=== PATIENT | male | born 1985 | race Caucasian/White ===

== ENCOUNTER 2022-10-17 09:55 | Outpatient (AMB) | payer OTHER, SELFPAY ==
--- NOTE | 2022-10-17 09:59 | A.OFFPC_ITS ---
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 Accompanied by: Self / Same As Patient Allergies No Known Allergies Allergy (Verified 10/17/22 10:10) Medication List - Last Reconciled 10/17/22 by MEMO Jaramillo omeprazole 20 mg PO DAILY Tobacco use date assessed: 10/17/22 Dental Screening Dental Screen Date: 10/17/22 Did you have a dental visit in the last 12 months?: Yes Did you have a dental problem in the last 6 months where you did not have access to dental care?: No Was dental information given to patient?: Patient has dentist HPI HPI Comments History of Present Illness Details 36-bee-old male new patient presents today for physical exam. Past medical history significant for GERD, anxiety,depression, esophagitis s/p esophageal dilation in November 2021. Patient reports was never able to follow up with GI as he is in the [employer] and was being re-stationed. Will sent referral to GI. Patient does report has throat pain susana and feels like it gets inflamed. Occasionally food gets stuck. Denies vomiting has occasional nausea. Patient also reporst fatigue and requesting to have his testosterone checked. Patient reported previously on sertraline for anxiety and depression but states he is feeling better since he changed up his work routine. [facility] Medical History (Updated 10/17/22 @ 10:34 by MEMO Jaramillo) Anxiety and depression Esophagitis History of esophageal dilatation Obstructive sleep apnea Surgical History (Updated 10/17/22 @ 10:12 by MEMO Jaramillo) H/O nasal septoplasty History of knee surgery History of tonsillectomy Family History (Updated 10/17/22 @ 10:13 by MEMO Jaramillo) Father Hypertension Heart attack, Onset Age: 35 Mother No problems noted. Paternal Grandfather Heart attack Social History (Updated 10/17/22 @ 10:13 by MEMO Jaramillo) Housing: House Alcohol intake: current Alcohol intake frequency: holidays/special occasions only Alcohol type: hard liquor Patient Tobacco Use Status: Never used Tobacco e-Cigarette/Vaping Use: Never Used Second Hand Smoke Exposure: No service: Yes Current occupational status: employed Current occupational exposures/hazards: No Cognitive needs: No Hearing needs: No Vision needs: Yes Questionnaire PHQ-9 Over the last 2 weeks, how often have you been bothered by any of the following problems? 1. Little interest or pleasure in doing things: not at all 2. Feeling down, depressed, or hopeless: not at all 3. Trouble falling or staying asleep, or sleeping too much: not at all 4. Feeling tired or having little energy: not at all 5. Poor appetite or overeating: not at all 6. Feeling bad about yourself - or that you are a failure or have let yourself or your family down: not at all 7. Trouble concentrating on things, such as reading the newspaper or watching television: not at all 8. Moving or speaking so slowly that other people could have noticed. Or the opposite - being so fidgety or restless that you have been moving around a lot more than usual: not at all 9. Thoughts that you would be better off or of hurting yourself in some way: not at all Total score: 0 Depression Screening Interpretation: Negative 62403 - PHQ-9 Billing: Yes Source: Developed by Drs. Tobias Rangel, Beth Dickens, Felipe Max and colleagues, with an educational yruy from [employer]. Thrive Questionnaire Date Thrive assessed: 10/17/22 I am a: Patient What is your living situation today?: I have a steady place to live Within the past 12 months, did the food you bought not last and you didn't have the money to get more?: Never true Within the past 12 months, did you worry whether your food would run out before you got money to buy more?: Never true Do you have trouble paying for medicines?: No Do you have trouble getting transportation to medical appointments?: No Do you have trouble paying your heating and electricity bill?: No Do you have trouble taking care of your child, family member or friend?: No Do you have trouble with day-to-day activities such as bathing, preparing meals, shopping, managing finances, etc.?: No Are you currently unemployed and looking for a job?: No Are you interested in more education?: No Please select the resources that you would like help with: None Currently or been in a relationship where the following occur: no concerns reported AUDIT C Alcohol Use Questionnaire (AUDIT-C) 1. How often do you have a drink containing alcohol?: Monthly or less 2. How many drinks containing alcohol do you have on a typical day when you are drinking?: 1 or 2 3. How often do you have six or more drinks on one occasion?: Never Total Score: 1 BERENICE-7 AMB Questionnaire BERENICE-7 Date BERENICE - 7 assessed: 10/17/22 Feeling nervous, anxious, or on edge: 0 = Not at all Not being able to stop or control worryin = Not at all Worrying too much about different things: 0 = Not at all Trouble relaxin = Not at all Being so restless that it is hard to sit still: 0 = Not at all Becoming easily annoyed or irritable: 0 = Not at all Feeling afraid as if something awful might happen: 0 = Not at all Total BERENICE-7 score (0-4 normal; 5-9 mild; 10-14 moderate; 15-21 severe): 0 Source: Developed by Drs. Tobias Rangel, Beth Dickens, Felipe Max and colleagues, with an educational yury from [employer]. BERENICE-7 Assessment Billing BERENICE-7 Assessment Tool: BERENICE-7 Assessment 87561 Review of Systems Const Denies chills, Denies fatigue, Denies fever(s) and Denies poor appetite Eyes Denies no additional complaints ENT Reports Normal hearing present Card Denies chest pain, Denies syncope, Denies rapid heart rate and Denies dyspnea Resp Denies cough and Denies dyspnea GI Denies change in stool character, Denies constipation, Denies diarrhea, Denies nausea and Denies vomiting Denies dysuria, Denies urinary frequency and Denies urinary urgency Neuro Reports Normal hearing present, Denies confusion and Denies syncope Psych Denies confusion Endo Denies fatigue Physical exam (Primary Care) Vital Signs: Last Vital Signs Pulse 63 10/17/22 10:00 BP 112/80 10/17/22 10:00 Pulse Ox 97 10/17/22 10:00 Oxygen Delivery Method Room Air 10/17/22 10:00 BMI result Body Mass Index 31.9 Tobacco/Smoking Status: Tobacco use Status Tobacco use date assessed 10/17/22 10/17/22 10:07 Patient Tobacco Use Status Never used Tobacco 10/17/22 10:13 e-Cigarette/Vaping Use Never Used 10/17/22 10:13 PHQ-9: PHQ-9 Score PHQ-9: Total score 0 10/17/22 10:19 Depression Screening Interpretation: Negative Thrive Assessment: Date of Thrive Assessment Date Thrive assessed 10/17/22 10/17/22 10:07 Currently or been in a relationship where the following occur: no concerns reported Const General: No confusion Orientation/consciousness: No confusion HENMT Head: Yes normocephalic and Yes atraumatic Ears: external ears normal and TM's normal bilaterally General nose exam: Normal external nose present and Normal nasal mucous membranes and turbinates present Face and sinus: Yes normal facial exam and Yes sinuses nontender Mouth: moist mucous membranes Throat: Yes tonsils normal Eyes Conjunctivae: conjunctivae normal Sclerae: sclerae normal Pupils: Equal, round and reactive pupils present and Pupils normal by confrontation EOM: EOMs intact bilaterally Direct Ophthalmoscopy: normal light reflex Neck Neck: Yes no lymphadenopathy and Yes supple Thyroid: diffusely enlarged Chest Chest palpation & inspection: normal inspection of the chest Resp Effort & Inspection: normal respiratory effort Auscultation: clear to auscultation bilaterally, no crackles, no rhonchi and no wheezes Cardio Rate: regular rate Rhythm: regular rhythm Peripheral pulses: radial pulses present and dorsalis pedis present GI Inspection: Yes normal to inspection Palpation (GI): Soft to palpation, nontender and No hepatosplenomegaly present Auscultation: normoactive bowel sounds Skin General skin exam: no rashes or lesions noted Neuro General: No confusion Cranial nerves: Yes Equal, round and reactive pupils present and Yes Normal hearing present Cognition (Neuro): normal cognition Gait exam (Neuro): Normal gait present Motor exam (neuro): 5/5 motor strength present throughout Deep tendon reflexes (DTR's): Right brachioradialis reflex intensity grade: 2+, Left brachioradialis reflex intensity grade: 2+, Right patellar reflex intensity grade: 2+ and Left patellar reflex intensity grade: 2+ Extrem General: No edema Assessment and Plan Assessment & Plan (1) Fatigue: Code(s): R53.83 - Other fatigue Plan: Will draw testosterone as requested by patient along with routine labs, vitamin D, B12,folate and B1 to assess for any deficiencies. (2) Obstructive sleep apnea: Code(s): G47.33 - Obstructive sleep apnea (adult) (pediatric) Plan: Patient uses CPAP for greater than 4 hours a night with good effect. Referral entered to pulmonology to establish care. Patient requesting new CPAP equipement. (3) Goiter: Code(s): E04.9 - Nontoxic goiter, unspecified Plan: Thyroid U/S ordered to [facility]. (4) Esophagitis: Code(s): K20.90 - Esophagitis, unspecified without bleeding Plan: Referral entered to GI to establish care. (5) GERD (gastroesophageal reflux disease): Code(s): K21.9 - Gastro-esophageal reflux disease without esophagitis Plan: Continue on omeprazole. Avoid the food that cause symptoms. keep HOB elevated, after eating do not lay down 3-4 hours (6) Physical exam, annual: Code(s): Z00.00 - Encounter for general adult medical examination without abnormal findings Plan: Follow up in 1 year, Orders: Orders Vitamin B12 and Folate Today Z13.21 - Encounter for screening for nutritional disorder Comprehensive [place]. Panel Fast Today R53.83 - Other fatigue Lipid Panel Today Z13.220 - Encounter for screening for lipoid disorders Testosterone, Free/Total Today R53.83 - Other fatigue TSH reflex Free T4 Today Z13.29 - Encounter for screening for other suspected endocrine disorder Vitamin B1 Today R53.83 - Other fatigue Vitamin D 25-OH Total Today Z13.21 - Encounter for screening for nutritional disorder Complete Blood Count Auto Diff Today Z13.0 - Encounter for screening for diseases of the blood and blood-forming organs and certain disorders involving the immune mechanism US thyroid Today E04.9 - Nontoxic goiter, unspecified Referrals Gastroenterology Referral K20.90 - Esophagitis, unspecified without bleeding, K21.9 - Gastro-esophageal reflux disease without esophagitis Pulmonology Referral G47.33 - Obstructive sleep apnea (adult) (pediatric) Coding Level of Care Code New Pt Prev Care 18-39yr([id number] Diagnoses Fatigue R53.83 Obstructive sleep apnea G47.33 Goiter E04.9 Esophagitis K20.90 GERD (gastroesophageal reflux disease) K21.9 Physical exam, annual Z00.00 Additional Codes BERENICE-7 Assessment Billing - BERENICE-7 Assessment Tool: BERENICE-7 Assessment [id number] ([id number])
[2022-10-17 10:00] VITALS: BP 112/80; PULSE 63; O2SAT 97; BMI 31.9
== END 2022-10-17 10:35 | disposition home or self-care (01) ==
PROVIDERS: PCP Nurse Practitioner Family; Visit Provider Nurse Practitioner Family
DX: Z00.00 Encounter for general adult medical examination without abnormal findings (principal); E04.9 Nontoxic goiter, unspecified; K21.9 Gastro-esophageal reflux disease without esophagitis; R53.83 Other fatigue; G47.33 Obstructive sleep apnea (adult) (pediatric); K20.90 Esophagitis, unspecified without bleeding
CPT/HCPCS: 99385

== ENCOUNTER 2022-10-21 10:03 | Outpatient (REF) | payer OTHER, SELFPAY ==
[2022-10-21 10:31] LABS: MANUAL DIFF FLAG NO
[2022-10-21 11:02] LABS: Basophils Percent Auto 0.5 % (0-2); Eosinophils Absolute Auto 0.2 X10*3/uL (0.0-0.4); Eosinophils Percent Auto 2.4 % (0-4); Hematocrit 46.2 % (42.0-52.0); Hemoglobin 15.9 g/dl (14.0-18.0); Imm Gran Abs Auto 0.02 X10*3/uL (0.00-0.03); Imm Gran Pct Auto 0.3 % (0.0-0.4); Lymphocytes Absolute Auto 2.2 X10*3/uL (1.2-4.9); Lymphocytes Percent Auto 34.7 % (20-40); Mean Corpuscular HGB Conc 34.4 g/dl (31.0-36.0); Mean Corpuscular Hemoglobin 30.6 pg (27.0-33.0); Mean Corpuscular Volume 88.8 fL (80.0-98.0); Mean Platelet Volume 11.9 fL (9.4-12.4); Monocytes Absolute Auto 0.7 X10*3/uL (0.1-1.2); Monocytes Percent Auto 11.8 % (2-11); Neutrophils Absolute Auto 3.2 x10*3/uL (2.0-8.3); Neutrophils Percent Auto 50.3 % (45-73); Platelet Count 173 X10*3/uL (160-400); Red Cell Distribution Width 11.6 % (11.0-16.0); White Blood Count 6.3 X10*3/uL (4.8-10.8)
[2022-10-21 19:58] LABS: Alanine Aminotransferase 37 U/L (0-40); Albumin Level 4.3 g/dL (3.5-5.0); Alkaline Phosphatase 100 U/L (39-117); Anion Gap 15 (12-20); Aspartate Amino Transferase 28 U/L (5-37); Bilirubin Total 0.9 mg/dL (0.0-1.0); Blood Urea Nitrogen 17 mg/dL (9-16); Calcium 9.9 mg/dL (8.4-10.2); Carbon Dioxide 25 mmol/L (22-29); Chloride 103 mmol/L (96-108); Cholesterol 225 mg/dL; Estimated Glomerular Filt Rate > 60; Glucose Fasting 85 mg/dL (60-99); HDL Cholesterol 44 mg/dL; LDL Cholesterol Calculated 157 mg/dl; Potassium 4.1 mmol/L (3.3-5.1); Sodium 139 mmol/L (135-145); Total Protein 7.9 g/dL (6.5-8.0); Triglycerides 123 mg/dL
[2022-10-21 20:15] LABS: TSH reflex Free T4 1.27 uIU/mL (0.32-4.0); Vitamin D 25-OH Total 53.3 ng/mL (>30)
[2022-10-21 20:28] LABS: Folate 10.7 ng/mL (> or = 4.0); Vitamin B12 981 pg/mL (200-900)
[2022-10-26 16:22] LABS: Vitamin B1 12 nmol/L (8-30)
[2022-10-26 21:03] LABS: Testosterone, Free 86.7 pg/mL (35.0-155.0); Testosterone, Total 466 ng/dL (250-1100)
== END 2022-10-21 10:04 | disposition home or self-care (01) ==
LOC: HO.LAB 10:03
PROVIDERS: PCP Nurse Practitioner Family; Visit Provider Nurse Practitioner Family
DX: Z13.21 Encounter for screening for nutritional disorder (principal); Z13.0 Encounter for screening for diseases of the blood and blood-forming organs and certain disorders involving the immune mechanism; Z13.220 Encounter for screening for lipoid disorders; Z13.29 Encounter for screening for other suspected endocrine disorder; R53.83 Other fatigue; E78.5 Hyperlipidemia, unspecified; E55.9 Vitamin D deficiency, unspecified
CPT/HCPCS: 36415; 80053; 80061; 82306; 82607; 82746; 84402; 84403; 84425; 84443; 85025

== ENCOUNTER 2022-10-31 15:29 | Outpatient (REF) | payer OTHER, SELFPAY ==
--- NOTE | ~2022-10-31 | US_ITS ---
EXAMINATION: US THYROID CLINICAL INFORMATION: Nontoxic goiter, unspecified. COMPARISON: None available. TECHNIQUE: Linear transducer grayscale and color Doppler examination with attention to the region of the thyroid. FINDINGS: SIZE: Measurements of the thyroid lobes and nodules are given in sagittal, anteroposterior and transverse dimensions respectively. Right Thyroid Lobe: 5.7 x 2.0 x 1.8 cm, volume 10.7 mL. Parenchyma: The gland echotexture is homogeneous. Thyroid vascularity is normal. Left Thyroid Lobe: 5.8 x 1.7 x 1.5 cm, volume 7.7 mL. Parenchyma: The gland echotexture is homogeneous. Thyroid vascularity is normal. Isthmus: 0.2 cm in maximum AP dimension. No focal thyroid nodule is seen. NODES: No lymphadenopathy is seen in the tissue surrounding the thyroid gland. US/US thyroid IMPRESSION: 1. There is a mild asymmetric goiter, left lobe greater than right. 2. Otherwise, unremarkable examination. ACR TI-RADS RECOMMENDATION REFERENCE: Ultrasound-guided fine-needle aspiration, followup ultrasound, no further follow up. * TR1 (0 point) and TR2 (2 points): No FNA or follow up. * TR3 (3 points): FNA if more than or equal to 2.5 cm in maximum dimension, followup ultrasound in 1, 3 and 5 years if 1.5 to 2.4 cm in maximum dimension. * TR4 (4-6 points): FNA if more than or equal to 1.5 cm in maximum dimension, followup ultrasound in 1, 2, 3 and 5 years if 1 to 1.4 cm in maximum dimension. * TR5 (more than or equal to 7 points): FNA if more than or equal to 1 cm in maximum dimension, followup ultrasound every year for 5 years if 0.5 to 0.9 cm in maximum dimension. * TR3, TR4 or TR5 nodules that are below the size threshold for followup receive no follow up.
== END 2022-10-31 15:30 | disposition home or self-care (01) ==
LOC: HO.HMGCX 15:29
PROVIDERS: PCP Nurse Practitioner Family; Visit Provider Nurse Practitioner Family
DX: E04.9 Nontoxic goiter, unspecified (principal)
CPT/HCPCS: 76536

== ENCOUNTER 2022-11-18 11:00 | Outpatient (AMB) | payer OTHER, SELFPAY ==
[2022-11-18 11:05] VITALS: BP 120/55; PULSE 71; BMI 32.5
--- NOTE | 2022-11-18 11:05 | A.OFFVIS_ITS ---
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 Patient was sent by his PCP. Patient reports occasional dyspepsia with dysphagia without odynophagia. Patient feels like food gets stuck talk and sometimes it hard to swallow. Patient reports that about 2 years ago when he used to live in [place] he had upper endoscopy and he was diagnosed is esophagitis and states that his esophagus was stretched then. Patient reports that he was doing well after for a while, however recently his symptoms of acid reflux and dyspepsia as well as occasional dysphagia came back. Patient reports that sometimes he will have trouble swallowing mainly solid food and feels difficulty in his her old. Patient is currently on omeprazole daily and feels like his symptoms have not improved since he started taking it. Patient denies choking episodes. Recently had neck ultrasound did show goiter. Patient reports that he is moving his bowel well. Denies any constipation or diarrhea. This nice any postprandial abdominal pain or bloating. Patient denies any nausea or vomiting. Denies any other GI concerning symptoms. [facility] Medical History Anxiety and depression Esophagitis History of esophageal dilatation Obstructive sleep apnea Surgical History H/O nasal septoplasty History of knee surgery History of tonsillectomy Family History Father Hypertension Heart attack, Onset Age: 35 Mother No problems noted. Paternal Grandfather Heart attack Social History Housing: House Alcohol intake: current Alcohol intake frequency: holidays/special occasions only Alcohol type: hard liquor Patient Tobacco Use Status: Never used Tobacco e-Cigarette/Vaping Use: Never Used Second Hand Smoke Exposure: No service: Yes Current occupational status: employed Current occupational exposures/hazards: No Cognitive needs: No Hearing needs: No Vision needs: Yes Review of Systems Const Denies weight gain and Denies weight loss ENT Reports no additional complaints, Reports dysphagia and Denies odynophagia Card Reports no additional complaints Resp Reports no additional complaints GI Denies abdominal pain, Denies belching, Denies melena, Denies bloating, Denies change in bowel habits, Reports dysphagia, Denies excessive flatus, Denies dyspepsia, Reports heartburn, Denies diarrhea, Denies loose stools, Denies nausea, Denies odynophagia and Denies vomiting Reports no additional complaints Musc Reports no additional complaints Neuro Reports no additional complaints Psych Reports no additional complaints Endo Reports no additional complaints Physical Exam Vital Signs: Last Vital Signs Pulse 71 11/18/22 11:05 BP 120/55 L 11/18/22 11:05 BMI result Body Mass Index 32.5 Const General: healthy appearing, no acute distress and well developed Nutritional Appearance: obese Orientation/consciousness: patient oriented x3 HEENT Head: Yes normal to inspection, Yes normocephalic and Yes atraumatic Face and sinus: Yes normal facial exam Mouth: Normal oral and palatal mucosa present Throat: Yes posterior oropharynx normal, Yes tonsils normal and Yes uvula midline Eyes General: appearance normal, both eyes and all related structures Neck Neck: Yes normal visual inspection, Yes full ROM and Yes trachea midline Thyroid: Thyroid normal Resp Effort & Inspection: normal respiratory effort, able to speak in complete sentences, no tracheal deviation and symmetric chest movement Auscultation: clear to auscultation bilaterally Cardio Rate: regular rate Heart sounds: S1 normal heart sound present and S2 normal heart sound present GI Inspection: Yes normal to inspection, No distended and Yes obesity Palpation (GI): Soft to palpation, not firm, nontender and No hepatosplenomegaly present Auscultation: normal bowel sounds General: Yes no CVA tenderness Back/Spine/Pelvis Back: no CVA tenderness Skin General skin exam: elasticity normal, turgor normal and dry skin Neuro General: patient oriented x3 Psych Appearance: grossly normal Mental Status: mental status grossly normal Speech and movement: Normal speech and movement present Assessment & Plan Assessment & Plan (1) GERD (gastroesophageal reflux disease): Code(s): K21.9 - Gastro-esophageal reflux disease without esophagitis Qualifiers: Esophagitis presence: esophagitis presence not specified Qualified Code(s): K21.9 - Gastro-esophageal reflux disease without esophagitis Plan: Patient reports history of esophagitis. Patient currently is taking omeprazole and still feels like his symptoms are not suppressed. Will start him on Nexium and he can take famotidine at bedtime. Patient will as are so encouraged to avoid dietary triggers and late night snacking. Staying upright for minimum 3 hours after meals discussed with patient. (2) Dysphagia: Code(s): R13.10 - Dysphagia, unspecified Qualifiers: Dysphagia type: oropharyngeal phase Qualified Code(s): R13.12 - Dysphagia, oropharyngeal phase Plan: Occasional dysphagia and dyspepsia. Patient will be sent for upper endoscopy to rule out eosinophilic esophagitis. I will see him after the procedure. Patient does have a history of sleep apnea and is using CPAP machine every night. Patient denies any respiratory or cardiac symptoms. Not on any anticoagulation medication. Patient is agreeable to this plan and verbalizes understanding of instructions. He was given the opportunity to ask questions and all questions answered. Medications: New famotidine (Pepcid) 20 mg PO BEDTIME 30 tabs 3RF K21.9 - Gastro-esophageal reflux disease without esophagitis esomeprazole magnesium (Nexium) 40 mg PO DAILY 30 caps 5RF K21.9 - Gastro- esophageal reflux disease without esophagitis Coding Level of Care Code New Pt Level 3 (12354) Diagnoses GERD (gastroesophageal reflux disease) K21.9 Esophagitis presence: esophagitis presence not specified Dysphagia R13.12 Dysphagia type: oropharyngeal phase Time Spent (min) 40 Comment 30 minutes spent with patient and additional 10 minutes spent reviewing his records
== END 2022-11-18 11:31 | disposition home or self-care (01) ==
PROVIDERS: PCP Nurse Practitioner Family; Visit Provider Nurse Practitioner Family
DX: K21.9 Gastro-esophageal reflux disease without esophagitis (principal); R13.12 Dysphagia, oropharyngeal phase
CPT/HCPCS: 99203

== ENCOUNTER → 2022-11-18 11:00 | Outpatient (BNVA) | payer OTHER, SELFPAY | PROVIDERS: PCP Nurse Practitioner Family; Visit Provider Nurse Practitioner Family | DX: K21.9 Gastro-esophageal reflux disease without esophagitis (principal); R13.12 Dysphagia, oropharyngeal phase | CPT/HCPCS: 99202 ==

== ENCOUNTER 2022-12-20 10:04 | Outpatient (AMB) | payer OTHER, SELFPAY ==
[2022-12-20 10:11] VITALS: BP 110/64; PULSE 77; O2SAT 97; BMI 33.3
--- NOTE | 2022-12-20 10:11 | MHC.OFFVIS ---
Intake Vital Signs 12/20/22 10:11 Height 5 ft 10 in Weight 232 lb BMI 33.3 BP 110/64 Blood Pressure Location Lt brachial Position Sitting Pulse 77 Pulse Source Pulse Oximeter Pulse Oximetry (%) 97 Oxygen Delivery Method Room Air Intake Visit Reasons: Obstructive sleep apnea Intake Note: pt is here as a new patient for BRIDGER, sleep study was done in [place] in 2018. needs replacement, machine saying end of life. 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 He is serving in the [employer] and based at [facility] at this time, for the past 1 year. Regionally he was based in [place]. About 5 years ago, he had a polysomnogram study in a sleep lab in [place]. The study was performed because he had history of frequent awakenings with gasping like feeling, at night, And excessive daytime sleepiness for quite a few years. He has been using CPAP machine every night. Without using the CPAP he is not able to sleep well anyway. The machine is 5 years old and some nights not functioning well. Also he is not able to get supplies. We do not have copy of his previous sleep study, he is going to try to get some information for us. [facility] Medical History (Updated 12/20/22 @ 10:46 by Ernst Hernandez MD) Somnolence, daytime Retrognathia Obesity (BMI 30.0-34.9) Anxiety and depression Obstructive sleep apnea History of esophageal dilatation Esophagitis Surgical History H/O nasal septoplasty History of tonsillectomy History of knee surgery Family History Father Hypertension Heart attack, Onset Age: 35 Mother No problems noted. Paternal Grandfather Heart attack Social History Housing: House Alcohol intake: current Alcohol intake frequency: holidays/special occasions only Alcohol type: hard liquor Patient Tobacco Use Status: Never used Tobacco e-Cigarette/Vaping Use: Never Used Second Hand Smoke Exposure: No service: Yes Current occupational status: employed Current occupational exposures/hazards: No Cognitive needs: No Hearing needs: No Vision needs: Yes Review of Systems Const All systems reviewed & are unremarkable except as noted in HPI and below Eyes Reports no additional complaints ENT Reports no additional complaints and Reports dysphagia Card Denies chest pain, Denies irregular heart rhythm, Denies leg edema and Denies dyspnea on exertion Resp Denies cough, Denies dyspnea on exertion and Denies wheezing GI Reports dysphagia and Reports heartburn (Being treated for GERD, has had esophageal dilatation.) Reports no additional complaints Musc Reports no additional complaints Skin/Breast Reports system reviewed and no additional complaints, except as documented Neuro Reports no additional complaints Psych Reports depression (Past history but not now) Endo Reports no additional complaints Keo/Lymph Reports no additional complaints Aller/Immun Reports no additional complaints and Denies wheezing Physical Exam Vital Signs: Last Vital Signs Pulse 77 12/20/22 10:11 BP 110/64 12/20/22 10:11 Pulse Ox 97 12/20/22 10:11 Oxygen Delivery Method Room Air 12/20/22 10:11 BMI result Body Mass Index 33.3 He is moderately obese, with a round face, and slight regression of the chin . Const General: healthy appearing, comfortable, no acute distress, alert and awake Orientation/consciousness: patient oriented x3 HEENT Head: Yes normal to inspection General nose exam: No nasal polyps present and No nasal discharge present Face and sinus: Yes sinuses nontender Mouth: oropharynx abnormals (Somewhat crowded, Mallampati class 3) Throat: Yes posterior oropharynx normal and Yes other (He does have mild Retro ganthia of the lower jaw ) Eyes General: appearance normal, both eyes and all related structures Neck Neck: Yes normal visual inspection, Yes no lymphadenopathy, Yes trachea midline, Yes no JVD and Yes other (Neck circumference 18 in) Thyroid: Thyroid normal Chest Chest palpation & inspection: normal inspection of the chest, normal palpation of entire chest wall and no tenderness Resp Effort & Inspection: normal respiratory effort Auscultation: clear to auscultation bilaterally, no crackles and no wheezes Cardio Palpation: normal PMI Rate: regular rate Rhythm: regular rhythm Heart sounds: no gallops and no murmurs Peripheral pulses: Peripheral pulses 2+ throughout GI Palpation (GI): Soft to palpation, nontender, No hepatosplenomegaly present and no masses Auscultation: normal bowel sounds Back/Spine/Pelvis Thoracic/Lumbar Spine: thoracic and lumbar spine normal to inspection Skin General skin exam: no rashes or lesions noted Neuro General: patient oriented x3 and no focal motor deficits Cranial nerves: Yes CN's II-XII intact bilaterally Extrem General: Yes normal to inspection, Yes no clubbing, cyanosis or edema and Yes no calf tenderness Psych Speech and movement: Normal speech and movement present Results Reviewed Results Reviewed: We are trying to get copy of his Sleep Study in 2018 Assessment & Plan Assessment & Plan (1) Obstructive sleep apnea: Comment: Known to have obstructive sleep apnea since 2018. Has been using CPAP regularly. Currently CPAP device is 5 years old and not functioning well at times. He needs to have a new CPAP device, with compliance data monitoring capability. * I think he should have a new home-based sleep study to document the diagnosis , and then request for a new device. Code(s): G47.33 - Obstructive sleep apnea (adult) (pediatric) (2) Obesity (BMI 30.0-34.9): Comment: He is moderately obese with a round face. 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 He does do regular exercise. Has not been able to lose much weight. Code(s): E66.9 - Obesity, unspecified (3) Retrognathia: Comment: Natty dental examination reveals a mild degree of Retroganthia of the lower jaw, and this the is definitely contributing to his sleep apnea. Code(s): M26.19 - Other specified anomalies of jaw-cranial base relationship (4) Somnolence, daytime: Comment: If he does not use the CPAP next day he is not able to function well due to being overly sleepy. Code(s): R40.0 - Somnolence Orders: Orders RT home sleep study Today E66.9 - Obesity, unspecified, G47.33 - Obstructive sleep apnea (adult) (pediatric), M26.19 - Other specified anomalies of jaw-cranial base relationship, R40.0 - Somnolence Coding Level of Care Code New Pt Level 3 (26822) Diagnoses Obstructive sleep apnea G47.33 Obesity (BMI 30.0-34.9) E66.9 Retrognathia M26.19 Somnolence, daytime R40.0
== END 2022-12-20 10:33 | disposition home or self-care (01) ==
PROVIDERS: PCP Nurse Practitioner Family; Referring Provider Nurse Practitioner Family; Visit Provider Internal Medicine
DX: G47.33 Obstructive sleep apnea (adult) (pediatric) (principal); E66.9 Obesity, unspecified; M26.19 Other specified anomalies of jaw-cranial base relationship; R40.0 Somnolence
CPT/HCPCS: 99203

== ENCOUNTER → 2022-12-20 10:04 | Outpatient (BNVA) | payer OTHER, SELFPAY | PROVIDERS: PCP Nurse Practitioner Family; Visit Provider Internal Medicine ==

== ENCOUNTER 2023-02-01 09:21 | Day surgery (SDC) | payer OTHER, SELFPAY ==
[2023-01-30 14:25] VITALS: BMI 32.6
--- NOTE | 2023-01-31 10:53 | HO.ANESPROP2 ---
Documented by User: Verena Mas NP 01/31/23 10:56 HPI - Anesthesia Eval Consult details Narrative: 37yo M for Upper Endoscopy with Balloon Dilitation BRIDGER / Retrognathia (lower jaw set back) [facility], [facility] Active Problems Active Problems: All Active Problems (Updated 12/20/22 @ 10:46 by Ernst Hernandez MD) Somnolence, daytime (Acute) Retrognathia (Acute) Obesity (BMI 30.0-34.9) (Acute) Goiter (Acute) Obstructive sleep apnea (Acute) Fatigue (Acute) Esophagitis (Acute) GERD (gastroesophageal reflux disease) (Acute) Past Medical History Medical History (Updated 12/20/22 @ 10:46 by Ernst Hernandez MD) Somnolence, daytime Retrognathia Obesity (BMI 30.0-34.9) Anxiety and depression Obstructive sleep apnea History of esophageal dilatation Esophagitis Family History Family History Father Hypertension Heart attack, Onset Age: 35 Mother No problems noted. Paternal Grandfather Heart attack Surgical History Surgical History H/O nasal septoplasty History of tonsillectomy History of knee surgery Social History Social History Housing: House Alcohol intake: current Alcohol intake frequency: holidays/special occasions only Alcohol type: hard liquor Patient Tobacco Use Status: Never used Tobacco e-Cigarette/Vaping Use: Never Used Second Hand Smoke Exposure: No Advance Directives: No Advance Directives Information Provided: Yes service: Yes Current occupational status: employed Current occupational exposures/hazards: No Cognitive needs: No Hearing needs: No Vision needs: Yes Meds Allergies Allergy/AdvReac Type Severity Reaction Status Date / Time No Known Allergies Allergy Verified 12/20/22 10:32 Home Medications Medication Instructions Recorded Confirmed Last Taken Type omeprazole 20 mg capsule,delayed 20 mg PO DAILY 12/20/22 01/30/23 Unknown History release famotidine 20 mg tablet 20 mg PO BEDTIME 01/30/23 01/30/23 Unknown History Exam Exam Date and Time: January 31, 2023 1053 Height,Weight and Vital Signs: Height 5 ft 10 in Weight 102.965 kg Pertinent Lab Results Pertinent Lab Results: Laboratory Tests 10/21/22 10:29 WBC 6.3 Hgb 15.9 Hct 46.2 Plt Count 173 Sodium 139 Potassium 4.1 Chloride 103 Carbon Dioxide 25 BUN 17 H Creatinine 0.92 Assessment and Plan Assessment Anesthesia Assessment: Chart Reviewed Documented by User: Harjit Santiago MD 02/01/23 11:20 [facility] Past Medical History Medical History (Updated 12/20/22 @ 10:46 by Ernst Hernandez MD) Somnolence, daytime Retrognathia Obesity (BMI 30.0-34.9) Anxiety and depression Obstructive sleep apnea History of esophageal dilatation Esophagitis Family History Family History Father Hypertension Heart attack, Onset Age: 35 Mother No problems noted. Paternal Grandfather Heart attack Family history of problems with anesthesia: No Surgical History Surgical History H/O nasal septoplasty History of tonsillectomy History of knee surgery History of Problems with Anesthesia: No Social History Social History Housing: House Alcohol intake: current Alcohol intake frequency: holidays/special occasions only Alcohol type: hard liquor Patient Tobacco Use Status: Never used Tobacco e-Cigarette/Vaping Use: Never Used Second Hand Smoke Exposure: No Advance Directives: No Advance Directives Information Provided: Yes service: Yes Current occupational status: employed Current occupational exposures/hazards: No Cognitive needs: No Hearing needs: No Vision needs: Yes Meds Allergies Allergy/AdvReac Type Severity Reaction Status Date / Time No Known Allergies Allergy Verified 12/20/22 10:32 Home Medications Medication Instructions Recorded Confirmed Last Taken Type omeprazole 20 mg capsule,delayed 20 mg PO DAILY 12/20/22 01/30/23 Unknown History release famotidine 20 mg tablet 20 mg PO BEDTIME 01/30/23 01/30/23 Unknown History Exam Airway Mallampati Class: III TM Dist: >3cm Neck ROM: Full Heart: rrr Lungs: cta Assessment and Plan Assessment Anesthesia Assessment: Anesthesia Plan Discussed Final Anesthetic Review Family History of Problems with Anesthesia: No History of Problems with Anesthesia: No NPO: Yes ASA Class: II Final Preanesthetic Review: No Changes in Pt Med Stat, Meds/Allgs Chart Reviewed, Consent Obtained/Reviewed and Anes Risks/Benef Reviewed Patient Risk: Intermediate Procedure Risk: Intermediate Anesthetic Plan Anesthetic Plan: MAC: and Agree w/ Assess. and Plan Disposition: Standard PACU
[2023-02-01 09:58] VITALS: BP 121/80; PULSE 74; RESP 20; TEMP 36.4; O2SAT 96
[2023-02-01] MEDS: Lactated Ringers 1,000 ML 100 ML IVCONT (10:06)
--- NOTE | 2023-02-01 11:18 | MHC.SHP ---
Pre-Procedural Eval Section A Date of Service: 02/01/23 Section B Chief Complaint: Gastro-esophageal reflux disease without esophagit Relevant Family History (Specify if Yes): No Relevant Social History: None Present Medications: see Short Stay Collaborative assessment Medical History: Significant History (Somnolence, daytime Retrognathia Obesity (BMI 30.0-34.9) Anxiety and depression Obstructive sleep apnea History of esophageal dilatation Esophagitis) History of Previous Operations: Relevant previous surgery/procedure and date(s) (H/O nasal septoplasty History of tonsillectomy History of knee surgery) Allergies: Allergies Allergy/AdvReac Type Severity Reaction Status Date / Time No Known Allergies Allergy Verified 12/20/22 10:32 Review of Systems Sugical H&P ROS: Negative: Constitution, Cardiovascular, Respiratory, Neurological, Psychiatric, Hem-Onc, Allergic/Immunologic, Gastrointestinal, Genitourinary, Musculoskeletal, Integumentary, Endocrine and Eyes/Ears/Nose/Throat Exam Surgical H&P Exam: Normal: HEENT, Normal: Heart, Normal: Lungs, Normal: Extremities, Normal: Abdomen, Normal: Skin and Normal: Neurological Plan Diagnosis/Plan: Unchanged I have reviewed the history and physical and performed a pertinent physical examination on my patient. No changes have occurred unless specified. Time Spent With Patient Time: Total time managing care of this patient today ____ minutes.
--- NOTE | 2023-02-01 11:20 | W.PM.OPN ---
Operative Note Operative Note Date of Service: 02/01/23 Narrative: Procedure Description: EGD Indication: [] Anesthesia: MAC FLEXIBLE TRANSORAL UPPER GASTROINTESTINAL ENDOSCOPY UPPER ENDOSCOPY Consent: Indications for the procedure and potential complications of bleeding, perforation, reaction to medications and missed diagnosis were discussed with the patient and informed consent was obtained. Instrument: Olympus GIF H 190 J mid size upper endoscope Monitoring: Vital signs and clinical assessment, continuous EKG monitoring, Pulse oximetry, Carbon Dioxide monitoring and blood pressure monitoring were done throughout the procedure. Procedure: The patient was placed in the left lateral decubitis position and pre-procedure medications were administered and a bite block was placed. The endoscope was inserted into the mouth and advanced under direct vision to the third part of duodenum. A careful inspection was made as the upper endoscope was withdrawn including a retroflexed examination of the proximal stomach; Findings and interventions are described below. Findings: Larynx: mild erythema of vocal cords Esophagus: GE junction at 40 cm, diaphragm hiatus at 42 cm, consistent with 2 cm sliding hiatal hernia, there was bogginess and erythema at the GEJ, bx taken, also from distal and proximal esophagus--balloon dilation done of UES to 20 mm and UES to 19 mm, no tears seen --one clip was applied over a biopsy site that kept bleeding Stomach: Patchy gastric erythema. Biopsies were obtained. Grade 2 flap valve on retroflexed examination of the cardia. Duodenum: Normal bulb and descending duodenum, Intervention: Biopsies as noted above, balloon dilation Impression/Findings: hiatal hernia esophagitis gastritis PLAN: await biopsies might consider increasing PPI dose or go to BID dosing -will await results
[2023-02-01 11:55] VITALS: BP 118/79; PULSE 82; RESP 15; TEMP 36.1; O2SAT 98
[2023-02-01 12:10] VITALS: BP 127/76; PULSE 70; RESP 20; TEMP 36.1; O2SAT 95
== END 2023-02-01 12:49 | disposition home or self-care (01) ==
PROVIDERS: Visit Provider Internal Medicine Gastroenterology
PROC: (CPT 43249; principal; 2023-02-01 11:00)
DX: K20.90 Esophagitis, unspecified without bleeding (principal); K29.70 Gastritis, unspecified, without bleeding; K44.9 Diaphragmatic hernia without obstruction or gangrene; K22.89 Other specified disease of esophagus; R13.10 Dysphagia, unspecified; K21.9 Gastro-esophageal reflux disease without esophagitis; E66.9 Obesity, unspecified; Z68.32 Body mass index [BMI] 32.0-32.9, adult; G47.33 Obstructive sleep apnea (adult) (pediatric); Z99.89 Dependence on other enabling machines and devices; Z79.899 Other long term (current) drug therapy
CPT/HCPCS: 43249; 43239; 88305; 88342; C1726; J2704

== ENCOUNTER → 2023-02-01 09:21 | Outpatient (BNV) | payer OTHER, SELFPAY | PROVIDERS: Visit Provider Internal Medicine Gastroenterology | DX: R13.10 Dysphagia, unspecified (principal); K29.70 Gastritis, unspecified, without bleeding; K20.90 Esophagitis, unspecified without bleeding | CPT/HCPCS: 43249 ==

== ENCOUNTER 2023-02-15 09:52 | Outpatient (AMB) | payer OTHER, SELFPAY ==
--- NOTE | 2023-02-15 10:02 | MHC.OFFVIS ---
Intake Vital Signs 02/15/23 10:04 Height 5 ft 10 in Weight 238 lb 1.588 oz BMI 34.2 BP 111/65 Blood Pressure Location Lt brachial Position Sitting Pulse 84 Intake Visit Reasons: s/p egd dil Intake Note: Rickey presents in the office as a follow up EGD w/ Dil. CC: he states that he feels the same as he did prior to the procedure. He states the issue swallowing has improved but reflux is all the same. It is easier to swallow food. Allergies No Known Allergies Allergy (Verified 02/15/23 10:04) HPI s/p egd dil HPI Details LAST VISIT GERD (gastroesophageal reflux disease) Patient reports history of esophagitis. Patient currently is taking omeprazole and still feels like his symptoms are not suppressed. Will start him on Nexium and he can take famotidine at bedtime. Patient will as are so encouraged to avoid dietary triggers and late night snacking. Staying upright for minimum 3 hours after meals discussed with patient. Dysphagia Occasional dysphagia and dyspepsia. Patient will be sent for upper endoscopy to rule out eosinophilic esophagitis. I will see him after the procedure. Patient does have a history of sleep apnea and is using CPAP machine every night. Patient denies any respiratory or cardiac symptoms. Not on any anticoagulation medication. Patient is agreeable to this plan and verbalizes understanding of instructions. He was given the opportunity to ask questions and all questions answered. Plan Medications New famotidine (Pepcid) 20 mg PO BEDTIME 30 tabs 3RF K21.9 - Gastro-esophageal reflux disease without esophagitis esomeprazole magnesium (Nexium) 40 mg PO DAILY 30 caps 5RF K21.9 - Gastro-esophageal reflux disease without esophagitis ENDOSCOPY: Findings: Larynx: mild erythema of vocal cords Esophagus: GE junction at 40 cm, diaphragm hiatus at 42 cm, consistent with 2 cm sliding hiatal hernia, there was bogginess and erythema at the GEJ, bx taken, also from distal and proximal esophagus--balloon dilation done of UES to 20 mm and UES to 19 mm, no tears seen --one clip was applied over a biopsy site that kept bleeding Stomach: Patchy gastric erythema. Biopsies were obtained. Grade 2 flap valve on retroflexed examination of the cardia. Duodenum: Normal bulb and descending duodenum, Intervention: Biopsies as noted above, balloon dilation Impression/Findings: hiatal hernia esophagitis gastritis PATHOLOGY RESULTS: Diagnosis A. Stomach, biopsies: Mild chronic inactive gastritis; no evidence of H. pylori, intestinal metaplasia or dysplasia. B. G-E junction, biopsies: Inflamed squamoglandular junctional mucosa with reactive changes, no evidence of intestinal metaplasia or dysplasia. C. Distal esophagus, biopsies: Esophageal squamous mucosa with no diagnostic abnormality; no evidence of active esophagitis, fungal organisms, dysplasia or malignancy. D. Proximal esophagus, biopsies: Esophageal squamous mucosa with no diagnostic abnormality; no evidence of active esophagitis, fungal organisms, dysplasia or malignancy TODAY'S VISIT Patient is here today for follow-up and to discuss upper endoscopy results. Patient denies any ill effects from anesthesia or procedure itself. Patient reports that he is feeling better. His swallowing has improved. As mentioned above patient had balloon dilation. He however continues to have acid reflux and dyspepsia. Patient is currently taking omeprazole every morning. Trying to avoid eating food that is spicy or fried. Occasionally eating late at night. Patient denies any nausea or vomiting. Denies any abdominal pain or discomfort. GE junction mild inflammation seen, however no active esophagitis seen in distal or proximal esophagus. [facility] Medical History Somnolence, daytime Retrognathia Obesity (BMI 30.0-34.9) Anxiety and depression Obstructive sleep apnea History of esophageal dilatation Esophagitis Surgical History History of esophagogastroduodenoscopy (EGD) H/O nasal septoplasty History of tonsillectomy History of knee surgery Family History Father Hypertension Heart attack, Onset Age: 35 Mother No problems noted. Paternal Grandfather Heart attack Social History Housing: House Alcohol intake: current Alcohol intake frequency: holidays/special occasions only Alcohol type: hard liquor Patient Tobacco Use Status: Never used Tobacco e-Cigarette/Vaping Use: Never Used Second Hand Smoke Exposure: No service: Yes Current occupational status: employed Current occupational exposures/hazards: No Cognitive needs: No Hearing needs: No Vision needs: Yes Review of Systems Const Denies weight gain and Denies weight loss ENT Reports no additional complaints, Denies dysphagia and Denies odynophagia Card Reports no additional complaints Resp Reports no additional complaints GI Denies abdominal pain, Denies belching, Denies melena, Denies bloating, Denies change in bowel habits, Denies dysphagia, Denies excessive flatus, Denies dyspepsia, Reports heartburn, Denies diarrhea, Denies loose stools, Denies nausea, Denies odynophagia and Denies vomiting Reports no additional complaints Musc Reports no additional complaints Neuro Reports no additional complaints Psych Reports no additional complaints Endo Reports no additional complaints Physical Exam Vital Signs: Last Vital Signs Pulse 84 02/15/23 10:04 BP 111/65 02/15/23 10:04 BMI result Body Mass Index 34.2 Const General: healthy appearing, no acute distress and well developed Nutritional Appearance: obese Orientation/consciousness: patient oriented x3 HEENT Head: Yes normal to inspection, Yes normocephalic and Yes atraumatic Face and sinus: Yes normal facial exam Mouth: Normal oral and palatal mucosa present Throat: Yes posterior oropharynx normal, Yes tonsils normal and Yes uvula midline Eyes General: appearance normal, both eyes and all related structures Neck Neck: Yes normal visual inspection, Yes full ROM and Yes trachea midline Thyroid: Thyroid normal Resp Effort & Inspection: normal respiratory effort, able to speak in complete sentences, no tracheal deviation and symmetric chest movement Auscultation: clear to auscultation bilaterally Cardio Rate: regular rate GI Inspection: Yes normal to inspection, No distended and Yes obesity Palpation (GI): Soft to palpation, not firm, nontender and No hepatosplenomegaly present Auscultation: normal bowel sounds General: Yes no CVA tenderness Back/Spine/Pelvis Back: no CVA tenderness Skin General skin exam: elasticity normal, turgor normal and dry skin Neuro General: patient oriented x3 Psych Appearance: grossly normal Mental Status: mental status grossly normal Assessment & Plan Assessment & Plan (1) GERD (gastroesophageal reflux disease): Code(s): K21.9 - Gastro-esophageal reflux disease without esophagitis Qualifiers: Esophagitis presence: esophagitis presence not specified Qualified Code(s): K21.9 - Gastro-esophageal reflux disease without esophagitis (2) Esophagitis: Code(s): K20.90 - Esophagitis, unspecified without bleeding (3) Dysphagia: Code(s): R13.10 - Dysphagia, unspecified Qualifiers: Dysphagia type: pharyngoesophageal phase Qualified Code(s): R13.14 - Dysphagia, pharyngoesophageal phase Plan Will change patient treatment to pantoprazole. Patient will call our office if he will continue to have symptoms. Patient was encouraged to avoiding dietary triggers especially late night snacking. Staying upright for minimum 3 hours after meals discussed with patient. Patient will be put on famotidine at bedtime. I will see him in the office in 3 months, sooner on as needed basis. Patient is agreeable to this plan and verbalizes understanding of instructions. He was given the opportunity to ask questions and all questions answered. Thank you for allowing me to participate in his care Medications: New famotidine 40 mg PO BEDTIME 30 tabs 4RF K21.9 - Gastro-esophageal reflux disease without esophagitis pantoprazole take one tablet half an hour before breakfast 40 mg PO DAILY 30 tabs 4RF K21.9 - Gastro-esophageal reflux disease without esophagitis Discontinued omeprazole Discontinued Reason: Doctor's Order 40 mg PO DAILY 90 caps 2RF Coding Level of Care Code Est Pt Level 3 (65568) Diagnoses Gastroesophageal reflux disease, unspecified whether esophagitis present K21.9 Esophagitis presence: esophagitis presence not specified Esophagitis K20.90 Pharyngoesophageal dysphagia R13.14 Dysphagia type: pharyngoesophageal phase Time Spent (min) 30 Comment 20 minutes spent with patient and additional 10 minutes spent reviewing his records
[2023-02-15 10:04] VITALS: BP 111/65; PULSE 84; BMI 34.2
== END 2023-02-15 10:38 | disposition home or self-care (01) ==
PROVIDERS: PCP Nurse Practitioner Family; Visit Provider Nurse Practitioner Family
DX: K21.9 Gastro-esophageal reflux disease without esophagitis (principal); K20.90 Esophagitis, unspecified without bleeding; R13.14 Dysphagia, pharyngoesophageal phase
CPT/HCPCS: 99213

== ENCOUNTER → 2023-02-15 09:52 | Outpatient (BNVA) | payer OTHER, SELFPAY | PROVIDERS: PCP Nurse Practitioner Family; Visit Provider Nurse Practitioner Family | DX: K21.9 Gastro-esophageal reflux disease without esophagitis (principal); K20.90 Esophagitis, unspecified without bleeding; R13.14 Dysphagia, pharyngoesophageal phase | CPT/HCPCS: 99212 ==

== ENCOUNTER 2023-05-17 10:36 | Outpatient (AMB) | payer OTHER, SELFPAY ==
--- NOTE | 2023-05-17 10:40 | A.OFFVIS_ITS ---
Intake Vital Signs 05/17/23 10:41 Height 5 ft 10 in Weight 233 lb 11.04 oz BMI 33.5 BP 115/74 Blood Pressure Location Lt brachial Position Sitting Pulse 75 Intake Visit Reasons: 3month followup Intake Note: Rickey presents in the office as a 3 month follow up. CC: He states that the medication in the am is helpful but the bedtime one he does not see a difference and he will feel bad in the am until he takes that medication. 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 Patient will call our office if he will continue to have symptoms. Patient was encouraged to avoiding dietary triggers especially late night snacking. Staying upright for minimum 3 hours after meals discussed with patient. Patient will be put on famotidine at bedtime. I will see him in the office in 3 months, sooner on as needed basis. Patient is agreeable to this plan and verbalizes understanding of instructions. He was given the opportunity to ask questions and all questions answered. ? Thank you for allowing me to participate in his care Medications New famotidine 40 mg PO BEDTIME 30 tabs 4RF K21.9 pantoprazole take one tablet half an hour before breakfast 40 mg PO DAILY 30 tabs 4RF K21.9 Discontinued omeprazole Discontinued Reason: Doctor's Order 40 mg PO DAILY 90 caps 2RF UPPER ENDOSCOPY Findings: Larynx: mild erythema of vocal cords Esophagus: GE junction at 40 cm, diaphragm hiatus at 42 cm, consistent with 2 cm sliding hiatal hernia, there was bogginess and erythema at the GEJ, bx taken, also from distal and proximal esophagus--balloon dilation done of UES to 20 mm and UES to 19 mm, no tears seen --one clip was applied over a biopsy site that kept bleeding Stomach: Patchy gastric erythema. Biopsies were obtained. Grade 2 flap valve on retroflexed examination of the cardia. Duodenum: Normal bulb and descending duodenum, Intervention: Biopsies as noted above, balloon dilation Impression/Findings: hiatal hernia esophagitis gastritis PLAN: await biopsies might consider increasing PPI dose or go to BID dosing -will await results PATHOLOGY RESULTS Diagnosis A. Stomach, biopsies: Mild chronic inactive gastritis; no evidence of H. pylori, intestinal metaplasia or dysplasia. B. G-E junction, biopsies: Inflamed squamoglandular junctional mucosa with reactive changes, no evidence of intestinal metaplasia or dysplasia. C. Distal esophagus, biopsies: Esophageal squamous mucosa with no diagnostic abnormality; no evidence of active esophagitis, fungal organisms, dysplasia or malignancy. D. Proximal esophagus, biopsies: Esophageal squamous mucosa with no diagnostic abnormality; no evidence of active esophagitis, fungal organisms, dysplasia or malignancy TODAY'S VISIT: Patient is here today for follow-up and to discuss upper endoscopy results. Patient reports that he has been feeling better, however feels like famotidine is not fully working. Still wakes up in the morning with epigastric discomfort and dyspepsia. Feels better of her he takes pantoprazole. Patient takes burnette toprazole only once a day. Recommendation was to increase PPI to twice a day. Patient is trying to avoid dietary triggers. Does not eat late at night. Trying to change his diet, eating healthier. Endoscopy results and biopsy results discussed with patient. FORMERLY [facility], [facility] Medical History Somnolence, daytime Retrognathia Obesity (BMI 30.0-34.9) Anxiety and depression Obstructive sleep apnea History of esophageal dilatation Esophagitis Surgical History History of esophagogastroduodenoscopy (EGD) H/O nasal septoplasty History of tonsillectomy History of knee surgery Family History Father Hypertension Heart attack, Onset Age: 35 Mother No problems noted. Paternal Grandfather Heart attack Social History Housing: House Alcohol intake: current Alcohol intake frequency: holidays/special occasions only Alcohol type: hard liquor Patient Tobacco Use Status: Never used Tobacco e-Cigarette/Vaping Use: Never Used Second Hand Smoke Exposure: No service: Yes Current occupational status: employed Current occupational exposures/hazards: No Cognitive needs: No Hearing needs: No Vision needs: Yes Review of Systems Const Denies weight gain and Denies weight loss ENT Reports no additional complaints, Denies dysphagia and Denies odynophagia Card Reports no additional complaints Resp Reports no additional complaints GI Denies abdominal pain, Denies belching, Denies melena, Denies bloating, Denies change in bowel habits, Denies dysphagia, Denies excessive flatus, Denies dyspepsia, Denies heartburn, Denies diarrhea, Denies loose stools, Denies nausea, Denies odynophagia and Denies vomiting Reports no additional complaints Musc Reports no additional complaints Neuro Reports no additional complaints Psych Reports no additional complaints Endo Reports no additional complaints Physical Exam Const General: healthy appearing, no acute distress and well developed Nutritional Appearance: well nourished Orientation/consciousness: patient oriented x3 Resp Effort & Inspection: normal respiratory effort, able to speak in complete sentences, no tracheal deviation and symmetric chest movement Auscultation: clear to auscultation bilaterally Cardio Rate: regular rate GI Inspection: Yes normal to inspection and No distended Palpation (GI): Soft to palpation, not firm, nontender and No hepatosplenomegaly present Auscultation: normal bowel sounds General: Yes no CVA tenderness Back/Spine/Pelvis Back: no CVA tenderness Skin General skin exam: elasticity normal, turgor normal and dry skin Neuro General: patient oriented x3 Psych Appearance: grossly normal Mental Status: mental status grossly normal Assessment & Plan Assessment & Plan (1) GERD (gastroesophageal reflux disease): Code(s): K21.9 - Gastro-esophageal reflux disease without esophagitis Qualifiers: Esophagitis presence: esophagitis presence not specified Qualified Code(s): K21.9 - Gastro-esophageal reflux disease without esophagitis (2) Esophagitis: Code(s): K20.90 - Esophagitis, unspecified without bleeding (3) Dysphagia: Code(s): R13.10 - Dysphagia, unspecified Qualifiers: Dysphagia type: pharyngoesophageal phase Qualified Code(s): R13.14 - Dysphagia, pharyngoesophageal phase Plan Patient continues to have occasional dysphagia. Wakes up with acid reflux and epigastric discomfort, better after taking pantoprazole in the morning. Will stop famotidine and start him on sucralfate. Discussed with patient avoiding dietary triggers late night snacking. Staying upright for minimum 3 hours after meals discussed with patient. Patient will return in 3 months, sooner on as needed basis. Patient is agreeable to this plan and verbalizes understanding of instructions. He was given the opportunity to ask questions and all questions answered. Thank you for allowing me to participate in his care Orders: Referrals Dermatology Referral L30.9 - Dermatitis, unspecified Medications: New sucralfate 1 g PO BEDTIME 30 tabs 4RF R19.7 - Diarrhea, unspecified Discontinued famotidine Discontinued Reason: Doctor's Order 40 mg PO BEDTIME 30 tabs 4RF K21.9 - Gastro-esophageal reflux disease without esophagitis Coding Level of Care Code Est Pt Level 3 (42116) Diagnoses Gastroesophageal reflux disease, unspecified whether esophagitis present K21.9 Esophagitis presence: esophagitis presence not specified Esophagitis K20.90 Pharyngoesophageal dysphagia R13.14 Dysphagia type: pharyngoesophageal phase Time Spent (min) 25 Comment 15 minutes spent with patient and additional 10 minutes spent reviewing his records
[2023-05-17 10:41] VITALS: BP 115/74; PULSE 75; BMI 33.5
== END 2023-05-17 11:11 | disposition home or self-care (01) ==
PROVIDERS: PCP Nurse Practitioner Family; Visit Provider Nurse Practitioner Family
DX: K21.9 Gastro-esophageal reflux disease without esophagitis (principal); K20.90 Esophagitis, unspecified without bleeding; R13.14 Dysphagia, pharyngoesophageal phase
CPT/HCPCS: 99213

== ENCOUNTER → 2023-05-17 10:36 | Outpatient (BNVA) | payer OTHER, SELFPAY | PROVIDERS: PCP Nurse Practitioner Family; Visit Provider Nurse Practitioner Family | DX: K21.9 Gastro-esophageal reflux disease without esophagitis (principal); K20.90 Esophagitis, unspecified without bleeding; R13.14 Dysphagia, pharyngoesophageal phase | CPT/HCPCS: 99212 ==

== ENCOUNTER 2023-05-31 10:30 | Outpatient (AMB) | payer OTHER, SELFPAY ==
--- NOTE | 2023-05-31 10:43 | A.OFFPC_ITS ---
Vital Signs 05/31/23 10:46 Height 5 ft 10 in Weight 235 lb 6 oz BMI 33.8 BP 124/74 Blood Pressure Location Lt brachial Position Sitting Pulse 73 Pulse Source Pulse Oximeter Pulse Oximetry (%) 94 Oxygen Delivery Method Room Air Intake Visit Reasons: [facility] 05/01 lower groin pain Intake Note: Patient is here to follow-up after a visit the emergency department at [facility] on 05/01/23. Complaint of unusual fatigue and blurry vision ongoing for 6 month. 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 Accompanied by: Self / Same As Patient Allergies No Known Allergies Allergy (Verified 05/31/23 10:46) Medication List - Last Reconciled 06/01/23 by Angelo Samuel MD pantoprazole 40 mg PO DAILY sucralfate 1 g PO BEDTIME Tobacco use date assessed: 05/31/23 Dental Screening Dental Screen Date: 05/31/23 Did you have a dental visit in the last 12 months?: Yes Did you have a dental problem in the last 6 months where you did not have access to dental care?: No Was dental information given to patient?: Patient has dentist HPI [facility] 05/01 lower groin pain HPI Details 37-year-old male presents to the office to discuss his medical conditions. I am assuming his care as his primary care provider has left the practice. Patient was in the emergency room at [facility] complaining of testicular pain. He was diagnosed with an STD and given medications. Symptoms have all resolved but was advised to come here for a follow-up. Able to function and do all activities of daily living. Patient is sexually active and has no difficulty in performance. Able to urinate with no difficulty. 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 Is complaining of blurred vision at times with discomfort on reading. No tearing in the eyes or any discharge. No unusual discomfort to bright light. [facility] Medical History Somnolence, daytime Retrognathia Obesity (BMI 30.0-34.9) Anxiety and depression Obstructive sleep apnea History of esophageal dilatation Esophagitis Surgical History History of esophagogastroduodenoscopy (EGD) H/O nasal septoplasty History of tonsillectomy History of knee surgery Family History Father Hypertension Heart attack, Onset Age: 35 Mother No problems noted. Paternal Grandfather Heart attack Social History Housing: House Alcohol intake: current Alcohol intake frequency: holidays/special occasions only Alcohol type: hard liquor Patient Tobacco Use Status: Never used Tobacco e-Cigarette/Vaping Use: Never Used Second Hand Smoke Exposure: No service: Yes Current occupational status: employed Current occupational exposures/hazards: No Cognitive needs: No Hearing needs: No Vision needs: Yes Questionnaire PHQ-9 Over the last 2 weeks, how often have you been bothered by any of the following problems? 1. Little interest or pleasure in doing things: not at all 2. Feeling down, depressed, or hopeless: not at all 3. Trouble falling or staying asleep, or sleeping too much: not at all 4. Feeling tired or having little energy: not at all 5. Poor appetite or overeating: not at all 6. Feeling bad about yourself - or that you are a failure or have let yourself or your family down: not at all 7. Trouble concentrating on things, such as reading the newspaper or watching television: not at all 8. Moving or speaking so slowly that other people could have noticed. Or the opposite - being so fidgety or restless that you have been moving around a lot more than usual: not at all 9. Thoughts that you would be better off or of hurting yourself in some way: not at all Total score: 0 Depression Screening Interpretation: Negative Depression Screening Done: Yes Source: Developed by Drs. Tobias Rangel, Beth Dickens, Felipe Max and colleagues, with an educational yury from [employer]. Thrive Questionnaire Date Thrive assessed: 10/17/22 I am a: Patient What is your living situation today?: I have a steady place to live Within the past 12 months, did the food you bought not last and you didn't have the money to get more?: Never true Within the past 12 months, did you worry whether your food would run out before you got money to buy more?: Never true Do you have trouble paying for medicines?: No Do you have trouble getting transportation to medical appointments?: No Do you have trouble paying your heating and electricity bill?: No Do you have trouble taking care of your child, family member or friend?: No Do you have trouble with day-to-day activities such as bathing, preparing meals, shopping, managing finances, etc.?: No Are you currently unemployed and looking for a job?: No Are you interested in more education?: No Currently or been in a relationship where the following occur: no concerns reported THRIVE Score: 0 AUDIT C Alcohol Use Questionnaire (AUDIT-C) 1. How often do you have a drink containing alcohol?: Monthly or less 2. How many drinks containing alcohol do you have on a typical day when you are drinking?: 1 or 2 Total Score: 1 BERENICE-7 AMB Questionnaire BERENICE-7 Date BERENICE - 7 assessed: 05/31/23 Feeling nervous, anxious, or on edge: 0 = Not at all Not being able to stop or control worryin = Not at all Worrying too much about different things: 0 = Not at all Trouble relaxin = Not at all Being so restless that it is hard to sit still: 0 = Not at all Becoming easily annoyed or irritable: 0 = Not at all Feeling afraid as if something awful might happen: 0 = Not at all Total BERENICE-7 score (0-4 normal; 5-9 mild; 10-14 moderate; 15-21 severe): 0 Source: Developed by Drs. Tobias Rangel, Beth Dickens, Felipe Max and colleagues, with an educational yury from [employer]. Physical exam (Primary Care) Vital Signs: Last Vital Signs Pulse 73 05/31/23 10:46 BP 124/74 05/31/23 10:46 Pulse Ox 94 05/31/23 10:46 Oxygen Delivery Method Room Air 05/31/23 10:46 Care Plan Goal for BP management: Blood pressure is in range. BMI result Body Mass Index 33.8 BMI Assessment/Plan discussion: High (1 lb per week weight loss suggested.) BMI High, discussed plan: lifestyle, weight reduction and dietary Tobacco/Smoking Status: Tobacco use Status Tobacco use date assessed 05/31/23 05/31/23 11:00 Patient Tobacco Use Status Never used Tobacco 05/31/23 11:00 e-Cigarette/Vaping Use Never Used 05/31/23 11:00 PHQ-9: PHQ-9 Score PHQ-9: Total score 0 05/31/23 11:00 Depression Screening Interpretation: Negative Thrive Assessment: Date of Thrive Assessment Date Thrive assessed 10/17/22 05/31/23 11:00 Currently or been in a relationship where the following occur: no concerns reported Const General: cooperative and healthy appearing Nutritional Appearance: well nourished Orientation/consciousness: patient oriented x3 Limitations: no limitations HENMT Head: Yes normal to inspection Eyes General: appearance normal, both eyes and all related structures Neck Neck: Yes normal visual inspection Chest Chest palpation & inspection: normal palpation of entire chest wall Resp Effort & Inspection: normal respiratory effort Other: Genital exam: Testicles are normal. No tenderness. Scrotum is normal. Hernial orifices are negative. Epididymis is normal without any discomfort on palpation. Neuro General: patient oriented x3 Assessment and Plan Assessment & Plan (1) Obesity (BMI 30.0-34.9): Comment: He is moderately obese with a round face. 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 He does do regular exercise. Has not been able to lose much weight. Code(s): E66.9 - Obesity, unspecified (2) Obstructive sleep apnea: Comment: Known to have obstructive sleep apnea since 2018. Has been using CPAP regularly. Code(s): G47.33 - Obstructive sleep apnea (adult) (pediatric) (3) GERD (gastroesophageal reflux disease): Code(s): K21.9 - Gastro-esophageal reflux disease without esophagitis Qualifiers: Esophagitis presence: esophagitis presence not specified Qualified Cod e(s): K21.9 - Gastro-esophageal reflux disease without esophagitis Plan: Condition is stable. (4) Epididymitis: Code(s): N45.1 - Epididymitis Plan: This medical condition has resolved. Coding Level of Care Code Est Pt Level 4 (57061) Diagnoses Obesity (BMI 30.0-34.9) E66.9 Obstructive sleep apnea G47.33 Gastroesophageal reflux disease, unspecified whether esophagitis present K21.9 Esophagitis presence: esophagitis presence not specified Epididymitis N45.1
[2023-05-31 10:46] VITALS: BP 124/74; PULSE 73; O2SAT 94; BMI 33.8
== END 2023-05-31 12:41 | disposition home or self-care (01) ==
PROVIDERS: PCP Nurse Practitioner Family; Visit Provider Internal Medicine
DX: N45.1 Epididymitis (principal); G47.33 Obstructive sleep apnea (adult) (pediatric); K21.9 Gastro-esophageal reflux disease without esophagitis
CPT/HCPCS: 99214

== ENCOUNTER 2023-08-24 14:42 | Outpatient (AMB) | payer OTHER, SELFPAY ==
--- NOTE | 2023-08-24 14:46 | A.OFFPC_ITS ---
Vital Signs 08/24/23 14:48 Height 5 ft 10 in Weight 224 lb 2 oz BMI 32.2 BP 120/60 Blood Pressure Location Lt brachial Position Sitting Pulse 85 Pulse Source Pulse Oximeter Pulse Oximetry (%) 97 Oxygen Delivery Method Room Air Intake Visit Reasons: irritation on face Intake Note: Patient is here to follow up on irritation on face after shaving. 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 He is active . Patient is requesting a waiver for shaving. He has obstructive sleep apnea, wears a CPAP at night. In the morning, after he shaves he develops a rash which causes discomfort around the mouth and cheeks. The rash persists during the day. 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 FORMERLY [facility], [facility] Medical History Somnolence, daytime Retrognathia Obesity (BMI 30.0-34.9) Anxiety and depression Obstructive sleep apnea History of esophageal dilatation Esophagitis Surgical History History of esophagogastroduodenoscopy (EGD) H/O nasal septoplasty History of tonsillectomy History of knee surgery Family History Father Hypertension Heart attack, Onset Age: 35 Mother No problems noted. Paternal Grandfather Heart attack Social History Housing: House Alcohol intake: current Alcohol intake frequency: holidays/special occasions only Alcohol type: hard liquor Patient Tobacco Use Status: Never used Tobacco e-Cigarette/Vaping Use: Never Used Second Hand Smoke Exposure: No service: Yes Current occupational status: employed Current occupational exposures/hazards: No Cognitive needs: No Hearing needs: No Vision needs: Yes Questionnaire Thrive Questionnaire Date Thrive assessed: 10/17/22 BERENICE-7 AMB Questionnaire BERENICE-7 Date BERENICE - 7 assessed: 05/31/23 Source: Developed by Drs. Tobias Rangel, Beth Dickens, Felipe Max and colleagues, with an educational yury from [employer]. Physical exam (Primary Care) Vital Signs: Last Vital Signs Pulse 85 08/24/23 14:48 BP 120/60 08/24/23 14:48 Pulse Ox 97 08/24/23 14:48 Oxygen Delivery Method Room Air 08/24/23 14:48 BMI result Body Mass Index 32.2 Tobacco/Smoking Status: Tobacco use Status Tobacco use date assessed 08/24/23 08/24/23 14:53 Patient Tobacco Use Status Never used Tobacco 08/24/23 14:53 e-Cigarette/Vaping Use Never Used 08/24/23 14:53 Thrive Assessment: Date of Thrive Assessment Date Thrive assessed 10/17/22 08/24/23 14:53 Const General: cooperative and healthy appearing Nutritional Appearance: well nourished Orientation/consciousness: patient oriented x3 Limitations: no limitations HENMT Head: Yes normal to inspection Eyes General: appearance normal, both eyes and all related structures Neck Neck: Yes normal visual inspection Chest Chest palpation & inspection: normal palpation of entire chest wall Resp Effort & Inspection: normal respiratory effort Skin Other: Face: Currently he has no rash. Neuro General: patient oriented x3 Assessment and Plan Assessment & Plan (1) Rash: Code(s): R21 - Rash and other nonspecific skin eruption Plan: A letter was dictated, as the patient requested, so that he can be seen at the local [facility]. Coding Level of Care Code Est Pt Level 3 (30274) Complex EM visit Add On G2211 Diagnoses Rash R21
[2023-08-24 14:48] VITALS: BP 120/60; PULSE 85; O2SAT 97; BMI 32.2
== END 2023-08-24 17:10 | disposition home or self-care (01) ==
PROVIDERS: PCP Internal Medicine; Visit Provider Internal Medicine
DX: R21 Rash and other nonspecific skin eruption (principal)
CPT/HCPCS: 99213; G2211

== ENCOUNTER 2023-10-19 11:41 | Outpatient (AMB) | payer OTHER, SELFPAY ==
[2023-10-19 11:46] VITALS: BP 118/68; PULSE 76; O2SAT 97; BMI 32.9
--- NOTE | 2023-10-19 11:46 | A.OFFPC_ITS ---
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 pt c/o right shoulder pain. 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 Patient is complaining of pain over the left knee. In the past he has had a prominent tibial tuberosity and has received some kind of surgery to alleviate pressure in the left knee. This was about a decade ago. He reports he is having discomfort in the knee, especially while climbing up the stairs or coming down the stairs. Sometimes has difficulty while doing his exercises. Patient is also complaining of discomfort in the right shoulder and deltoid area. Pain is worse when he does lift heavy weights as part of his exercise. He also wants to report the flushing around his cheeks. He would like a letter documenting that he does have flushing. Patient has been taking the PPI and sucralfate. He does have irregular bowel habits. [facility] Medical History (Updated 10/19/23 @ 13:48 by Angelo Samuel MD) Rosacea Somnolence, daytime Retrognathia Obesity (BMI 30.0-34.9) Anxiety and depression Obstructive sleep apnea History of esophageal dilatation Esophagitis Surgical History History of esophagogastroduodenoscopy (EGD) H/O nasal septoplasty History of tonsillectomy History of knee surgery Family History Father Hypertension Heart attack, Onset Age: 35 Mother No problems noted. Paternal Grandfather Heart attack Social History Housing: House Alcohol intake: current Alcohol intake frequency: holidays/special occasions only Alcohol type: hard liquor Patient Tobacco Use Status: Never used Tobacco e-Cigarette/Vaping Use: Never Used Second Hand Smoke Exposure: No service: Yes Current occupational status: employed Current occupational exposures/hazards: No Cognitive needs: No Hearing needs: No Vision needs: Yes Questionnaire Thrive Questionnaire Date Thrive assessed: 10/17/22 AUDIT C Alcohol Use Questionnaire (AUDIT-C) 1. How often do you have a drink containing alcohol?: Monthly or less 2. How many drinks containing alcohol do you have on a typical day when you are drinking?: 1 or 2 Total Score: 1 BERENICE-7 AMB Questionnaire BERENICE-7 Date BERENICE - 7 assessed: 05/31/23 Source: Developed by Drs. Tobias Rangel, Beth Dickens, Felipe Max and colleagues, with an educational yury from [employer]. Physical exam (Primary Care) Vital Signs: Last Vital Signs Pulse 76 10/19/23 11:46 BP 118/68 10/19/23 11:46 Pulse Ox 97 10/19/23 11:46 Oxygen Delivery Method Room Air 10/19/23 11:46 Care Plan Goal for BP management: Blood pressure is stable. BMI result Body Mass Index 32.9 Tobacco/Smoking Status: Tobacco use Status Tobacco use date assessed 08/24/23 10/19/23 11:51 Patient Tobacco Use Status Never used Tobacco 10/19/23 11:51 e-Cigarette/Vaping Use Never Used 10/19/23 11:51 Thrive Assessment: Date of Thrive Assessment Date Thrive assessed 10/17/22 10/19/23 11:51 Const General: cooperative and healthy appearing Nutritional Appearance: well nourished Orientation/consciousness: patient oriented x3 Limitations: no limitations HENMT Head: Yes normal to inspection Eyes General: appearance normal, both eyes and all related structures Neck Neck: Yes normal visual inspection Chest Chest palpation & inspection: normal palpation of entire chest wall Resp Effort & Inspection: normal respiratory effort Skin Other: Face: Cheeks: Mild erythematous area bilaterally. Neuro General: patient oriented x3 Extrem Other: Left knee: No joint line tenderness. Pain on flexion. Assessment and Plan Assessment & Plan (1) Osteoarthritis of left lower extremity: Code(s): M19.91 - Primary osteoarthritis, unspecified site Plan: At patient's request, an orthopedic referral has been made. (2) GERD (gastroesophageal reflux disease): Code(s): K21.9 - Gastro-esophageal reflux disease without esophagitis Qualifiers: Esophagitis presence: esophagitis presence not specified Qualified Code(s): K21.9 - Gastro-esophageal reflux disease without esophagitis Plan: Continue PPI. If symptoms persist or bowel habit irregularity continues, a GI consult will be obtained. (3) Rosacea: Code(s): L71.9 - Rosacea, unspecified Plan: Condition is mild. A letter stating the same has been given to him. Orders: Referrals Orthopedics Referral M19.91 - Primary osteoarthritis, unspecified site Coding Level of Care Code Est Pt Level 4 (52758) Complex EM visit Add On G2211 Diagnoses Osteoarthritis of left lower extremity M19.91 Gastroesophageal reflux disease, unspecified whether esophagitis present K21.9 Esophagitis presence: esophagitis presence not specified Rosacea L71.9
== END 2023-10-19 13:01 | disposition home or self-care (01) ==
PROVIDERS: PCP Internal Medicine; Visit Provider Internal Medicine
DX: M19.91 Primary osteoarthritis, unspecified site (principal); K21.9 Gastro-esophageal reflux disease without esophagitis; L71.9 Rosacea, unspecified
CPT/HCPCS: 99214; G2211

== ENCOUNTER 2023-11-15 08:21 | Outpatient (AMB) | payer OTHER, SELFPAY ==
[2023-11-15 08:29] VITALS: BP 120/78; PULSE 67; O2SAT 94; BMI 32.9
--- NOTE | 2023-11-15 08:29 | MHC.PC.OV ---
Vital Signs 11/15/23 08:29 11/15/23 08:29 Height 5 ft 10 in 5 ft 10 in Weight 229 lb 2 oz BMI 32.9 BP 120/78 Blood Pressure Location Lt brachial Lt brachial Position Sitting Sitting Pulse 67 Pulse Source Pulse Oximeter Pulse Oximeter Pulse Oximetry (%) 94 Oxygen Delivery Method Room Air Room Air Intake Visit Reasons: Requesting Urology Referral Urgent Care Follow up Hot Stick Man Required: No Accompanied by: Self / Same As Patient Allergies No Known Allergies Allergy (Verified 11/15/23 08:30) Tobacco use date assessed: 08/24/23 Dental Screening Dental Screen Date: 05/31/23 Did you have a dental visit in the last 12 months?: Yes Did you have a dental problem in the last 6 months where you did not have access to dental care?: No Was dental information given to patient?: Patient has dentist HPI Requesting Urology Referral Urgent Care Follow up HPI Details 38-year-old male presents to the office for a sick visit. For the past week he is complaining of pain in the right testicle. He was seen at a local urgent care facility and was diagnosed with a varicocele. He is requesting an appointment to see the urologist. Four months ago, he had similar pain and was evaluated at [facility] emergency room. An ultrasound of the scrotum was done. Results are not available. [facility] Medical History (Updated 10/19/23 @ 13:48 by Angelo Samuel MD) Rosacea Somnolence, daytime Retrognathia Obesity (BMI 30.0-34.9) Anxiety and depression Obstructive sleep apnea History of esophageal dilatation Esophagitis Surgical History History of esophagogastroduodenoscopy (EGD) H/O nasal septoplasty History of tonsillectomy History of knee surgery Family History Father Hypertension Heart attack, Onset Age: 35 Mother No problems noted. Paternal Grandfather Heart attack Social History Housing: House Alcohol intake: current Alcohol intake frequency: holidays/special occasions only Alcohol type: hard liquor Patient Tobacco Use Status: Never used Tobacco e-Cigarette/Vaping Use: Never Used Second Hand Smoke Exposure: No service: Yes Current occupational status: employed Current occupational exposures/hazards: No Cognitive needs: No Hearing needs: No Vision needs: Yes Questionnaire PHQ-9 Over the last 2 weeks, how often have you been bothered by any of the following problems? 1. Little interest or pleasure in doing things: not at all 2. Feeling down, depressed, or hopeless: not at all 3. Trouble falling or staying asleep, or sleeping too much: not at all 4. Feeling tired or having little energy: not at all 5. Poor appetite or overeating: not at all 6. Feeling bad about yourself - or that you are a failure or have let yourself or your family down: not at all 7. Trouble concentrating on things, such as reading the newspaper or watching television: not at all 8. Moving or speaking so slowly that other people could have noticed. Or the opposite - being so fidgety or restless that you have been moving around a lot more than usual: not at all 9. Thoughts that you would be better off or of hurting yourself in some way: not at all Total score: 0 Depression Screening Interpretation: Negative Depression Screening Done: Yes Source: Developed by Drs. Tobias Rangel, Beth Dickens, Felipe Max and colleagues, with an educational yury from [employer]. Thrive Questionnaire Date Thrive assessed: 11/15/23 I am a: Patient What is your living situation today?: I have a steady place to live Within the past 12 months, did the food you bought not last and you didn't have the money to get more?: Never true Within the past 12 months, did you worry whether your food would run out before you got money to buy more?: Never true Do you have trouble paying for medicines?: No Do you have trouble getting transportation to medical appointments?: No Do you have trouble paying your heating and electricity bill?: No Do you have trouble taking care of your child, family member or friend?: No Do you have trouble with day-to-day activities such as bathing, preparing meals, shopping, managing finances, etc.?: No Are you currently unemployed and looking for a job?: No Are you interested in more education?: No Please select the resources that you would like help with: None Currently or been in a relationship where the following occur: No concerns reported THRIVE Score: 0 AUDIT C Alcohol Use Questionnaire (AUDIT-C) 1. How often do you have a drink containing alcohol?: Monthly or less 2. How many drinks containing alcohol do you have on a typical day when you are drinking?: 1 or 2 Total Score: 1 BERENICE-7 AMB Questionnaire BERENICE-7 Date BERENICE - 7 assessed: 11/15/23 Feeling nervous, anxious, or on edge: 0 = Not at all Not being able to stop or control worryin = Not at all Worrying too much about different things: 0 = Not at all Trouble relaxin = Not at all Being so restless that it is hard to sit still: 0 = Not at all Becoming easily annoyed or irritable: 0 = Not at all Feeling afraid as if something awful might happen: 0 = Not at all Total BERENICE-7 score (0-4 normal; 5-9 mild; 10-14 moderate; 15-21 severe): 0 Source: Developed by Drs. Tobias Rangel, Beth Dickens, Felipe Max and colleagues, with an educational yury from [employer]. Physical exam (Primary Care) Vital Signs: Last Vital Signs Pulse 67 11/15/23 08:29 BP 120/78 11/15/23 08:29 Pulse Ox 94 11/15/23 08:29 Oxygen Delivery Method Room Air 11/15/23 08:29 BMI result Body Mass Index 32.9 Tobacco/Smoking Status: Tobacco use Status Tobacco use date assessed 08/24/23 11/15/23 08:30 Patient Tobacco Use Status Never used Tobacco 11/15/23 08:30 e-Cigarette/Vaping Use Never Used 11/15/23 08:30 PHQ-9: PHQ-9 Score PHQ-9: Total score 0 11/15/23 08:36 Depression Screening Interpretation: Negative Thrive Assessment: Date of Thrive Assessment Date Thrive assessed 11/15/23 11/15/23 08:36 Currently or been in a relationship where the following occur: No concerns reported Other: Scrotum: Right testicle: Slightly larger than the left. Hernial orifices are negative. No varicocele palpable. Assessment and Plan Assessment & Plan (1) Varicocele: Code(s): I86.1 - Scrotal varices Plan: A urology appointment will be requested for evaluation of right testicular pain. The ultrasound report from [facility] to be obtained. Coding Level of Care Code Est Pt Level 3 (90727) Complex EM visit Add On G2211 Diagnoses Varicocele I86.1
== END 2023-11-15 10:23 | disposition home or self-care (01) ==
PROVIDERS: PCP Internal Medicine; Visit Provider Internal Medicine
DX: I86.1 Scrotal varices (principal)
CPT/HCPCS: 99213; G2211

== ENCOUNTER 2023-11-21 15:19 | Outpatient (AMB) | payer OTHER, SELFPAY ==
--- NOTE | 2023-11-21 15:22 | MHC.PC.OV ---
Vital Signs 11/21/23 15:23 Height 5 ft 10 in Weight 225 lb 2 oz BMI 32.3 BP 110/70 Blood Pressure Location Lt brachial Position Sitting Pulse 70 Pulse Source Pulse Oximeter Pulse Oximetry (%) 97 Oxygen Delivery Method Room Air Intake Visit Reasons: Right arm pain Intake Note: Patient is here to follow up on Right Shoulder pain. Skill Labor Required: No Trumpet Player: Not Required per policy Accompanied by: Self / Same As Patient Allergies No Known Allergies Allergy (Verified 11/21/23 16:06) Medication List - Last Reconciled 11/21/23 by Angelo Samuel MD pantoprazole 40 mg PO DAILY sucralfate 1 g PO BEDTIME Tobacco use date assessed: 11/21/23 Dental Screening Dental Screen Date: 05/31/23 HPI Right arm pain HPI Details 38-year-old male presents to the office for a sick visit. Patient is complaining of pain in the right shoulder for the past few weeks. 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 Patient works out at the gym regularly. [facility] Medical History (Updated 10/19/23 @ 13:48 by Angelo Samuel MD) Rosacea Somnolence, daytime Retrognathia Obesity (BMI 30.0-34.9) Anxiety and depression Obstructive sleep apnea History of esophageal dilatation Esophagitis Surgical History History of esophagogastroduodenoscopy (EGD) H/O nasal septoplasty History of tonsillectomy History of knee surgery Family History Father Hypertension Heart attack, Onset Age: 35 Mother No problems noted. Paternal Grandfather Heart attack Social History Housing: House Alcohol intake: current Alcohol intake frequency: holidays/special occasions only Alcohol type: hard liquor Patient Tobacco Use Status: Never used Tobacco e-Cigarette/Vaping Use: Never Used Second Hand Smoke Exposure: No service: Yes Current occupational status: employed Current occupational exposures/hazards: No Cognitive needs: No Hearing needs: No Vision needs: Yes Questionnaire Thrive Questionnaire Date Thrive assessed: 11/15/23 BERENICE-7 AMB Questionnaire BERENICE-7 Date BERENICE - 7 assessed: 11/15/23 Source: Developed by Drs. Tobias Rangel, Beth Dickens, Felipe Max and colleagues, with an educational yury from [employer]. Physical exam (Primary Care) Vital Signs: Last Vital Signs Pulse 70 11/21/23 15:23 BP 110/70 11/21/23 15:23 Pulse Ox 97 11/21/23 15:23 Oxygen Delivery Method Room Air 11/21/23 15:23 BMI result Body Mass Index 32.3 Tobacco/Smoking Status: Tobacco use Status Tobacco use date assessed 11/21/23 11/21/23 15:26 Patient Tobacco Use Status Never used Tobacco 11/21/23 15:26 e-Cigarette/Vaping Use Never Used 11/21/23 15:26 Thrive Assessment: Date of Thrive Assessment Date Thrive assessed 11/15/23 11/21/23 15:26 Extrem Other: Right shoulder: No AC joint tenderness. Full range of flexion, extension internal and external rotation. Minimal discomfort on lifting the arm over the shoulder level. Assessment and Plan Assessment & Plan (1) Sprain of right shoulder: Code(s): S43.401A - Unspecified sprain of right shoulder joint, initial encounter Plan: Patient was advised rest and not to use the arm for 2 weeks. Note for work given. Orders: Orders PT Evaluation and Treatment Today M79.601 - Pain in right arm Coding Level of Care Code Est Pt Level 3 (97657) Diagnoses Sprain of right shoulder S43.401A
[2023-11-21 15:23] VITALS: BP 110/70; PULSE 70; O2SAT 97; BMI 32.3
== END 2023-11-21 16:36 | disposition home or self-care (01) ==
PROVIDERS: PCP Internal Medicine; Visit Provider Internal Medicine
DX: S43.401A Unspecified sprain of right shoulder joint, initial encounter (principal)
CPT/HCPCS: 99213

== ENCOUNTER 2023-11-29 14:02 | Outpatient (AMB) | payer OTHER, SELFPAY ==
--- NOTE | 2023-11-29 14:03 | A.OFFPC_ITS ---
Vital Signs 11/29/23 14:04 Height 5 ft 10 in Weight 229 lb 7 oz BMI 32.9 BP 110/70 Blood Pressure Location Lt brachial Position Sitting Pulse 99 Pulse Source Pulse Oximeter Pulse Oximetry (%) 94 Oxygen Delivery Method Room Air Intake Visit Reasons: Severe Bloating, cramping and abdominal pain Intake Note: Patient is here to follow up on severe bloating, cramping and abdominal pain. Complaint of blood in stool. Requesting for GI referral. Glove Sewer Required: No Material Scheduler: Not Required per policy Accompanied by: Self / Same As Patient Allergies No Known Allergies Allergy (Verified 11/29/23 14:04) Tobacco use date assessed: 11/29/23 Dental Screening Dental Screen Date: 05/31/23 HPI Severe Bloating, cramping and abdominal pain HPI Details 38-year-old male presents to the office for a sick visit. Patient is reporting occasional bleeding from the rectum for the past month. He did not mention these symptoms in his prior visit. Most of the bleeding is mixed with the stool or when he wipes on the toilet paper. Though suggested in the chief complaint, patient reports no symptoms of cramping bloating or abdominal pain. Symptoms of constipation present. [facility] Medical History (Updated 10/19/23 @ 13:48 by Angelo Samuel MD) Rosacea Somnolence, daytime Retrognathia Obesity (BMI 30.0-34.9) Anxiety and depression Obstructive sleep apnea History of esophageal dilatation Esophagitis Surgical History History of esophagogastroduodenoscopy (EGD) H/O nasal septoplasty History of tonsillectomy History of knee surgery Family History Father Hypertension Heart attack, Onset Age: 35 Mother No problems noted. Paternal Grandfather Heart attack Social History Housing: House Alcohol intake: current Alcohol intake frequency: holidays/special occasions only Alcohol type: hard liquor Patient Tobacco Use Status: Never used Tobacco e-Cigarette/Vaping Use: Never Used Second Hand Smoke Exposure: No service: Yes Current occupational status: employed Current occupational exposures/hazards: No Cognitive needs: No Hearing needs: No Vision needs: Yes Questionnaire Thrive Questionnaire Date Thrive assessed: 11/15/23 BERENICE-7 AMB Questionnaire BERENICE-7 Date BERENICE - 7 assessed: 11/15/23 Source: Developed by Drs. Tobias Rangel, Beth Dickens, Felipe Max and colleagues, with an educational yury from [employer]. Physical exam (Primary Care) Vital Signs: Last Vital Signs Pulse 99 11/29/23 14:04 BP 110/70 11/29/23 14:04 Pulse Ox 94 11/29/23 14:04 Oxygen Delivery Method Room Air 11/29/23 14:04 BMI result Body Mass Index 32.9 Tobacco/Smoking Status: Tobacco use Status Tobacco use date assessed 11/29/23 11/29/23 14:07 Patient Tobacco Use Status Never used Tobacco 11/29/23 14:07 e-Cigarette/Vaping Use Never Used 11/29/23 14:07 Thrive Assessment: Date of Thrive Assessment Date Thrive assessed 11/15/23 11/29/23 14:07 Const General: cooperative and healthy appearing Nutritional Appearance: well nourished Orientation/consciousness: patient oriented x3 Limitations: no limitations HENMT Head: Yes normal to inspection Eyes General: appearance normal, both eyes and all related structures Neck Neck: Yes normal visual inspection Chest Chest palpation & inspection: normal palpation of entire chest wall Resp Effort & Inspection: normal respiratory effort Neuro General: patient oriented x3 Assessment and Plan Assessment & Plan (1) Hemorrhoids: Code(s): K64.9 - Unspecified hemorrhoids Plan: Anusol suppositories provided. If symptoms do not improve to follow-up here. Medications: New hydrocortisone acetate (Anusol-HC) 25 mg ND BEDTIME 12 ea 0RF Coding Level of Care Code Est Pt Level 3 (05441) Complex EM visit Add On G2211 Diagnoses Hemorrhoids K64.9
[2023-11-29 14:04] VITALS: BP 110/70; PULSE 99; O2SAT 94; BMI 32.9
== END 2023-11-29 15:40 | disposition home or self-care (01) ==
PROVIDERS: PCP Internal Medicine; Visit Provider Internal Medicine
DX: K64.9 Unspecified hemorrhoids (principal)
CPT/HCPCS: 99213; G2211

== ENCOUNTER 2023-11-29 14:54 | Outpatient (REF) | payer OTHER, SELFPAY ==
--- NOTE | ~2023-11-29 | XR_ITS ---
EXAMINATION: XR KNEE, LEFT CLINICAL INFORMATION: Left knee pain. COMPARISON: None available. TECHNIQUE: AP standing view of the knees and lateral and sunrise view of the left knee.. FINDINGS: No fracture or joint effusion. Alignment is anatomic. Joint spaces are maintained. No abnormal soft tissue calcification. XR/XR knee LT 3V IMPRESSION: Normal left knee. Electronically signed by: Demetri White MD 12/12/2023 11:19 PM EDT
== END 2023-11-29 14:55 | disposition home or self-care (01) ==
LOC: HO.XRAY 14:54
PROVIDERS: PCP Internal Medicine; Visit Provider Physician Assistant
DX: M25.562 Pain in left knee (principal)
CPT/HCPCS: 73562

== ENCOUNTER 2023-11-30 11:51 | Outpatient (AMB) | payer OTHER, SELFPAY ==
--- NOTE | 2023-11-30 11:52 | A.OFFVIS_ITS ---
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 Patient reports he had surgery on his left knee about 8 years ago in [place], [place]. He has a bump on his left knee and says he thinks they cut the tendon, shaved the bone down, and reattached it. Over time this bump has returned on the anterior aspect of his left knee causing consistent aching pain with ambulation, kneeling and weight bearing. He expresses feeling instability when he is walking around doing yard work, etc. Intermittent tingling that radiates into the front of his lower leg. Patient reports occasional discoloration of his left knee when he over uses it. He says he notices he is unable to fully extend his pain due to it being painful. He says he does not have much feeling to the anterior aspect of the left knee after this surgery. He has concern of his ambulation, says he does not walk with a normal stride due to this knee. Tylenol and ibuprofen do not provide adequate relief. Hx of two cortisone injections in [place] roughly 5 years ago, they provided him with roughly two weeks of relief. 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 Patient states that, approximately 8 years ago, he had a procedure performed on his left knee for a enlargement of the tibial tubercle, where the patellar tendon was removed from the tibial tubercle, the bone was shaved down, and the patellar tendon was reattached to the bone. The patient reports that he feels the visible bump on his left eisenberg has grown since surgery, and is now almost as large as it was prior to surgery. The patient does report that he experiences significant discomfort in his left knee with ambulation, flexion, extension, and particularly twisting motions, but states that this pain is primarily in the joint line and in the patella and peripatellar region of the left knee. Of note, the patient also states that he does experience some locking and catching of his left knee, and going up and down stairs does increase his pain significantly. Patient denies any numbness or tingling in the left lower extremity. No other acute complaints or concerns at this time. [facility] Medical History (Updated 11/30/23 @ 12:27 by DENISE Coleman) Rosacea Somnolence, daytime Retrognathia Obesity (BMI 30.0-34.9) Anxiety and depression Obstructive sleep apnea History of esophageal dilatation Esophagitis Surgical History History of esophagogastroduodenoscopy (EGD) H/O nasal septoplasty History of tonsillectomy History of knee surgery Family History Father Hypertension Heart attack, Onset Age: 35 Mother No problems noted. 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 Current occupational exposures/hazards: No Cognitive needs: No Hearing needs: No Vision needs: Yes Review of Systems Const All systems reviewed & are unremarkable except as noted in HPI and below Physical Exam Vital Signs: BMI result Body Mass Index 30.7 Extrem Other: On inspection, there is noted to be increased prominence of the left tibial tubercle when compared to the right, as well as a well-healed surgical scar in the anterior aspect of the left knee No edema, erythema, ecchymosis noted No lacerations, abrasions, open areas No evidence of infection Tenderness to palpation over the left tibial tubercle, medial and lateral joint lines, peripatellar and suprapatellar regions of the left knee No tenderness to palpation of the posterior left knee Patient is able to extend the left knee to 0 degrees and flex to approximately 120 degrees without difficulty No ligamentous laxity noted Distal sensation intact Capillary refill brisk Positive Adry's on both the medial and lateral aspects of the left knee Positive patellar grind on the left Results Reviewed Results Reviewed: X-rays obtained in the office today and independently reviewed by me, Konstantin Astorga PA-C, demonstrate marked lateralization of the left patella. No fracture or acute bony abnormality noted.. Assessment & Plan Assessment & Plan (1) Patellofemoral arthralgia of left knee: Code(s): M25.562 - Pain in left knee Category: Medical (2) Internal derangement of left knee: Code(s): M23.92 - Unspecified internal derangement of left knee Category: Medical Plan 1. Internal derangement of left knee At this time, due to the patient's presenting symptoms and physical exam findings, I feel that there is possibly some soft tissue injury, namely a meniscal tear, in the left knee MRI order placed today for assessment of the soft tissue structures of the left knee for suspected internal derangement Patient is also sent to PT for range of motion, strengthening, stabilization of the left knee Patient is amenable to this plan 2. Lateralization of left patella with associated pain At this time, the patient was sent to physical therapy for range of motion, strengthening, stabilization of the left knee, as well as for strengthening of the quad in order to promote while positioning of the left patella Patient is advised on conservative pain management measures, namely rest, ice, elevation, and [id number] pain medication as needed for pain management Patient is amenable to this plan Patient will follow-up after MRI for results review and discussion of further treatment options if indicated, sooner with any acute concerns Orders: Orders PT Evaluation and Treatment Today DENISE Coleman M25.562 - Pain in left knee MR knee LT wo con Today DENISE Coleman M17.12 - Unilateral primary osteoarthritis, left knee, M23.92 - Unspecified internal derangement of left knee XR knee LT 3V 11/29/23 Roseanne Grubbs PA-C M25.562 - Pain in left knee Coding Level of Care Code New Pt Level 3 (98405) Diagnoses Patellofemoral arthralgia of left knee M25.562 Internal derangement of left knee M23.92
[2023-11-30 12:03] VITALS: BMI 30.7
== END 2023-11-30 12:31 | disposition home or self-care (01) ==
LOC: HO.HOS 11:51
PROVIDERS: PCP Internal Medicine; Referring Provider Internal Medicine
DX: M23.92 Unspecified internal derangement of left knee (principal)
CPT/HCPCS: 99203

== ENCOUNTER → 2023-11-30 11:51 | Outpatient (BNVA) | payer OTHER, SELFPAY | PROVIDERS: PCP Internal Medicine | DX: M23.52 Chronic instability of knee, left knee (principal); M25.562 Pain in left knee | CPT/HCPCS: 99202 ==

== ENCOUNTER 2023-12-07 13:20 | Outpatient (REF) | payer OTHER, SELFPAY ==
--- NOTE | ~2023-12-07 | XR_ITS ---
EXAMINATION: XR SHOULDER, RIGHT CLINICAL INFORMATION: M25.511 - Pain in right shoulder COMPARISON: None available. TECHNIQUE: AP external rotation, Grashey, scapular Y, and axillary views of the right shoulder. FINDINGS: The bones and soft tissues are normal. No fracture. Glenohumeral and acromioclavicular alignment is anatomic with normal joint space. No abnormal soft tissue calcifications. XR/XR shoulder RT min 2V IMPRESSION: Normal right shoulder. Electronically signed by: Demetri Guevara MD 02/17/2024 08:30 PM QUIQUE
== END 2023-12-07 13:21 | disposition home or self-care (01) ==
LOC: HO.HOSX 13:20
PROVIDERS: PCP Internal Medicine
DX: M25.511 Pain in right shoulder (principal); M75.41 Impingement syndrome of right shoulder
CPT/HCPCS: 73030; 99212

== ENCOUNTER → 2023-12-07 13:22 | Outpatient (BNV) | payer OTHER, SELFPAY | PROVIDERS: PCP Internal Medicine; Visit Provider Radiology Diagnostic Radiology | DX: M25.511 Pain in right shoulder (principal) | CPT/HCPCS: 73030 ==

== ENCOUNTER 2023-12-07 13:47 | Outpatient (AMB) | payer OTHER, SELFPAY ==
--- NOTE | 2023-12-07 13:49 | MHC.OFFVIS ---
Intake Visit Reasons: New Prob - Right Shoulder Pain Intake Note: Rickey is a 38 year old right hand dominant male who presents to the office today for complaints of right shoulder pain that started about 2 years ago with no known injury. Pt states the pain radiates down to his wrist. Pt states the pain is worse when he is lifting something or having his arm extended for longer periods of time. Pt states he does have numbness in his arm occasionally and states he wakes up at night sometimes due to the pain. Pt denies any previous surgeries or injections to his right shoulder. 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 Allergies No Known Allergies Allergy (Verified 12/07/23 13:49) HPI HPI New Prob - Right Shoulder Pain : Details: Patient is a 38 YO M who presents for R shoulder pain, ongoing for approximately 2 years. Patient reports no incident or injury that started this pain. The patient reports that he experiences this pain with lifting or arm extension for long periods. Patient reports that this pain is motsly in the superior and posterior aspects of the R shoulder. Patient reports that this pain occasionally radiates down the arm and into the elbow and wrist, with some associated tingling, but no numbness. Patient denies any numbness and tingling in the R hand. No other acute complaints or concerns at this time. [facility] Medical History (Updated 12/07/23 @ 14:05 by DENISE Coleman) Rosacea Somnolence, daytime Retrognathia Obesity (BMI 30.0-34.9) Anxiety and depression Obstructive sleep apnea History of esophageal dilatation Esophagitis Surgical History History of esophagogastroduodenoscopy (EGD) H/O nasal septoplasty History of tonsillectomy History of knee surgery Family History Father Hypertension Heart attack, Onset Age: 35 Mother No problems noted. 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 Current occupational exposures/hazards: No Cognitive needs: No Hearing needs: No Vision needs: Yes Physical Exam Extrem Other: On inspection, there is no visible deformity of the R shoulder No erythema, ecchymosis, edema noted No lacerations or abrasions No evidence of infection Patient reports very mild tenderness to palpation of the superior and posterior shoulder, as well as the greater tuberosity of the R shoulder No tenderness of the clavicle, scapula Patient is able to forward flex to 180 degrees without difficulty Patient is able to abduct to 130 degrees without difficulty Patient is able to externally rotate to 60 degrees without difficulty Negative empty can Negative belly press Negative lift off Positive Byrd Results Reviewed Results Reviewed: X-rays obtained in the office today and independently reviewed by me, Konstantin Astorga PA-C, demonstrate No fracture or acute bony abnormality Assessment & Plan Assessment & Plan (1) Impingement syndrome of right shoulder: Code(s): M75.41 - Impingement syndrome of right shoulder Category: Medical Plan 1. Impingement syndrome of R shoulder Patient is educated about this condition Patient is educated about the typical recovery course Patient is informed that PT is the mainstay of firstline treatment of impingement syndrome Patient is referred to PT at this time Patient is informed that, after 6-8 weeks of PT, if he has not experienced relief of symptoms, he should call our office to be seen again and discuss further imaging and treatment options, sooner with any acute concerns. Orders: Orders XR shoulder RT min 2V Today M25.511 - Pain in right shoulder PT Evaluation and Treatment Today M75.41 - Impingement syndrome of right shoulder Coding Level of Care Code Est Pt Level 3 (11495) Diagnoses Impingement syndrome of right shoulder M75.41
== END 2023-12-07 14:07 | disposition home or self-care (01) ==
PROVIDERS: PCP Internal Medicine; Referring Provider Internal Medicine
DX: M75.41 Impingement syndrome of right shoulder (principal)
CPT/HCPCS: 99213

== ENCOUNTER 2024-01-10 12:44 | Outpatient (AMB) | payer OTHER, SELFPAY ==
--- NOTE | 2024-01-10 13:01 | A.OFFVIS_ITS ---
Intake Visit Reasons: vericocele Intake Note: New Patient presents for initial visit for vericocele Urology Medications: none Blood Thinner: none Recyclable Materials Sorter Required: No Accompanied by: Self / Same As Patient Allergies No Known Allergies Allergy (Verified 01/10/24 13:52) Medication List - Last Reconciled 01/10/24 by EPIFANIO Wright No Known Home Meds HPI Comments Details: Rickey is a very pleasant 38-year-old male patient of Dr. Samuel. He has a past medical history of somnolence, obesity, anxiety, depression, and obstructive sleep apnea. He presents to the office today as a new patient for ongoing right-sided testicular pain he has been experiencing. In discussion with the patient today he reports having discussed with his PCP at which time urology referral was made for further assessment evaluation. He does have a prior history of vasectomy in [place] 4 years ago. In assessment of the patient today right inguinal hernia noted otherwise no pain, lumps, and or lesions noted throughout the area. He denies any bothersome urinary issues. He reports be happy with current voiding parameters. He denies urinary urgency, urinary frequency, incontinence, nocturia, hematuria, dysuria, foul smelling urine, changes to urinary stream, flank pain, fever, and or chills. In office urinalysis results reviewed with the patient today. We discussed referral to General surgery for further assessment evaluation. He otherwise offers no other issues or concerns at this time. [facility] Medical History Rosacea Somnolence, daytime Retrognathia Obesity (BMI 30.0-34.9) Anxiety and depression Obstructive sleep apnea History of esophageal dilatation Esophagitis Surgical History History of esophagogastroduodenoscopy (EGD) H/O nasal septoplasty History of tonsillectomy History of knee surgery Family History Father Hypertension Heart attack, Onset Age: 35 Mother No problems noted. 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 Current occupational exposures/hazards: No Cognitive needs: No Hearing needs: No Vision needs: Yes Review of Systems Const All systems reviewed & are unremarkable except as noted in HPI and below Physical Exam Const General: cooperative, comfortable, no acute distress, well developed, alert and awake Orientation/consciousness: patient oriented x3 HEENT Head: Yes normal to inspection, Yes normocephalic and Yes atraumatic Ears: hearing grossly normal bilaterally Eyes General: appearance normal, both eyes and all related structures Neck Neck: Yes normal visual inspection and Yes trachea midline Chest Chest palpation & inspection: normal inspection of the chest Resp Effort & Inspection: normal respiratory effort and able to speak in complete sentences Cardio Rate: regular rate GI Inspection: Yes normal to inspection General: Yes no CVA tenderness Male General Exam: Yes normal external exam Penis: normal penis Meatus: meatus normal Scrotum: scrotum normal Testes: Testes normal Back/Spine/Pelvis Back: no CVA tenderness Skin General skin exam: no rashes or lesions noted Neuro General: patient oriented x3 Extrem General: Yes normal to inspection Psych Appearance: grossly normal and well kempt Mental Status: mental status grossly normal Speech and movement: Normal speech and movement present and Clear speech present Affect: normal affect Attitude: cooperative Thought process: Normal thought process present Thought content: Normal thought content present Insight: Fair insight present (Psych) Judgement: Fair judgement present (Psych) Results AMB Urinalysis, Automated UA Leukoctes 0 Nigel/uL Last Edit by Braxton Shepard on 01/10/24 13:21 UA Nitrite Last Edit by Braxton Shepard on 01/10/24 13:21 UA Urobilinogen 0.2 mg/dL Last Edit by Braxton Shepard on 01/10/24 13:21 UA Protein 0 mg/dL Last Edit by Braxton Shepard on 01/10/24 13:21 UA pH 6.0 Last Edit by Braxton Shepard on 01/10/24 13:21 UA Blood 0 Conor/uL Last Edit by Braxton Shepard on 01/10/24 13:21 UA Specific [place] 1.015 Last Edit by Braxton Shepard on 01/10/24 13:21 UA Ketone Negative Last Edit by Braxton Shepard on 01/10/24 13:21 UA Bilirubin 0 mg/dL Last Edit by Braxton Shepard on 01/10/24 13:21 UA Glucose 0 mg/dL Last Edit by Braxton Shepard on 01/10/24 13:21 Results Reviewed Results Reviewed: Laboratory Last Values Urine pH (Auto) 6.0 01/10/24 13:19 Specific [place] (Auto) 1.015 01/10/24 13:19 Urine Protein (Auto) 0 mg/dL 01/10/24 13:19 Glucose (UA)(Auto) 0 mg/dL 01/10/24 13:19 Urine Ketones (Auto) Negative 01/10/24 13:19 Urine Blood (Auto) 0 Conor/uL 01/10/24 13:19 Urine Bilirubin (Auto) 0 mg/dL 01/10/24 13:19 Urine Urobilinogen (Auto) 0.2 mg/dL 01/10/24 13:19 Leukocyte Esterase (Auto) 0 Nigel/uL 01/10/24 13:19 Assessment & Plan Assessment & Plan (1) Inguinal hernia: Code(s): K40.90 - Unilateral inguinal hernia, without obstruction or gangrene, not specified as recurrent Category: Medical (2) Scrotal pain: Code(s): N50.82 - Scrotal pain Category: Medical Plan In office urinalysis results reviewed with the patient today; as noted above. Will refer to general surgery as discussed He denies any bothersome urinary issues or concerns. He is happy with his current voiding parameters. Follow-up p.r.n. Orders: Orders AMB Urinalysis Automated Today Z13.9 - Encounter for screening, unspecified Referrals General Surgery Referral K40.90 - Unilateral inguinal hernia, without obstruction or gangrene, not specified as recurrent Patient Instructions: The patient had an opportunity to ask questions regarding the treatment plan. All questions were answered. Physical exam, labs, and imaging were discussed and reviewed in detail. As well as risks, benefits, and discussion of treatment choices. No major barriers to understanding were identified. The patient expressed understanding and agreement with the above treatment plan. The patient was made aware they should contact our office by phone for worsening of their current condition, the appearance of new symptoms, or with any questions or concerns. Compliance is encouraged with any medications and follow up testing that is ordered. It is a privilege to be allowed the opportunity to participate in? your urological care.? Again, if you have any questions or concerns If you have any questions or concerns please do not hesitate to contact me. The office is [phone]. This note is constructed using voice recognition software. While every effort has been made to ensure accuracy news assistant errors may have been included. Yours sincerely, EPIFANIO Wright Coding Level of Care Code New Pt Level 3 (90441) Diagnoses Inguinal hernia K40.90 Scrotal pain N50.82
== END 2024-01-10 14:05 | disposition home or self-care (01) ==
PROVIDERS: PCP Internal Medicine; Visit Provider Nurse Practitioner Family
DX: K40.90 Unilateral inguinal hernia, without obstruction or gangrene, not specified as recurrent (principal); N50.82 Scrotal pain; Z13.9 Encounter for screening, unspecified
CPT/HCPCS: 99203

== ENCOUNTER → 2024-01-10 12:44 | Outpatient (BNVA) | payer OTHER, SELFPAY | PROVIDERS: PCP Internal Medicine; Visit Provider Nurse Practitioner Family | DX: K40.90 Unilateral inguinal hernia, without obstruction or gangrene, not specified as recurrent (principal); N50.82 Scrotal pain | CPT/HCPCS: 81003; 99202 ==

== ENCOUNTER 2024-01-23 13:55 | Outpatient (AMB) | payer OTHER, SELFPAY ==
--- NOTE | 2024-01-23 14:00 | MHC.OFFVIS ---
Vital Signs 01/23/24 14:04 Height 5 ft 11 in Weight 220 lb BMI 30.7 Intake Visit Reasons: Unilateral inguinal hernia Intake Note: Patient referred by Dr. Oh for Unilateral inguinal hernia. Patient c/o: right groin, reports bulge depending on daily activity. Consulting Psychologist Required: No Accompanied by: Self / Same As Patient Allergies No Known Allergies Allergy (Verified 01/23/24 14:06) HPI Comments Details: Patient presents with a least 1 year history of progressively worsening right groin pain which is exacerbated by heavy lifting, straining, coughing. He does strenuous activities at his place of employment which aggravates his symptoms. Patient has a history of constipation and this also aggravates his right groin pain and swelling. Patient otherwise tolerating a diet. He undertake regular activities. Chart was reviewed and patient evaluated [facility] Medical History Rosacea Somnolence, daytime Retrognathia Obesity (BMI 30.0-34.9) Anxiety and depression Obstructive sleep apnea History of esophageal dilatation Esophagitis Surgical History History of esophagogastroduodenoscopy (EGD) H/O nasal septoplasty History of tonsillectomy History of knee surgery Family History Father Hypertension Heart attack, Onset Age: 35 Mother No problems noted. 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 Abdomen is soft, benign. Left groin small left inguinal hernia. Genitalia within normal limits. Moderately sized right inguinal hernia. Assessment & Plan Assessment & Plan (1) Bilateral inguinal hernia (BIH): Code(s): K40.20 - Bilateral inguinal hernia, without obstruction or gangrene, not specified as recurrent Category: Surgical Plan Discussed the findings with the patient as well as therapeutic options which range from observation to repair. Would like to undergo repair of both his hernias at the same time. Risks, benefits, alternatives of bilateral open inguinal hernia repair with mesh were reviewed with the patient included but not limited to bleeding, infection, recurrence, numbness, pain, scarring the patient wished to proceed. All questions answered. Arrangements were made for this. Coding Level of Care Code New Pt Level 5 (63735) Diagnoses Bilateral inguinal hernia (BIH) K40.20
[2024-01-23 14:04] VITALS: BMI 30.7
== END 2024-01-23 14:21 | disposition home or self-care (01) ==
LOC: HO.HGS 13:55
PROVIDERS: PCP Internal Medicine; Referring Provider Nurse Practitioner Family; Visit Provider Surgery
DX: K40.20 Bilateral inguinal hernia, without obstruction or gangrene, not specified as recurrent (principal)
CPT/HCPCS: 99204

== ENCOUNTER → 2024-01-23 13:55 | Outpatient (BNVA) | payer OTHER, SELFPAY | PROVIDERS: PCP Internal Medicine; Referring Provider Nurse Practitioner Family; Visit Provider Surgery | DX: K40.20 Bilateral inguinal hernia, without obstruction or gangrene, not specified as recurrent (principal); Z91.85 Personal history of military service | CPT/HCPCS: 99202 ==

== ENCOUNTER 2024-01-24 16:40 | Outpatient (REF) | payer OTHER, SELFPAY ==
--- NOTE | ~2024-01-24 | MR_ITS ---
EXAMINATION: MR KNEE WITHOUT CONTRAST, LEFT CLINICAL INFORMATION: Primary osteoarthritis. Patient reports prior surgery. COMPARISON: X-ray of the left knee November 2023. TECHNIQUE: MRI of the knee without contrast was performed using routine sequences on a high-field scanner. FINDINGS: MENISCI: Medial Meniscus: Intact Lateral Meniscus: Intact LIGAMENTS: Cruciate: Intact Collateral: Intact EXTENSOR MECHANISM: The distal patellar tendon has a somewhat thickened appearance. Signal intensity is normal. Quadriceps normal. ARTICULAR CARTILAGE/BONE: Patellofemoral Compartment: Normal Medial Compartment: Normal Lateral Compartment: Normal JOINT FLUID AND BURSAE: Normal MR/MR knee LT wo con IMPRESSION: 1. No evidence of internal derangement. 2. Slightly thickened appearance of the distal patella tendon of uncertain clinical significance. Question normal variation versus old partial tear or prior surgery. Electronically signed by: Drew Lynch MD 02/11/2024 07:49 AM QUIQUE
== END 2024-01-24 16:41 | disposition home or self-care (01) ==
LOC: HO.MRI 16:40
PROVIDERS: PCP Internal Medicine
DX: M17.12 Unilateral primary osteoarthritis, left knee (principal)
CPT/HCPCS: 73721

== ENCOUNTER 2024-03-01 13:04 | Outpatient (AMB) | payer OTHER, SELFPAY ==
--- NOTE | 2024-03-01 13:05 | MHC.OFFVIS ---
Vital Signs 03/01/24 13:07 Height 5 ft 11 in Weight 220 lb BMI 30.7 Intake Visit Reasons: Tel- LT knee MRI review Intake Note: Rickey is a 38 year old male who resents today via phone for a telehealth visit for a review of his left knee MRI. Left Knee MRI done on 01/24/24. Allergies No Known Allergies Allergy (Verified 03/01/24 13:07) HPI HPI Tel- LT knee MRI review: Details: Patient is a 38-year-old male who presents over the phone for left knee MRI review. Patient states that his symptoms have remained largely similar from previous evaluation, but he has been unable to go to physical therapy, as he works nights and has to watch his children during the day before his gets home. Patient inquires if at some point he can make an appointment to discuss potential knee injections. No other acute complaints or concerns at this time. [facility] Medical History Rosacea Somnolence, daytime Retrognathia Obesity (BMI 30.0-34.9) Anxiety and depression Obstructive sleep apnea History of esophageal dilatation Esophagitis Surgical History History of esophagogastroduodenoscopy (EGD) H/O nasal septoplasty History of tonsillectomy History of knee surgery Family History Father Hypertension Heart attack, Onset Age: 35 Mother No problems noted. 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 Left knee pain with patellar lateralization Patient is educated about this condition Patient is educated about the treatment options available At this time, patient is educated that my recommendation is physical therapy for range of motion,, strengthening, stabilization of the left knee, as well as for increased quad strength to improve the lateralization of his left patella However, the patient states that he is still unable to accommodate this into his schedule Patient was advised that can look up exercises for these things as well, but he can always call for referral to physical therapy if he is able to accommodate it. Patient can also call for repeat evaluation and discussion of other treatment options in the office if he would like Patient was amenable to this plan Patient will follow-up as needed with any acute concerns Coding Level of Care Code Tele Est Pt Level 3 (17974) Diagnoses Patellofemoral arthralgia of left knee M25.562 Left knee pain M25.562
[2024-03-01 13:07] VITALS: BMI 30.7
--- OUTSIDE RECORDS SUMMARY | 2024-03-01 13:08 | XMS_ITS | Continuity of Care Document ---
Author Name [facility] Organization [facility] Care Team Providers Care Business Support Associate Name Role Phone [facility] Unavailable Unavailable Problems Combined list of problems from 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 It does not include entries that were removed or entered in error. 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 04/18/19 16 Condition DoD Encounter for other administrative examinations Active 03/18/18 99 Condition DoD Cervicalgia Active 03/18/18 99 Condition DoD Body mass index (BMI) 31.0-31.9, adult Active 03/18/18 99 Condition DoD Allergic rhinitis, unspecified Active 03/18/18 99 Condition DoD Pain in left knee Active 03/18/18 99 Condition DoD Body mass index (BMI) 30.0-30.9, adult Active 03/18/18 99 Condition DoD Myopia, bilateral Active Condition [facility] Regular astigmatism, bilateral Active Condition Amb[facility] Left knee pain Active Condition [facility] Encounter for examination of eyes and vision without abnormal findings Active Condition [facility] Other specified disorders of thyroid Active Condition DoD Obstructive sleep apnea (adult) (pediatric) Active Condition DoD deviated nasal septum Active Condition DoD heartburn with regurgitation Inactive Condition DoD cough Inactive Condition DoD joint pain in the left knee Active Condition DoD chest pain Inactive Condition DoD refractive error - myopia Active Condition DoD astigmatism regular Active Condition Do D Guidance: Concerns About Sleeping Inactive Condition 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 DoD breathing-related sleep disorders Inactive Condition DoD difficulty seeing at night Inactive Condition DoD Nasal Discharge Epistaxis Inactive Condition DoD Guidance: Concerns About Unsafe Sexual Practices Inactive Condition DoD chlamydial disease Inactive Condition Do D pediculosis pubis Inactive Condition DoD visit for: services physical Inactive Condition DoD Other Physical Therapy Inactive Condition DoD Barrett Schlatter disease Active Condition DoD visit for: occupational health / fitness exam Inactive Condition DoD X-Ray Inactive Condition DoD joint pain, localized in the knee Inactive Condition DoD eustachian tube dysfunction Inactive Condition DoD pharyngitis Inactive Condition DoD upper respiratory infection Inactive Condition DoD Laboratory Studies Inactive Condition Do D gonococcal infections acute gonorrhea Inactive Condition DoD Patient Education - HIV Inactive Condition DoD sexually active high-risk Inactive Condition DoD gastroenteritis Inactive Condition DoD acne Inactive Condition DoD acute bronchitis Inactive Condition DoD visit for: administrative purpose Inactive Condition DoD assessment of patient condition work status Inactive Condition DoD Administrative Evaluation Services Inactive Condition DoD epistaxis Inactive Condition DoD sprain ribs Inactive Condition DoD Patient Education - Medication Inactive Condition DoD allergic rhinitis Inactive Condition DoD Family history of ischemic heart disease Inactive Condition Will check lipids CRP, homocystien e, folate B12 DoD routine examination Inactive Condition Patient will follow up for an EKG and review of his lab if normal no further action DoD new patient ophthalmological exam Inactive Condition DoD Medications Combined list of outpatient medications from 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Medications provided include 1) outpatient medications from the last 15 months, and 2) patient-reported medications. Medication Details Route Status Patient Instructions Prescription Expires Prescription Number Last Dispense Date Ordering Provider Order Date Order Qty Source azithromyci n 250 mg oral tablet 0 total refill(s ) Discont inued 07/12/2022 No Facilit y Access C-PAP # 1 EA, 0 total refill(s ), Acute Not Applic able Ordered 1.0 0310C-A F-C-66t h [facility] DOXYCYCLINE HYCLATE (doxycyclin e hyclate), 100 MG, TABLET, ORAL, GRU[employer] PHARMA [employer], 50 ea. BOTTLE Cancele d [id number] : 2023 0 Pharmac y Data Transac tion Service Facilit y DOXYCYCLINE HYCLATE (doxycyclin e hyclate), 100 MG, TABLET, ORAL, [employer], 50 ea. BOTTLE Active [id number] 4 2023 19 Pharmac y Data Transac tion Service Facilit y ESOMEPRAZOL E MAGNESIUM (esomeprazo le magnesium), 40 MG, CAPSULE ABELARDO ESTES, [facility], 90 ea. BOTTLE Active [id number] 4 2023 30 Pharmac y Data Transac tion Service Facilit y ESOMEPRAZOL E MAGNESIUM (esomeprazo le magnesium), 40 MG, CAPSULE DR ORAL, '[facility], 90 ea. BOTTLE Active [id number] 2023 30 Pharmac y Data Transac tion Service Facilit y FAMOTIDINE (famotidine ), 20 MG, TABLET, ORAL, [facility], 100 ea. BOTTLE Cancele d [id number] : 2023 0 Pharmac y Data Transac tion Service Facilit y FAMOTIDINE (famotidine ), 40 MG, TABLET, ORAL, [facility], 100 ea. BOTTLE Cancele d [id number] : 2023 0 Pharmac y Data Transac tion Service Facilit y FAMOTIDINE (famotidine ), 40 MG, TABLET, ORAL, [facility], 100 ea. BOTTLE Cancele d [id number] : 2023 0 Pharmac y Data Transac tion Service Facilit y FAMOTIDINE (famotidine ), 40 MG, TABLET, ORAL, [facility], 100 ea. BOTTLE Cancele d [id number] : 2023 0 Pharmac y Data Transac tion Service Facilit y FAMOTIDINE (famotidine ), 40 MG, TABLET, ORAL, [facility], 100 ea. BOTTLE Active [id number] 3 2022 30 Pharmac y Data Transac tion Service Facilit y FAMOTIDINE (famotidine ), 40 MG, TABLET, ORAL, [facility], 100 ea. BOTTLE Active [id number] 2023 90 Pharmac y Data Transac tion Service Facilit y FAMOTIDINE (famotidine ), 40 MG, TABLET, ORAL, [facility], 100 ea. BOTTLE Active [id number] 4 2023 90 Pharmac y Data Transac tion Service Facilit y fexofenadin e 180 mg oral tablet fexofena dine 180 mg oral tablet Start Date: 07/01/20 Stop Date: 07/12/22 Status: Disconti nued Discont inued 07/12/2022 No Facilit y Access fluticasone 50 mcg/inh nasal spray fluticas one 50 mcg/inh nasal spray Start Date: 07/01/20 Stop Date: 07/12/22 Status: Disconti nued Discont inued 07/12/2022 No Facilit y Access HYDROcodone -acetaminop hen 7.5 mg-325 mg/15 mL oral solution HYDROcod one-acet aminophe n 7.5 mg-325 mg/15 mL oral solution Start Date: 10/17/19 Stop Date: 07/12/22 Status: Disconti nued Discont inued 07/12/2022 No Facilit y Access ibuprofen 0 total refill(s ), Maintena nce Ordered 309C-A -C-t h [facility] IBUPROFEN (ibuprofen) , 800 MG, TABLET, ORAL, [facility], 500 ea. BOTTLE Active [id number] 4 2023 20 Pharmac y Data Transac tion Service Facilit y IBUPROFEN (ibuprofen) , 800 MG, TABLET, ORAL, [employer] PHARMA, 500 ea. BOTTLE Active [id number] 4 2023 20 Pharmac y Data Transac tion Service Facilit y methylPREDN ISolone 4 mg oral tablet methylPR EDNISolo ne 4 mg oral tablet Start Date: 11/23/20 Stop Date: 07/12/22 Status: Disconti nued Discont inued 07/12/2022 No Facilit y Access omeprazole 20 mg oral delayed release capsule 1 cap(s), Oral, Daily, 30 to 60 minutes before a meal, # 90 cap(s), 3 total refill(s ), Maintena nce, 1 cap(s) Oral Daily,In str:30 to 60 minutes before a meal, Pharmacy : [id number] Oral (given by mouth) Ordered 90.0 309C-A -C-66t h [facility] ondansetron 8 mg oral tablet, disintegrat ing ondanset linda 8 mg oral tablet, disinteg rating Start Date: 11/23/20 Stop Date: 07/12/22 Status: Disconti nued Discont inued 07/12/2022 No Facilit y Access PANTOPRAZOL E SODIUM (PANTOPRAZO LE SODIUM), 40 MG, TABLET DR, ORAL, [employer] [facility], 90 ea. BOTTLE Cancele d [id number] : 2023 0 Pharmac y Data Transac tion Service Facilit y PANTOPRAZOL E SODIUM (PANTOPRAZO LE SODIUM), 40 MG, TABLET DR, ORAL, [employer] [facility], 90 ea. BOTTLE Cancele d [id number] : 2023 0 Pharmac y Data Transac tion Service Facilit y PANTOPRAZOL E SODIUM (PANTOPRAZO LE SODIUM), 40 MG, TABLET DR, ORAL, [employer] [facility], 90 ea. BOTTLE Active [id number] 3 2022 30 Pharmac y Data Transac tion Service Facilit y PANTOPRAZOL E SODIUM (PANTOPRAZO LE SODIUM), 40 MG, TABLET DR, ORAL, [employer] [facility], 90 ea. BOTTLE Cancele d [id number] : 2023 0 Pharmac y Data Transac tion Service Facilit y PANTOPRAZOL E SODIUM (PANTOPRAZO LE SODIUM), 40 MG, TABLET DR, ORAL, [employer] [facility], 90 ea. BOTTLE Active [id number] 4 2023 30 Pharmac y Data Transac tion Service Facilit y SUCRALFATE (SUCRALFATE ), 1G, TABLET, ORAL, [facility], 500 ea. BOTTLE Active [id number] 4 2023 90 Pharmac y Data Transac tion Service Facilit y Allergies, Adverse Reactions, Alerts Combined list of allergies from 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 It does not include entries that were removed or entered in error. Substance Category Reaction Severity Reaction type Status Date Reported Comments Source No Known Allergies Drug allergy (disorder) active 07/13/2021 [facility] Immunizations Combined list of available immunizations from the 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 Immunization Series Date Given Administered By Site Reaction Lot Number CVX Code Drug Pit Hoist Operator Status Comments Source tetanus, diphtheria, acellular pertu is 2021 [facility] [id number] comple t ed Result Comment: Route: Unknown Manufactu rer: OT ([facility]) 0310C-A F-C-66t h [facility] [employer] influenza, injectable, quadrivalent- pf 2021 GABRIELLA [id number] comple t ed Result Comment: Route: Unknown Manufactu rer: OT (SK[facility]) 0310C-A F-C-66t h [facility] [employer] COVID Vaccine Moderna 2020 TRANSCR IBED 207 complet ed COVID Vaccine Moderna 01/06/21 Given Ambulat ory Pharmac y COVID-19, mRNA, LNP-S, PF, 100 mcg or 50 mcg dose 2020 SMITH, Moderna US, Inc. (MOD) Not Given COVID-19, mRNA, LNP-S, PF, 100 mcg or 50 mcg dose DoD SARS-COV-2 (COVID-19) vaccine, mRNA, spike protein, LNP, preservative free, 100 mcg or 50 mcg dose 1 2020 207 Moderna US, Inc. (MOD) complet ed SARS-COV- 2 (COVID-19 ) vaccine, mRNA, spike protein, LNP, preservat angel free, 100 mcg or 50 mcg dose DoD influenza, injectable, quadrivalent- pf 2020 [id number] 150 GlaxoSmithKli ne complet ed influenza , injectabl e, quadrival ent-pf 12/10/20 Given Ambulat ory Pharmac y Influenza, injectable, quadrivalent, preservative free 1 2020 [id number] 150 [facility] (B) complet ed Influenza , injectabl e, quadrival ent, preservat angel free DoD COVID Vaccine Moderna 2020 TRANSCR IBED 207 complet ed COVID Vaccine Moderna 12/09/20 Given Ambulat ory Pharmac y COVID-19, mRNA, LNP-S, PF, 100 mcg or 50 mcg dose 2020 SALINI, Moderna US, Inc. (MOD) Not Given COVID-19, mRNA, LNP-S, PF, 100 mcg or 50 mcg dose DoD SARS-COV-2 (COVID-19) vaccine, mRNA, spike protein, LNP, preservative free, 100 mcg or 50 mcg dose 1 2020 207 Moderna US, Inc. (MOD) complet ed SARS-COV- 2 (COVID-19 ) vaccine, mRNA, spike protein, LNP, preservat angel free, 100 mcg or 50 mcg dose DoD influenza, injectable, quadrivalent- pf 2019 [id number] 150 Seqirus complet ed influenza , injectabl e, quadrival ent-pf 02/28/20 Given Ambulat ory Pharmac y Influenza, injectable, quadrivalent, preservative free 1 2019 [id number] 150 Seqirus (SEQ) complet ed Influenza , injectabl e, quadrival ent, preservat angel free DoD influenza, injectable, quadrivalent- pf 2018 [id number] 150 Se[employer]irus complet ed influenza , injectabl e, quadrival ent-pf 02/27/19 Given Ambulat ory Pharmac y Influenza, injectable, quadrivalent, preservative free 13 2018 [id number] 150 Seqirus (SEQ) complet ed Influenza , injectabl e, quadrival ent, preservat angel free DoD influenza, injectable, quadrivalent- pf 2017 [id number] 150 Se[employer]irus complet ed influenza , injectabl e, quadrival ent-pf 02/05/18 Given Ambulat ory Pharmac y Influenza, injectable, quadrivalent, preservative free 12 2017 [id number] 150 Seqirus (SEQ) comple t ed Influenza , injectabl e, quadrival ent, preservat angel free DoD influenza, injectable, quadrivalent- pf 2016 [id number] 150 [employer] comple t ed influenza , injectabl e, quadrival ent-pf 01/30/17 Given Ambulat ory Pharmac y Influenza, injectable, quadrivalent, preservative free 2016 [id number] 150 (IDB) complet ed Influenza , injectabl e, quadrival ent, preservat angel free DoD influenza, seasonal, injectable-pf 2015 [id number] 1A 140 Seqirus complet ed influenza , seasonal, injectabl e-pf 12/23/15 Given Ambulat ory Pharmac y Influenza, seasonal, injectable, preservative free 10 2015 [id number] [id number] 140 Seqirus (SEQ) complet ed Influenza , seasonal, injectabl e, preservat angel free DoD influenza, live, intranasal,qu adrivalent 2014 [id number] 149 Medimmune Inc comple t ed influenza , live, intranasa l,quadriv alent 01/05/15 Given Ambulat ory Pharmac y typhoid Vi capsular polysaccharid e vac 2014 [id number] 101 sanofi pasteur complet ed typhoid Vi capsular polysacch aride vac 01/05/15 Given Ambulat ory Pharmac y typhoid Vi capsular polysaccharid e vaccine 1 2014 [id number] 101 Sanofi Pasteur ([facility]) complet ed typhoid Vi capsular polysacch aride vaccine DoD influenza, live, intranasal, quadrivalent 9 2014 [id number] 149 MedICity Voiceune, Inc. (MED) complet ed influenza , live, intranasa l, quadrival ent DoD Human Papillomaviru s,quadrivalen t(HPV4) 2014 [id number] 62 [employer] complet ed Human Papilloma virus,holden drivalent (HPV4) 05/16/14 Given Ambulat ory Pharmac y human papilloma virus vaccine, quadrivalent 0 2014 [id number] 62 Merck (MSD) complet ed human papilloma virus vaccine, quadrival ent DoD influenza, live, intranasal,qu adrivalent 2013 [id number] 149 Medimmune Inc comple t ed influenza , live, intranasa l,quadriv alent 01/20/14 Given Ambulat ory Pharmac y influenza, live, intranasal, quadrivalent 8 2013 [id number] 149 MedImmune, Inc. (MED) complet ed influenza , live, intranasa l, quadrival ent DoD influenza, live, intranasal,qu adrivalent 2012 [id number] 149 Medimmune Inc comple t ed influenza , live, intranasa l,quadriv alent 12/24/12 Given Ambulat ory Pharmac y influenza, live, intranasal, quadrivalent 7 2012 [id number] 149 MedImmune, Inc. (MED) complet ed influenza , live, intranasa l, quadrival ent DoD influenza, seasonal, injectable-pf 2011 [id number] 140 sanofi pasteur complet ed influenza , seasonal, injectabl e-pf 03/08/12 Given Ambulat ory Pharmac y Influenza, seasonal, injectable, preservative free 6 2011 [id number] 140 Sanofi Pasteur ([facility]) complet ed Influenza , seasonal, injectabl e, preservat angel free DoD tetanus, diphtheria, acellular pertu is 2011 [id number] 115 [facility] ed tetanus, diphtheri a, acellular pertussis 10/26/11 Given Ambulat ory Pharmac y tetanus toxoid, reduced diphtheria toxoid, and acellular pertu is vaccine, adsorbed 0 2011 [id number] 115 [facility] ([facility]) complet ed tetanus toxoid, reduced diphtheri a toxoid, and acellular pertussis vaccine, adsorbed DoD influenza virus vaccine, live 2010 [id number] 111 Xillient Communications Inc comple t ed influenza virus vaccine, live 11/23/10 Given Ambulat ory Pharmac y influenza virus vaccine, live, attenuated, for intranasal use 5 2010 [id number] 111 InvenSense, Inc. (MED) complet ed influenza virus vaccine, live, attenuate d, for intranasa l use DoD influenza virus vaccine,split 2009 [id number] 15 CSL Behring complet ed influenza virus vaccine,s plit 01/05/10 Given Ambulat ory Pharmac y influenza virus vaccine, split virus (incl. purified surface antigen)-reti red CODE 1 2009 [id number] 15 CS[employer]Smartapwritewith, Inc. (CSL) complet ed influenza virus vaccine, split virus (incl. purified surface antigen)- retired CODE DoD Novel influenza-H1N 1-09, injectable 2009 [id number] 127 sanofi pasteur complet ed Novel influenza -F5M9-03, injectabl e 10/05/09 Given Ambulat ory Pharmac y Novel influenza-H1N 1-09, injectable 1 2009 [id number] 127 Sanofi Pasteur ([facility]) complet ed Novel influenza -L7E1-36, injectabl e DoD influenza virus vaccine, live 2008 [id number] 111 [employer] Inc complet ed influenza virus vaccine, live 01/19/09 Given Ambulat ory Pharmac y influenza virus vaccine, live, attenuated, for intranasal use 1 2008 [id number] 111 In[employer]Sense, Inc. (MED) complet ed influenza virus vaccine, live, attenuate d, for intranasa l use DoD influenza virus vaccine, live 2007 [id number] 111 [employer] Inc comple t ed influenza virus vaccine, live 01/11/08 Given Ambulat ory Pharmac y influenza virus vaccine, live, attenuated, for intranasal use 1 2007 [id number] 111 InvenSense, Inc. (MED) complet ed influenza virus vaccine, live, attenuate d, for intranasa l use DoD hepatitis A adult vaccine 2007 [id number] 52 Merck & Company Inc complet ed hepatitis A adult vaccine 09/20/07 Given Ambulat ory Pharmac y hepatitis A vaccine, adult dosage 2 2007 [id number] 52 Merck (MSD) complet ed hepatitis A vaccine, adult dosage DoD tuberculin purified protein derivative 2006 [id number] 96 sanofi pasteur complet ed tuberculi n purified protein derivativ e 02/27/07 Given Ambulat ory Pharmac y measles virus vaccine 1 2006 05 () Not Given measles virus vaccine DoD rubella virus vaccine 1 2006 06 () Not Given rubella virus vaccine DoD varicella virus vaccine 1 2006 21 () Not Given varicella virus vaccine DoD hepatitis A adult vaccine 2006 [id number] 52 GlaxoSmithKli ne complet ed hepatitis A adult vaccine 01/17/07 Given Ambulat ory Pharmac y measles/mumps /rubella virus vaccine 2006 [id number] 03 Merck & Company Inc complet ed measles/m umps/rube lla virus vaccine 01/17/07 Given Ambulat ory Pharmac y measles, mumps and rubella virus vaccine 1 2006 [id number] 03 Merck (MSD) complet ed measles, mumps and rubella virus vaccine DoD hepatitis B vaccine, adult dosage 1 2006 43 () Not Given hepatitis B vaccine, adult dosage DoD hepatitis A vaccine, adult dosage 1 2006 [id number] 52 SmithDydraine (SKB) complet ed hepatitis A vaccine, adult dosage DoD influenza virus vaccine,split 2006 [id number] 15 GlaxoSmithKli ne complet ed influenza virus vaccine,s plit 01/11/07 Given Ambulat ory Pharmac y meningococcal A,C,Y,W-135 (MCV4P) 2006 [id number] 114 sanofi pasteur complet ed meningoco ccal A,C,Y,W-1 35 (MCV4P) 01/11/07 Given Ambulat ory Pharmac y poliovirus vaccine, inactivated 2006 [id number] 10 sanofi pasteur complet ed polioviru s vaccine, inactivat ed 01/11/07 Given Ambulat ory Pharmac y tetanus-dipht h toxoids (Td) adult/adol 2006 [id number] 09 sanofi pasteur complet ed tetanus-d iphth toxoids (Td) adult/ado l 01/11/07 Given Ambulat ory Pharmac y tetanus and diphtheria toxoids, adsorbed, preservative free, for adult use (2 Lf of tetanus toxoid and 2 Lf of diphtheria toxoid) 1 2006 [id number] 09 Sanofi Pasteur (PMC) complet ed tetanus and diphtheri a toxoids, adsorbed, preservat angel free, for adult use (2 Lf of tetanus toxoid and 2 Lf of diphtheri a toxoid) DoD poliovirus vaccine, inactivated 1 2006 [id number] 10 Sanofi Pasteur (PMC) complet ed polioviru s vaccine, inactivat ed DoD influenza virus vaccine, split virus (incl. purified surface antigen)-reti red CODE 1 2006 [id number] 15 SmithKline (SKB) complet ed influenza virus vaccine, split virus (incl. purified surface antigen)- retired CODE DoD meningococcal polysaccharid e (groups A, C, Y and W-135) diphtheria toxoid conjugate vaccine (MCV4P) 1 2006 [id number] 114 Sanofi Pasteur (PMC) complet ed meningoco ccal polysacch aride (groups A, C, Y and W-135) diphtheri a toxoid conjugate vaccine (MCV4P) DoD Results Combined list of recent chemistry, hematology and other laboratory results from Department of Defense and Veterans Affairs, ranging from 15 months to all on record, depending upon the facility. Order Name Results Value Reference Range Date Interpretation Specimen Comments Source Infectio us Disease HIV-1/O/2 Non-Reac tive 1 (07/14/23 1:29 PM) 07/13 N Interpretiv e Data: INTERPRETAT ION: This method is a screening procedure for the detection of HIV p24 Antigen and Antibodies to HIV-1, including Group O, and/or HIV-2. NON-REACTIV E: HIV-1 antigen and HIV-1 / HIV-2 antibodies were not detected. No laboratory evidence of HIV infection. A negative test result does not exclude the possibility of exposure to or infection with HIV. HIV antibodies and/or p24 antigen may be undetectabl e in some stages of the infection and in some clinical conditions. If acute HIV infection is suspected, consider submitting another specimen to a reference laboratory for HIV-1 RNA. SCREEN REACTIVE - CONFIRMATIO N TO FOLLOW: Possible presence of HIV-1antibo dies, HIV-2 antibodies and/or HIV-1 p24 antigen. Specimen will reflex to the confirmatio n testing that fulfills the Center for Disease Control and Prevention' s HIV diagnostic algorithm. Refer to [facility] Lab Guide for additional information : [email or web address]. [employer]/ kj/kx5/EPIL ab/Pages/la [email or web address] x Testing performed by Blayne higgins. [facility] Chris nickerson Sendouts Repository Sample Received (07/14/23 1:29 PM) 07/13 N [facility] Vital Signs Combined list of inpatient and outpatient Vital Signs from Department of Defense and Veterans Affairs, ranging from 12 months to all on record, depending upon the facility. Vital Sign Value Date Comments Source Systolic Blood Pressure 124mm[Hg] 08/31/2022 13:55:00 Ambulatory Pharmacy Diastolic Blood Pressure 79mm[Hg] 08/31/2022 13:55:00 Ambulatory Pharmacy Mean Arterial Pressure, Calc 94mm[Hg] 08/31/2022 13:55:00 Ambulatory P [facility]acy Peripheral Pulse Rate 69bpm 08/31/2022 13:55:00 Ambulatory Pharmacy Respiratory Rate 16br/min 08/31/2022 13:55:00 Ambulatory Pharmacy Temperature Oral 36.7Cel 08/31/2022 13:55:00 Ambulatory Pharmacy BP Site 08/31/2022 13:55:00 Amb[facility] Pharmacy Blood Pressure Manual 08/31/2022 13:55:00 Ambulatory Pharmacy Encounters Combined list of: 1) Encounters from Department of Veterans Affairs facilities going back up to thelast 18 months. 2) Encounters from the Department of Defense facilities going back up to 280 months. Location Location Details Encounter Type Encounter Number Reason For Visit Attending Provider ADM Date DC Date Status Disposition Source [facility](Opt ometry) OUTPATIENT [id number] rout visit CHASE BARON 10/11 Released w/o Limitations [facility](O ptometr y) [facility](Fam Med Pod 2) OUTPATIENT [id number] health concern s w/ cardiac history NASSASTACIE, LORRIE Y 10/14 Released w/o Limitations [facility](F am Med Pod 2) [facility](Fam Med Pod 2) OUTPATIENT [id number] ekg NASRAQUEL CALHOUNRIC Y 10/22 Released w/o Limitations [facility](F am Med Pod 2) [facility](Fam Med Pod 2) TELE CONSULT [id number] ON/OFF COUGH WITH MUCUS X 1 YR. APPT REQUEST ED. FELTON MARTIN 09/24 Referred for Appointment [facility](F am Med Pod 2) [facility](Fam Med Pod 2) TELE CONSULT [id number] Nose bleeds during exercis e. FELTON MARTIN 11/03 Referred for Appointment [facility](F am Med Pod 2) [facility](Fam Med Pod 1) OUTPATIENT [id number] lt rib pain makes it difficu lt to breath and sleep on that side PILY FLORES 11/04 Released w/o Limitations [facility](F am Med Pod 1) [facility](Fam Med Pod 2) OUTPATIENT [id number] Nose bleeds KAROLINA PLEITEZ 11/10 Released w/o Limitations [facility](F am Med Pod 2) [facility] [facility](Fam Med Pod 2) TELE CONSULT [id number] PHA RESPONS E NASSASTACIE, LORRIE Y 12/05 [facility](F am Med Pod 2) [facility](Fam Med Pod 2) TELE CONSULT [id number] sore throat, runny nose FRANCO MURPHY 01/01 Referred for Appointment [facility](F am Med Pod 2) [facility](Fam Med Pod 2) OUTPATIENT [id number] ear pain, throat, running nose WILLAM RODRIGUEZ 01/02 Sick at Home/Quarter s [facility](F am Med Pod 2) [facility](Fam Med Pod 2) OUTPATIENT [id number] skin issues NASSAUX, LORRIE Y 06/22 Released w/o Limitations [facility](F am Med Pod 2) [facility](Fam Med Pod 1) TELE CONSULT [id number] abdomin al pain, n/v, diarrhe a ILCUS, MASHA S 07/15 [facility](F am Med Pod 1) [facility](Fam Med Pod 2) TELE CONSULT [id number] Pt still not feeling well. Currenl ty on quarter s. FRANCO MURPHY A 07/15 [facility](F am Med Pod 2) [facility](Fam Med Pod 2) OUTPATIENT [id number] f/u possibl e food poisoni ng RAQUEL PATELRIC Y 07/16 Released with Work/Duty Limitations [facility](F am Med Pod 2) [facility](Fam Med Pod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 augment ee helmet/ flag added STEFANI LOCKETT 02/28 Referred for Appointment [employer](C ase Managem ent) [employer]([facility]) OUTPATIENT [id number] difficu y TRISTAN Toribio 04/06 Released w/o Limitations [employer]([facility]) [employer]([facility]) TELE CONSULT [id number] Notes Entered by: ROSI CAUSEY 24 Apr 2018 1302 ------- ------- ------- ------- -- Network Results - SLEEP 04/19/19 19 TRISTAN RIOS 04/24 [employer]([facility]) [employer]([facility]) TELE CONSULT [id number] Notes Entered by: ROSI CAUSEY 01 May 2018 1452 ------- ------- ------- ------- -- Network Results -SLEEP 9 DANNY YEH 05/01 Referred for Appointment [employer] [employer]([facility]) TELE CONSULT [id number] Notes Entered by: WHITNEY EUCEDA 08 May 2018 1533 ------- ------- ------- ------- -- Misc. Call: Request informa tion about C-PAP Machine ARCADIO WOLFE 05/08 Other Not Elsewhere Classified [employer] [employer]([facility]) TELE CONSULT [id number] Notes Entered by: TRISTAN RIOS 12 May 2018 1253 ------- ------- ------- ------- -- Boyd e visit JULIETA DUARTE 05/12 Other Not Elsewhere Classified [employer]([facility]) [employer]([facility]) TELE CONSULT [id number] Notes Entered by: CRISTHIAN LOZA 30 May 2018 1406 ------- ------- ------- ------- -- Network results - ENT 9 TRISTAN RIOS 05/30 [employer]([facility]) [employer]([facility]) OUTPATIENT [id number] Right wrist pain, bone looking differe nt in two places TRISTAN RIOS Alcides 05/30 Released w/o Limitations [employer]([facility]) [employer]([facility]) OUTPATIENT [id number] wakes up in morning with bloated stomach ,uses cpap ALEGRIA [facility] 06/06 Released w/o Limitations [employer]([facility]) [employer]([facility]) OUTPATIENT [id number] sinus infecti on [facility] 07/03 Released w/o Limitations [employer]([facility]) [employer]([facility]) TELE CONSULT [id number] Notes Entered by: ALEGRIAAlcides Shah T 04 Jul 2018 1218 ------- ------- ------- ------- -- X-ray result CAMILO JANG 07/04 Released to [facility] [employer]([facility]) [employer]([facility] OUTPATIENT [id number] Routine . ROSI EDDY 07/19 Released w/o Limitations [employer](O ptometr y Clinic) [employer]([facility]) OUTPATIENT [id number] update profile for left knee - PT test this month ALEGRIABEREKET 09/06 Released w/o Limitations [employer](Z [facility]) [employer]([facility]) TELE CONSULT [id number] Notes Entered by: HAYDEE PATEL 11 Sep 2018 1119 ------- ------- ------- ------- -- Active Duty Triage NATHALY HOLLOWAY 09/11 Other Not Elsewhere Classified [employer]([facility]) [employer]([facility]) TELE CONSULT [id number] Notes Entered by: EVANS WALTON 02 Nov 2018 1202 ------- ------- ------- ------- -- Renewal VIVIAN Tate 11/02 Other Not Elsewhere Classified [employer](Z amily Practic e) [employer]([facility]) OUTPATIENT [id number] Notes Entered by: Santo GARCIA 10 Dec 2018 1345 ------- ------- ------- ------- -- Walk in CAMILO Chávez 12/10 Released w/o Limitations [employer]([facility]) [employer]([facility]) TELE CONSULT [id number] Notes Entered by: TRISTAN RIOS 12 Dec 2018 0627 ------- ------- ------- ------- -- Strep VIVIAN Gardner 12/12 Other Not Elsewhere Classified [employer]([facility]) [employer]([facility]) TELE CONSULT [id number] Notes Entered by: MADISON CHEN 01 Jan 2019 1400 ------- ------- ------- ------- -- DANNY Hess 01/01 Referred for Appointment [employer]([facility]) [employer]([facility] TELE CONSULT [id number] Notes Entered by: HUGO COLLIER 01 Feb 2019 1127 ------- ------- ------- ------- -- AD Triage - upper respira tory infecti STEFANI Payton 02/01 Released to [facility] [employer](O peratio nal Primary Care) [employer]([facility]) OUTPATIENT [id number] GABINO Hussein 02/12 Released w/o Limitations [employer]([facility]) [employer]([facility]) OUTPATIENT [id number] [facility] KEN BRUCEN 02/18 Released w/o Limitations [employer]([facility]) [employer]([facility]) TELE CONSULT [id number] Notes Entered by: GABINO GABRIEL 05 Mar 2019 0818 ------- ------- ------- ------- -- Lab results GABINO BLACK 03/05 [employer]([facility]) [employer]([facility]) TELE CONSULT [id number] Notes Entered by: LINDSAY YU 26 Mar 2019 1530 ------- ------- ------- ------- -- Network Results - Urgent Care - 019 TRISTAN RIOS 03/26 [employer](O peratio nal Primary Care) [employer]([facility]) TELE CONSULT [id number] Notes Entered by: HAYDEE PATEL 29 Mar 2019 1432 ------- ------- ------- ------- -- Referra l request : STEFANI PERES 03/29 Released to Self [facility] [employer](O peratio nal Primary Care) [employer](Minor eficiary Primary Care) TELE CONSULT [id number] Notes Entered by: HAYDEE PATEL 29 Mar 2019 1438 ------- ------- ------- ------- -- AD Triage: DANNY Cullen 03/29 Referred for Appointment [employer](B enefici demian Primary Care) [employer]([facility]) TELE CONSULT [id number] Notes Entered by: YUKO GREGORIO 10 May 2019 1651 ------- ------- ------- ------- -- Network Results -Orthop edic- 9 TRISTAN RIOS 05/10 [employer](O peratio nal Primary Care) [employer]([facility]) OUTPATIENT [id number] CARLTON Goddard 05/13 Released w/o Limitations [employer]([facility]) [employer]([facility]) TELE CONSULT [id number] Notes Entered by: Phil LOCKETT 14 May 2019 1143 ------- ------- ------- ------- -- PRAP- pt seen at [facility] 05/13/19 - f/u call made STEFANI LOCKETT 05/14 Released to [facility] [employer](O peratio nal Primary Care) [employer]([facility]) TELE CONSULT [id number] Notes Entered by: MAYKEL MITCHELL PH 19 May 2019 1733 ------- ------- ------- ------- -- Needs follow- up with PCM STEFANI LOCKETT 05/18 Referred for Appointment [employer]([facility] Primary Care) [employer]([facility] OUTPATIENT [id number] jorden Stokes l request ,ph # TRISTAN RIOS 05/29 Released w/o Limitations [employer](O peratio nal Primary Care) [employer]([facility]) TELE CONSULT [id number] Notes Entered by: TRISTAN RIOS 11 Jun 2019 1348 ------- ------- ------- ------- -- Special ist follow up TRISTAN RIOS 06/10 [employer](O [facility]atio nal Primary Care) [employer]([facility]) TELE CONSULT [id number] Notes Entered by: YUKO GREGORIO 13 Jun 2019 1609 ------- ------- ------- ------- -- Network Results -Urolog y-06/12 TRISTAN RIOS 06/12 [employer]([facility] Primary [facility]) [employer]([facility]) OUTPATIENT [id number] f/u after seeing TRISTAN Cardenas 06/17 Released w/o Limitations [employer](O peratio nal Primary Care) [employer]([facility] OUTPATIENT [id number] Notes Entered by: Madeline MILLER 20 Jun 2019 0644 ------- ------- ------- ------- -- LINH Gibson 06/19 Released w/o Limitations [employer]([facility]) [employer]([facility]) TELE CONSULT [id number] Notes Entered by: TRISTAN RIOS 23 Jun 2019 1219 ------- ------- ------- ------- -- TRISTAN Mckinnon 06/22 [employer](O per[facility] nal Primary Care) [employer]([facility]) TELE CONSULT [id number] Notes Entered by: Madeline MILLER 24 Jun 2019 0634 ------- ------- ------- ------- -- strep result LINH MILLER 06/23 [employer](P ediatri c Clinic) [employer]([facility]) TELE CONSULT [id number] Notes Entered by: MAYKEL MITCHELL PH 26 Jun 2019 1637 ------- ------- ------- ------- -- Patient Call CARLTON VILLATORO 06/25 [employer]([facility]atio [facility]al Primary Care) [employer]([facility]) TELE CONSULT [id number] Notes Entered by: LINDSAY YU 04 Jul 2019 1323 ------- ------- ------- ------- -- Network Results - Urgent Care - 020 TRISTAN RIOS 07/03 [employer]([facility] Primary [facility]) [employer]([facility]) TELE CONSULT [id number] Notes Entered by: TRISTAN RIOS 09 Jul 2019 0824 ------- ------- ------- ------- -- AMRO/DA DANNY Chi 07/08 Released to Self [facility] [employer](O per[facility] nal Primary Care) [employer](Renae demic Virus) OUTPATIENT [id number] Notes Entered by: Madeline MILLER 09 Jul 2019 1322 ------- ------- ------- ------- -- COVID-1 9 Screeni ng: runny nose, muscle aches, sore throat, headach e MIGUELINA MORALES V 07/08 Sick at Home/Quarter s [employer](P andemic Virus) [employer](Renae demic Virus) TELE CONSULT [id number] Notes Entered by: CANTRELL V 12 Jul 2019 1212 ------- ------- ------- ------- -- negativ e throat culture results (t-con) MIGUELINA MORALES V 07/11 [employer](P andemic Virus) [employer]([facility]) TELE CONSULT [id number] Notes Entered by: MADISON CHEN NMI 15 Aug 2019 0929 ------- ------- ------- ------- -- ReferDANNY Li 08/14 Referred for Appointment [employer](O [facility] nal Primary Care) [employer]([facility]) OUTPATIENT [id number] tonsil stones DOUG PRUITT 08/25 Released w/o Limitations [employer] [employer]([facility]) TELE CONSULT [id number] Notes Entered by: MADISON CHEN 14 Oct 2019 1010 ------- ------- ------- ------- -- SHREYA Wayne 10/13 Other Not Elsewhere Classified [employer]([facility]) [employer]([facility]) TELE CONSULT [id number] Notes Entered by: CECILY SAMUELS 15 Oct 2019 1109 ------- ------- ------- ------- -- Obtain Procedu re note for tonsill ectomy 020 JC ESTRELLA 10/14 [employer]([facility]) [employer]([facility]) OUTPATIENT [id number] discuss low T LIDIA WRAY 10/29 Released w/o Limitations [employer]([facility]) [employer]([facility]) TELE CONSULT [id number] Notes Entered by: ANA SANDERS 13 Nov 2019 0805 ------- ------- ------- ------- -- TED Hampton 11/12 Referred for Appointment [employer] [employer]([facility]) OUTPATIENT [id number] SPEC CALL [phone] LIDIA WRAY 11/13 Released w/o Limitations [employer]([facility]) [employer]([facility]) TELE CONSULT [id number] Notes Entered by: HAYDEE PATEL 18 Nov 2019 1234 ------- ------- ------- ------- -- Virtual Appoint ment: discuss lab results STEFANI LOCKETT 11/17 Referred for Appointment [employer](O peratio nal Primary Care) [employer]([facility]) OUTPATIENT [id number] to discuss [phone] LIDIA WRAY 11/17 Released w/o Limitations [employer]([facility]) [employer]([facility]) TELE CONSULT [id number] Notes Entered by: JOSHUA TAYLOR 27 Nov 2019 1250 ------- ------- ------- ------- -- COVID-1 9 Quarant ine 14-day Follow up RYAN MILLER 11/26 Other Not Elsewhere Classified [employer]([facility]al Primary Care) [employer]([facility]) OUTPATIENT [id number] REE ROSI EDDY 01/06 Released w/o Limitations [employer](O ptometr y Clinic) [employer]([facility]) OUTPATIENT [id number] discuss anxiety PAPITO ROB 01/06 Released w/o Limitations [employer](O peratio nal Primary Care) [employer]([facility]) OUTPATIENT [id number] follow up - anxiety PAPITO ROB 01/15 Released with Work/Duty Limitations [employer](O peratio nal Primary Care) [employer]([facility] OUTPATIENT [id number] 2wk f/u PAPITO ROB 01/28 Released with Work/Duty Limitations [employer](O peratio nal Primary Care) [employer]([facility] OUTPATIENT [id number] Discuss medicat ions/ r/s from [id number] PAPITO ROB 03/02 Released with Work/Duty Limitations [employer](O peratio nal Primary Care) [employer]([facility]) TELE CONSULT [id number] Notes Entered by: HAYDEE PATEL 30 Apr 2020 1127 ------- ------- ------- ------- -- COVID 19 Lupillo e : STEFANI LOCKETT 04/30 Advice Assessment [employer](O per[facility]al Primary Care) [employer](Renae demic Virus) OUTPATIENT [id number] Notes Entered by: MADISON CHENI 30 Apr 2020 1419 ------- ------- ------- ------- -- COVID Screeni ng: Symptom atic ROSI CUMMINGS Johnnie 04/30 Released with Work/Duty Limitations [employer](P andemic Virus) [employer]([facility]) TELE CONSULT [id number] Notes Entered by: DOMENIC SANDOVAL 01 May 2020 1401 ------- ------- ------- ------- -- dalton simmons results PAPITO ROB 05/01 [employer](O per[facility] nal Primary Care) [employer]([facility]) TELE CONSULT [id number] Notes Entered by: EVANS WALTON 04 Jun 2020 1133 ------- ------- ------- ------- -- Med Refill/ 3 days left - STEFANI Bradley 06/04 Referred for Appointment [employer]([facility]al Primary Care) [employer]([facility]) OUTPATIENT [id number] need Zoloft refill - [phone] PAPITO ROB 06/05 Released w/o Limitations [employer](O peratio nal Primary Care) [employer]([facility]) OUTPATIENT [id number] 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 BAILEY [phone] (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 appt) FELIZ TILLMAN 06/08 Released w/o Limitations [employer]([facility]) [employer]([facility]) OUTPATIENT [id number] Profile extensi on for Left knee JC ESTRELLA N 06/30 Released with Work/Duty Limitations [employer](O peratio nal Primary Care) [employer]([facility]) TELE CONSULT [id number] Notes Entered by: HAYDEE PATEL 06 Aug 2020 1352 ------- ------- ------- ------- -- Triage: painful lump on throat under STEFANI Ace 08/06 Other Not Elsewhere Classified [employer](O per[facility] nal Primary Care) [employer]([facility]) OUTPATIENT [id number] sick call- swellin g throat [phone] JC ESTRELLA N 08/07 Released w/o Limitations [employer](O peratio nal Primary Care) [employer]([facility]) OUTPATIENT [id number] Notes Entered by: MADISON CHEN NMI 18 Aug 2020 1408 ------- ------- ------- ------- -- Sick call : severe cough ESEQUIEL MIRANDA 08/18 Sick at Home/Quarter s [employer](O peratio nal Primary Care) [employer]([facility]) TELE CONSULT [id number] Notes Entered by: WALTER RING 25 Sep 2020 0811 ------- ------- ------- ------- -- Network Results - ENT - 021 TORSTEN CAPONE 09/25 [employer](O peratio [facility]al Primary Care) [employer]([facility]) TELE CONSULT [id number] Notes Entered by: HAYDEE PATEL 01 Dec 2020 1345 ------- ------- ------- ------- -- Concern about Covid vaccine and family heart issues STEFANI LOCKETT 12/01 Referred for Appointment [employer](O peratio nal Primary Care) [employer]([facility]) OUTPATIENT [id number] IGNACIA UNDERWOOD 06/18 Released w/o Limitations [employer](O ptometr y Clinic) [employer]([facility]) OUTPATIENT [id number] vMHA/ [phone] FELIZ TILLMAN 07/12 Released w/o Limitations [employer]([facility]) [employer]([facility]) OUTPATIENT [id number] follow up - PHAQ SHON CAPONEROEL HENRIQUEZ 08/05 Released with Work/Duty Limitations [employer](O peratio nal Primary Care) [employer]([facility]) TELE CONSULT [id number] Notes Entered by: ANANTH MEJIA 06 Aug 2021 1613 ------- ------- ------- ------- -- BRIDGER STEFANI LOCKETT 08/06 Other Not Elsewhere Classified [employer](O peratio nal Primary Care) [employer]([facility]) OUTPATIENT [id number] per pcm needs Spec- [phone] CAPONE TORSTENROEL HENRIQUEZ 08/10 Released w/o Limitations [employer](O peratio nal Primary Care) [employer]([facility]) TELE CONSULT [id number] Notes Entered by: JENELLE RIOS 20 Aug 2021 1419 ------- ------- ------- ------- -- Profile STEFANI LOCKETT 08/20 Other Not Elsewhere Classified [employer](O peratio nal Primary Care) [employer]([facility]) TELE CONSULT [id number] Notes Entered by: Phil LOCKETT 26 Aug 2021 1506 ------- ------- ------- ------- -- klever humphreys sent to GI special ist- care coordin kenneth STEFANI LOCKETT 08/26 Other Not Elsewhere Classified [employer](O peratio nal Primary Care) [employer]([facility]) TELE CONSULT [id number] Notes Entered by: HAYDEE PATEL 21 Oct 2021 1410 ------- ------- ------- ------- -- Referra l Renewal : urgent- DME CPAP and mask STEFANI LOCKETT 10/21 Other Not Elsewhere Classified [employer](O peratio nal Primary Care) [employer]([facility]) TELE CONSULT [id number] Notes Entered by: KASIA RIVERS 08 Nov 2021 0749 ------- ------- ------- ------- -- COVID 19 Guidanc e : Positiv e COVID test with symptom s STEFANI LOCKETT 11/08 Sick at Home/Quarter s [employer](O peratio nal Primary Care) [employer]([facility]) TELE CONSULT [id number] Notes Entered by: MARIKA MAYNARD 12 Nov 2021 1444 ------- ------- ------- ------- -- Remove AUoF MP [employer] t Red Flag Icons MARIKA MAYNARD 11/12 Referred- Emergency Department [employer](O peratio nal Primary Care) [id number]-AF- C-66th [facility] [id number] ALIYA LIGHT 10/30 Discharge Disposition: Home or Self Care 0310C-A F-C-66t h [facility] 0310C-AF- C-66th [facility] Between Visit [id number] 11/09 Discharge Disposition: Home or Self Care 0310C-A F-C-66t h [facility] 0310C-AF- C-66th [facility] Between Visit [id number] 12/19 Discharge Disposition: Home or Self Care 309C-A -C h [facility] [place] [facility] [place] [facility] Between Visit [id number] 12/25 Discharge Disposition: Home or Self Care 309C-A -C h [facility] [place] [facility] Between Visit [id number] 02/11 Discharge Disposition: Home or Self Care 309C-A -C h [facility] [place] [facility] Procedures Combined list of: 1) Procedures from [facility] Affairs facilities going back up to thelast 18 months, not all [place] non-surgical procedures are included; 2) All procedures from the Department of Defense facilities. Procedure Procedure Type Code Date Perfomer Comments Sourc e Strapping; knee Strapping; knee [address] [place] [address] [place] [address] [place] [facility] Brief emotional/behavioral a e ment (eg, depre ion inventory, attention-deficit/hyp eractivity disorder [ADHD] scale), with scoring and documentation, per standardized instrument Brief emotional/behavioral assessment (eg, depression inventory, attention-deficit/hy peractivity disorder [ADHD] scale), with scoring and documentation, per standardized instrument [address] [place] [address] [place] [facility] Fitting of spectacles, except for aphakia; monofocal Fitting of spectacles, except for aphakia; monofocal [address] [place] [address] [place] [facility] BODY MASS INDEX (BMI) DOCUMENTED BODY MASS INDEX (BMI) DOCUMENTED [id number] [address] [place] [address] [place] [facility] Application of a modality to one or more areas; iontophoresis, each 15 minutes Application of a modality to one or more areas; iontophoresis, each 15 minutes [address] [place] [address] [place] [facility] Therapeutic procedure, one or more areas, each 15 minutes; neuromuscular reeducation of movement, balance, coordination, kinesthetic sense, posture, and/or proprioception for sitting and/or standing activities Therapeutic procedure, one or more areas, each 15 minutes; neuromuscular reeducation of movement, balance, coordination, kinesthetic sense, posture, and/or proprioception for sitting and/or standing activities [address] [place] [address] [facility] Health behavior intervention, individual, [id number]; initial 30 minutes Health behavior intervention, individual, [id number]; initial 30 minutes [id number] [facility] Therapeutic procedure, one or more areas, each 15 minutes; therapeutic exercises to develop strength and endurance, range of motion and flexibility Therapeutic procedure, one or more areas, each 15 minutes; therapeutic exercises to develop strength and endurance, range of motion and flexibility [address] [place] [address] [facility] Psychiatric evaluation of hospital records, other psychiatric reports, psychometric and/or projective tests, and other accumulated data for medical diagnostic purposes Psychiatric evaluation of hospital records, other psychiatric reports, psychometric and/or projective tests, and other accumulated data for medical diagnostic purposes [address] [place] [address] [facility] Health behavior a e ment, or re-a e ment (ie, health-focused clinical interview, behavioral observations, clinical decision making) Health behavior assessment, or re-assessment (ie, health-focused clinical interview, behavioral observations, clinical decision making) [address] [place] [address] [facility] Application of a modality to one or more areas; hot or cold packs Application of a modality to one or more areas; hot or cold packs 30098 [facility] PURE TONE AUDIOMTRY THRESHOLD COMPUTER DEV AIR PURE TONE AUDIOMTRY THRESHOLD COMPUTER DEV AIR 0208T [facility] Determination of refractive state Determination of refractive state [id number] [facility] L knee surgery 2012 [facility] Endoscopy [facility] [id number] [facility] Septoplasty 2018 [facility] Tonsillectomy 2018 [facility] BRIEF EMOTIONAL/BEHAVIORAL ASSESSMENT (EG, DEPRESSION INVENTORY, ATTENTION-DEFICIT/HYP ERACTIVITY DISORDER [ADHD] SCALE), WITH SCORING AND DOCUMENTATION, PER STANDARDIZED INSTRUMENT [facility] FITTING OF SPECTACLES, EXCEPT FOR APHAKIA; MONOFOCAL [facility] PURE TONE AUDIOMETRY (THRESHOLD), AUTOMATED; AIR ONLY [facility] PSYCHIATRIC EVALUATION OF HOSPITAL RECORDS, OTHER PSYCHIATRIC REPORTS, PSYCHOMETRIC AND/OR PROJECTIVE TESTS, AND OTHER ACCUMULATED DATA FOR MEDICALDIAGNOSTIC PURPOSES [facility] FITTING OF SPECTACLES, EXCEPT FOR APHAKIA; MONOFOCAL DoD THERAPEUTIC PROCEDURE, 1 OR MORE AREAS, EACH 15 MINUTES; THERAPEUTIC EXERCISES TO DEVELOP STRENGTH AND ENDURANCE, RANGE OF MOTION AND FLEXIBILITY DoD THERAPEUTIC PROCEDURE,1 OR MORE AREAS,EACH 15 MINUTES;NEUROMUSCULAR REEDUCATION OF MOVEMENT,BALANCE,COOR DINATION,KINESTHETIC SENSE,POSTURE,AND/OR PROPRIOCEPTION FOR SITTING AND/OR STANDING ACTIVITIES DoD THERAPEUTIC PROCEDURE, 1 OR MORE AREAS, EACH 15 MINUTES; THERAPEUTIC EXERCISES TO DEVELOP STRENGTH AND ENDURANCE, RANGE OF MOTION AND FLEXIBILITY DoD THERAPEUTIC PROCEDURE,1 OR MORE AREAS,EACH 15 MINUTES;NEUROMUSCULAR REEDUCATION OF MOVEMENT,BALANCE,COOR DINATION,KINESTHETIC SENSE,POSTURE,AND/OR PROPRIOCEPTION FOR SITTING AND/OR STANDING ACTIVITIES DoD THERAPEUTIC PROCEDURE,1 OR MORE AREAS,EACH 15 MINUTES;NEUROMUSCULAR REEDUCATION OF MOVEMENT,BALANCE,COOR DINATION,KINESTHETIC SENSE,POSTURE,AND/OR PROPRIOCEPTION FOR SITTING AND/OR STANDING ACTIVITIES DoD THERAPEUTIC PROCEDURE,1 OR MORE AREAS,EACH 15 MINUTES;NEUROMUSCULAR REEDUCATION OF MOVEMENT,BALANCE,COOR DINATION,KINESTHETIC SENSE,POSTURE,AND/OR PROPRIOCEPTION FOR SITTING AND/OR STANDING ACTIVITIES DoD THERAPEUTIC PROCEDURE, 1 OR MORE AREAS, EACH 15 MINUTES; THERAPEUTIC EXERCISES TO DEVELOP STRENGTH AND ENDURANCE, RANGE OF MOTION AND FLEXIBILITY DoD THERAPEUTIC PROCEDURE, 1 OR MORE AREAS, EACH 15 MINUTES; THERAPEUTIC EXERCISES TO DEVELOP STRENGTH AND ENDURANCE, RANGE OF MOTION AND FLEXIBILITY DoD THERAPEUTIC PROCEDURE, 1 OR MORE AREAS, EACH 15 MINUTES; THERAPEUTIC EXERCISES TO DEVELOP STRENGTH AND ENDURANCE, RANGE OF MOTION AND FLEXIBILITY DoD APPLICATION OF A MODALITY TO 1 OR MORE AREAS; HOT OR COLD PACKS DoD APPLICATION OF A MODALITY TO 1 OR MORE AREAS; HOT OR COLD PACKS DoD APPLICATION OF A MODALITY TO 1 OR MORE AREAS; HOT OR COLD PACKS DoD THERAPEUTIC PROCEDURE,1 OR MORE AREAS,EACH 15 MINUTES;NEUROMUSCULAR REEDUCATION OF MOVEMENT,BALANCE,COOR DINATION,KINESTHETIC SENSE,POSTURE,AND/OR PROPRIOCEPTION FOR SITTING AND/OR STANDING ACTIVITIES [facility] THERAPEUTIC PROCEDURE, 1 OR MORE AREAS, EACH 15 MINUTES; THERAPEUTIC EXERCISES TO DEVELOP STRENGTH AND ENDURANCE, RANGE OF MOTION AND FLEXIBILITY DoD FITTING OF SPECTACLES, EXCEPT FOR APHAKIA; MONOFOCAL DoD WAIVER SERVICES; NOT OTHERWISE SPECIFIED (NOS) DoD BODY MASS INDEX (BMI), DOCUMENTED (PV) DoD FITTING OF SPECTACLES, EXCEPT FOR APHAKIA; MONOFOCAL DoD WAIVER SERVICES; NOT OTHERWISE SPECIFIED (NOS) [facility] BRIEF COMM TECH-BASE SERV,E.G. VIRT CHK-IN,BY PHYS/OTH QUAL HCP,RPT E&M SERV,PROV TO EST PT,NOT ORIG FRM REL E/M SERV PROV W/IN PREV 7DAY NOR LEAD TO E/M SRV/PX W/IN NEXT 24HR/SOON FIDENCIO; 5-10 MIN DISC [facility] BRIEF EMOTIONAL/BEHAVIORAL ASSESSMENT (EG, DEPRESSION INVENTORY, ATTENTION-DEFICIT/HYP ERACTIVITY DISORDER [ADHD] SCALE), WITH SCORING AND DOCUMENTATION, PER STANDARDIZED INSTRUMENT [facility] BRIEF EMOTIONAL/BEHAVIORAL ASSESSMENT (EG, DEPRESSION INVENTORY, ATTENTION-DEFICIT/HYP ERACTIVITY DISORDER [ADHD] SCALE), WITH SCORING AND DOCUMENTATION, PER STANDARDIZED INSTRUMENT Do[facility] BRIEF EMOTIONAL/BEHAVIORAL ASSESSMENT (EG, DEPRESSION INVENTORY, ATTENTION-DEFICIT/HYP ERACTIVITY DISORDER [ADHD] SCALE), WITH SCORING AND DOCUMENTATION, PER STANDARDIZED INSTRUMENT [facility] BRIEF EMOTIONAL/BEHAVIORAL ASSESSMENT (EG, DEPRESSION INVENTORY, ATTENTION-DEFICIT/HYP ERACTIVITY DISORDER [ADHD] SCALE), WITH SCORING AND DOCUMENTATION, PER STANDARDIZED INSTRUMENT [facility] BRIEF EMOTIONAL/BEHAVIORAL ASSESSMENT (EG, DEPRESSION INVENTORY, ATTENTION-DEFICIT/HYP ERACTIVITY DISORDER [ADHD] SCALE), WITH SCORING AND DOCUMENTATION, PER STANDARDIZED INSTRUMENT DoD FITTING OF SPECTACLES, EXCEPT FOR APHAKIA; MONOFOCAL DoD TELE ASSESS & MGT SRV PROV QUAL NONPHYS HLTH CARE PRO TO EST PAT,PARENT,GUARD NOT ORIG REL ASSESS & MGT SRV PROV W/IN PREV 7 DAYS NOR LEAD ASSESS & MGT SRV/PX W/IN NXT 24 HR/SOON APT;5-10 MIN MED DIS DoD WAIVER SERVICES; NOT OTHERWISE SPECIFIED (NOS) [facility] BRIEF COMM TECH-BASE SERV,E.G. VIRT CHK-IN,BY PHYS/OTH QUAL HCP,RPT E&M SERV,PROV TO EST PT,NOT ORIG FRM REL E/M SERV PROV W/IN PREV 7DAY NOR LEAD TO E/M SRV/PX W/IN NEXT 24HR/SOON FIDENCIO; 5-10 MIN DISC DoD BRIEF COMM TECH-BASE SERV,E.G. VIRT CHK-IN,BY PHYS/OTH QUAL HCP,RPT E&M SERV,PROV TO EST PT,NOT ORIG FRM REL E/M SERV PROV W/IN PREV 7DAY NOR LEAD TO E/M SRV/PX W/IN NEXT 24HR/SOON FIDENCIO; 5-10 MIN DISC DoD BRIEF COMM TECH-BASE SERV,E.G. VIRT CHK-IN,BY PHYS/OTH QUAL HCP,RPT E&M SERV,PROV TO EST PT,NOT ORIG FRM REL E/M SERV PROV W/IN PREV 7DAY NOR LEAD TO E/M SRV/PX W/IN NEXT 24HR/SOON FIDENCIO; 5-10 MIN DISC 019 DoD FITTING OF SPECTACLES, EXCEPT FOR APHAKIA; MONOFOCAL 019 DoD TELE ASSESS & MGT SRV PROV QUAL NONPHYS HLTH CARE PRO TO EST PAT,PARENT,GUARD NOT ORIG REL ASSESS & MGT SRV PROV W/IN PREV 7 DAYS NOR LEAD ASSESS & MGT SRV/PX W/IN NXT 24 HR/SOON APT;5-10 MIN MED DIS 019 DoD TELE ASSESS & MGT SRV PROV QUAL NONPHYS HLTH CARE PRO TO EST PAT,PARENT,GUARD NOT ORIG REL ASSESS & MGT SRV PROV W/IN PREV 7 DAYS NOR LEAD ASSESS & MGT SRV/PX W/IN NXT 24 HR/SOON APT;5-10 MIN MED DIS 019 DoD TELE ASSESS & MGT SRV PROV QUAL NONPHYS HLTH CARE PRO TO EST PAT,PARENT,GUARD NOT ORIG REL ASSESS & MGT SRV PROV W/IN PREV 7 DAYS NOR LEAD ASSESS & MGT SRV/PX W/IN NXT 24 HR/SOON APT;5-10 MIN MED DIS 019 DoD ADMINISTRATION OF PATIENT-FOCUSED HEALTH RISK ASSESSMENT INSTRUMENT (EG, HEALTH HAZARD APPRAISAL) WITH SCORING AND DOCUMENTATION, PER STANDARDIZED INSTRUMENT 018 DoD PURE TONE AUDIOMETRY (THRESHOLD), AUTOMATED; AIR ONLY 018 DoD TELE ASSESS & MGT SRV PROV QUAL NONPHYS HLTH CARE PRO TO EST PAT,PARENT,GUARD NOT ORIG REL ASSESS & MGT SRV PROV W/IN PREV 7 DAYS NOR LEAD ASSESS & MGT SRV/PX W/IN NXT 24 HR/SOON APT;5-10 MIN MED DIS 018 DoD FITTING OF SPECTACLES, EXCEPT FOR APHAKIA; MONOFOCAL 018 DoD PRESCRIPTION OF OPTICAL AND PHYSICAL CHARACTERISTICS OF AND FITTING OF CONTACT LENS, WITH MEDICAL SUPERVISION OF ADAPTATION; CORNEAL LENS, BOTH EYES, EXCEPT FOR APHAKIA 018 DoD TELE ASSESS & MGT SRV PROV QUAL NONPHYS HLTH CARE PRO TO EST PAT,PARENT,GUARD NOT ORIG REL ASSESS & MGT SRV PROV W/IN PREV 7 DAYS NOR LEAD ASSESS & MGT SRV/PX W/IN NXT 24 HR/SOON APT;5-10 MIN MED DIS 018 DoD FITTING OF SPECTACLES, EXCEPT FOR APHAKIA; MONOFOCAL 018 DoD TELE ASSESS & MGT SRV PROV QUAL NONPHYS HLTH CARE PRO TO EST PAT,PARENT,GUARD NOT ORIG REL ASSESS & MGT SRV PROV W/IN PREV 7 DAYS NOR LEAD ASSESS & MGT SRV/PX W/IN NXT 24 HR/SOON APT;5-10 MIN MED DIS 017 DoD TELE ASSESS & MGT SRV PROV QUAL NONPHYS HLTH CARE PRO TO EST PAT,PARENT,GUARD NOT ORIG REL ASSESS & MGT SRV PROV W/IN PREV 7 DAYS NOR LEAD ASSESS & MGT SRV/PX W/IN NXT 24 HR/SOON APT;5-10 MIN MED DIS [facility] ADMINISTRATION OF PATIENT-FOCUSED HEALTH RISK ASSESSMENT INSTRUMENT (EG, HEALTH HAZARD APPRAISAL) WITH SCORING AND DOCUMENTATION, PER STANDARDIZED INSTRUMENT [facility] PURE TONE AUDIOMETRY (THRESHOLD), AUTOMATED; AIR ONLY [facility] DETERMINATION OF REFRACTIVE STATE 017 [facility] INJECTION, PENICILLIN G BENZATHINE AND PENICILLIN G PROCAINE, UP TO 1,200,000 UNITS 007 DoD STRAPPING; KNEE 012 [facility] APPLICATION OF A MODALITY TO 1 OR MORE AREAS; IONTOPHORESIS, EACH 15 MINUTES 012 [facility] APPLICATION OF A MODALITY TO 1 OR MORE AREAS; IONTOPHORESIS, EACH 15 MINUTES 012 [facility] APPLICATION OF A MODALITY TO 1 OR MORE AREAS; IONTOPHORESIS, EACH 15 MINUTES 012 [facility] PHYSICAL THERAPY RE-EVALUATION 012 [facility] THERAPEUTIC PROCEDURE,1 OR MORE AREAS,EACH 15 MINUTES;NEUROMUSCULAR REEDUCATION OF MOVEMENT,BALANCE,COOR DINATION,KINESTHETIC SENSE,POSTURE,AND/OR PROPRIOCEPTION FOR SITTING AND/OR STANDING ACTIVITIES 012 [facility] THERAPEUTIC PROCEDURE,1 OR MORE AREAS,EACH 15 MINUTES;NEUROMUSCULAR REEDUCATION OF MOVEMENT,BALANCE,COOR DINATION,KINESTHETIC SENSE,POSTURE,AND/OR PROPRIOCEPTION FOR SITTING AND/OR STANDING ACTIVITIES 012 [facility] THERAPEUTIC PROCEDURE,1 OR MORE AREAS,EACH 15 MINUTES;NEUROMUSCULAR REEDUCATION OF MOVEMENT,BALANCE,COOR DINATION,KINESTHETIC SENSE,POSTURE,AND/OR PROPRIOCEPTION FOR SITTING AND/OR STANDING ACTIVITIES 012 [facility] PHYSICAL THERAPY EVALUATION 012 [facility] DETERMINATION OF REFRACTIVE STATE 008 [facility] UNLISTED SPECIAL SERVICE, PROCEDURE OR REPORT 015 [facility] Modalities Iontophoresis Modalities Iontophoresis 41127 012 VAHID TRIPLETT [facility] Physical Therapy Neuromuscular Re-education Physical Therapy Neuromuscular Re-education 64358 012 VAHID TRIPLETT [facility] A isted Exercises [place] 10404 012 VAHID TRIPLETT Modalities Iontophoresis Modalities Iontophoresis 58431 012 VAHID TRIPLETT Physical Therapy Neuromuscular Re-education Physical Therapy Neuromuscular Re-education 37392 012 VAHID TRIPLETT A isted Exercises For ROM Assisted Exercises For ROM 49953 012 VAHID TRIPLETT Physical Therapy Service Re-Evaluation Physical Therapy Service Re-Evaluation 61872 012 DANTE SANTOS Physical Therapy Neuromuscular Re-education Physical Therapy Neuromuscular Re-education 24694 012 DANIELA SHAH A isted Exercises For ROM Assisted Exercises For ROM 47771 012 DANIELA SHAH A isted Exercises For ROM Assisted Exercises For ROM 02689 012 DANIELA SHAH Physical Therapy Neuromuscular Re-education Physical Therapy Neuromuscular Re-education 90822 012 DANIELA SHAH Physical Therapy Service Evaluation Physical Therapy Service Evaluation 02990 012 DANTE SANTOS Ophthalmological New Patient Start Comprehensive Care Ophthalmological New Patient Start Comprehensive Care 84038 008 CHASE BARON [facility] Spectacles Services Fitting Monofocal Except For Aphakia Spectacles Services Fitting Monofocal Except For Aphakia 56106 019 SEVEN VELEZ [facility] Determination Of Refractive State Determination Of Refractive State 73896 019 SEVEN VELEZ [facility] Ophthalmological Prior Patient Start Comprehensive Care Ophthalmological Prior Patient Start Comprehensive Care 66598 019 SEVEN VELEZ [facility] Non-Physician Phone Call To Patient/Provider Brief (5-10min) Non-Physician Phone Call To Patient/Provider Brief (5-10min) 10285 019 CAMILO JANG [facility] Non-Physician Phone Call To Patient/Provider Brief (5-10min) Non-Physician Phone Call To Patient/Provider Brief (5-10min) 32637 019 DANNY YEH [facility] Non-Physician Phone Call To Patient/Provider Brief (5-10min) Non-Physician Phone Call To Patient/Provider Brief (5-10min) 30046 019 ARCADIO WOLFE [facility] Preventive Medicine Administration Of Health Risk Questionnaire Patient-Focused Preventive Medicine Administration Of Health Risk Questionnaire Patient-Focused [id number] [id number] GABINO BLACK Internet Med Svc Qual Nonphys Healthcare Prof Up To 7 Days Estab Patient Internet Med Svc Qual Nonphys Healthcare Prof Up To 7 Days Estab Patient 78055 018 GABINO BLACK Threshold Audiogram (Pure Tone) Automated Threshold Audiogram (Pure Tone) Automated 0208T 018 CAROL CRAIG [facility] Non-Physician Phone Call To Patient/Provider Brief (5-10min) Non-Physician Phone Call To Patient/Provider Brief (5-10min) 74850 018 NATHALY HOLLOWAY [facility] Spectacles Services Fitting Monofocal Except For Aphakia Spectacles Services Fitting Monofocal Except For Aphakia 00871 018 JUNG-VILLANUEVA , ALEXUS DoD Prescription And Fitting Bilateral Corneal Lenses (Not For Aphakia) Prescription And Fitting Bilateral Corneal Lenses (Not For Aphakia) 13522 018 JUNG-VILLANUEVA , ALEXUS Do[facility] Determination Of Refractive State Determination Of Refractive State 13582 018 JUNG-VILLANUEVA , ALEXUS DoD Prescription And Fitting Bilateral Corneal Lenses (Not For Aphakia) Prescription And Fitting Bilateral Corneal Lenses (Not For Aphakia) 87017 018 JUNG-VILLANUEVA , ALEXUS [facility] Non-Physician Phone Call To Patient/Provider Brief (5-10min) Non-Physician Phone Call To Patient/Provider Brief (5-10min) 25315 018 CATRINA SMITH Do[facility] Spectacles Services Fitting Monofocal Except For Aphakia Spectacles Services Fitting Monofocal Except For Aphakia 05650 018 MOE SINGH [facility] Non-Physician Phone Call To Patient/Provider Brief (5-10min) Non-Physician Phone Call To Patient/Provider Brief (5-10min) 32192 017 MIESHA HENRY [facility] Preventive Medicine Administration Of Health Risk Questionnaire Patient-Focused Preventive Medicine Administration Of Health Risk Questionnaire Patient-Focused 23454 017 GABINO BLACK Internet Med Svc Qual Nonphys Healthcare Prof Up To 7 Days Estab Patient Internet Med Svc Qual Nonphys Healthcare Prof Up To 7 Days Estab Patient 92523 017 GABINO BLACK Threshold Audiogram (Pure Tone) Automated Threshold Audiogram (Pure Tone) Automated 0208T 017 NANY ROJAS Determination Of Refractive State Determination Of Refractive State 73210 017 ALEXUS BRANTLEY Ophthalmological Prior Patient Start Comprehensive Care Ophthalmological Prior Patient Start Comprehensive Care 24055 017 ALEXUS BRANTLEY Psychometric Emotional / Behavioral A e ment Psychometric Emotional / Behavioral Assessment 70580 016 RHETT BAHENA Spectacles Services Fitting Monofocal Except For Aphakia Spectacles Services Fitting Monofocal Except For Aphakia 58253 016 FELTON DILLARD Determination Of Refractive State Determination Of Refractive State 016 FELTON DILLARD Ophthalmological Prior Patient Start Comprehensive Care Ophthalmological Prior Patient Start Comprehensive Care 87514 016 FELTON DILLARD Threshold Audiogram (Pure Tone) Automated Threshold Audiogram (Pure Tone) Automated 0208T 016 JUAN CRAWFORD Patient education, not otherwise cla ified, non-physician provider, group, per se ion 016 JUAN CRAWFORD Psychometric Neuropsych Testing Battery Admin By Computer Psychometric Neuropsych Testing Battery Admin By Computer [id number] YEFRI HAMILTON Psychiatric Diagnostic Evaluation Review of Records and Reports Psychiatric Diagnostic Evaluation Review of Records and Reports 15883 YEFRI HAMILTON Spectacles Services Fitting Monofocal Except For Aphakia Spectacles Services Fitting Monofocal Except For Aphakia 00291 015 FELTON DILLARD Determination Of Refractive State Determination Of Refractive State 67036 015 FELTON DILLARD Ophthalmological Prior Patient Start Comprehensive Care Ophthalmological Prior Patient Start Comprehensive Care 10539 015 FELTON DILLARD A isted Exercises For ROM Assisted [place] ROM 32704 015 RICK BATEMAN [facility] Physical Therapy Service Re-Evaluation Physical Therapy Service Re-Evaluation 30534 RICK BATEMAN [facility] Physical Therapy Neuromuscular Re-education Physical Therapy Neuromuscular Re-education 35130 FELICIANO SLATER [facility] Physical Therapy: ___ Se ion Segments, 15 Minutes Each Physical Therapy: ___ Session Segments, 15 Minutes Each 87602 015 FELICIANO SLATER [facility] A isted Exercises For ROM Assisted Exercises For ROM 41549 015 RICK BATEMAN [facility] Physical Therapy Service Re-Evaluation Physical Therapy Service Re-Evaluation 31135 RICK BATEMAN [facility] Physical Therapy Neuromuscular Re-education Physical Therapy Neuromuscular Re-education 41988 015 FERNY DOMINGO [facility] Physical Therapy: ___ Se ion Segments, 15 Minutes Each Physical Therapy: ___ Session Segments, 15 Minutes Each 08664 015 FERNY DOMINGO [facility] Physical Therapy Neuromuscular Re-education Physical Therapy Neuromuscular Re-education 60649 015 [facility] Physical Therapy: ___ Se ion Segments, 15 Minutes Each Physical Therapy: ___ Session Segments, 15 Minutes Each 18108 015 [facility] Physical Therapy: ___ Se ion Segments, 15 Minutes Each Physical Therapy: ___ Session Segments, 15 Minutes Each 49478 015 FERNY DOMINGO [facility] Physical Therapy Neuromuscular Re-education Physical Therapy Neuromuscular Re-education 16462 015 FERNY DOMINGO [facility] A isted Exercises For ROM Assisted Exercises For ROM 89694 015 RICK BATEMAN [facility] Physical Therapy Service Evaluation Physical Therapy Service Evaluation 57848 RICK BATEMAN A isted Exercises For [place] Ass[place] 28254 014 RICK BATEMAN [facility] Physical Therapy Service Re-Evaluation Physical Therapy Service Re-Evaluation 06361 RICK BATEMAN [facility] A isted Exercises For ROM Assisted [place]ises [place] 19912 014 RICK BATEMAN [facility] Physical Therapy Service Re-Evaluation Physical Therapy Service Re-Evaluation 47605 014 RICK BATEMAN [facility] Modalities Cryotherapy Cold Packs Modalities Cryotherapy Cold Packs 40033 014 CHAYO, [facility] Physical Therapy: ___ Se ion Segments, 15 Minutes Each Physical Therapy: ___ Session Segments, 15 Minutes Each 99098 014 CHAYO [facility] Physical Therapy Neuromuscular Re-education Physical Therapy Neuromuscular Re-education 04442 014 CHAYO [facility] Modalities Cryotherapy Cold Packs Modalities Cryotherapy Cold Packs 92973 014 REESTORI DIAZ [facility] Physical Therapy Neuromuscular Re-education Physical Therapy Neuromuscular Re-education 31502 014 REESTORI DIAZ [facility] Physical Therapy: ___ Se ion Segments, 15 Minutes Each Physical Therapy: ___ Session Segments, 15 Minutes Each 78909 014 REESTORI DIAZ [facility] Modalities Cryotherapy Cold Packs Modalities Cryotherapy Cold Packs 48076 014 CHAYO [facility] Physical Therapy Neuromuscular Re-education Physical Therapy Neuromuscular Re-education 29885 014 CHAYO [facility] Physical Therapy: ___ Se ion Segments, 15 Minutes Each Physical Therapy: ___ Session Segments, 15 Minutes Each 96873 014 CHAYO [facility] Physical Therapy Neuromuscular Re-education Physical Therapy Neuromuscular Re-education 85128 014 CHAYO [facility] Physical Therapy: ___ Se ion Segments, 15 Minutes Each Physical Therapy: ___ Session Segments, 15 Minutes Each 73312 014 [facility] A isted Exercises For ROM Assisted Exercises For ROM 15854 014 RICK BATEMAN [facility] Physical Therapy Service Evaluation Physical Therapy Service Evaluation 81417 014 RICK BATEMAN [facility] Spectacles Services Fitting Monofocal Except For Aphakia Spectacles Services Fitting Monofocal Except For Aphakia 89290 JUAN JOSE LEE [facility] Determination Of Refractive State Determination Of Refractive State 02003 JUAN JOSE LEE [facility] Ophthalmological New Patient Start Comprehensive Care Ophthalmological New Patient Start Comprehensive Care 15276 JUAN JOSE LEE [facility] Taping Knee Taping Knee 63561 DANTE SANTOS Physical Therapy Service Re-Evaluation Physical Therapy Service Re-Evaluation [id number] ELIZABETHMAI DANTE Dan Pilar Modalities Iontophoresis Modalities Iontophoresis 51069 APARNA MARCELO [facility] A isted Exercises For ROM Assisted Exercises For ROM 12389 APARNA MARCELO Physical Therapy Neuromuscular Re-education Physical Therapy Neuromuscular Re-education 45613 APARNA MARCELO [facility] Ophthalmological Prior Patient Start Intermediate Level Care Ophthalmological Prior Patient Start Intermediate Level Care [id number] IGNACIA AGUILAR [facility] Determination Of Refractive State Determination Of Refractive State 68308 IGNACIA AGUILAR [facility] Spectacles Services Fitting Monofocal Except For Aphakia Spectacles Services Fitting Monofocal Except For Aphakia 30187 IGNACIA AGUILAR [facility] Preventive Medicine Administration Of Health Risk Questionnaire Patient-Focused Preventive Medicine Administration Of Health Risk Questionnaire Patient-Focused 57732 [facility] FELIZ [facility] Didier communication technology-based service, e.g. virtual check-in, by a physician or other qualified health care proflilia cha who can report evaluation and management services, provided to an established patient, not originating from a related E/M service provided within the previous 7 days nor leading to an E/M service or procedure within the next 24 hours or soonest available appointment; 5-10 minutes of medical discu ion [facility], FELIZ [facility] Preventive Medicine Service Test Results Documented And Reviewed Body Ma Index Preventive Medicine Service Test Results Documented And Reviewed Body Mass Index 3008F TEPLilia, FELIZ [facility] Waiver services; not otherwise specified (NOS) TORSTEN CAPONE [facility] Non-Physician Phone Call To Patient/Provider Brief (5-10min) Non-Physician Phone Call To Patient/Provider Brief (5-10min) 61781 RYAN MILLER [facility] Ophthalmological Prior Patient Start Comprehensive Care Ophthalmological Prior Patient Start Comprehensive Care 98371 ROSI EDDY [facility] Health And Behav A e mt Each 15 Min Initial A e ment Health And Behav Assessmt Each 15 Min Initial Assessment 07685 LEONARDA MENJIVARAH [facility] Psychometric Emotional / Behavioral A e ment Psychometric Emotional / Behavioral Assessment [address] [facility] Health Behavior Intervention Individual Initial 30 Minutes Health Behavior Intervention Individual Initial 30 Minutes 70202 [facility] Social History Combined list of available smoking, tobacco, and other social history from 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 Social History Type Response Date Comment Sourc e Male 01/11/2021 Ambulatory Pha rmacy Tobacco Never-cigarette user Cigarette use:. Never-other tobacco user (not cigarettes) Other Tobacco use:. Ambulatory Pharmacy Sexual Orientation Ambula tory Pharmacy Gender identity Ambulator y Pharmacy This section is an empty social history section. [facility] Assessment and Plan Combined list of future care activities from Department of Defense and Veterans Affairs facilities (e.g., assessment and plan notes, appointments, orders, and referrals). Additional future care activities may be listed in the Plan of Care section. Result Assessment and Plan Date Source Assessment and Plan Extracted from:Title : MHA/PHA Author: NORMA PAINTER PA Date: 10/13/23 Encounter for issue of other medical certificate Assessment and Plan Reviewed documentation of height and weight, current medical conditions and deployment related health problems, to include screening for traumatic brain injury exposure, allergies, medications, required immunizations, medical readiness laboratory tests, audiology, and optometry examinations. Completed screenings and provided patient education as appropriate. ? Reviewed and assessed responses to screening tools. ? AUDIT-C=0 PCL-C=0 PHQ-8=0 ? 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 At this time no tasking or consults needed.?SM made?aware of [facility] ()?services available, ?[facility], Carpet Repairer Services, Walk in , Emergency Room (ER) or 911, Notify chain of command, etc and how to contact them if needed. ? Preventative services reviewed and discussed. Reviewed immunization history and assessed immunization status. Reviewed physical activity. Reviewed sexual health screenings, including HIV screening date. Reviewed readiness labs and examinations needed including recommendation for lipid screening every 5 years beginning at age 35. Compared medications reported by auto specialty services manager to active medication list in?[facility]?and any variances were documented.? ? Any complaints or issues identified while conducting the PHA have been addressed and or referred back to the patient's?primary dialysis patient care technician (PCM)?for care.?SM?advised to follow up with PCM, Behavioral Health, ER/911, or [facility] as needed for continuation of care, and/or further evaluation during exacerbations of physical and/or psychological illness or injury. See PHA document for additional information.? ? 20 minutes of total time spent reviewing records, completing record review, discussing health concerns and preventative health measures with patient. ? Extracted from:Title: Eye Care Office Visit Note - REE with DFE Author: ROSI GALAN, OD Date: 09/28/23 1.?Encounter for examination of eyes and vision without abnormal findings 2.?Myopia, bilateral 3.?Regular astigmatism, bilateral No change in Rx, give Rx and order necessary glasses. No ocular pathology?noted with exam. No Tx.?See back in 1 -?2 years or PRN if symptomatic.? Extracted from:Title: [facility] Comp. Audio Author: LARRY CUEVAS, AuD Date: 09/12/23 1.?Hearing normal GENERAL INFORMATION History Branch:? ?[employer]? Command:?[employer] MOS:?2A5 ? ? VISIT REASON Hearing loss or concerns: Abnormal [id number] @ [facility] over the past couple of weeks for annual monitoring Hearing loss onset:?2 years ?? Tinnitus:?Yes (both) Tinnitus Onset:?unknown Tinnitus described as:?Intermittent ? PERTINENT EAR OR RELATED HISTORY noise exposure:?Yes? Non- Occupational noise exposure:?? No? Recreational noise exposure:?? No? Hearing protection used:?? Yes?ear plugs and ear defender Recent or recurrent ear disease:?? No? Ear surgery:?? No? Eardrum perforation:?? No? ? Aural Fullness:?No? Facial numbness:? No? Memory/attention/concentration problem:? No? Ototoxic medications:? No? ? PRIOR TESTING ?[id number]'s [facility] ( and 29 AUG 2023) HEARING AID INFORMATION None ? OTOSCOPY Clear canal:? bilateral? Occluding cerumen:? NO? Non-occluding cerumen:? NO? ? Normal/intact eardrum:? ?bilateral? Eardrum perforation:? NO? Pressure equalization tube present:? NO?? Foul odor present:? NO? Irritation present:? NO? Active bleeding:? NO? Dried blood present:? NO? Yellow/white discharge present:? NO? Tympanosclerotic plaques:? NO? Exostosis:? NO? ? Foreign body in ear canal:? ?NO? Foreign body:? ? TYMPANOMETRY Right: Type:?A? Left: Type:? A? Ear canal volume:? normal? ? ACOUSTIC REFLEXES Right:? ?Present? Left:? Present? ? PURE TONE AUDIOMETRY Right: Normal hearing thresholds at all test frequencies in the right ear Left: Normal hearing thresholds at all test frequencies in the left ear ? Test results are?reliable and?improved??compared with previous testing recently obtained @ [facility]. No STS is noted in either ear compared to current [id number] on record (2009). ? SPEECH AUDIOMETRY Right: Word recognition was? excellent??at?55 dB HL ?Masking level: _40dB HL ? Left: Word recognition was? ? ?excellent?at?55 dB HL ?Masking level:?40 dB HL ? SUMMARY Today s results indicate normal hearing in both ears at all test frequencies with good reliability. Normal ME function, bilaterally. ? 15 min (INDV) activities counselor on proper hand formed (Sound Guard) hearing protection insertion and uses in noise. Annual HCP review completed today ? ? ? PLAN 1) Annual [id number] back @ [facility] (2024) for continued annual monitoring 2) Use of proper HP in all noise designated areas 3) Future audio as needed ? Pee Almanza James Doctor of Audiology Audiology Dept. [employer] [facility] [phone] ? Extracted from:Title: FTF-PHA Author: ABHIJIT CALVO MD Date: 08/31/22 EXAM, FORMAL OCCUPATIONAL HEALTH PROGRAM INCLUDING HEARING CONSERVATION PROGRAM, PERIODIC FOR CONTINUED SURVEILLANCE FOR OCCUPATIONAL WORKPLACE EXPOSURE PHA completed, pt with no disqualifying medical conditions that required IRILO.? IMR status fully green, WWQ ? Hematochezia Will refer to GI given symptoms to eval for IBD vs colon cancer, PPT refilled Ordered: Referral Request 2.0 ? Orders: omeprazole(omeprazole 20 mg oral delayed release capsule), 1 cap(s), Oral, Daily, 30 to 60 minutes before a meal, # 90 cap(s), 3 total refill(s), Maintenance, 1 cap(s) Oral Daily,Instr:30 to 60 minutes before a meal, Pharmacy: [facility]/pharmacy #[id number] [External Rx] Lt Col Abhijit Calvo M.D. Chief of Aerospace Medicine (SGP) [employer] Gaudencio FERNANDEZ MA ? ? 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 SM?present for virtual encounter. ? SM reports Hx of MH counseling for anxiety; SM reports symptoms improved; denies any current MH concerns. Denies any diagnosis of ADD / depression / bipolar/ PTSD. ? Denies SI/HI. Denies the need for any MH/BH care; SM declined any MH/BH currently. ? IMR-?Green. Profile- DW for BRIDGER expires 13 July 2022. FR for L foot?knee expires 06 Aug 2022. ? ? 2.?Left knee pain F/U with PCM for management. 03/01/2024 Ambulatory Pharmacy Functional Status Combined list of recent functional and cognitive assessments recorded at [facility] of Defense and Veterans Affairs (VA).VA Functional Kleberg Measurement (FIM) Scale: 1 = Total Assistance (Subject = 0% +), 2 = Maximal Assistance (Subject = 25% +), 3 = Moderate Assistance (Subject = 50% +), 4 = Minimal Assistance (Subject = 75% +), 5 = Supervision, 6 = Modified Kleberg (Device), 7 = Complete Kleberg (Timely, Safely). Assessment Date/Time Source Assessment Type Assessment Skill Assessment Score Assessment Details No data available for this section
== END 2024-03-01 13:11 | disposition home or self-care (01) ==
LOC: HO.HOS 13:04
PROVIDERS: PCP Internal Medicine
DX: M25.562 Pain in left knee (principal)
CPT/HCPCS: 99213

== ENCOUNTER 2024-03-28 07:04 | Day surgery (SDC) | payer OTHER, SELFPAY ==
[2024-03-26 08:38] VITALS: BMI 30.7
--- NOTE | 2024-03-27 08:32 | P.HPSUR_ITS ---
Pre-Procedural Eval Section A - 24 Hr Update-Section A only Date of Service: 03/28/24 The patient is an INPATIENT: No Changes since office visit: No Cold of Flu in the past 2 weeks, No New Medical Problems, No Changes in Medication and No Patient answered all questions Section B - Complete if H&P > 30 days Chief Complaint: Bilateral inguinal hernia, without obstruction or Allergies: Allergies Allergy/AdvReac Type Severity Reaction Status Date / Time No Known Allergies Allergy Verified 03/01/24 13:07 Review of Systems Sugical H&P ROS: Negative: Constitution, Cardiovascular, Respiratory, Neurological, Psychiatric, Hem-Onc, Allergic/Immunologic, Gastrointestinal, Genitourinary, Musculoskeletal, Integumentary, Endocrine and E yes/Ears/Nose/Throat Exam Surgical H&P Exam: Normal: HEENT, Normal: Heart, Normal: Lungs, Normal: Extremities, Normal: Abdomen, Normal: Skin and Normal: Neurological Plan I have reviewed the history and physical and performed a pertinent physical examination on my patient. No changes have occurred unless specified. Time Spent With Patient Time: Total time managing care of this patient today ____ minutes.
--- NOTE | 2024-03-27 09:52 | P.CONAN_ITS ---
Documented by User: Verena Mas NP 03/27/24 09:55 HPI - Anesthesia Eval Consult details Narrative: 38yo M for Bilateral Open Hernia Inguinal Repair with mesh PMFSH Active Problems Active Problems: All Active Problems Left knee pain (Acute) Bilateral inguinal hernia (BIH) (Acute) Scrotal pain (Acute) Inguinal hernia (Acute) Impingement syndrome of right shoulder (Acute) Internal derangement of left knee (Acute) Patellofemoral arthralgia of left knee (Acute) Rosacea (Acute) Somnolence, daytime (Acute) Retrognathia (Acute) Obesity (BMI 30.0-34.9) (Acute) Goiter (Acute) Obstructive sleep apnea (Acute) Fatigue (Acute) Esophagitis (Acute) GERD (gastroesophageal reflux disease) (Acute) Past Medical History Medical History GERD (gastroesophageal reflux disease) Rosacea Somnolence, daytime Retrognathia Obesity (BMI 30.0-34.9) Anxiety and depression Obstructive sleep apnea History of esophageal dilatation Esophagitis Family History Family History Father Hypertension Heart attack, Onset Age: 35 Mother No problems noted. Paternal Grandfather Heart attack Family history of problems with anesthesia: No Surgical History Surgical History History of esophagogastroduodenoscopy (EGD) H/O nasal septoplasty History of tonsillectomy History of knee surgery History of Problems with Anesthesia: No Social History Social History Housing: House Alcohol intake: current Alcohol intake frequency: holidays/special occasions only Alcohol type: hard liquor Patient Tobacco Use Status: Never used Tobacco e-Cigarette/Vaping Use: Never Used Second Hand Smoke Exposure: No Use of substances other than those prescribed or required for medical reasons: No Are you DNR?: No Advance Directives: No Advance Directives Information Provided: Yes service: Yes Current occupational status: employed 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 Current occupational exposures/hazards: No Cognitive needs: No Hearing needs: No Vision needs: Yes Meds Allergies Allergy/AdvReac Type Severity Reaction Status Date / Time No Known Allergies Allergy Verified 03/28/24 07:12 Home Medications ?Medication ?Instructions ?Recorded ?Confirmed ?Last Taken ?Type esomeprazole magnesium 40 mg 40 mg PO DAILY 03/28/24 03/28/24 Unknown History capsule,delayed release Exam Height,Weight and Vital Signs: Height 5 ft 11 in Weight 99.79 kg Assessment and Plan Assessment Anesthesia Assessment: Chart Reviewed Final Anesthetic Review Family History of Problems with Anesthesia: No History of Problems with Anesthesia: No Documented by User: Ana Villalobos MD 03/28/24 09:52 PMFSH Active Problems Active Problems: All Active Problems Left knee pain (Acute) Bilateral inguinal hernia (BIH) (Acute) Scrotal pain (Acute) Inguinal hernia (Acute) Impingement syndrome of right shoulder (Acute) Internal derangement of left knee (Acute) Patellofemoral arthralgia of left knee (Acute) Rosacea (Acute) Somnolence, daytime (Acute) Retrognathia (Acute) Obesity (BMI 30.0-34.9) (Acute) Goiter (Acute) Obstructive sleep apnea (Acute). Uses CPAP machine Fatigue (Acute) Esophagitis (Acute) GERD (gastroesophageal reflux disease) (Acute)- controlled. Minimally symptomatic Past Medical History Medical History GERD (gastroesophageal reflux disease) Rosacea Somnolence, daytime Retrognathia Obesity (BMI 30.0-34.9) Anxiety and depression Obstructive sleep apnea History of esophageal dilatation Esophagitis Family History Family History Father Hypertension Heart attack, Onset Age: 35 Mother No problems noted. Paternal Grandfather Heart attack Family history of problems with anesthesia: No Surgical History Surgical History History of esophagogastroduodenoscopy (EGD) H/O nasal septoplasty History of tonsillectomy History of knee surgery History of Problems with Anesthesia: No Social History Social History Housing: House Alcohol intake: current Alcohol intake frequency: holidays/special occasions only Alcohol type: hard liquor Patient Tobacco Use Status: Never used Tobacco e-Cigarette/Vaping Use: Never Used Second Hand Smoke Exposure: No Use of substances other than those prescribed or required for medical reasons: No Are you DNR?: No Advance Directives: No Advance Directives Information Provided: Yes service: Yes Current occupational status: employed Current occupation: [employer] Current occupational exposures/hazards: No Cognitive needs: No Hearing needs: No Vision needs: Yes Meds Allergies Allergy/AdvReac Type Severity Reaction Status Date / Time No Known Allergies Allergy Verified 03/28/24 07:12 Home Medications ?Medication ?Instructions ?Recorded ?Confirmed ?Last Taken ?Type esomeprazole magnesium 40 mg 40 mg PO DAILY 03/28/24 03/28/24 Unknown History capsule,delayed release Exam Height,Weight and Vital Signs: Height 5 ft 11 in Weight 99.79 kg Vital Signs Temp Pulse Resp BP Pulse Ox O2 Del Method 03/28/24 07:37 97.4 F 69 15 115/81 94 Room Air Airway Mallampati Class: II TM Dist: >3cm Neck ROM: Full Loose/Missing/Broken Teeth: No Heart: RRR Lungs: CTAB Assessment and Plan Assessment Anesthesia Assessment: Anesthesia Plan Discussed and Chart Reviewed Final Anesthetic Review Family History of Problems with Anesthesia: No History of Problems with Anesthesia: No NPO: Yes ASA Class: III Final Preanesthetic Review: No Changes in Pt Med Stat, Meds/Allgs Chart Reviewed, Consent Obtained/Reviewed and Anes Risks/Benef Reviewed Patient Risk: Intermediate Procedure Risk: Low Assessment/Block/Sedation in SS: Assess/Block/Sedation-SS Anesthetic Plan Anesthetic Plan: GA Disposition: Standard PACU
[2024-03-28] VITALS (8 sets, daily range): BP systolic 115–134; BP diastolic 75–91; PULSE 64–79; RESP 12–20; TEMP 36.3–36.5; O2SAT 94–99; BMI 31.1
[2024-03-28] MEDS: Lactated Ringers 1,000 ML 100 ML IVCONT (07:40)
--- NOTE | 2024-03-28 10:31 | W.PM.OPN ---
Operative Note Operative Note Date of Service: 03/28/24 Narrative: Preoperative diagnosis: [] Bilateral symptomatic enlarging inguinal herniae Postop diagnosis: [] The same Procedure [] bilateral open inguinal herniorrhaphy with Bard mesh Surgeon: [] Cb Slurry Tank Operator: [] Alvaro Type of Anesthesia: [] Gen Indication for surgery: [] Bilateral large indirect inguinal hernias. No indirect hernia was demonstrated. Findings: [] Patient brought to the operating room, placed on operative table supine position, after an adequate level of general anesthesia was induced, bilateral groins were prepped and draped in usual sterile fashion. Each groin was approached with a small para inguinal incision and carried down through skin, subcutaneous tissue, Bryan's fascia. Respectively spermatic cord which hernia were identified and retracted from the field. Exploration of the cord demonstrated large indirect hernia which were reduced. No indirect hernia demonstrated. Each hernia had a Bard extra-large plug placed in the indirect defect and sutured inferiorly to the inguinal ligament and superiorly to the transversalis fascia respectively using interrupted 0 Ethibond suture. At completion of the procedure, mesh was in good position with no gaps or tension.. Wounds were irrigated, secured hemostasis, and closed in the following manner; external oblique fascia was reapproximated using running 2-0 Vicryl suture. Bryan's fascia was closed using interrupted 3-0 Vicryl suture. Interrupted inverted deep dermal 3-0 Vicryl sutures followed by running subcuticular 4-0 Vicryl sutures were placed. Steri-Strips and sterile dressings were applied. Wounds were infiltrated at the beginning and at the end with ilioinguinal block and local wound infiltration with 0.5% Marcaine/1% lidocaine. Sponge, needle, instrument counts reported correct. Patient tolerated the procedure well and emerged from anesthesia stable condition. EBL minimal Bilateral ipsilateral testicle was intrascrotal at completion.
[2024-03-28] MEDS: fentaNYL citrate/PF 100 MCG/2 ML VIAL 25 MCG IVPUSH (11:00)
[2024-03-28] MEDS: oxyCODONE HCl Immed Release 5 MG TABLET PO (11:05)
== END 2024-03-28 12:15 | disposition home or self-care (01) ==
PROVIDERS: PCP Internal Medicine; Visit Provider Surgery
PROC: (CPT 49505; principal; 2024-03-28 09:10)
DX: K40.20 Bilateral inguinal hernia, without obstruction or gangrene, not specified as recurrent (principal); R10.31 Right lower quadrant pain; K59.00 Constipation, unspecified; E66.9 Obesity, unspecified; Z68.30 Body mass index [BMI] 30.0-30.9, adult; K20.90 Esophagitis, unspecified without bleeding; G47.33 Obstructive sleep apnea (adult) (pediatric); F41.9 Anxiety disorder, unspecified; L71.9 Rosacea, unspecified; R40.0 Somnolence; M26.19 Other specified anomalies of jaw-cranial base relationship; Z79.899 Other long term (current) drug therapy; Z98.890 Other specified postprocedural states
CPT/HCPCS: 49505; C1781; J0131; J0665; J0690; J1100; J1885; J2003; J2250; J2405; J2704; J3010

== ENCOUNTER → 2024-03-28 07:04 | Outpatient (BNV) | payer OTHER, SELFPAY | PROVIDERS: PCP Internal Medicine; Visit Provider Surgery | DX: K40.20 Bilateral inguinal hernia, without obstruction or gangrene, not specified as recurrent (principal) | CPT/HCPCS: 49505 ==

== ENCOUNTER 2024-04-08 14:14 | Outpatient (AMB) | payer OTHER, SELFPAY ==
[2024-04-08 14:16] VITALS: BMI 30.7
--- NOTE | 2024-04-08 14:16 | A.OFFVIS_ITS ---
Vital Signs 04/08/24 14:16 Height 5 ft 11 in Weight 220 lb BMI 30.7 Intake Visit Reasons: s/p Bilateral open inguinal hernia w/mesh Intake Note: Patient in office today s/p bilateral open inguinal hernia with mesh. CC: Patient reports feeling pretty sore from surgery . Denies discharge or other concerns today. 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 Aside from incisional discomfort which is improving, patient was otherwise doing well. He is to lerating a diet. Having regular bowel habits. He is steadily increasing his activity level. [facility] Medical History GERD (gastroesophageal reflux disease) Rosacea Somnolence, daytime Retrognathia Obesity (BMI 30.0-34.9) Anxiety and depression Obstructive sleep apnea History of esophageal dilatation Esophagitis Surgical History Bilateral inguinal hernia (BIH) (03/28/24) History of esophagogastroduodenoscopy (EGD) H/O nasal septoplasty History of tonsillectomy History of knee surgery Family History Father Hypertension Heart attack, Onset Age: 35 Mother No problems noted. 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 Bilateral incisions clean dry and intact healing very well Assessment & Plan Assessment & Plan (1) Status post bilateral inguinal hernia repair: Code(s): Z98.890 - Other specified postprocedural states; Z87.19 - Personal history of other diseases of the digestive system Category: Medical Plan Patient was been given local instructions including avoiding strenuous activities next few weeks time and will otherwise follow-up p.r.n.. All questions answered. Coding Level of Care Code Global (73682) Diagnoses Status post bilateral inguinal hernia repair Z98.890; Z87.19
== END 2024-04-08 14:30 | disposition home or self-care (01) ==
PROVIDERS: PCP Internal Medicine; Visit Provider Surgery
DX: Z98.890 Other specified postprocedural states (principal); Z87.19 Personal history of other diseases of the digestive system
CPT/HCPCS: 99024

== ENCOUNTER → 2024-04-08 14:14 | Outpatient (BNVA) | payer OTHER, SELFPAY | PROVIDERS: PCP Internal Medicine; Visit Provider Surgery | DX: Z98.890 Other specified postprocedural states (principal); Z87.19 Personal history of other diseases of the digestive system | CPT/HCPCS: 99212 ==

== ENCOUNTER 2024-05-20 09:43 | Outpatient (AMB) | payer OTHER, SELFPAY ==
--- NOTE | 2024-05-20 09:46 | MHC.OFFVIS ---
Intake Visit Reasons: s/p hernia surgery in March, (R) side protruding Intake Note: Patient here for 2wk follow up fro last visit on 04-08-24. Patient c/o: pain on RLQ worsening, bulge sticking out. Walking with a limp due to pain. Taking Tylenol as needed. Software Lead Required: No Accompanied by: Self / Same As Patient Allergies No Known Allergies Allergy (Verified 05/20/24 09:46) HPI Comments Details: Patient was for evaluation of his inguinal hernia incisions. He feels the right side of the bit more swollen than the left. He is otherwise tolerating a diet. He is having regular bowel habits. He is back at work under light duty. No other GI issues or complaints. [facility] Medical History GERD (gastroesophageal reflux disease) Rosacea Somnolence, daytime Retrognathia Obesity (BMI 30.0-34.9) Anxiety and depression Obstructive sleep apnea History of esophageal dilatation Esophagitis Surgical History Bilateral inguinal hernia (BIH) (03/28/24) History of esophagogastroduodenoscopy (EGD) H/O nasal septoplasty History of tonsillectomy History of knee surgery Family History Father Hypertension Heart attack, Onset Age: 35 Mother No problems noted. 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 Bilateral incisions healing very well. No evidence of any infection, or recurrence. Assessment & Plan Assessment & Plan (1) Status post bilateral inguinal hernia repair: Code(s): Z98.890 - Other specified postprocedural states; Z87.19 - Personal history of other diseases of the digestive system Category: Medical Plan Patient was reassured. He is still convalescing. No acute surgical issues at this time. He would like an extension of his light duty for 2 weeks and then note will be provided for this. Patient will otherwise follow-up p.r.n.. All questions answered. Coding Level of Care Code Global (91560) Diagnoses Status post bilateral inguinal hernia repair Z98.890; Z87.19
--- OUTSIDE RECORDS SUMMARY | 2024-05-20 10:49 | XMS_ITS | Clinical Summary ---
Author Organization [facility] ity Address [id number] [place] [id number] Care Team Providers Care Allergy Specialist Name Role Phone Unavailable Primary Care Provider Unavailabl e Social History Tobacco Use Types Packs/Day Years Used Date Smoking Tobacco: Never Assessed Sex and Gender Information Value Date Recorded Sex Assigned at Not on file Legal Sex Male 1:37 PM EDT Gender Identity Not on file Sexual Orientation Not on file Plan of Treatment Health Maintenance Due Date Last Done Comments DTaP,Tdap,and Td Vaccines (1 - Tdap) 10/19/2006 Hepatitis B Vaccines (1 of 3 - 19+ 3-dose series) 10/19/2006 Cholesterol Screening (Lipid Panel) 10/11/2023 Depression Screening 10/11/2023 HIV Screening 10/11/2023 Hepatitis C Screening 10/11/2023 Social Influencers of Health Screening 10/11/2023 COVID-19 Vaccine (2023-2 5 season) 2023 Influenza Vaccine (#1) 2023 HIB Vaccines Aged Out No longer eligi ble based on patient's age to complete this topic HPV Vaccines Aged Out No longer eligi ble based on patient's age to complete this topic Hepatitis A Vaccines Aged Out No long er eligible based on patient's age to complete this topic IPV Vaccines Aged Out No longer eligi ble based on patient's age to complete this topic MMR Vaccines Aged Out No longer eligi ble based on patient's age to complete this topic Meningococcal ACWY Vaccine Aged Out N o longer eligible based on patient's age to complete this topic Meningococcal B Vacine Aged Out No lo nger eligible based on patient's age to complete this topic Pneumococcal Vaccine: Pediat rics (0 to 5 Years) and At-Risk Patients (6 to 64 Years) Aged Out No longer eligible b ased on patient's age to complete this topic RSV Immunization Patients Un gerson 20 months Aged Out No longer eligible b ased on patient's age to complete this topic Varicella Vaccines Aged Out No longer eligible based on patient's age to complete this topic
== END 2024-05-20 10:04 | disposition home or self-care (01) ==
PROVIDERS: PCP Internal Medicine; Visit Provider Surgery
DX: Z98.890 Other specified postprocedural states (principal); Z87.19 Personal history of other diseases of the digestive system
CPT/HCPCS: 99024

== ENCOUNTER → 2024-05-20 09:43 | Outpatient (BNVA) | payer OTHER, SELFPAY | PROVIDERS: PCP Internal Medicine; Visit Provider Surgery | DX: Z98.890 Other specified postprocedural states (principal); Z87.19 Personal history of other diseases of the digestive system | CPT/HCPCS: 99212 ==

== ENCOUNTER 2024-05-30 13:55 | Outpatient (AMB) | payer OTHER, SELFPAY ==
[2024-05-30 14:05] VITALS: BP 108/82; PULSE 66; O2SAT 97; BMI 32.4
--- NOTE | 2024-05-30 14:05 | MHC.PC.OV ---
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: No Accompanied by: Self / Same As Patient Allergies No Known Allergies Allergy (Verified 05/30/24 14:37) Medication List - Last Reconciled 05/30/24 by Rola Solares PA-C docusate sodium (Colace) 100 mg PO BID ibuprofen 800 mg PO Q8H pantoprazole 40 mg PO DAILY polyethylene glycol 3350 (Miralax) 17 grams PO DAILY Tobacco use date assessed: 05/30/24 Dental Screening Dental Screen Date: 05/30/24 Did you have a dental visit in the last 12 months?: Yes Did you have a dental problem in the last 6 months where you did not have access to dental care?: No Was dental information given to patient?: Patient has dentist [facility] Medical History Annual physical exam Right testicular pain GERD (gastroesophageal reflux disease) Rosacea Somnolence, daytime Retrognathia Obesity (BMI 30.0-34.9) Anxiety and depression Obstructive sleep apnea History of esophageal dilatation Esophagitis Surgical History Bilateral inguinal hernia (BIH) (03/28/24) History of esophagogastroduodenoscopy (EGD) H/O nasal septoplasty History of tonsillectomy History of knee surgery Family History Father Hypertension Heart attack, Onset Age: 35 Mother No problems noted. 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 1. Little interest or pleasure in doing things: not at all 2. Feeling down, depressed, or hopeless: not at all 3. Trouble falling or staying asleep, or sleeping too much: not at all 4. Feeling tired or having little energy: not at all 5. Poor appetite or overeating: not at all 6. Feeling bad about yourself - or that you are a failure or have let yourself or your family down: not at all 7. Trouble concentrating on things, such as reading the newspaper or watching television: not at all 8. Moving or speaking so slowly that other people could have noticed. Or the opposite - being so fidgety or restless that you have been moving around a lot more than usual: not at all 9. Thoughts that you would be better off or of hurting yourself in some way: not at all Total score: 0 Depression Screening Interpretation: Negative Depression Screening Done: Yes 29648 - PHQ-9 Billing: Yes Source: Developed by Drs. Tobias Rangel, Beth Dickens, Felipe Max and colleagues, with an educational yury from [employer]. Thrive Questionnaire Date Thrive assessed: 05/30/24 I am a: Patient What is your living situation today?: I have a steady place to live Within the past 12 months, did the food you bought not last and you didn't have the money to get more?: Never true Within the past 12 months, did you worry whether your food would run out before you got money to buy more?: Never true Do you have trouble paying for medicines?: No Do you have trouble getting transportation to medical appointments?: No Do you have trouble paying your heating and electricity bill?: No Do you have trouble taking care of your child, family member or friend?: No Do you have trouble with day-to-day activities such as bathing, preparing meals, shopping, managing finances, etc.?: No Are you currently unemployed and looking for a job?: No Are you interested in more education?: No Please select the resources that you would like help with: None Currently or been in a relationship where the following occur: I choose not to answer THRIVE Score: 0 AUDIT C Alcohol Use Questionnaire (AUDIT-C) 1. How often do you have a drink containing alcohol?: Monthly or less 2. How many drinks containing alcohol do you have on a typical day when you are drinking?: 1 or 2 3. How often do you have six or more drinks on one occasion?: Never Total Score: 1 Score Reviewed/Action Taken: No BERENICE-7 AMB Questionnaire BERENICE-7 Date BERENICE - 7 assessed: 05/30/24 Feeling nervous, anxious, or on edge: 0 = Not at all Not being able to stop or control worryin = Not at all Worrying too much about different things: 0 = Not at all Trouble relaxin = Not at all Being so restless that it is hard to sit still: 0 = Not at all Becoming easily annoyed or irritable: 0 = Not at all Feeling afraid as if something awful might happen: 0 = Not at all Total BERENICE-7 score (0-4 normal; 5-9 mild; 10-14 moderate; 15-21 severe): 0 Source: Developed by Drs. Tobias Rangel, Beth Dickens, Felipe Max and colleagues, with an educational yury from [employer]. BERENICE-7 Assessment Billing BERENICE-7 Assessment Tool: BERENICE-7 Assessment 83048 Physical exam (Primary Care) Vital Signs: Last Vital Signs Pulse 66 05/30/24 14:05 BP 108/82 05/30/24 14:05 Pulse Ox 97 05/30/24 14:05 Oxygen Delivery Method Room Air 05/30/24 14:05 Care Plan Goal for BP management: <130/80 at goal BMI result Body Mass Index 32.4 BMI Assessment/Plan discussion: High BMI High, discussed plan: lifestyle, weight reduction, dietary, physical activity and alcohol moderation Tobacco/Smoking Status: Tobacco use Status Tobacco use date assessed 05/30/24 05/30/24 14:10 Patient Tobacco Use Status Never used Tobacco 05/30/24 14:10 e-Cigarette/Vaping Use Never Used 05/30/24 14:10 PHQ-9: PHQ-9 Score PHQ-9: Total score 0 05/30/24 14:10 Depression Screening Interpretation: Negative Thrive Assessment: Date of Thrive Assessment Date Thrive assessed 05/30/24 05/30/24 14:10 Currently or been in a relationship where the following occur: I choose not to answer Coding Level of Care Code Est Pt Prev Care 18-39y(99222) Diagnoses Right testicular pain N50.811 Status post bilateral inguinal hernia repair Z98.890; Z87.19 Bilateral inguinal hernia (BIH) K40.20 Gastroesophageal reflux disease, unspecified whether esophagitis present K21.9 Esophagitis presence: esophagitis presence not specified Obstructive sleep apnea G47.33 Obesity (BMI 30.0-34.9) E66.9 Retrognathia M26.19 Somnolence, daytime R40.0 Rosacea L71.9 Annual physical exam Z00.00 Additional Codes PHQ-9 - 91746 - PHQ-9 Billing: Yes ([id number]) BERENICE-7 Assessment Billing - BERENICE-7 Assessment Tool: BERENICE-7 Assessment 10927 ([id number]) Assessment & Plan Assessment & Plan (1) Right testicular pain: Code(s): N50.811 - Right testicular pain Category: Medical Plan: Patient reports right testicular pain. History of varicocele. History of vasectomy. No thoughts of STIs. On exam patient has tenderness although no abnormalities, lumps, lesions or penile discharge. will order outpatient scrotal ultrasound. If ultrasound is abnormal patient will be referred to Urology. Condition is stable continue to monitor. (2) Status post bilateral inguinal hernia repair: Code(s): Z98.890 - Other specified postprocedural states; Z87.19 - Personal history of other diseases of the digestive system Category: Surgical Plan: Status postSurgery with Dr. Vivar On 03/28/2024. Patient tolerated procedure well no complications. condition is chronic and stable continue to monitor. (3) Bilateral inguinal hernia (BIH): Onset Date: 03/28/24 Comment: Sheldon Wilson Code(s): K40.20 - Bilateral inguinal hernia, without obstruction or gangrene, not specified as recurrent Category: Surgical Plan: Patient is status post bilateral inguinal hernia repair with Dr. Vivar. has followed up with Dr. Vivar on 05/20/[address] Vivar believes the patient is healing well. Patient is having some pain to the right inguinal area although Dr. Vivar believe this is the patient is still healing. Condition is chronic and stable continue to monitor. (4) GERD (gastroesophageal reflux disease): Code(s): K21.9 - Gastro-esophageal reflux disease without esophagitis Category: Medical Qualifiers: Esophagitis presence: esophagitis presence not specified Qualified Code(s): K21.9 - Gastro-esophageal reflux disease without esophagitis Plan: Patient to continue pantoprazole 40 mg daily. condition is chronic and stable continue to monitor. (5) Obstructive sleep apnea: Comment: Known to have obstructive sleep apnea since 2018. Has been using CPAP regularly. Code(s): G47.33 - Obstructive sleep apnea (adult) (pediatric) Category: Medical Plan: Patient to continue utilizing CPAP. Condition is chronic and stable continue to monitor. (6) Obesity (BMI 30.0-34.9): Comment: He is moderately obese with a round face. 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 He does do regular exercise. Has not been able to lose much weight. Code(s): E66.9 - Obesity, unspecified Category: Medical Plan: Condition is chronic and stable continue to monitor. 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 Code(s): M26.19 - Other specified anomalies of jaw-cranial base relationship Category: Medical Plan: Condition is chronic and stable continue to monitor. (8) Somnolence, daytime: Comment: If he does not use the CPAP next day he is not able to function well due to being overly sleepy. Code(s): R40.0 - Somnolence Category: Medical Plan: Condition is chronic and stable continue to monitor. (9) Rosacea: Code(s): L71.9 - Rosacea, unspecified Category: Medical Plan: Condition is chronic and stable will continue to monitor. (10) Annual physical exam: Code(s): Z00.00 - Encounter for general adult medical examination without abnormal findings Category: Medical Plan Plan Patient was informed and verbally consented to the use of an ambient scribe for clinic note documentation during this visit. 1. Obstructive Sleep Apnea Continue using CPAP machine as planned; monitor for compliance. 2. Rosacea Maintain current dermatological regimen and reassess if symptoms change. 3. Varicocele An ultrasound is scheduled to assess the right testicular condition. Further action will depend on results. 4. Osteoarthritis Of The Knee The patient will undergo a cortisone injection to manage chronic knee pain. This intervention should aid in reducing inflammation and improving joint function. 5. Bilateral Inguinal Hernia Repair Postoperative Care Light duty extension for two weeks advised, with follow-up monitoring to ensure adequate healing. 6. Gastroesophageal Reflux Disease Continuing with pantoprazole therapy, effectiveness to be monitored. Discussion Notes During the visit, we discussed knee pain management with a scheduled cortisone injection to address osteoarthritis. The patient comprehended the extended light duty post-heralded surgery and acknowledged slight swelling on the right side. Pain management for the varicocele is to be revisited post-ultrasound results. GERD is managed with pantoprazole with periodic assessments. CPAP use adheres for sleep apnea management. Rosacea appears well-controlled, and no further intervention is currently necessary. Patient is up-to-date with preventative measures. Orders: Orders C Reactive Protein Today Z00.00 - Encounter for general adult medical examination without abnormal findings Complete Blood Count Auto Diff Today Z00.00 - Encounter for general adult medical examination without abnormal findings Lipid Panel Today Z00.00 - Encounter for general adult medical examination without abnormal findings Liver Panel Today Z00.00 - Encounter for general adult medical examination without abnormal findings US scrotum doppler Today N50.811 - Right testicular pain Comprehensive [place]. Panel Fast Today Z00.00 - Encounter for general adult medical examination without abnormal findings Hemoglobin A1c Today Z00.00 - Encounter for general adult medical examination without abnormal findings Magnesium Today Z00.00 - Encounter for general adult medical examination without abnormal findings Vitamin D 25-OH Total Today Z00.00 - Encounter for general adult medical examination without abnormal findings Vitamin B12 and Folate Today Z00.00 - Encounter for general adult medical examination without abnormal findings Vitamin B1 Today Z00.00 - Encounter for general adult medical examination without abnormal findings TSH reflex Free T4 Today Z00.00 - Encounter for general adult medical examination without abnormal findings Testosterone, Total Today Z00.00 - Encounter for general adult medical examination without abnormal findings PSA,Total (Free>4and<10) Today Z00.00 - Encounter for general adult medical examination without abnormal findings Medications: New ibuprofen 800 mg PO Q8H 90 tabs 1RF docusate sodium (Colace) 100 mg PO BID 90 caps 1RF polyethylene glycol 3350 (Miralax) 17 grams PO DAILY 100 ea 0RF Patient Instructions: Patient Instructions - Schedule cortisone injection for knee pain at [facility]. - Continue with light duty for an additional two weeks post-surgery as per surgeon's advice. - Attend a follow-up ultrasound for testicular assessment. - Take pantoprazole as prescribed for GERD management. - Use CPAP regularly for obstructive sleep apnea. - Continue with current rosacea management regimen. - Get recommended blood tests done by end of the month. - Ultrasound scheduling should align with fasting requirements; arrange tests in coordination. - Follow up in six months or sooner if symptoms change. Scribe Plan - Not visible on output: History of Present Illness The patient is a 38-year-old male presenting for an annual physical exam in addition he would like to discuss his chronic left knee pain, recent inguinal hernia repair concerns, and testicular discomfort. Knee pain linked to osteoarthritis has been ongoing for three years, and the patient plans to schedule a cortisone injection with orthopedic surgeon's. The bilateral inguinal hernia repair was completed two months prior with the right inguinal region healing slower than the left. The patient experiences pain and swelling in the right testicle, consistent with a previously diagnosed varicocele. 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 - Family: with three children. - Exercise: Engages in weightlifting, including activities like squats and deadlifts. - Substance use: Previously used prescribed oxycodone post-surgery, currently takes ibuprofen for pain. Review of Systems - Gastrointestinal: Denies abdominal pain, normal bowel movements. - Genitourinary: Denies burning sensation during urination and abnormal discharge; reports right testicular discomfort. - Dermatological: Reports rosacea, managed with washes. - Sleep: Reports daytime sleepiness but uses CPAP machine regularly for sleep apnea. - Vision and Hearing: No complaints. Physical Exam Appearance: Alert. Oriented X3. No acute distress. Head: Normal external exam. Normocephalic. Atraumatic. Eyes: Pupils are equal, round, and reactive to light. Extraocular movements intact. Conjunctiva and sclera normal. Eyelids normal. Ears: External auditory canal normal. Tympanic membranes normal. Throat: Pharynx normal. Uvula midline. Moist mucous membranes. Neck: Normal inspection. Neck supple. Full range of motion. No adenopathy. Thyroid Normal. No meningeal signs. No neck mass noted. Cardiovascular: Normal heart rate and rhythm. Heart sound normal. No murmurs noted. Pulses normal throughout. Respiratory: No respiratory distress. Painless inspiration. Breath sounds normal. No wheezes/rales/rhonchi noted. Chest nontender. No accessory muscle usage noted or decreased air movement noted. Abdomen: Soft and nontender. Bowel sounds normal in all 4 quadrants. No distention noted. No organomegaly noted. No visible injury noted. : right testicle/ scrotum with tenderness to palpation. There is no swelling, lumps, lesions, penile discharge noted. Left testicle within normal limits. 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 Back: No costovertebral angle tenderness. Full range of motion noted. Skin: Skin warm and dry. Normal skin color. Normal skin turgor. No rashes/lesions/lacerations noted. Extremities: No lower extremity edema. Extremities exhibit normal range of motion. Extremities nontender. Left knee with history of surgery and pending cortisone injection. Neuro: Oriented X 3. No motor deficit. No sensory deficit. Reflexes normal. Results - Labs: Previous blood work indicated elevated vitamin B12. - Imaging: Prior testicular ultrasound indicating varicocele.
--- OUTSIDE RECORDS SUMMARY | 2024-05-30 17:40 | XMS_ITS | Continuity of Care Document ---
Author Name [facility] Organization [facility] Care Team Providers Care Wire Strander Name Role Phone [facility] Unavailable Unavailable Problems Combined list of problems from 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 It does not include entries that were removed or entered in error. Problem Status Onset Date Problem Type Date of Resolution Comments Source Myopia, bilateral Active Condition 0310 C-AF-C-6 6th [facility] Regular astigmatism, bilateral Active Condition 5815F-HV-X-6 6[facility] Left knee pain Active Condition 0310C-A F-C-6 6[facility] Encounter for examination of eyes and vision without abnormal findings Active Condition 5428O-TI-W-6 6th [facility] Medications Combined list of outpatient medications from 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Medications provided include 1) outpatient medications from the last 15 months, and 2) patient-reported medications. Medication Details Route Status Patient Instructions Prescription Expires Prescription Number Last Dispense Date Ordering Provider Order Date Order Qty Source azithromyci n 250 mg oral tablet 0 total refill(s ) Discont inued 07/12/20222022 No Facilit y Access C-PAP # 1 EA, 0 total refill(s ), Acute Not Applic able Ordered 2022 1.0 0C-A F-C-66t h [facility] fexofenadin e 180 mg oral tablet fexofena dine 180 mg oral tablet Start Date: 07/01/20 Stop Date: 07/12/22 Status: Disconti nuted Repeat number: 1 Discont inued 07/12/20222022 No Facilit y Access fluticasone 50 mcg/inh nasal spray fluticas one 50 mcg/inh nasal spray Start Date: 07/01/20 Stop Date: 07/12/22 Status: Disconti wolf Repeat number: 1 Discont inued 07/12/20222022 No Facilit y Access HYDROcodone -acetaminop hen 7.5 mg-325 mg/15 mL oral solution HYDROcod one-acet aminophe n 7.5 mg-325 mg/15 mL oral solution Start Date: 10/17/19 Stop Date: 07/12/22 Status: Disconti nued Repeat number: 1 Discont inued 07/12/20222022 No Facilit y Access ibuprofen 0 total refill(s ), [facility] Ordered 20220C-A F-C-[facility]t [facility] methylPREDN ISolone 4 mg oral tablet methylPR EDNISolo ne 4 mg oral tablet Start Date: 11/23/20 Stop Date: 07/12/22 Status: Disconti nued Repeat number: 1 Discont inued 07/12/20222022 No Facilit y Access omeprazole 20 mg oral delayed release capsule 1 cap(s), Oral, Daily, 30 to 60 minutes before a meal, # 90 cap(s), 3 total refill(s ), [facility], Pharmacy : [facility] #[id number] Oral (given by mouth) Ordered 2022 90.0 0C-A F-C-66t h [facility] omeprazole 20 mg oral delayed release capsule omeprazo le 20 mg oral delayed release capsule Start Date: 10/03/20 Status: Ordered Repeat number: 1 Ordered 2020 No Facilit y Access ondansetron 8 mg oral tablet, disintegrat ing ondanset linda 8 mg oral tablet, disinteg rating Start Date: 11/23/20 Stop Date: 07/12/22 Status: Disconti nued Repeat number: 1 Discont inued 07/12/20222022 No Facilit y Access Immunizations Combined list of available immunizations from the 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 Immunization Series Date Given Administered By Site Reaction Lot Number CVX Code Drug Flight Manager Status Comments Source tetanus, diphtheria, acellular pertu is 2021 TMAT [id number] comple t ed Result Comment: Route: Unknown Manufactu rer: OTH ([facility]) 0C-A F-C-66t h [facility] influenza, injectable, quadrivalent- pf 2021 [facility] [id number] 150 comple t ed Result Comment: Route: Unknown Manufactu rer: OT (SK) 0310C-A F-C-66t h [facility] COVID Vaccine Moderna 2020 TRANSCR IBED 207 complet ed COVID Vaccine Moderna 01/06/21 Given Ambulat ory Pharmac y influenza, injectable, quadrivalent- pf 2020 [id number] 150 GlaxoSmithKli ne complet ed influenza , injectabl e, quadrival ent-pf 12/10/20 Given Ambulat ory Pharmac y COVID Vaccine Moderna 2020 TRANSCR IBED 207 complet ed COVID Vaccine Moderna 12/09/20 Given Ambulat ory Pharmac y influenza, injectable, quadrivalent- pf 2019 [id number] 150 Seqirus complet ed influenza , injectabl e, quadrival ent-pf 02/28/20 Given Ambulat ory Pharmac y influenza, injectable, quadrivalent- pf 2018 [id number] 150 Seqirus complet ed influenza , injectabl e, quadrival ent-pf 02/27/19 Given Ambulat ory Pharmac y influenza, injectable, quadrivalent- pf 2017 [id number] 150 Seqirus complet ed influenza , injectabl e, quadrival ent-pf 02/05/18 Given Ambulat ory Pharmac y influenza, injectable, quadrivalent- pf 2016 [id number] 150 [employer] comple t ed influenza , injectabl e, quadrival ent-pf 01/30/17 Given Ambulat ory Pharmac y influenza, seasonal, injectable-pf 2015 [id number] 140 Seqirus complet ed influenza , seasonal, injectabl e-pf 12/23/15 Given Ambulat ory Pharmac y influenza, live, intranasal,qu adrivalent 2014 [id number] 149 [employer] comple t ed influenza , live, intranasa l,quadriv alent 01/05/15 Given Ambulat ory Pharmac y typhoid Vi capsular polysaccharid e vac 2014 [id number] 101 sanofi pasteur complet ed typhoid Vi capsular polysacch aride vac 01/05/15 Given Ambulat ory Pharmac y Human Papillomaviru s,quadrivalen t(HPV4) 2014 [id number] 62 Merck & Company Inc complet ed Human Papilloma virus,holden drivalent (HPV4) 05/16/14 Given Ambulat ory Pharmac y influenza, live, intranasal,qu adrivalent 2013 [id number] 149 [employer] Inc comple t ed influenza , live, intranasa l,quadriv alent 01/20/14 Given Ambulat ory Pharmac y influenza, live, intranasal,qu adrivalent 2012 [id number] 149 [facility] comple t ed influenza , live, intranasa l,quadriv alent 12/24/12 Given Ambulat ory Pharmac y influenza, seasonal, injectable-pf 2011 [id number] 140 sanofi pasteur complet ed influenza , seasonal, injectabl e-pf 03/08/12 Given Ambulat ory Pharmac y tetanus, diphtheria, acellular pertu is 2011 [id number] 115 GlaxoSmithKli ne complet ed tetanus, diphtheri a, acellular pertussis 10/26/11 Given Ambulat ory Pharmac y influenza virus vaccine, live 2010 [id number] 111 [employer]um[employer] Inc comple t ed influenza virus vaccine, live 11/23/10 Given Ambulat ory Pharmac y influenza virus vaccine,split 2009 [id number] 15 CSL Behring complet ed influenza virus vaccine,s plit 01/05/10 Given Ambulat ory Pharmac y Novel influenza-H1N 1-09, injectable 2009 [id number] 127 sanofi pasteur complet ed Novel influenza -Z5C6-82, injectabl e 10/05/09 Given Ambulat ory Pharmac y influenza virus vaccine, live 2008 [id number] 111 Medimmune Inc complet ed influenza virus vaccine, live 01/19/09 Given Ambulat ory Pharmac y influenza virus vaccine, live 2007 [id number] 111 Medimmune Inc comple t ed influenza virus vaccine, live 01/11/08 Given Ambulat ory Pharmac y hepatitis A adult vaccine 2007 [id number] 52 Merck & Company Inc complet ed hepatitis A adult vaccine 09/20/07 Given Ambulat ory Pharmac y tuberculin purified protein derivative 2006 [id number] 96 sanofi pasteur complet ed tuberculi n purified protein derivativ e 02/27/07 Given Ambulat ory Pharmac y hepatitis A adult vaccine 2006 [id number] 52 GlaxoSmithKli ne complet ed hepatitis A adult vaccine 01/17/07 Given Ambulat ory Pharmac y measles/mumps /rubella virus vaccine 2006 0527U 03 Merck & Company Inc complet ed measles/m umps/rube lla virus vaccine 01/17/07 Given Ambulat ory Pharmac y influenza virus vaccine,split 2006 [id number] 15 GlaxoSmithKli ne complet ed influenza virus vaccine,s plit 01/11/07 Given Ambulat ory Pharmac y meningococcal A,C,Y,W-135 (MCV4P) 2006 [id number] 114 sanofi pasteur complet ed meningoco ccal A,C,Y,W-1 35 (MCV4P) 01/11/07 Given Ambulat ory Pharmac y poliovirus vaccine, inactivated 2006 [id number] 10 sanofi pasteur complet ed polioviru s vaccine, inactivat ed 01/11/07 Given Ambulat ory Pharmac y tetanus-dipht h toxoids (Td) adult/adol 2006 [id number] 09 sanofi pasteur complet ed tetanus-d iphth toxoids (Td) adult/ado l 01/11/07 Given Ambulat ory Pharmac y Results Combined list of recent chemistry, hematology and other laboratory results from Department of Defense and Veterans Affairs, ranging from 15 months to all on record, depending upon the facility. Order Name Results Value Reference Range Date Interpretation Specimen Comments Source Infectiou s Disease HIV-1/O/2 Non-Reac tive 1 (07/14/23 1:29 [...] Prevention' s HIV diagnostic algorithm. Refer to [facility] Lab Guide for additional information : [email or web address]/ [email or web address]/EPIL ab/[email or web address]/la [email or web address] x Testing performed by Blayne higgins. 5600A-U [employer] EPILAB Miscellan eous Sendouts Repository Sample Received (07/14/23 1:29 PM) 07/13 N 5600A-U [facility] [employer] Vital Signs Combined list of inpatient and outpatient Vital Signs from Department of Defense and Veterans Affairs, ranging from 12 months to all on record, depending upon the facility. Vital Sign Value Date Comments Source Blood Pressure Manual Automatic 08/31/2022 13:55:00 2315A-MJ-T-[facility] Temperature Oral 36.7 Pat 08/31/2022 13:55:00 9504H-SV-N-[facility] Systolic Blood Pressure 124 mm[Hg] 09/01/19 23 13:55:00 6148Y-EP-T-66[facility] Diastolic Blood Pressure 79 mm[Hg] 023 13:55:00 4318M-DP-Q-[facility] BP Site Right arm 08/31/2022 13:55:00 6520T-KR-E-[facility] Mean Arterial Pressure, Calc 94 mm[Hg] 08/31/2022 13:55:00 9233P-SI-F-[facility] Peripheral Pulse Rate 69 bpm 08/31/2022 13:55:00 1098Y-QI-G-[facility] Respiratory Rate 16 br/min 08/31/2022 13:55:00 0910V-BY-N-[facility] Encounters Combined list of: 1) Encounters from Department of Veterans Affairs facilities going backup to the last 18 months, not all VA inpatient encounters are included; 2) Encounters from the Department of Defense facilities going backup to 280 months. Location Location Details Encounter Type Encounter Number Reason For Visit Attending Provider ADM Date DC Date Status Disposition Source 0C-AF- C-[facility] Between Visit [id number] 12/19 Discharge Disposition: Home or Self Care 0310C-A F-C-66t [facility] 0310C-AF- C-[facility] Between Visit [id number] 12/25 Discharge Disposition: Home or Self Care 0310C-A F-C-66t h [facility] 0310C-AF- C-[facility] Between Visit [id number] 02/11 Discharge Disposition: Home or Self Care 0310C-A F-C-66t h [facility] 0310C-AF- C-[facility] Between Visit [id number] 03/11 Discharge Disposition: Home or Self Care 0310C-A F-C-66t h [facility] 0310C-AF- C-[facility] Between Visit [id number] 04/10 Discharge Disposition: Home or Self Care 0310C-A F-C-66t h [facility] Procedures Combined list of: 1) Procedures from Department of Veterans Affairs facilities going back up to thelast 18 months, not all VA non-surgical procedures are included; 2) All procedures from the Department of Defense facilities. Procedure Procedure Type Code Date Perfomer Comments Sourc e Strapping; knee Strapping; knee 71589 0769F-JC-V-66t h [facility] Brief emotional/behavioral a e ment (eg, depre ion inventory, attention-deficit/hyp eractivity disorder [ADHD] scale), with scoring and documentation, per standardized instrument Brief emotional/behavioral assessment (eg, depression inventory, attention-deficit/hyp eractivity disorder [ADHD] scale), with scoring and documentation, per standardized instrument 32422 9825M-LO-N-66t h [facility] Fitting of spectacles, except for aphakia; monofocal Fitting of spectacles, except for aphakia; monofocal 03387 4878X-MT-U-66t h [facility] BODY MASS INDEX (BMI) DOCUMENTED BODY MASS INDEX (BMI) DOCUMENTED [address] [place] [address] [facility] Application of a modality to one or more areas; iontophoresis, each 15 minutes Application of a modality to one or more areas; iontophoresis, each 15 minutes [address] [place] [address] [facility] Therapeutic procedure, one or more areas, each 15 minutes; neuromuscular reeducation of movement, balance, coordination, kinesthetic sense, posture, and/or proprioception for sitting and/or standing activities Therapeutic procedure, one or more areas, each 15 minutes; neuromuscular reeducation of movement, balance, coordination, kinesthetic sense, posture, and/or proprioception for sitting and/or standing activities [address] [place] [address] [facility] Health behavior intervention, individual, axfq-by-fcdm; initial 30 minutes Health behavior intervention, individual, pzwq-al-otie; initial 30 minutes [address] [place] [address] [facility] Therapeutic procedure, one or more areas, each 15 minutes; therapeutic exercises to develop strength and endurance, range of motion and flexibility Therapeutic procedure, one or more areas, each 15 minutes; therapeutic exercises to develop strength and endurance, range of motion and flexibility [address] [place] [address] [facility] Psychiatric evaluation of hospital records, other psychiatric reports, psychometric and/or projective tests, and other accumulated data for medical diagnostic purposes Psychiatric evaluation of hospital records, other psychiatric reports, psychometric and/or projective tests, and other accumulated data for medical diagnostic purposes [address] [place] [address] [facility] Health behavior a e ment, or re-a e ment (ie, health-focused clinical interview, behavioral observations, clinical decision making) Health behavior assessment, or re-assessment (ie, health-focused clinical interview, behavioral observations, clinical decision making) [address] [place] [address] [facility] Application of a modality to one or more areas; hot or cold packs Application of a modality to one or more areas; hot or cold packs [address] [place] [address] [facility] PURE TONE AUDIOMTRY THRESHOLD COMPUTER DEV AIR PURE TONE AUDIOMTRY THRESHOLD COMPUTER DEV AIR 0208T 1588M-EK-C-66t h [facility] Determination of refractive state Determination of refractive state 07319 0310C-AF-C- 66t h [facility] L knee surgery 2012 0310C-AF- C-66t h [facility] Endoscopy 6349U-CI-H-66t h [facility] WTEx4 9532Q-RR-P-66t h [facility] Septoplasty 2018 1957V-DH-O-6 6t h [facility] Tonsillectomy 2019 0310C-AF-C -66t h [facility] Social History Combined list of available smoking, tobacco, and other social history from 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 Social History Type Response Date Comment Sour e Sex Representation Male 01/11/2021 Unknow n Organization Tobacco Never-cigarette user Cigarette use:. Never-other tobacco user (not cigarettes) Other Tobacco use:. Ambulatory Pharmacy Sexual Orientation Ambula tory Pharmacy Gender identity Ambulator y Pharmacy Assessment and Plan Combined list of future [...] screening tools. ? AUDIT-C=0 PCL-C=0 PHQ-8=0 ? 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 At this time no tasking or consults needed.?SM made?aware of [facility] ()?services available, ?One Source, School Teacher Services, Walk in , Emergency Room (ER) [...] at age 37. Compared medications reported by hotel services supervisor to active medication list in?[facility]?and any variances were documented.? ? Any complaints or issues identified while conducting the PHA have been addressed and or referred back to the patient's?primary child care center assistant director (PCM)?for care.?SM?advised to follow up with PCM, [...] years or PRN if symptomatic.? Extracted from:Title: Saad FERNANDEZ Comp. Audio Author: LARRY CUEVAS, AuD Date: 09/12/23 1.?Hearing normal GENERAL INFORMATION History Branch:? ?[employer]? Command:?[facility] MOS:?2A5 ? ? VISIT REASON Hearing loss or concerns: Abnormal [id number] @ [facility] over the past couple of weeks for [...] No? Ototoxic medications:? No? ? PRIOR TESTING ?YG9800's [facility] ( and 29 AUG 2023) HEARING AID [...] and?improved??compared with previous testing recently obtained @ [facility]. No STS is noted in either ear compared to current WN2670 on record (2009). ? SPEECH AUDIOMETRY Right: Word recognition was? excellent??at?55 dB HL ?Masking level: _40dB HL ? Left: Word recognition was? ? ?excellent?at?55 dB HL ?Masking level:?40 dB HL ? SUMMARY Today s results indicate normal hearing in both ears at all test frequencies with good reliability. Normal ME function, bilaterally. ? 15 min (INDV) residence counselor on proper hand formed (Sound Guard) hearing protection insertion and uses in noise. Annual HCP review completed today ? ? ? PLAN 1) Annual [id number] back @ [facility] (2024) for continued annual monitoring 2) Use of proper HP in all noise designated areas 3) Future audio as needed ? Pee Almanza, Larry Livingston of Audiology [facility] ? Extracted from:Title: FTF-PHA Author: ABHIJIT LINDO MD Date: 08/31/22 EXAM, FORMAL OCCUPATIONAL HEALTH [...] to 60 minutes before a meal, Pharmacy: [facility]/pharmacy #[id number] [External Rx] Lt Col Abhijit Lindo M.D. Chief of Aerospace Medicine (SGP) [employer] Gaudencio FERNANDEZ MA ? ? 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 05/30/[address] [place] [address] Assessment and Plan Extracted from:Title : MHA/PHA [...] screening tools. ? AUDIT-C=0 PCL-C=0 PHQ-8=0 ? 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 At this time no tasking or consults needed.?SM made?aware of [facility] ()?services available, ?One Source, School Teacher Services, Walk in , Emergency Room (ER) [...] at age 37. Compared medications reported by hotel services supervisor to active medication list in?[facility]/JLV?and any variances were documented.? ? Any complaints or issues identified while conducting the PHA have been addressed and or referred back to the patient's?primary child care center assistant director (PCM)?for care.?SM?advised to follow up with PCM, Behavioral Health, ER/911, or [facility] One Source as needed for continuation of [...] years or PRN if symptomatic.? Extracted from:Title: Saad DAVILAB Comp. Audio Author: LARRY CUEVAS, Landry Date: 09/12/23 1.?Hearing normal GENERAL INFORMATION History Branch:? ?[employer]? Command:?[employer] MOS:?2A5 ? ? VISIT REASON Hearing loss or concerns: Abnormal [id number] @ [facility] over the past couple of weeks [...] No? Ototoxic medications:? No? ? PRIOR TESTING ?NICK[facility] ( and 29 AUG 2023) HEARING AID [...] and?improved??compared with previous testing recently obtained @ [facility]. No STS is noted in either ear compared to current [id number] on record (2009). ? SPEECH AUDIOMETRY Right: Word recognition was? excellent??at?55 dB HL ?Masking level: _40dB HL ? Left: Word recognition was? ? ?excellent?at?55 dB HL ?Masking level:?40 dB HL ? SUMMARY Today s results indicate normal hearing in both ears at all test frequencies with good reliability. Normal ME function, bilaterally. ? 15 min (INDV) residence counselor on proper hand formed (Sound Guard) hearing protection insertion and uses in noise. Annual HCP review completed today ? ? ? PLAN 1) Annual [id number] back @ [facility] (2024) for continued annual monitoring 2) Use of proper HP in all noise designated areas 3) Future audio as needed ? Pee Almanza CCC-Jasmyn, Larry Livingston of Audiology Audiology Dept. [facility] JAYLEN ? Extracted from:Title: FTF-PHA Author: ABHIJIT LINDO MD Date: 08/31/22 EXAM, FORMAL OCCUPATIONAL HEALTH [...] to 60 minutes before a meal, Pharmacy: [id number] [External Rx] Lt Col Abhijit Lindo M.D. Chief of Aerospace Medicine (SGP) [employer] Gaudencio FERNANDEZ MA ? ? 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 05/30/2024 8863E-GM-A-[facility] Assessment and Plan Extracted from:Title : MHA/PHA [...] screening tools. ? AUDIT-C=0 PCL-C=0 PHQ-8=0 ? 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 At this time no tasking or consults needed.?SM made?aware of [facility] ()?services available, ?One Source, School Teacher Services, Walk in , Emergency Room (ER) [...] at age 37. Compared medications reported by hotel services supervisor to active medication list in?[facility]/J[facility]?and any variances were documented.? ? Any complaints or issues identified while conducting the PHA have been addressed and or referred back to the patient's?primary child care center assistant director (PCM)?for care.?SM?advised to follow up with PCM, [...] years or PRN if symptomatic.? Extracted from:Title: [facility] Comp. Audio Author: LARRY CUEVAS, AuD Date: 09/12/23 1.?Hearing normal GENERAL INFORMATION History Branch:? ?[employer]? Command:?[facility] MOS:?2A5 ? ? VISIT REASON Hearing loss or concerns: Abnormal [id number] @ [facility] over the past couple of weeks [...] No? Ototoxic medications:? No? ? PRIOR TESTING ?[facility] ( and 29 AUG 2023) [...] and?improved??compared with previous testing recently obtained @ [facility]. No STS is noted in either ear compared to current [id number] on record (2009). ? SPEECH AUDIOMETRY Right: Word recognition was? excellent??at?55 dB HL ?Masking level: _40dB HL ? Left: Word recognition was? ? ?excellent?at?55 dB HL ?Masking level:?40 dB HL ? SUMMARY Today s results indicate normal hearing in both ears at all test frequencies with good reliability. Normal ME function, bilaterally. ? 15 min (INDV) residence counselor on proper hand formed (Sound Guard) hearing protection insertion and uses in noise. Annual HCP review completed today ? ? ? PLAN 1) Annual [id number] back @ [facility] (2024) for continued annual monitoring 2) Use of proper HP in all noise designated areas 3) Future audio as needed ? Pee Almanza James Doctor of Audiology Audiology Dept. [employer] [facility] [phone] ? Extracted from:Title: FTF-PHA Author: ABHIJIT LINDO MD Date: 08/31/22 EXAM, FORMAL OCCUPATIONAL HEALTH [...] to 60 minutes before a meal, Pharmacy: [id number] [External Rx] Lt Col Abhijit Lindo M.D. Chief of Aerospace Medicine (SGP) [employer] Gaudencio FERNANDEZ MA ? ? 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 05/30/[address] [place] [address] Functional Status Combined list of recent functional and cognitive assessments recorded at Department of Defense and Veterans Affairs (VA).VA Functional Amory Measurement (FIM) Scale: 1 = Total Assistance (Subject = 0% +), 2 = Maximal Assistance (Subject = 25% +), 3 = Moderate Assistance (Subject = 50% +), 4 = Minimal Assistance (Subject = 75% +), 5 = Supervision, 6 = Modified Amory (Device), 7 = Complete Amory (Timely, Safely). Assessment Date/Time Source Assessment Type Assessment Skill Assessment Score Assessment Details No data available for this section
--- OUTSIDE RECORDS SUMMARY | 2024-05-30 17:40 | XMS_ITS | Clinical Summary ---
Author Organization [facility] ity Address [id number] [place] [id number] Care Team Providers Care Contemporary Or Modern Dancer Name Role Phone Unavailable Primary Care Provider [...]
== END 2024-05-30 15:23 | disposition home or self-care (01) ==
LOC: HO.HMCH 13:56
PROVIDERS: PCP Internal Medicine; Visit Provider Physician Assistant Medical
DX: Z00.00 Encounter for general adult medical examination without abnormal findings (principal); N50.811 Right testicular pain; E66.9 Obesity, unspecified; Z68.32 Body mass index [BMI] 32.0-32.9, adult; Z98.890 Other specified postprocedural states; Z87.19 Personal history of other diseases of the digestive system; K40.20 Bilateral inguinal hernia, without obstruction or gangrene, not specified as recurrent; K21.9 Gastro-esophageal reflux disease without esophagitis; G47.33 Obstructive sleep apnea (adult) (pediatric); M26.19 Other specified anomalies of jaw-cranial base relationship; R40.0 Somnolence; L71.9 Rosacea, unspecified

== ENCOUNTER → 2024-05-30 13:55 | Outpatient (BNVA) | payer OTHER, SELFPAY | PROVIDERS: PCP Internal Medicine; Visit Provider Physician Assistant Medical | DX: Z00.00 Encounter for general adult medical examination without abnormal findings (principal); N50.811 Right testicular pain; K40.20 Bilateral inguinal hernia, without obstruction or gangrene, not specified as recurrent; K21.9 Gastro-esophageal reflux disease without esophagitis; G47.33 Obstructive sleep apnea (adult) (pediatric); E66.9 Obesity, unspecified; M26.19 Other specified anomalies of jaw-cranial base relationship; R40.0 Somnolence; L71.9 Rosacea, unspecified; Z98.890 Other specified postprocedural states; Z87.19 Personal history of other diseases of the digestive system | CPT/HCPCS: 96127 ==

== ENCOUNTER 2024-06-26 09:29 | Outpatient (AMB) | payer OTHER, SELFPAY ==
--- NOTE | 2024-06-26 09:30 | MHC.OFFVIS ---
Intake Visit Reasons: continued pain post B/L open inguinal hernia Intake Note: Patient called and schedule today's appointment c/o pain at hernia site. Hx: bilateral open inguinal herniorrhaphy with Bard mesh 03-28-2024. Preforms Laminator Required: No Allergies No Known Allergies Allergy (Verified 05/30/24 14:37) HPI Comments Details: Patient was presents for follow-up regarding right inguinal discomfort. Status post bilateral inguinal hernia repair several months ago. He had left groin in his asymptomatic. With extremes of motion has placed in employment, patient has right groin discomfort. He has not noticed any bulge in the groin area. Otherwise tolerating a diet. Having regular bowel habits. [facility] Medical History Annual physical exam Right testicular pain GERD (gastroesophageal reflux disease) Rosacea Somnolence, daytime Retrognathia Obesity (BMI 30.0-34.9) Anxiety and depression Obstructive sleep apnea History of esophageal dilatation Esophagitis Surgical History (Updated 06/07/24 @ 10:38 by Rola Solares PA-C) History of vasectomy Bilateral inguinal hernia (BIH) (03/28/24) History of esophagogastroduodenoscopy (EGD) H/O nasal septoplasty History of tonsillectomy History of knee surgery Family History Father Hypertension Heart attack, Onset Age: 35 Mother No problems noted. 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 Abdomen is moderately corpulent, soft, benign. Left groin incision well healed. Right groin incision well healed. No evidence of any recurrence or infection. Assessment & Plan Assessment & Plan (1) Status post bilateral inguinal hernia repair: Code(s): Z98.890 - Other specified postprocedural states; Z87.19 - Personal history of other diseases of the digestive system Category: Medical Plan At present, patient was again reassured that there was no evidence of any recurrence or infection at this time. His symptoms may be related to healing/scarring in the right groin more so than the left for reasons that are unclear but nothing that requires intervention at this time. Current plan is to give the patient light duty, he will see me in a few weeks' time for follow-up indirect further interventions and studies based on the patient's clinical course. All questions answered. In the meantime, patient should take Motrin or Tylenol for his discomfort and either ice or warm packs whichever improves his symptoms. Coding Level of Care Code Global (44508) Diagnoses Status post bilateral inguinal hernia repair Z98.890; Z87.19
--- OUTSIDE RECORDS SUMMARY | 2024-06-26 10:18 | XMS_ITS | Continuity of Care Document ---
Author Name [facility] Organization [facility] Care Team Providers Care Immigration Coordinator Name Role Phone [facility] Unavailable Unavailable Problems Combined list of problems from 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 It does not include entries that were removed or entered in error. Problem Status Onset Date Problem Type Date of Resolution Comments Source Myopia, bilateral Active Condition 0310 C-AF-C-6 [facility] Regular astigmatism, bilateral Active Condition 3646F-LU-Q-6 [facility] Left knee pain Active Condition 0310C-A F-C-6 [facility] Encounter for examination of eyes and vision without abnormal findings Active Condition 0772L-GP-G-6 6th [facility] [employer] Medications Combined list of outpatient medications from [...] Ordered 2022 1.0 0C-A F-C-66t h [facility] [employer] fexofenadin e 180 mg oral tablet fexofena [...] y Access ibuprofen 0 total refill(s ), [facility] Ordered 20220C-A F-C[facility]t h [facility] methylPREDN ISolone 4 mg oral tablet methylPR EDNISolo ne 4 mg oral tablet Start Date: 11/23/20 Stop Date: 07/12/22 Status: Disconti nued Repeat number: 1 Discont inued 07/12/20222022 No Facilit y Access omeprazole 20 mg oral delayed release capsule 1 cap(s), Oral, Daily, 30 to 60 minutes before a meal, # 90 cap(s), 3 total refill(s ), [facility], Pharmacy : [facility] #[id number] Oral (given by mouth) Ordered 2022 90.0 0C-A F-C-66t h [facility] omeprazole 20 mg oral delayed release capsule [...] Site Reaction Lot Number CVX Code Drug Professor Of Musicology Status Comments Source tetanus, diphtheria, acellular pertu is 2021 [employer] [id number] comple t ed Result Comment: Route: Unknown Manufactu rer: OTH ([facility]) 0C-A F-C-66t h [facility] influenza, injectable, quadrivalent- pf 2021 [facility] [id number] comple t ed Result Comment: [...] Pharmac y influenza, injectable, quadrivalent- pf 2019 [id number] 150 Se[employer] complet ed influenza , injectabl e, quadrival ent-pf 02/28/20 Given Ambulat ory Pharmac y influenza, injectable, quadrivalent- pf 2018 [id number] 150 [employer] complet ed influenza , injectabl e, quadrival ent-pf 02/27/19 Given Ambulat ory Pharmac y influenza, injectable, quadrivalent- pf 2017 [id number] 150 [employer] complet ed influenza , injectabl e, quadrival ent-pf 02/05/18 Given Ambulat ory Pharmac y influenza, injectable, quadrivalent- pf 2016 [id number] 150 [employer] comple t ed influenza , injectabl e, quadrival ent-pf 01/30/17 Given Ambulat ory Pharmac y influenza, seasonal, injectable-pf 2015 [id number] 140 Seqirus complet ed influenza , seasonal, injectabl e-pf 12/23/15 Given Ambulat ory Pharmac y influenza, live, intranasal,qu adrivalent 2014 [id number] 149 [employer] Inc comple t ed influenza , live, intranasa l,quadriv alent 01/05/15 Given Ambulat ory Pharmac y typhoid Vi capsular polysaccharid e vac 2014 [id number] 101 sanofi pasteur complet ed typhoid Vi capsular polysacch aride vac 01/05/15 Given Ambulat ory Pharmac y Human Papillomaviru s,quadrivalen t(HPV4) 2014 [id number] 62 Merck & Company Inc complet ed Human Papilloma virus,holden drivalent (HPV4) 05/16/14 Given Ambulat ory Pharmac y influenza, live, intranasal,qu adrivalent 2013 [id number] 149 Mediune Inc comple t ed influenza , live, intranasa l,quadriv alent 01/20/14 Given Ambulat ory Pharmac y influenza, live, intranasal,qu adrivalent 2012 [id number] 149 [facility] comple t ed influenza , live, intranasa l,quadriv alent 12/24/12 Given Ambulat ory Pharmac y influenza, seasonal, injectable-pf 2011 [id number] 140 sanofi pasteur complet ed influenza , seasonal, injectabl e-pf 03/08/12 Given Ambulat ory Pharmac y tetanus, diphtheria, acellular pertu is 2011 [id number] 115 GlaxoSmithKli ne complet ed tetanus, diphtheri a, acellular pertussis 10/26/11 Given Ambulat ory Pharmac y influenza virus vaccine, live 2010 [id number] 111 MediViratech Inc comple t ed influenza virus vaccine, live 11/23/10 Given Ambulat ory Pharmac y influenza virus vaccine,split 2009 [id number] 15 CSL Behring complet ed influenza virus vaccine,s plit 01/05/10 Given Ambulat ory Pharmac y Novel influenza-H1N 1-09, injectable 2009 [id number] 127 sanofi pasteur complet ed Novel influenza -A6M2-62, injectabl e 10/05/09 Given Ambulat ory Pharmac y influenza virus vaccine, live 2008 [id number] 111 Medimmune Inc complet ed influenza virus vaccine, live 01/19/09 Given Ambulat ory Pharmac y influenza virus vaccine, live 2007 [id number] 111 Medimmune Inc comple t ed influenza virus vaccine, live 01/11/08 Given Ambulat ory Pharmac y hepatitis A adult vaccine 2007 [id number] 52 Merck & Company Inc complet ed hepatitis A adult vaccine 09/20/07 Given Ambulat ory Pharmac y tuberculin purified protein derivative 2006 [id number] 96 sanofi pasteur complet ed tuberculi n [...] ory Pharmac y meningococcal A,C,Y,W-135 (MCV4P) 2006 [id number] 114 sanofi pasteur complet ed meningoco ccal A,C,Y,W-1 35 (MCV4P) 01/11/07 Given Ambulat ory Pharmac y poliovirus vaccine, inactivated 2006 [id number] 10 sanofi pasteur complet ed polioviru s vaccine, inactivat ed 01/11/07 Given Ambulat ory Pharmac y tetanus-dipht h toxoids (Td) adult/adol 2006 [id number] 09 sanofi pasteur complet ed tetanus-d iphth [...] Prevention' s HIV diagnostic algorithm. Refer to [facility] Lab Guide for additional information : [email or web address]. [facility]/ kj/[email or web address]/EPIL ab/[email or web address]/la b_guide.asp x Testing performed by Blayne higgins. 5600A-U [employer] EPILAB Miscellan eous Sendouts Repository Sample Received (07/14/23 1:29 PM) 07/13 N 5600A-U [employer] Vital Signs Combined list of inpatient and outpatient Vital Signs from Department of Defense and Veterans Affairs, ranging from 12 months to all on record, depending upon the facility. Vital Sign Value Date Comments Source Blood Pressure Manual Automatic 08/31/2022 13:55:00 9879R-DJ-Z-[facility] Temperature Oral 36.7 Pat 08/31/2022 13:55:00 2376Q-FU-D-[facility] Systolic Blood Pressure 124 mm[Hg] 09/01/19 23 13:55:00 3458Q-GD-Q-[facility] Diastolic Blood Pressure 79 mm[Hg] 023 13:55:00 2564H-ZG-Q-[facility] BP Site Right arm 08/31/2022 13:55:00 3100W-YZ-L-[facility] Mean Arterial Pressure, Calc 94 mm[Hg] 08/31/2022 13:55:00 9716N-MT-O-[facility] Peripheral Pulse Rate 69 bpm 08/31/2022 13:55:00 6150V-DI-I-[facility] Respiratory Rate 16 br/min 08/31/2022 13:55:00 4091Z-ZY-L-[facility] Encounters Combined list of: 1) [...] Source 0C-AF- C-[facility] Between Visit [id number] 12/19 Discharge Disposition: Home or Self Care 0310C-A F-C-66t h [facility] 0310C-AF- C-[facility] Between Visit [id number] 12/25 Discharge Disposition: Home or Self Care 0310C-A F-C-66t h [facility] 0310C-AF- C-[facility] Between Visit [id number] 02/11 Discharge Disposition: Home or Self Care 0310C-A F-C-66t h [facility] 0310C-AF- C-66[facility] Between Visit [id number] 03/11 Discharge Disposition: Home or Self Care 0310C-A F-C-66t h [facility] 0310C-AF- C-66[facility] Between Visit [id number] 04/10 Discharge Disposition: Home or Self Care 0310C-A F-C-66t h [facility] Procedures Combined list of: 1) Procedures from Department of Veterans Affairs facilities going back up to thelast 18 months, not all VA non-surgical procedures are included; 2) All procedures from the Department of Defense facilities. Procedure Procedure Type Code Date Perfomer Comments Sourc e Strapping; knee Strapping; knee 81507 6039W-BU-M-66t h [facility] Brief emotional/behavioral a e ment (eg, depre ion inventory, attention-deficit/hyp eractivity disorder [ADHD] scale), with scoring and documentation, per standardized instrument Brief emotional/behavioral assessment (eg, depression inventory, attention-deficit/hyp eractivity disorder [ADHD] scale), with scoring and documentation, per standardized instrument 62890 7952Y-YO-E-66t h [facility] Fitting of spectacles, except for aphakia; monofocal Fitting of spectacles, except for aphakia; monofocal 85713 0983I-LZ-U-66t h [facility] [employer] [facility] BODY MASS INDEX (BMI) DOCUMENTED BODY MASS INDEX (BMI) DOCUMENTED 300[address]F [address] [place] [address] [employer] [facility] [employer] [facility] Application of a modality to one or more areas; iontophoresis, each 15 minutes Application of a modality to one or more areas; iontophoresis, each 15 minutes [address] [place] [address] [employer] [facility] [facility] Therapeutic procedure, one or more areas, each 15 minutes; neuromuscular reeducation of movement, balance, coordination, kinesthetic sense, posture, and/or proprioception for sitting and/or standing activities Therapeutic procedure, one or more areas, each 15 minutes; neuromuscular reeducation of movement, balance, coordination, kinesthetic sense, posture, and/or proprioception for sitting and/or standing activities [address] [place] [address] [employer] [facility] [facility] Health behavior intervention, individual, vyjn-uu-gffy; initial 30 minutes Health behavior intervention, individual, svmd-jt-psez; initial 30 minutes [address] [place] [address] [employer] [facility] [employer] Therapeutic procedure, one or more areas, each 15 minutes; therapeutic exercises to develop strength and endurance, range of motion and flexibility Therapeutic procedure, one or more areas, each 15 minutes; therapeutic exercises to develop strength and endurance, range of motion and flexibility [address] [place] [address] [employer] [facility] [facility] Psychiatric evaluation of hospital records, other psychiatric reports, psychometric and/or projective tests, and other accumulated data for medical diagnostic purposes Psychiatric evaluation of hospital records, other psychiatric reports, psychometric and/or projective tests, and other accumulated data for medical diagnostic purposes [address] [place] [address] [facility] Health behavior a e ment, or re-a e ment (ie, health-focused clinical interview, behavioral observations, clinical decision making) Health behavior assessment, or re-assessment (ie, health-focused clinical interview, behavioral observations, clinical decision making) [address] [place] [address] [employer] [facility] Application of a modality to one or more areas; hot or cold packs Application of a modality to one or more areas; hot or cold packs [address] [place] [address] [employer] [facility] [facility] PURE TONE AUDIOMTRY THRESHOLD COMPUTER DEV AIR PURE TONE AUDIOMTRY THRESHOLD COMPUTER DEV AIR 0208T 1111U-BA-P-66t h [facility] [employer] Determination of refractive state Determination of refractive state 93594 0310C-AF-C- 66t h [facility] L knee surgery 2012 0310C-AF- C-66t h [facility] Endoscopy 6114X-UY-Q-66t h [facility] [employer] WTEx4 6376X-YG-C-66t h [facility] Septoplasty 2018 2989P-EX-R-6 6t h [facility] Tonsillectomy 2019 0310C-AF-C -66t h [facility] [employer] Social History Combined list of available smoking, tobacco, and other social history from 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 Social History Type Response Date Comment Sourc e Sex Representation Male (finding) 01/11/2021 Un known Organization Tobacco Never-cigarette user Cigarette use:. Never-other [...] screening tools. ? AUDIT-C=0 PCL-C=0 PHQ-8=0 ? 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 At this time no tasking or consults needed.?SM made?aware of [facility] ()?services available, ?One Source, [employer], Walk in , Emergency Room (ER) [...] at age 37. Compared medications reported by marine service operator to active medication list in?[facility]/JLV?and any variances were documented.? ? Any complaints or issues identified while conducting the PHA have been addressed and or referred back to the patient's?primary assurance services manager health care (PCM)?for care.?SM?advised to follow up with PCM, [...] or PRN if symptomatic.? Extracted from:Title: Saad REBECCA Comp. Audio Author: LARRY CUEVAS, AuD Date: 09/12/23 1.?Hearing normal GENERAL INFORMATION History Branch:? ?[employer]? Command:?[facility] MOS:?2A5 ? ? VISIT REASON Hearing loss or concerns: Abnormal [id number] @ [facility] over the past couple of weeks [...] No? Ototoxic medications:? No? ? PRIOR TESTING ?[id number]'s [facility] ( and 29 AUG 2023) HEARING AID [...] and?improved??compared with previous testing recently obtained @ [facility]. No STS is noted in either ear compared to current [id number] on record (2009). ? SPEECH AUDIOMETRY Right: Word recognition was? excellent??at?55 dB HL ?Masking level: _40dB HL ? Left: Word recognition was? ? ?excellent?at?55 dB HL ?Masking level:?40 dB HL ? SUMMARY Today s results indicate normal hearing in both ears at all test frequencies with good reliability. Normal ME function, bilaterally. ? 15 min (INDV) student success counselor on proper hand formed (Sound Guard) hearing protection insertion and uses in noise. Annual HCP review completed today ? ? ? PLAN 1) Annual MS2160 back @ [facility] (2024) for continued annual monitoring 2) Use of proper HP in all noise designated areas 3) Future audio as needed ? Pee Almanza James Doctor of Audiology Audiology Dept. [employer] [facility] JAYLEN ? 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 06/26/[address] [place] [address] Assessment and Plan Extracted from:Title : MHA/PHA [...] screening tools. ? AUDIT-C=0 PCL-C=0 PHQ-8=0 ? 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 At this time no tasking or consults needed.?SM made?aware of [facility] ()?services available, ?One Source, [employer], Walk in , Emergency Room (ER) [...] at age 37. Compared medications reported by marine service operator to active medication list in?S Maribel/JLV?and any variances were documented.? ? Any complaints or issues identified while conducting the PHA have been addressed and or referred back to the patient's?primary assurance services manager health care (PCM)?for care.?SM?advised to follow up with PCM, Behavioral Health, ER/911, or [facility] One Source as needed for continuation [...] Saad DAVILAB Comp. Audio Author: LARRY CUEVAS, AuD Date: 09/12/23 1.?Hearing normal GENERAL INFORMATION History Branch:? ?[employer]? Command:?[employer] MOS:?2A5 ? ? VISIT REASON Hearing loss or concerns: Abnormal IR3130 @ [facility] over the past couple of weeks [...] Ototoxic medications:? No? ? PRIOR TESTING ?NICK[facility] ( and 29 AUG 2023) HEARING AID [...] and?improved??compared with previous testing recently obtained @ [facility]. No STS is noted in either ear compared to current [id number] on record (2009). ? SPEECH AUDIOMETRY Right: Word recognition was? excellent??at?55 dB HL ?Masking level: _40dB HL ? Left: Word recognition was? ? ?excellent?at?55 dB HL ?Masking level:?40 dB HL ? SUMMARY Today s results indicate normal hearing in both ears at all test frequencies with good reliability. Normal ME function, bilaterally. ? 15 min (INDV) student success counselor on proper hand formed (Sound Guard) hearing protection insertion and uses in noise. Annual HCP review completed today ? ? ? PLAN 1) Annual [id number] back @ [facility] (2024) for continued annual monitoring 2) Use of proper HP in all noise designated areas 3) Future audio as needed ? Pee Almanza, Larry Livingston of Audiology Audiology Dept. [facility] ? Extracted from:Title: FTF-PHA Author: ABHIJIT [...] to 60 minutes before a meal, Pharmacy: [facility] #[id number] [External Rx] Lt Col Abhijit Lindo M.D. Chief of Aerospace Medicine (SGP) [employer] Gaudencio FERNANDEZ MA ? ? 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 06/26/2024 6221U-NO-L-[facility]th [facility] Assessment and Plan Extracted from:Title : MHA/PHA [...] screening tools. ? AUDIT-C=0 PCL-C=0 PHQ-8=0 ? 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 At this time no tasking or consults needed.?SM made?aware of [facility] ()?services available, ?One Source, [employer], Walk in , Emergency Room (ER) [...] at age 37. Compared medications reported by marine service operator to active medication list in?[facility]/JLV?and any variances were documented.? ? Any complaints or issues identified while conducting the PHA have been addressed and or referred back to the patient's?primary assurance services manager health care (PCM)?for care.?SM?advised to follow up with PCM, [...] years or PRN if symptomatic.? Extracted from:Title: [facility] Comp. Audio Author: LARRY CUEVAS, AuD Date: 09/12/23 1.?Hearing normal GENERAL INFORMATION History Branch:? ?[employer]? Command:?[facility] MOS:?2A5 ? ? VISIT REASON Hearing loss or concerns: Abnormal [id number] @ [facility] over the past couple of weeks [...] No? Ototoxic medications:? No? ? PRIOR TESTING ?[facility] ( and 29 AUG 2023) [...] and?improved??compared with previous testing recently obtained @ [facility]. No STS is noted in either ear compared to current [id number] on record (2009). ? SPEECH AUDIOMETRY Right: Word recognition was? excellent??at?55 dB HL ?Masking level: _40dB HL ? Left: Word recognition was? ? ?excellent?at?55 dB HL ?Masking level:?40 dB HL ? SUMMARY Today s results indicate normal hearing in both ears at all test frequencies with good reliability. Normal ME function, bilaterally. ? 15 min (INDV) student success counselor on proper hand formed (Sound Guard) hearing protection insertion and uses in noise. Annual HCP review completed today ? ? ? PLAN 1) Annual [id number] back @ [facility] (2024) for continued annual monitoring 2) Use of proper HP in all noise designated areas 3) Future audio as needed ? Pee Almanza CCC-Jasmyn, Larry Doctor of Audiology Audiology Dept. [employer] [facility] [phone] ? Extracted from:Title: FTF-PHA Author: ABHIJIT LINDO [...] 60 minutes before a meal, Pharmacy: [id number] [External Rx] Lt Col Abhijit Lindo M.D. Chief of Aerospace Medicine (SGP) [employer] Gaudencio FERNANDEZ MA ? ? 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 06/26/[address] [place] [address] Functional Status Combined list of recent functional and cognitive assessments recorded at Department of Defense and Veterans Affairs (VA).VA Functional Gilmer Measurement (FIM) Scale: 1 = Total Assistance (Subject = 0% +), 2 = Maximal Assistance (Subject = 25% +), 3 = Moderate Assistance (Subject = 50% +), 4 = Minimal Assistance (Subject = 75% +), 5 = Supervision, 6 = Modified Gilmer (Device), 7 = Complete Gilmer (Timely, Safely). Assessment Date/Time Source Assessment Type Assessment Skill Assessment Score Assessment Details No data available for this section
--- OUTSIDE RECORDS SUMMARY | 2024-06-26 10:18 | XMS_ITS | Clinical Summary ---
Author Organization [facility] ity Address [address] [place] [phone] Care Team Providers Care Cottrell Operator Name Role Phone Unavailable Primary Care Provider [...] age to complete this topic Meningococcal B Vaccine Aged Out No l onger eligible based on patient's age to complete [...]
== END 2024-06-26 09:48 | disposition home or self-care (01) ==
LOC: HO.HGS 09:30
PROVIDERS: PCP Internal Medicine; Visit Provider Surgery
DX: Z98.890 Other specified postprocedural states (principal); Z87.19 Personal history of other diseases of the digestive system
CPT/HCPCS: 99024

== ENCOUNTER → 2024-06-26 09:29 | Outpatient (BNVA) | payer OTHER, SELFPAY | PROVIDERS: PCP Internal Medicine; Visit Provider Surgery | DX: Z98.890 Other specified postprocedural states (principal); Z87.19 Personal history of other diseases of the digestive system | CPT/HCPCS: 99212 ==

== ENCOUNTER 2024-07-09 14:20 | Outpatient (REF) | payer OTHER, SELFPAY ==
--- NOTE | ~2024-07-09 | US_ITS ---
EXAMINATION: US SCROTUM CLINICAL INFORMATION: Right testicular pain. Concerning epididymitis versus varicocele.. COMPARISON: None available. TECHNIQUE: A sonogram of the scrotum was performed assessing smith-scale appearance and color Doppler flow. Spectral Doppler analysis of the arterial and venous flow were performed in the testes bilaterally. FINDINGS: RIGHT: Right testicle measures 4.3 x 2.0 x 3.0 cm, volume 13.5 mL. No focal testicular parenchymal lesions are visualized. Spectral Doppler analysis of the arterial and venous flow is normal in the right testis. Right epididymal head is normal in size. No right hydrocele or varicocele is seen. Right epididymal Doppler flow is normal.. 4 mm simple cyst in the head of the epididymis. LEFT: Left testicle measures 3.7 x 1.6 x 2.7 cm, volume 8.4 mL. No focal testicular parenchymal lesions are visualized. Spectral Doppler analysis of the arterial and venous flow is normal in the left testis. Left epididymal head is normal in size. No left hydrocele or varicocele is seen. Left epididymal Doppler flow is normal. 7 mm simple cysts, head of the epididymis. US/US scrotum IMPRESSION: No testicular torsion. No epididymitis. No varicocele. No hydrocele. No testicular mass. Electronically signed by: Ambrosio Simms MD 07/10/2024 01:29 PM EDT
--- OUTSIDE RECORDS SUMMARY | 2024-07-09 17:10 | XMS_ITS | Clinical Summary ---
Author Organization [facility] ity Address [address] [place] [phone] Care Team Providers Care Acoustic Intelligence Specialist Name Role Phone Unavailable Primary Care [...] Vaccine (2023-2 5 season) 2023 Influenza Vaccine (Season Ended) 2024 HIB Vaccines Aged Out No longer eligi [...]
--- OUTSIDE RECORDS SUMMARY | 2024-07-09 17:11 | XMS_ITS | Continuity of Care Document ---
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 It does not include entries that were removed or entered in error. Problem Status Onset Date Problem Type Date of Resolution Comments Source Obstructive sleep apnea (adult) (pediatric) Active 9 Condition DoD Constipation, unspecified Active 7 Condition DoD visit for: examination of subpopulation Inactive 6 Condition DoD Testes Swelling Tender Inactive 6 Condition DoD Encounter for other administrative examinations Active 9 Condition DoD Cervicalgia Active 9 Condition DoD Body mass index (BMI) 31.0-31.9, adult Active 9 Condition DoD Allergic rhinitis, unspecified Active 9 Condition DoD Pain in left knee Active 9 Condition DoD Body mass index (BMI) 30.0-30.9, adult Active 9 Condition DoD Other specified disorders of thyroid Active Condition DoD Obstructive sleep apnea (adult) (pediatric) Active Condition DoD DEVIATED NASAL SEPTUM (ACQUIRED) Active Condition DoD heartburn with regurgitation Inactive Condition DoD cough Inactive Condition DoD joint pain in the left knee Active Condition DoD CHEST PAIN Inactive Condition DoD REFRACTIVE ERROR - MYOPIA Active Condition DoD ASTIGMATISM - REGULAR Active Condition DoD Anticipatory Guidance: Concerns About Sleeping Inactive Condition DoD SLEEP DISORDERS BREATHING-RELATED Inactive Condition DoD difficulty seeing at night Inactive Condition DoD Nasal Discharge Epistaxis Inactive Condition DoD Anticipatory Guidance: Unsafe Sexual Practices Inactive Condition DoD CHLAMYDIAL DISEASE Inactive Condition Do D PEDICULOSIS PUBIS Inactive Condition DoD visit for: services physical Inactive Condition DoD Other Physical Therapy Inactive Condition DoD RASHID SCHLATTER DISEASE Active Condition DoD visit for: occupational health / fitness exam Inactive Condition DoD X-Ray Inactive Condition DoD joint pain, localized in the knee Inactive Condition DoD EUSTACHIAN TUBE DYSFUNCTION Inactive Condition DoD PHARYNGITIS Inactive Condition DoD UPPER RESPIRATORY INFECTION Inactive Condition DoD Laboratory Studies Inactive Condition Do D GONOCOCCAL INFECTIONS ACUTE GONORRHEA Inactive Condition DoD Patient Education - HIV Inactive Condition DoD sexually active high-risk Inactive Condition DoD GASTROENTERITIS Inactive Condition DoD ACNE Inactive Condition DoD ACUTE BRONCHITIS Inactive Condition DoD visit for: administrative purpose Inactive Condition DoD ASSESSMENT OF PATIENT CONDITION WORK STATUS Inactive Condition DoD Administrative Evaluation Services Inactive Condition DoD EPISTAXIS Inactive Condition DoD SPRAIN RIBS Inactive Condition DoD Patient Education - Medication Inactive Condition DoD ALLERGIC RHINITIS Inactive Condition DoD Family history of ischemic heart disease Inactive Condition Will check lipids CRP, homocystien e, folate B12 DoD NORMAL EXAMINATION Inactive Condition P atient will follow up for an EKG and review of his lab if normal no further action DoD NEW PATIENT OPHTHALMOLOGICAL EXAM Inactive Condition DoD Myopia, bilateral Active Condition 0 C-AF-C [facility] [employer] Regular astigmatism, bilateral Active Condition 0C-AF-C [facility] Left knee pain Active Condition 309C-A F-C [facility] Encounter for examination of eyes and vision without abnormal findings Active Condition 0C-A F-C [facility] [employer] Medications Combined list of outpatient medications from [...] Ordered 2022 1.0 0C-A F[facility] [employer] DOXYCYCLINE HYCLATE (doxycyclin e hyclate), 100 MG, TABLET, ORAL, [employer], 50 ea. BOTTLE Cancele d [id number] : 2023 0 Pharmac y Data Transac tion Service Facilit y DOXYCYCLINE HYCLATE (doxycyclin e hyclate), 100 MG, TABLET, ORAL, [employer], 50 ea. BOTTLE Active [id number] 4 2023 19 Pharmac y Data Transac tion Service Facilit y FAMOTIDINE (famotidine ), 20 MG, TABLET, ORAL, [employer] [facility], 100 ea. BOTTLE Cancele d [id number] : 2023 0 Pharmac y Data Transac tion Service Facilit y FAMOTIDINE (famotidine ), 40 MG, TABLET, ORAL, [employer], 100 ea. BOTTLE Cancele d [id number] : 2023 0 Pharmac y Data Transac tion Service Facilit y fexofenadin e 180 mg oral tablet fexofena dine 180 mg oral tablet Start Date: 07/01/20 Stop Date: 07/12/22 Status: Disconti nued Repeat number: 1 Discont inued 07/12/20222022 No Facilit y Access fluticasone 50 mcg/inh nasal spray fluticas one 50 mcg/inh nasal spray Start Date: 07/01/20 Stop Date: 07/12/22 Status: Disconti nued Repeat number: 1 Discont inued 07/12/20222022 No Facilit y Access HYDROcodone -acetaminop hen 7.5 mg-325 mg/15 mL oral solution HYDROcod one-acet aminophe n 7.5 mg-325 mg/15 mL oral solution Start Date: 10/17/19 Stop Date: 07/12/22 Status: Disconti nued Repeat number: 1 Discont inued 07/12/20222022 No Facilit y Access ibuprofen 0 total refill(s ), Maintena nce Ordered 2022 0310C-A F-C[facility] [employer] IBUPROFEN (ibuprofen) , 800 MG, TABLET, ORAL, [employer], 500 ea. BOTTLE Active [id number] 4 2023 20 Pharmac y Data Transac tion Service Facilit y IBUPROFEN (ibuprofen) , 800 MG, TABLET, ORAL, [employer], 500 ea. BOTTLE Active [id number] 2023 20 Pharmac y Data Transac [...] # 90 cap(s), 3 total refill(s ), Diana rosae, Pharmacy : [id number] Oral (given by mouth) Ordered 2022 90.0 309C-A F-C[facility] omeprazole 20 mg oral delayed release capsule omeprazo le 20 mg oral delayed release capsule Start Date: 10/03/20 Status: Ordered Repeat number: 1 Ordered 2020 No Facilit y Access ondansetron 8 mg oral tablet, disintegrat ing ondanset linda 8 mg oral tablet, disinteg rating Start Date: 11/23/20 Stop Date: 07/12/22 Status: Disconti nued Repeat number: 1 Discont inued 07/12/20222022 No Facilit y Access PANTOPRAZOL E SODIUM (PANTOPRAZO LE SODIUM), 40 MG, TABLET DR, ORAL, [employer] [facility], 90 ea. BOTTLE Cancele d [id number] : 2023 0 Pharmac y Data Transac tion Service Facilit y SUCRALFATE (SUCRALFATE ), 1G, TABLET, ORAL, [facility] [facility], 500 ea. BOTTLE Active [id number] 4 2023 90 Pharmac y Data Transac [...] Site Reaction Lot Number CVX Code Drug Nutritionists Status Comments Source tetanus, diphtheria, acellular pertu is 2021 GABRIELLA [id number] comple t ed Result Comment: Route: Unknown Manufactu rer: OTH ([facility]) 0310C-A F-C-[facility] [employer] influenza, injectable, quadrivalent- pf 2021 [facility] [id number] 150 comple t ed Result Comment: Route: Unknown Manufactu rer: OTH ([facility]) 0310C-A F-C-[facility] [employer] COVID Vaccine [...] mcg or 50 mcg dose 1 2020 Moderna US, Inc. (MOD) complet ed SARS-COV- 2 (COVID-19 ) vaccine, mRNA, spike protein, LNP, preservat angel free, 100 mcg or 50 mcg dose DoD influenza, injectable, quadrivalent- pf 2020 [id number] 150 GlaxoSmithKli ne complet ed influenza , injectabl e, quadrival ent-pf 12/10/20 Given Ambulat ory Pharmac y Influenza, injectable, quadrivalent, preservative free 1 2020 [id number] 150 [facility] ([facility]) complet ed Influenza , injectabl e, quadrival [...] dose DoD influenza, injectable, quadrivalent- pf 2019 [id number] 150 Seqirus complet ed influenza , injectabl e, quadrival ent-pf 02/28/20 Given Ambulat ory Pharmac y Influenza, injectable, quadrivalent, preservative free 1 2019 [id number] 150 Seqirus (SEQ) complet ed Influenza , injectabl e, quadrival ent, preservat angel free DoD influenza, injectable, quadrivalent- pf 2018 [id number] 150 Se[employer]irus complet ed influenza , injectabl e, quadrival ent-pf 02/27/19 Given Ambulat ory Pharmac y Influenza, injectable, quadrivalent, preservative free 13 2018 [id number] 349 150 Seqirus (SEQ) complet ed Influenza , injectabl e, quadrival ent, preservat angel free DoD influenza, injectable, quadrivalent- pf 2017 [id number] 150 Se[employer]irus complet ed influenza , injectabl e, quadrival ent-pf 02/05/18 Given Ambulat ory Pharmac y Influenza, injectable, quadrivalent, preservative free 12 2017 [id number] 150 Seqirus (SEQ) comple t ed Influenza [...] angel free DoD influenza, seasonal, injectable-pf 2015 [id number] 1A 140 Seqirus complet ed influenza , seasonal, injectabl e-pf 12/23/15 Given Ambulat ory Pharmac y Influenza, seasonal, injectable, preservative free 10 2015 [id number] 1A 140 Seqirus (SEQ) complet ed Influenza , seasonal, injectabl e, preservat angel free DoD influenza, live, intranasal,qu adrivalent 2014 [id number] 149 [employer]ist Inc comple t ed influenza , live, intranasa l,quadriv alent 01/05/15 Given Ambulat ory Pharmac y typhoid Vi capsular polysaccharid e vac 2014 [id number] 101 sanofi pasteur complet ed typhoid Vi capsular polysacch aride vac 01/05/15 Given Ambulat ory Pharmac y typhoid Vi capsular polysaccharid e vaccine 1 2014 [id number] 101 Sanofi Pasteur ([facility]) complet ed typhoid Vi capsular polysacch aride vaccine DoD influenza, live, intranasal, quadrivalent 9 2014 [id number] 149 MedImmune, Inc. (MED) complet ed influenza , live, intranasa l, quadrival ent DoD Human Papillomaviru s,quadrivalen t(HPV4) 2014 [id number] 62 [employer]Rx [employer] complet ed Human Papilloma virus,holden drivalent (HPV4) 05/16/14 Given Ambulat ory Pharmac y human papilloma virus vaccine, quadrivalent 0 2014 [id number] 62 SmartRx (MSD) complet ed human papilloma virus vaccine, quadrival ent DoD influenza, live, intranasal,qu adrivalent 2013 [id number] 149 Medimmune Inc comple t ed influenza , live, intranasa l,quadriv alent 01/20/14 Given Ambulat ory Pharmac y influenza, live, intranasal, quadrivalent 8 2013 [id number] 149 MedImmune, Inc. (MED) complet ed influenza , live, intranasa l, quadrival ent DoD influenza, live, intranasal,qu adrivalent 2012 [id number] 149 Medimmune Inc comple t ed influenza , live, intranasa l,quadriv alent 12/24/12 Given Ambulat ory Pharmac y influenza, live, intranasal, quadrivalent 7 2012 [id number] 149 MedIPullune, Inc. (MED) complet ed influenza , live, intranasa l, quadrival ent DoD influenza, seasonal, injectable-pf 2011 [id number] 140 sanofi pasteur complet ed influenza , seasonal, injectabl e-pf 03/08/12 Given Ambulat ory Pharmac y Influenza, seasonal, injectable, preservative free 6 2011 [id number] 140 Sanofi Pasteur ([facility]) complet ed Influenza , seasonal, injectabl e, preservat angel free DoD tetanus, diphtheria, acellular pertu is 2011 [id number] 5AA 115 GlaxoSmithKli ne complet ed tetanus, diphtheri a, acellular pertussis 10/26/11 Given Ambulat ory Pharmac y tetanus toxoid, reduced diphtheria toxoid, and acellular pertu is vaccine, adsorbed 0 2011 [id number] 5AA 115 [facility] (SKB) complet ed tetanus toxoid, reduced diphtheri a toxoid, and acellular pertussis vaccine, adsorbed DoD influenza virus vaccine, live 2010 [id number] 111 [employer] Inc comple t ed influenza virus vaccine, live 11/23/10 Given Ambulat ory Pharmac y influenza virus vaccine, live, attenuated, for intranasal use 5 2010 [id number] 111 Infot[employer] Corporation, Inc. (MED) complet ed influenza virus vaccine, live, attenuate d, for intranasa l use DoD influenza virus vaccine,split 2009 [id number] 15 CSL [employer]ring complet ed influenza virus vaccine,s plit 01/05/10 Given Ambulat ory Pharmac y influenza virus vaccine, split virus (incl. purified surface antigen)-reti red CODE 1 2009 [id number] 15 [email or web address] [employer], Inc. (CSL) complet ed influenza virus vaccine, split virus (incl. purified surface antigen)- retired CODE DoD Novel influenza-H1N 1-09, injectable 2009 [id number] 127 sanofi pasteur complet ed Novel influenza -B7B5-50, injectabl e 10/05/09 Given Ambulat ory Pharmac y Novel influenza-H1N 1-09, injectable 1 2009 [id number] 127 Sanofi Pasteur ([facility]) complet ed Novel influenza -N1A3-25, injectabl e DoD influenza virus vaccine, live 2008 [id number] 111 [employer] Inc complet ed influenza virus vaccine, live 01/19/09 Given Ambulat ory Pharmac y influenza virus vaccine, live, attenuated, for intranasal use 1 2008 [id number] 111 Med[employer]ullune, Inc. (MED) complet ed influenza virus vaccine, live, attenuate d, for intranasa l use DoD influenza virus vaccine, live 2007 [id number] 111 [employer]iRam [employer] Inc comple t ed influenza virus vaccine, live 01/11/08 Given Ambulat ory Pharmac y influenza virus vaccine, live, attenuated, for intranasal use 1 2007 [id number] 111 Infoteria Corporation, Inc. (MED) complet ed influenza virus vaccine, live, attenuate d, for intranasa l use DoD hepatitis A adult vaccine 2007 [id number] 52 Merck & Company Inc complet ed hepatitis A adult vaccine 09/20/07 Given Ambulat ory Pharmac y hepatitis A vaccine, adult dosage 2 2007 [id number] 52 Merck (MSD) complet ed hepatitis A vaccine, adult dosage DoD tuberculin purified protein derivative 2006 [id number] 96 sanofi pasteur complet ed tuberculi n [...] adult dosage 1 2006 [id number] 52 SmithKline (SKB) complet ed hepatitis A vaccine, adult dosage DoD influenza virus vaccine,split 2006 [id number] 15 GlaxoSmithKli ne complet ed influenza virus vaccine,s plit 01/11/07 Given Ambulat ory Pharmac y meningococcal A,C,Y,W-135 (MCV4P) 2006 [id number] 114 sanofi pasteur complet ed meningoco ccal A,C,Y,W-1 35 (MCV4P) 01/11/07 Given Ambulat ory Pharmac y poliovirus vaccine, inactivated 2006 [id number] 10 sanofi pasteur complet ed polioviru s vaccine, inactivat ed 01/11/07 Given Ambulat ory Pharmac y tetanus-dipht h toxoids (Td) adult/adol 2006 [id number] 09 sanofi pasteur complet ed tetanus-d iphth toxoids (Td) adult/ado l 01/11/07 Given Ambulat ory Pharmac y tetanus and diphtheria toxoids, adsorbed, preservative free, for adult use (2 Lf of tetanus toxoid and 2 Lf of diphtheria toxoid) 1 2006 [id number] 09 Sanofi Pasteur ([facility]) complet ed tetanus [...] diphtheria toxoid conjugate vaccine (MCV4P) 1 2006 [id number] 114 Sanofi Pasteur ([facility]) complet ed meningoco [...] Prevention' s HIV diagnostic algorithm. Refer to [facility] Lab Guide for additional information : [email or web address] x Testing performed by Blayne kuhn 5600A-U [facility] Miscellan eous Sendouts Repository Sample Received (07/14/23 1:29 PM) 07/13 N [facility] Vital Signs Combined list of inpatient and outpatient Vital Signs from Department of Defense and Veterans Affairs, ranging from 12 months to all on record, depending upon the facility. Vital Sign Value Date Comments Source Blood Pressure Manual Automatic 08/31/2022 13:55:00 4866M-HI-V-[facility] [employer] Temperature Oral 36.7 Pat 08/31/2022 13:55:00 8149E-EZ-J-[facility] [employer] Systolic Blood Pressure 124 mm[Hg] 09/01/19 23 13:55:00 9875P-WX-U-[facility] [employer] Diastolic Blood Pressure 79 mm[Hg] 023 13:55:00 9052G-RJ-N-[facility] [employer] BP Site Right arm 08/31/2022 13:55:00 3719X-BS-L-[facility] [employer] Mean Arterial Pressure, Calc 94 mm[Hg] 08/31/2022 13:55:00 0937C-TU-W-[facility] [employer] Peripheral Pulse Rate 69 bpm 08/31/2022 13:55:00 6382S-VZ-I-[facility] [employer] Respiratory Rate 16 br/min 08/31/2022 13:55:00 9389F-OQ-L-[facility] Encounters Combined list of: 1) Encounters from Department of Veterans Affairs facilities going backup to the last 18 months, not all VA inpatient encounters are included; 2) Encounters from the Department of Defense facilities going backup to 280 months. Location Location Details Encounter Type Encounter Number Reason For Visit Attending Provider ADM Date DC Date Status Disposition Source [facility](Opt ometry) OUTPATIENT [id number] rout visit CHASE BARON 10/11 Released w/o Limitations [facility](O ptometr y) [facility](Fam Med Pod 2) OUTPATIENT [id number] health concern s w/ cardiac history NASSAUX, LORRIE Y 10/14 Released w/o Limitations [facility](F am Med Pod 2) [facility](Fam Med Pod 2) OUTPATIENT [id number] ekg NASSAUX, LORRIE Y 10/22 Released w/o Limitations [facility](F am Med Pod 2) [facility](Fam Med Pod 2) TELE CONSULT [id number] ON/OFF COUGH WITH MUCUS X 1 YR. APPT REQUEST ED. FELTON MARTIN 09/24 Referred for Appointment [facility](F am Med Pod 2) [facility](Fam Med Pod 2) TELE CONSULT [id number] Nose bleeds during exercis e. FELTON MARTIN 11/03 Referred for Appointment [facility](F am Med Pod 2) [facility](Fam Med Pod 1) OUTPATIENT [id number] lt rib pain makes it difficu lt to breath and sleep on that side PILY FLORES 11/04 Released w/o Limitations [facility](F am Med Pod 1) [facility](Fam Med Pod 2) OUTPATIENT [id number] Nose bleeds KAROLINA PLEITEZ 11/10 Released w/o Limitations [facility](F am Med Pod 2) [facility](Fam Med Pod 2) TELE CONSULT [id number] PHA RESPONS E NASSAUX, LORRIE Y 12/05 [facility](F am Med Pod 2) [facility](Fam Med Pod 2) TELE CONSULT [id number] sore throat, runny nose ABEITA, FRANCO A 01/01 Referred for Appointment [facility](F am Med Pod 2) [facility](Fam Med Pod 2) OUTPATIENT [id number] ear pain, throat, running nose WILLAM RODRIGUEZ 01/02 Sick at Home/Quarter s [facility](F am Med Pod 2) [facility](Fam Med Pod 2) OUTPATIENT [id number] skin issues NASSAUX, LORRIE Y 06/22 Released w/o Limitations [facility](F am Med Pod 2) [facility](Fam Med Pod 1) TELE CONSULT [id number] abdomin al pain, n/v, diarrhe a ILCUS, MASHA S 07/15 [facility](F am Med Pod 1) [facility](Fam Med Pod 2) TELE CONSULT [id number] Pt still not feeling well. Currenshaheen ty on quarter s. FRANCO MURPHY A 07/15 [facility](F am Med Pod 2) [facility](Fam Med Pod 2) OUTPATIENT [id number] f/u possibl e food poisoni ng MIKESAUX, LORRIE Y 07/16 Released with Work/Duty Limitations [facility](F am Med Pod 2) [facility](Fam Med Pod 2) TELE CONSULT [id number] possibl e Salmene bakarijasmyn SAMPSONJasmyn FRANCO A 11/05 [facility](F am Med Pod 2) [facility](Fam Med Pod 2) TELE CONSULT [id number] request ing STD check w/ symptom s ADRIÁNJasmyn FRANCO A 01/15 [facility](F am Med Pod 2) [facility](Fam Med Pod 2) OUTPATIENT [id number] possibl e std NASSAUX, LORRIE Y 01/18 Released w/o Limitations [facility](F am Med Pod 2) [facility]) OUTPATIENT [id number] Presump tiSHARRI Alvares S 01/18 Released w/o Limitations [facility](Fam Med Pod 1) TELE CONSULT [id number] PHA RESPONS TORO HALEY 01/19 Referred for Appointment [facility](F am Med Pod 1) [facility](Fam Med Pod 2) TELE CONSULT [id number] lab results FRANCO MURPHY A 01/29 [facility](F am Med Pod 2) [facility](Fam Med Pod 2) TELE CONSULT [id number] lab results FRANCO MURPHY A 02/26 [facility](F am Med Pod 2) [facility](Fam Med Pod 2) OUTPATIENT [id number] sore throat NASSAUX, LORRIE Y 08/24 Released w/o Limitations [facility](F am Med Pod 2) [facility](Fam Med Pod 2) OUTPATIENT [id number] PAIN TO LT KNEE TOYIN, TOD A 03/28 Released w/o Limitations [facility](F am Med Pod 2) [facility](Phy sical Therapy) OUTPATIENT [id number] l knee PUGIA, CHERISE 04/08 Released w/o Limitations [facility](P hysical Therapy ) [facility](Phy sical Therapy) OUTPATIENT [id number] l knee DANIELA SHAH 04/22 Released w/o Limitations [facility](P hysical Therapy ) [facility](Phy sical Therapy) OUTPATIENT [id number] l knee DANIELA SHAH 04/25 Released w/o Limitations [facility](P hysical Therapy ) [facility](Phy sical Therapy) OUTPATIENT [id number] l knee DANIELA SHAH 04/29 Released w/o Limitations [facility](P hysical Therapy ) [facility](Fam Med Pod 2) TELE CONSULT [id number] Notes Entered by: SHARRI BECERRA 03 May 2011 1108 ------- ------- ------- ------- -- AURELIANO CROUCH 05/03 Other Not Elsewhere Classified [facility](F am Med Pod 2) [facility](Phy sical Therapy) OUTPATIENT [id number] f/u l knee PUGIA, CHERISE 05/10 Released w/o Limitations [facility](P hysical Therapy ) [facility](Phy sical Therapy) OUTPATIENT [id number] VAHID TRIPLETT 05/22 Released w/o Limitations [facility](P hysical Therapy ) [facility](Phy sical Therapy) OUTPATIENT [id number] VAHID TRIPLETT 05/29 Released w/o Limitations [facility](P hysical Therapy ) [facility](Phy sical Therapy) OUTPATIENT [id number] APARNA MARCELO 06/01 Released w/o Limitations [facility](P hysical Therapy ) [facility](Phy sical Therapy) OUTPATIENT [id number] F/U KNEE DANTE SANTOS 06/15 Released w/o Limitations [facility](P hysical Therapy ) [facility] Team C) OUTPATIENT [id number] renew 469/422 needed pt test LORRIE PATEL 07/05 Released w/o Limitations [facility] Team C) [facility] Team E) TELE CONSULT [id number] Notes Entered by: ROSELINE STEELE 23 Nov 2011 1412 ------- ------- ------- ------- -- FRANCO Mercado 11/22 Referred for Appointment [facility] Team E) [facility] _Team_Lob o) OUTPATIENT [id number] [facility] on [facility] IVONE ROSA 12/08 Released w/o Limitations [facility]_Te am_Lobo ) [facility] _Team_Lob o) TELE CONSULT [id number] Notes Entered by: Madeline ROSA 14 Dec 2011 1415 ------- ------- ------- ------- -- +ELIZABETH Caraballo 12/13 Referred for Appointment [facility] [employer]([facility] _Team_Lob o) OUTPATIENT [id number] f/u labs IVONE ROSA 12/14 Released w/o Limitations [employer]([facility] _[facility]_Te am_Lobo ) [employer]([facility]) OUTPATIENT [id number] Notes Entered by: GOOD DACOSTA SA 15 Dec 2011 1552 ------- ------- ------- ------- -- + ALVA CAMACHO 12/14 Released w/o Limitations [facility] Medical Group([facility]) [facility] Team E) OUTPATIENT [id number] extensi on of 422 NASSAUX, LORRIE Y 12/18 Released with Work/Duty Limitations [facility] Group([facility] Team E) [facility] Team E) TELE CONSULT [id number] Notes Entered by: GOOD MEDINA 01 Feb 2012 1033 ------- ------- ------- ------- -- FRANCO JON 01/31 Referred for Appointment [facility] Team E) [facility] Team E) OUTPATIENT [id number] sore throat NASSAUX, LORRIE Y 02/20 Released with Work/Duty Limitations [facility] Team E) [facility] Team E) OUTPATIENT [id number] profile NASSAUX, LORRIE Y 03/08 Released with Work/Duty Limitations [facility] Team E) [facility] Team E) OUTPATIENT [id number] nose bleeds NASSAUX, LORRIE Y 04/11 Released w/o Limitations [facility] Team E) [facility] Team E) OUTPATIENT [id number] poss sleep apnea NASSAUX, LORRIE Y 06/12 Released w/o Limitations [employer]([facility] Team E) [employer]([facility] Team E) TELE CONSULT [id number] Notes Entered by: LORRIE SIMON 20 Aug 2012 1357 ------- ------- ------- ------- -- PHA MAIK JASSO 08/20 Other Not Elsewhere Classified [employer]([facility] Team E) [employer]([facility] Team E) OUTPATIENT [id number] f/u on knee MIKESAUX, LORRIE Y 09/11 Released w/o Limitations [employer]([facility] Team E) [employer]([facility] Team E) OUTPATIENT [id number] excessi ve sweatin g JORGE, LORRIE Y 11/01 Released w/o Limitations [employer]([facility] Team E) [facility] Team E) TELE CONSULT [id number] Notes Entered by: MAIK JOSEPH 05 Dec 2012 1130 ------- ------- ------- ------- -- MAIK WARD 12/05 Referred for Appointment [facility] Team E) [employer] OUTPATIENT [id number] Discuss sleep Issues x 7 months YULIA RODRIGUEZ 01/31 Released w/o Limitations [employer](I ntegrat ed Behavio ral [facility] Cl[facility]) [employer](Opt ometry Clinic) OUTPATIENT [id number] sergio jacinto 1 year JUAN JOSE LEE 03/22 Released w/o Limitations [employer](O ptometr y Clinic) [employer]([facility]) OUTPATIENT [id number] SLEEP ISSUES YULIA RODRIGUEZ 03/25 Released w/o Limitations [employer] [employer](Fam Med Cl Tm B Non-Ad) TELE CONSULT [id number] Notes Entered by: CHRISTOPHER CHA 09 Apr 2013 1037 ------- ------- ------- ------- -- Network Result - Apnea Link 014 BECKYNEAL 04/09 [employer](F am Med Cl Tm B Non-Ad) [employer](Fam Med Cl Tm B Non-Ad) OUTPATIENT [id number] LEFT KNEE SWELLIN G/ ONGOING TRISTANEMILYAlcidesNEAL 04/15 Released w/o Limitations [employer](F am Med Cl Tm B Non-Ad) [employer](Fam Med Cl Tm B Non-Ad) OUTPATIENT [id number] chest pain BECKY NEAL Lilia 04/16 Released w/o Limitations [employer](F am Med Cl Tm B Non-Ad) [employer](Fam Med Cl Tm B Non-Ad) TELE CONSULT [id number] Notes Entered by: CATE CASTRO 29 Apr 2013 1604 ------- ------- ------- ------- -- Profile JANNA OLIVAS 04/29 Referred for Appointment [employer](F am Med Cl Tm B Non-Ad) [employer](Fam Med Cl Tm B Non-Ad) TELE CONSULT [id number] Notes Entered by: DAVINA DE LA PAZ 07 May 2013 1512 ------- ------- ------- ------- -- ACTIVE DUTY/ PROFILE REQUEST JANNA OLIVAS 05/07 Referred for Appointment [employer](F am Med Cl Tm B Non-Ad) [employer](Fam Med Cl Tm B Non-Ad) OUTPATIENT [id number]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 Call CARLTON VILLATORO 06/25 [employer](O peratio nal Primary Care) [employer]([facility]) TELE CONSULT [id number] Notes Entered by: LINDSAY YU 04 Jul 2019 1323 ------- ------- ------- ------- -- Network Results - Urgent Care - 020 TRISTAN RIOS 07/03 [employer](O [facility]al Primary [facility]) [employer]([facility]) TELE CONSULT [id number] Notes Entered by: TRISTAN RIOS 09 Jul 2019 0824 ------- ------- ------- ------- -- AMRO/DA WG DANNY Padgett 07/08 Released to Self Care [employer]([facility] nal Primary Care) [employer](Renae demic Virus) OUTPATIENT [id number] Notes Entered by: Madeline MILLER 09 Jul 2019 1322 ------- ------- ------- ------- -- COVID-1 9 Screeni ng: runny nose, muscle aches, sore throat, headach e MIGUELINA MORALES V 07/08 Sick at Home/Quarter s [employer](P andemic Virus) [employer](Renae demic Virus) TELE CONSULT [id number] Notes Entered by: CANTRELL V 12 Jul 2019 1212 ------- ------- ------- ------- -- negativ e throat culture results (t-con) MIGUELINA MORALES V 07/11 [employer](P andemic Virus) [employer]([facility]) TELE CONSULT [id number] Notes Entered by: MADISON CHENI 15 Aug 2019 0929 ------- ------- ------- ------- -- DANNY Boo 08/14 Referred for Appointment [employer]([facility]) [employer]([facility]) OUTPATIENT [id number] tonsil stones DOUG PRUITT 08/25 Released w/o Limitations [employer] [employer]([facility]) TELE CONSULT [id number] Notes Entered by: MADISON CHEN NMI 14 Oct 2019 1010 ------- ------- ------- ------- -- SHREYA Wayne 10/13 Other Not Elsewhere Classified [employer]([facility]) [employer]([facility] hospital) TELE CONSULT [id number] Notes Entered by: CECILY SAMUELS 15 Oct 2019 1109 ------- ------- ------- ------- -- Obtain Procedu re note for tonsill ectomy 020 JC ESTRELLA 10/14 [employer]([facility]) [employer]([facility] dent [facility]) OUTPATIENT [id number] discuss low T LIDIA WRAY 10/29 Released w/o Limitations [employer]([facility]) [employer]([facility]) TELE CONSULT [id number] Notes Entered by: ANA SANDERS 13 Nov 2019 0805 ------- ------- ------- ------- -- TED Hampton 11/12 Referred for Appointment [employer](O peratio [facility]) [employer]([facility] dent [facility]) OUTPATIENT [id number] SPEC CALL [phone] LIDIA WRAY 11/13 Released w/o Limitations [employer]([facility]) [employer]([facility]) TELE CONSULT [id number] Notes Entered by: HAYDEE PATEL 18 Nov 2019 1234 ------- ------- ------- ------- -- Virtual Appoint ment: discuss lab results STEFANI LOCKETT 11/17 Referred for Appointment [employer](O peratio nal Primary Care) [employer](Critical access hospital) OUTPATIENT [id number] to discuss [phone] LIDIA WRAY 11/17 Released w/o Limitations [employer]([facility]) [employer]([facility]) TELE CONSULT [id number] Notes Entered by: JOSHUA TAYLOR 27 Nov 2019 1250 ------- ------- ------- ------- -- COVID-1 9 Quarant ine 14-day Follow up YRAN MILLER 11/26 Other Not Elsewhere Classified [employer](O peratio nal Primary Care) [employer]([facility]) OUTPATIENT [id number] ROSI NG 01/06 Released w/o Limitations [employer](O ptometr y Clinic) [employer]([facility]) OUTPATIENT [id number] discuss anxiety PAPITO ROB 01/06 Released w/o Limitations [employer](O peratio nal Primary Care) [employer]([facility]) OUTPATIENT [id number] follow up - anxiety PAPITO ROB 01/15 Released with Work/Duty Limitations [employer](O peratio nal Primary Care) [employer]([facility]) OUTPATIENT [id number] 2wk f/u PAPITO ROB 01/28 Released with Work/Duty Limitations [employer](O peratio nal Primary Care) [employer]([facility]) OUTPATIENT [id number] Discuss medicat ions/ r/s from [id number] PAPITO ROB 03/02 Released with Work/Duty Limitations [employer](O peratio nal Primary Care) [employer]([facility]) TELE CONSULT [id number] Notes Entered by: HAYDEE PATEL 30 Apr 2020 1127 ------- ------- ------- ------- -- COVINDERJIT Wesley e : STEFANI LOCKETT 04/30 Advice Assessment [employer](O peratio nal Primary Care) [employer](Renae demic Virus) OUTPATIENT [id number] Notes Entered by: MADISON CHEN NMI 30 Apr 2020 1419 ------- ------- ------- ------- -- REANNA Zhao ng: Symptom ROSI Miller 04/30 Released with Work/Duty Limitations [employer](P andemic Virus) [employer]([facility]) TELE CONSULT [id number] Notes Entered by: DOMENIC SANDOVAL 01 May 2020 1401 ------- ------- ------- ------- -- dalton simmons results PAPITO ROB 05/01 [employer](O peratio nal Primary Care) [employer]([facility]) TELE CONSULT [id number] Notes Entered by: EVANS WALTON 04 Jun 2020 1133 ------- ------- ------- ------- -- Med Refill/ 3 days left - STEFANI Bradley 06/04 Referred for Appointment [employer]([facility]al Primary Care) [employer]([facility]) OUTPATIENT [id number] need Zoloft refill - [phone] PAPITO ROB 06/05 Released w/o Limitations [employer](O peratio nal Primary Care) [employer]([facility]) OUTPATIENT [id number] vMHA/family law specialist BAILEY (COAL WEIGHER needed later appt) FELIZ TILLMAN 06/08 Released w/o Limitations [employer]([facility]) [employer]([facility]) OUTPATIENT [id number] Profile extensi on for Left knee BARBIEJC URBAN N 06/30 Released with Work/Duty Limitations [employer](O peratio nal Primary Care) [employer]([facility]) TELE CONSULT [id number] Notes Entered by: HAYDEE PATEL 06 Aug 2020 1352 ------- ------- ------- ------- -- Triage: painful lump on throat under STEFANI Ace 08/06 Other Not Elsewhere Classified [employer](O peratio nal Primary Care) [employer]([facility]) OUTPATIENT [id number] sick call- swellin g throat [phone] JC ESTRELLA N 08/07 Released w/o Limitations [employer](O peratio nal Primary Care) [employer]([facility]) OUTPATIENT [id number] Notes Entered by: MADISON CHEN 18 Aug 2020 1408 ------- ------- ------- ------- -- Sick call : severe cough ESEQUIEL MIRANDA 08/18 Sick at Home/Quarter s [employer]([facility] per[facility]al Primary Care) [employer]([facility]) TELE CONSULT [id number] Notes Entered by: WALTER RING 25 Sep 2020 0811 ------- ------- ------- ------- -- Network Results - ENT - 021 TORSTEN CAPONE 09/25 [employer](O peratio nal Primary Care) [employer]([facility]) TELE CONSULT [id number] Notes Entered by: HAYDEE PATEL 01 Dec 2020 1345 ------- ------- ------- ------- -- Concern about Covid vaccine and family heart issues STEFANI LOCKETT 12/01 Referred for Appointment [employer](O peratio nal Primary Care) [employer]([facility]) OUTPATIENT [id number] IGNACIA UNDERWOOD 06/18 Released w/o Limitations [employer](O ptometr y Clinic) [employer]([facility]) OUTPATIENT [id number] vMHA/family law specialist [phone] FELIZ TILLMAN 07/12 Released w/o Limitations [employer]([facility]) [employer]([facility]) OUTPATIENT [id number] follow up - PHAQ TORSTEN CAPONE 08/05 Released with Work/Duty Limitations [employer](O peratio nal Primary Care) [employer]([facility]) TELE CONSULT [id number] Notes Entered by: ANANTH MEJIA 06 Aug 2021 1613 ------- ------- ------- ------- -- BRIDGER STEFANI LOCKETT 08/06 Other Not Elsewhere Classified [employer](O peratio nal Primary Care) [employer]([facility]) OUTPATIENT [id number] per pcm needs Spec- [phone] TORSTEN CAPONE 08/10 Released w/o Limitations [employer](O peratio nal Primary Care) [employer]([facility]) TELE CONSULT [id number] Notes Entered by: JENELLE RIOS 20 Aug 2021 1419 ------- ------- ------- ------- -- Profile STEFANI LOCKETT 08/20 Other Not Elsewhere Classified [employer](O peratio nal Primary Care) [employer]([facility]) TELE CONSULT [id number] Notes Entered by: Phil LOCKETT 26 Aug 2021 1506 ------- ------- ------- ------- -- notes, klever jamison sent to [facility]- [facility] STEFANI LOCKETT 08/26 Other Not Elsewhere Classified [employer](O peratio nal Primary Care) [employer]([facility]) TELE CONSULT [id number] Notes Entered by: HAYDEE PATEL 21 Oct 2021 1410 ------- ------- ------- ------- -- Referra jamison Renewal : urgent- DME CPAP and mask STEFANI LOCKETT 10/21 Other Not Elsewhere Classified [employer](O peratio nal Primary Care) [employer]([facility]) TELE CONSULT [id number] Notes Entered by: KASIA RIVERS 08 Nov 2021 0749 ------- ------- ------- ------- -- COVID 19 Guidanc e : Positiv e COVID test with symptom s STEFANI LOCKETT 11/08 Sick at Home/Quarter s [employer](O peratio nal Primary Care) [employer]([facility]) TELE CONSULT [id number] Notes Entered by: MARIKA MAYNARD 12 Nov 2021 1444 ------- ------- ------- ------- -- Remove AUoF MP Helmet and Command Interes t Red Flag Icons MARIKA MAYNARD 11/12 Referred- Emergency Department [employer](O peratio nal Primary Care) 0- [facility] [employer] Between Visit [id number] 12/25 Discharge Disposition: Home or Self Care 309C-A -C-66t h [facility] [employer] 309C-AF- C [employer] [employer] Between Visit [id number] 02/11 Discharge Disposition: Home or Self Care 0C-A F-C-66t h [employer] [employer] 309C-AF- C [employer] [employer] Between Visit [id number] 03/11 Discharge Disposition: Home or Self Care 0C-A F-C-66t h [employer] [employer] 309C-AF- C [employer] [employer] Between Visit [id number] 04/10 Discharge Disposition: Home or Self Care 0C-A F-C-66t h [employer] [employer] 309C-AF- C [employer] [employer] Between Visit [id number] 06/26 Discharge Disposition: Home or Self Care 0C-A F-C-66t h [employer] Procedures Combined list of: 1) Procedures from Department of Veterans Affairs facilities going back up to thelast 18 months, not all [place] non-surgical procedures are included; 2) All procedures from the Department of Defense facilities. Procedure Procedure Type Code Date Perfomer Comments Sourc e UNLISTED SPECIAL SERVICE, PROCEDURE OR REPORT 015 [facility] INJECTION, PENICILLIN G BENZATHINE AND PENICILLIN G PROCAINE, UP TO 1,200,000 UNITS 007 DoD WAIVER SERVICES; NOT OTHERWISE SPECIFIED (NOS) 022 DoD BODY MASS INDEX (BMI), DOCUMENTED (PV) 022 DoD FITTING OF SPECTACLES, EXCEPT FOR APHAKIA; MONOFOCAL 022 DoD WAIVER SERVICES; NOT OTHERWISE SPECIFIED (NOS) 021 DoD BRIEF COMM TECH-BASE SERV,E.G. VIRT CHK-IN,BY PHYS/OTH QUAL HCP,RPT E&M SERV,PROV TO EST PT,NOT ORIG FRM REL E/M SERV PROV W/IN PREV 7DAY NOR LEAD TO E/M SRV/PX W/IN NEXT 24HR/SOON FIDENCIO; 5-10 MIN DISC 021 [facility] BRIEF EMOTIONAL/BEHAVIORAL ASSESSMENT (EG, DEPRESSION INVENTORY, [...] ASSESS & MGT SRV PROV QUAL NONPHYS TH CARE PRO TO EST PAT,PARENT,GUARD NOT ORIG [...] SCORING AND DOCUMENTATION, PER STANDARDIZED INSTRUMENT DoD PURE TONE AUDIOMETRY (THRESHOLD), AUTOMATED; AIR ONLY DoD TELE ASSESS & MGT SRV PROV [...] HR/SOON APT;5-10 MIN MED DIS 017 DoD ADMINISTRATION OF PATIENT-FOCUSED HEALTH RISK ASSESSMENT INSTRUMENT (EG, HEALTH HAZARD APPRAISAL) WITH SCORING AND DOCUMENTATION, PER STANDARDIZED INSTRUMENT DoD PURE TONE AUDIOMETRY (THRESHOLD), AUTOMATED; AIR ONLY 017 DoD DETERMINATION OF REFRACTIVE STATE 017 DoD BRIEF EMOTIONAL/BEHAVIORAL ASSESSMENT (EG, DEPRESSION INVENTORY, ATTENTION-DEFICIT/HYP ERACTIVITY DISORDER [ADHD] SCALE), WITH SCORING AND DOCUMENTATION, PER STANDARDIZED INSTRUMENT DoD FITTING OF SPECTACLES, EXCEPT FOR APHAKIA; MONOFOCAL 016 DoD PURE TONE AUDIOMETRY (THRESHOLD), AUTOMATED; AIR ONLY 016 DoD PSYCHIATRIC EVALUATION OF HOSPITAL RECORDS, OTHER PSYCHIATRIC REPORTS, PSYCHOMETRIC AND/OR PROJECTIVE TESTS, AND OTHER ACCUMULATED DATA FOR MEDICALDIAGNOSTIC PURPOSES DoD FITTING OF SPECTACLES, EXCEPT FOR APHAKIA; MONOFOCAL 015 DoD THERAPEUTIC PROCEDURE, 1 OR MORE AREAS, EACH 15 MINUTES; THERAPEUTIC EXERCISES TO DEVELOP STRENGTH AND ENDURANCE, RANGE OF MOTION AND FLEXIBILITY 015 DoD THERAPEUTIC PROCEDURE,1 OR MORE AREAS,EACH 15 MINUTES;NEUROMUSCULAR REEDUCATION OF MOVEMENT,BALANCE,COOR DINATION,KINESTHETIC SENSE,POSTURE,AND/OR PROPRIOCEPTION FOR SITTING AND/OR STANDING ACTIVITIES 015 DoD THERAPEUTIC PROCEDURE, 1 OR MORE AREAS, EACH 15 MINUTES; THERAPEUTIC EXERCISES TO DEVELOP STRENGTH AND ENDURANCE, RANGE OF MOTION AND FLEXIBILITY DoD THERAPEUTIC PROCEDURE,1 OR MORE AREAS,EACH 15 MINUTES;NEUROMUSCULAR REEDUCATION OF MOVEMENT,BALANCE,COOR DINATION,KINESTHETIC SENSE,POSTURE,AND/OR PROPRIOCEPTION FOR SITTING AND/OR STANDING ACTIVITIES 015 DoD THERAPEUTIC PROCEDURE,1 OR MORE AREAS,EACH 15 MINUTES;NEUROMUSCULAR REEDUCATION OF MOVEMENT,BALANCE,COOR DINATION,KINESTHETIC SENSE,POSTURE,AND/OR PROPRIOCEPTION FOR SITTING AND/OR STANDING ACTIVITIES 015 DoD THERAPEUTIC PROCEDURE,1 OR MORE AREAS,EACH 15 MINUTES;NEUROMUSCULAR REEDUCATION OF MOVEMENT,BALANCE,COOR DINATION,KINESTHETIC SENSE,POSTURE,AND/OR PROPRIOCEPTION FOR SITTING AND/OR STANDING ACTIVITIES 015 DoD THERAPEUTIC PROCEDURE, 1 OR MORE AREAS, EACH 15 MINUTES; THERAPEUTIC EXERCISES TO DEVELOP STRENGTH AND ENDURANCE, RANGE OF MOTION AND FLEXIBILITY DoD THERAPEUTIC PROCEDURE, 1 OR MORE AREAS, EACH 15 MINUTES; THERAPEUTIC EXERCISES TO DEVELOP STRENGTH AND ENDURANCE, RANGE OF MOTION AND FLEXIBILITY 014 DoD THERAPEUTIC PROCEDURE, 1 OR MORE AREAS, [...] OR MORE AREAS; HOT OR COLD PACKS 014 DoD THERAPEUTIC PROCEDURE,1 OR MORE AREAS,EACH 15 MINUTES;NEUROMUSCULAR REEDUCATION OF MOVEMENT,BALANCE,COOR DINATION,KINESTHETIC SENSE,POSTURE,AND/OR PROPRIOCEPTION FOR SITTING AND/OR STANDING ACTIVITIES 014 DoD THERAPEUTIC PROCEDURE, 1 OR MORE AREAS, EACH 15 MINUTES; THERAPEUTIC EXERCISES TO DEVELOP STRENGTH AND ENDURANCE, RANGE OF MOTION AND FLEXIBILITY DoD FITTING OF SPECTACLES, EXCEPT FOR APHAKIA; MONOFOCAL DoD STRAPPING; KNEE DoD APPLICATION OF A MODALITY TO 1 OR MORE AREAS; IONTOPHORESIS, EACH 15 MINUTES DoD APPLICATION OF A MODALITY TO 1 OR MORE AREAS; IONTOPHORESIS, EACH 15 MINUTES 012 [facility] APPLICATION OF A MODALITY TO 1 OR MORE AREAS; IONTOPHORESIS, EACH 15 MINUTES 012 [facility] PHYSICAL THERAPY RE-EVALUATION 012 [facility] THERAPEUTIC PROCEDURE,1 OR MORE AREAS,EACH 15 MINUTES;NEUROMUSCULAR REEDUCATION OF MOVEMENT,BALANCE,COOR DINATION,KINESTHETIC SENSE,POSTURE,AND/OR PROPRIOCEPTION FOR SITTING AND/OR STANDING ACTIVITIES 012 [facility] THERAPEUTIC PROCEDURE,1 OR MORE AREAS,EACH 15 MINUTES;NEUROMUSCULAR REEDUCATION OF MOVEMENT,BALANCE,COOR DINATION,KINESTHETIC SENSE,POSTURE,AND/OR PROPRIOCEPTION FOR SITTING AND/OR STANDING ACTIVITIES 012 [facility] THERAPEUTIC PROCEDURE,1 OR MORE AREAS,EACH 15 MINUTES;NEUROMUSCULAR REEDUCATION OF MOVEMENT,BALANCE,COOR DINATION,KINESTHETIC SENSE,POSTURE,AND/OR PROPRIOCEPTION FOR SITTING AND/OR STANDING ACTIVITIES 012 [facility] PHYSICAL THERAPY EVALUATION 012 [facility] DETERMINATION OF REFRACTIVE STATE 008 [facility] Modalities Iontophoresis Modalities Iontophoresis [id number] 012 VAHID TRIPLETT [facility] Physical Therapy Neuromuscular Re-education Physical Therapy Neuromuscular Re-education 63900 012 VAHID TRIPLETT [facility] Exercises A isted Exercises For ROM Exercises Assisted Exercises For ROM 54989 012 VAHID TRIPLETT [facility] Modalities Iontophoresis Modalities Iontophoresis 56720 012 VAHID TRIPLETT [facility] Physical Therapy Neuromuscular Re-education Physical Therapy Neuromuscular Re-education 83971 012 VAHID TRIPLETT [facility] Exercises A isted Exercises For ROM Exercises Assisted Exercises For ROM 57568 012 VAHID TRIPLETT [facility] Physical Medicine Physical Therapy Re-Evaluation Physical Medicine Physical Therapy Re-Evaluation 93552 012 DANTE SANTOS [facility] Physical Therapy Neuromuscular Re-education Physical Therapy Neuromuscular Re-education 02299 012 DANIELA SHAH [facility] Exercises A isted Exercises For ROM Exercises Assisted Exercises For ROM 06094 012 DANIELA SHAH [facility] Exercises A isted Exercises For ROM Exercises Assisted Exercises For ROM 18771 012 DANIELA SHAH [facility] Physical Therapy Neuromuscular Re-education Physical Therapy Neuromuscular Re-education 01568 012 DANIELA SHAH [facility] Physical Medicine Physical Therapy Evaluation Physical Medicine Physical Therapy Evaluation 69643 012 DANTE SANTOS [facility] Ophthalmological New Patient Start Comprehensive Care Ophthalmological New Patient Start Comprehensive Care 79171 008 CHASE BARON [facility] Spectacles Services Fitting Monofocals (Not For Aphakia) Spectacles Services Fitting Monofocals (Not For Aphakia) 97249 019 SEVEN VELEZ [facility] Determination Of Refractive State Determination Of Refractive State [phone] SEVEN VELEZ [facility] Ophthalmological Prior Patient Start Comprehensive Care Ophthalmological Prior Patient Start Comprehensive Care 93767 019 SEVEN VELEZ [facility] Non-Physician Phone Call To Patient/Provider Brief (5-10min) Non-Physician Phone Call To Patient/Provider Brief (5-10min) [phone] CAMILO JANG [facility] Non-Physician Phone Call To Patient/Provider Brief (5-10min) Non-Physician Phone Call To Patient/Provider Brief (5-10min) [phone] DANNY YEH [facility] Non-Physician Phone Call To Patient/Provider Brief (5-10min) Non-Physician Phone Call To Patient/Provider Brief (5-10min) 86815 019 ARCADIO WOLFE [facility] Internet Med Svc Qual Nonphys Healthcare Prof Estab Patient Internet Med Svc Qual Nonphys Healthcare Prof Estab Patient [phone] GABINO BLACK [facility] Threshold Audiogram (Pure Tone) Automated Threshold Audiogram (Pure Tone) Automated 0208T 018 CAROL CRAIG [facility] Non-Physician Phone Call To Patient/Provider Brief (5-10min) Non-Physician Phone Call To Patient/Provider Brief (5-10min) 55159 018 NATHALY HOLLOWAY [facility] Spectacles Services Fitting Monofocals (Not For Aphakia) [employer] [facility] Fitting Monofocals (Not For Aphakia) 02700 018 ALEXUS BRANTLEY Prescription & Fitting Bilateral Corneal Lenses (Not Aphakia Prescription & Fitting Bilateral Corneal Lenses (Not Aphakia 22223 018 ALEXUS BRANTLEY Determination Of Refractive State Determination Of Refractive State [phone] ALEXUS BRANTLEY Prescription & Fitting Bilateral Corneal Lenses (Not Aphakia Prescription & Fitting Bilateral Corneal Lenses (Not Aphakia 84016 018 ALEXUS BRANTLEY Non-Physician Phone Call To Patient/Provider Brief (5-10min) Non-Physician Phone Call To Patient/Provider Brief (5-10min) 31625 018 CATRINA SMITH [facility] [facility] Fitting Monofocals (Not For Aphakia) Spectacles Services Fitting Monofocals (Not For Aphakia) 83916 018 MOE SINGH Non-Physician Phone Call To Patient/Provider Brief (5-10min) Non-Physician Phone Call To Patient/Provider Brief (5-10min) 35061 017 MIESHA HENRY DoD Internet Med Svc Qual Nonphys Healthcare Prof Estab Patient Internet Med Svc Qual Nonphys Healthcare Prof Estab Patient [phone] GABINO BLACK Threshold Audiogram (Pure Tone) Automated Threshold Audiogram (Pure Tone) Automated 0208T 017 NANY ROJAS Determination Of Refractive State Determination Of Refractive State 36360 017 ALEXUS BRANTLEY Ophthalmological Prior Patient Start Comprehensive Care Ophthalmological Prior Patient Start Comprehensive Care 34183 017 ALEXUS BRANTLEY Spectacles Services Fitting Monofocals (Not For Aphakia) Spectacles Services Fitting Monofocals (Not For Aphakia) 95822 016 FELTON DILLARD Determination Of Refractive State Determination Of Refractive State 20309 016 FELTON DILLARD Ophthalmological Prior Patient Start Comprehensive Care Ophthalmological Prior Patient Start Comprehensive Care 70409 016 FELTON DILLARD Threshold Audiogram (Pure Tone) Automated Threshold Audiogram (Pure Tone) Automated 0208T 016 JUAN CRAWFORD [facility] Patient education, not otherwise cla ified, non-physician provider, group, per se ion 016 JUAN CRAWFORD Psychometric Neuropsych Testing Battery Admin By Computer Psychometric Neuropsych Testing Battery Admin By Computer 27837 YEFRI HAMILTON Psychiatric Evaluation Review of Records and Reports Psychiatric Evaluation Review of Records and Reports 18056 YEFRI HAMILTON [facility]acles Services Fitting Monofocals (Not For Aphakia) Spectacles Services Fitting Monofocals (Not For Aphakia) 39104 015 FELTON DILLARD Determination Of Refractive State Determination Of Refractive State 85032 015 FELTON DILLARD Ophthalmological Prior Patient Start Comprehensive Care Ophthalmological Prior Patient Start Comprehensive Care 31502 015 FELTON DILLARD Exercises A isted Exercises For ROM Exercises Assisted Exercises For ROM 66804 015 RICK BATEMAN Physical Medicine Physical Therapy Re-Evaluation Physical Medicine Physical Therapy Re-Evaluation 77554 015 RICK BATEMAN Physical Therapy Neuromuscular Re-education Physical Therapy Neuromuscular Re-education 30007 015 FELICIANO SLATER Physical Therapy: ___ Se ion Segments, 15 Minutes Each Physical Therapy: ___ Session Segments, 15 Minutes Each 04796 015 FELICIANO SLATER Exercises A isted Exercises For ROM Exercises Assisted Exercises For ROM 13146 015 RICK BATEMAN Physical Medicine Physical Therapy Re-Evaluation Physical Medicine Physical Therapy Re-Evaluation 46309 015 RICK BATEMAN Physical Therapy Neuromuscular Re-education Physical Therapy Neuromuscular Re-education 29672 015 FERNY DOMINGO [facility] Physical Therapy: ___ Se ion Segments, 15 Minutes Each Physical Therapy: ___ Session Segments, 15 Minutes Each 24812 015 FERNY DOMINGO [facility] Physical Therapy Neuromuscular Re-education Physical Therapy Neuromuscular Re-education 53788 015 YAZMIN NELSON [facility] Physical Therapy: ___ Se ion Segments, 15 Minutes Each Physical Therapy: ___ Session Segments, 15 Minutes Each 67734 015 YAZMIN NELSON [facility] Physical Therapy: ___ Se ion Segments, 15 Minutes Each Physical Therapy: ___ Session Segments, 15 Minutes Each 01898 015 FERNY DOMINGO [facility] Physical Therapy Neuromuscular Re-education Physical Therapy Neuromuscular Re-education 65684 015 FERNY DOMINGO Exercises A isted Exercises For ROM Exercises Assisted Exercises For ROM 24291 015 RICK BATEMAN [facility] Physical Medicine Physical Therapy Evaluation Physical Medicine Physical Therapy Evaluation 55132 015 RICK BATEMAN [facility] Exercises A isted Exercises For ROM Exercises Assisted [place]ercises [place] ROM 40927 014 RICK BATEMAN [facility] Physical Medicine Physical Therapy Re-Evaluation Physical Medicine Physical Therapy Re-Evaluation 73069 014 RICK BATEMAN [facility] Exercises A isted Exercises For ROM Exercises Assisted Exercises For ROM 89073 014 RICK BATEMAN [facility] Physical Medicine Physical Therapy Re-Evaluation Physical Medicine Physical Therapy Re-Evaluation 92404 014 RICK BATEMAN [facility] Modalities Cryotherapy Cold Packs Modalities Cryotherapy Cold Packs 41731 014 FERNY DOMINGO [facility] Physical Therapy: ___ Se ion Segments, 15 Minutes Each Physical Therapy: ___ Session Segments, 15 Minutes Each 76387 014 FERNY DOMINGO [facility] Physical Therapy Neuromuscular Re-education Physical Therapy Neuromuscular Re-education 90866 014 FERNY DOMINGO [facility] Modalities Cryotherapy Cold Packs Modalities Cryotherapy Cold Packs 51411 014 TORI REES [facility] Physical Therapy Neuromuscular Re-education Physical Therapy Neuromuscular Re-education 21473 014 TORI REES [facility] Physical Therapy: ___ Se ion Segments, 15 Minutes Each Physical Therapy: ___ Session Segments, 15 Minutes Each 15273 014 TORI REES [facility] Modalities Cryotherapy Cold Packs Modalities Cryotherapy Cold Packs 75578 014 FERNY DOMINGO [facility] Physical Therapy Neuromuscular Re-education Physical Therapy Neuromuscular Re-education 33965 014 CHAYO [facility] Physical Therapy: ___ Se ion Segments, 15 Minutes Each Physical Therapy: ___ Session Segments, 15 Minutes Each 13500 014 CHAYO [facility] Physical Therapy Neuromuscular Re-education Physical Therapy Neuromuscular Re-education 25065 [facility] Physical Therapy: ___ Se ion Segments, 15 Minutes Each Physical Therapy: ___ Session Segments, 15 Minutes Each 82032 014 CHAYO [facility] Exercises A isted Exercises For ROM Exercises Assisted Exercises For ROM 41506 RICK BATEMAN Physical Medicine Physical Therapy Evaluation Physical Medicine Physical Therapy Evaluation 64176 RICK BATEMAN [employer] [facility] Fitting Monofocals (Not For Aphakia) Spectacles Services Fitting Monofocals (Not For Aphakia) 23217 014 JUAN JOSE LEE Determination Of Refractive State Determination Of Refractive State 43153 014 JUAN JOSE LEE Ophthalmological New Patient Start Comprehensive Care Ophthalmological New Patient Start Comprehensive Care 27664 014 JUAN JOSE LEE Taping Knee Taping Knee 36831 012 DANTE SANTOS Physical Medicine Physical Therapy Re-Evaluation Physical Medicine Physical Therapy Re-Evaluation 97306 012 DANTE SANTOS Modalities Iontophoresis Modalities Iontophoresis 38035 012 APARNA MARCELO Exercises A isted Exercises For ROM Exercises Assisted Exercises For ROM 77382 012 APARNA MARCEOL Physical Therapy Neuromuscular Re-education Physical Therapy Neuromuscular Re-education 56248 012 APARNA MARCELO Ophthalmological Prior Patient Start Intermediate Level Care Ophthalmological Prior Patient Start Intermediate Level Care 96528 IGNACIA AGUILAR Determination Of Refractive State Determination Of Refractive State 46546 IGNACIA AGUILAR [facility] Fitting Monofocals (Not For Aphakia) Spect[facility] Fitting Monofocals (Not For Aphakia) 10260 IGNACIA AGUILAR Brief communication technology-based service, e.g. virtual check-in, by a physician or other qualified health care luiza cha who can report evaluation and management services, provided to an established patient, not originating from a related E/M service provided within the previous 7 days nor leading to an E/M service or procedure within the next 24 hours or soonest available appointment; 5-10 minutes of medical discu ion LAYNE FELIZ [facility] Preventive Medicine Results Documented/Reviewed Body Ma Index Preventive Medicine Results Documented/Reviewed Body Mass Index 3008F FELIZ TILLMAN [facility] Waiver services; not otherwise specified (NOS) TORSTEN CAPONE [facility] Non-Physician Phone Call To Patient/Provider Brief (5-10min) Non-Physician Phone Call To Patient/Provider Brief (5-10min) 66879 RYAN MILLER [facility] Ophthalmological Prior Patient Start Comprehensive Care Ophthalmological Prior Patient Start Comprehensive Care 90500 ROSI EDDY [facility] Health And Behav A e mt Each 15 Min Initial A e ment Health And Behav Assessmt Each 15 Min Initial Assessment 63830 BETTY MENJIVAR DoD Strapping; knee Strapping; knee 67821 0C-AF-C -66 [employer] Brief emotional/behavioral a e ment (eg, depre ion inventory, attention-deficit/hyp eractivity disorder [ADHD] scale), with scoring and documentation, per standardized instrument Brief emotional/behavioral assessment (eg, depression inventory, attention-deficit/hy peractivity disorder [ADHD] scale), with scoring and documentation, per standardized instrument 54222 0310C-AF-C -[facility] [employer] Fitting of spectacles, except for aphakia; monofocal Fitting of spectacles, except for aphakia; monofocal 08582 0310C-AF-C -[facility] [employer] BODY MASS INDEX (BMI) DOCUMENTED BODY MASS INDEX (BMI) DOCUMENTED 3008F 0310C-AF-C -[facility] [employer] Application of a modality to one or more areas; iontophoresis, each 15 minutes Application of a modality to one or more areas; iontophoresis, each 15 minutes 14711 0C-AF-C -[facility] [employer] Therapeutic procedure, one or more areas, each 15 minutes; neuromuscular reeducation of movement, balance, coordination, kinesthetic sense, posture, and/or proprioception for sitting and/or standing activities Therapeutic procedure, one or more areas, each 15 minutes; neuromuscular reeducation of movement, balance, coordination, kinesthetic sense, posture, and/or proprioception for sitting and/or standing activities [address] [place] [address] [facility] Health behavior intervention, individual, [id number]; initial 30 minutes Health behavior intervention, individual, [id number]; initial 30 minutes [address] [place] [address] [facility] Therapeutic procedure, one or more areas, each 15 minutes; therapeutic exercises to develop strength and endurance, range of motion and flexibility Therapeutic procedure, one or more areas, each 15 minutes; therapeutic exercises to develop strength and endurance, range of motion and flexibility [address] [place] [address] [place] [address] Psychiatric evaluation of hospital records, other psychiatric reports, psychometric and/or projective tests, and other accumulated data for medical diagnostic purposes Psychiatric evaluation of hospital records, other psychiatric reports, psychometric and/or projective tests, and other accumulated data for medical diagnostic purposes [address] [place] [address] [facility] Health behavior a e ment, or re-a e ment (ie, health-focused clinical interview, behavioral observations, clinical decision making) Health behavior assessment, or re-assessment (ie, health-focused clinical interview, behavioral observations, clinical decision making) [address] [place] [address] [facility] Application of a modality to one or more areas; hot or cold packs Application of a modality to one or more areas; hot or cold packs 31400 309 [facility] PURE TONE AUDIOMTRY THRESHOLD COMPUTER DEV AIR PURE TONE AUDIOMTRY THRESHOLD COMPUTER DEV AIR [address]208T [address] Determination of refractive state Determination of refractive state [address] L knee surgery 2012 [facility] Endoscopy [facility] [id number] [facility] Septoplasty [address] Tonsillectomy 20180C-AF-C [facility] Social History Combined list of available smoking, tobacco, and other social history from 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 Social History Type Response Date Comment Sour e Sex Representation Male (finding) 01/11/2021 Un known Organization This section is an empty social history section. [facility] Tobacco Never-cigarette user Cigarette use:. Never-other tobacco [...] screening tools. ? AUDIT-C=0 PCL-C=0 PHQ-8=0 ? 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 At this time no tasking or consults needed.?SM made?aware of [facility] ()?services available, ?[facility], Fire Dispatcher Services, Walk in , Emergency Room (ER) [...] at age 37. Compared medications reported by environmental services lead to active medication list in?[facility]?and any variances were documented.? ? Any complaints or issues identified while conducting the PHA have been addressed and or referred back to the patient's?primary laboratory animal care veterinarian (PCM)?for care.?SM?advised to follow up with PCM, [...] [facility] Comp. Audio Author: LARRY UCEVAS, AuD Date: 09/12/23 1.?Hearing normal GENERAL INFORMATION History Branch:? ?[employer]? Command:?[facility] MOS:?2A5 ? ? VISIT REASON Hearing loss or concerns: Abnormal [id number] @ [facility] over the past [...] No? Ototoxic medications:? No? ? PRIOR TESTING ?[id number]'s [facility] Medical ( and 29 [...] and?improved??compared with previous testing recently obtained @ [facility]. No STS is noted in either ear compared to current [id number] on record (2009). ? SPEECH AUDIOMETRY Right: Word recognition was? excellent??at?55 dB HL ?Masking level: _40dB HL ? Left: Word recognition was? ? ?excellent?at?55 dB HL ?Masking level:?40 dB HL ? SUMMARY Today s results indicate normal hearing in both ears at all test frequencies with good reliability. Normal ME function, bilaterally. ? 15 min (INDV) debt and budget counselor on proper hand formed (Sound Guard) hearing protection insertion and uses in noise. Annual HCP review completed today ? ? ? PLAN 1) Annual [id number] back @ [facility] (2024) for continued annual monitoring 2) Use of proper HP in all noise designated areas 3) Future audio as needed ? Pee Almanza James Doctor of Audiology Audiology Dept. [employer] [facility] [id number] ? Extracted from:Title: FTF-PHA Author: ABHIJIT CALVO [...] to 60 minutes before a meal, Pharmacy: [facility]/pharmacy #[id number] [External Rx] Lt Col Abhijit Calvo M.D. Chief of Aerospace Medicine (SGP) [employer] Gaudencio FERNANDEZ MA ? ? 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 07/09/[address] [place] [address] Assessment and Plan Extracted from:Title : MHA/PHA [...] screening tools. ? AUDIT-C=0 PCL-C=0 PHQ-8=0 ? 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 At this time no tasking or consults needed.?SM made?aware of Behavior Health (BH)?services available, ?[facility], Fire Dispatcher Services, Walk in , Emergency Room (ER) [...] at age 37. Compared medications reported by environmental services lead to active medication list in?[facility]?and any variances were documented.? ? Any complaints or issues identified while conducting the PHA have been addressed and or referred back to the patient's?primary laboratory animal care veterinarian (PCM)?for care.?SM?advised to follow up with PCM, Behavioral Health, ER/911, or [facility] as needed for continuation of [...] years or PRN if symptomatic.? Extracted from:Title: [place] Comp. Audio Author: LARRY CUEVAS, AuD Date: 09/12/23 1.?Hearing normal GENERAL INFORMATION History Branch:? ?[employer]? Command:?[employer] MOS:?2A5 ? ? VISIT REASON Hearing loss or concerns: Abnormal [id number] @ [facility] over the past [...] No? Ototoxic medications:? No? ? PRIOR TESTING ?[id number]'s [facility] ( and 29 AUG 2023) HEARING [...] and?improved??compared with previous testing recently obtained @ [facility]. No STS is noted in either ear compared to current [id number] on record (2009). ? SPEECH AUDIOMETRY Right: Word recognition was? excellent??at?55 dB HL ?Masking level: _40dB HL ? Left: Word recognition was? ? ?excellent?at?55 dB HL ?Masking level:?40 dB HL ? SUMMARY Today s results indicate normal hearing in both ears at all test frequencies with good reliability. Normal ME function, bilaterally. ? 15 min (INDV) debt and budget counselor on proper hand formed (Sound Guard) hearing protection insertion and uses in noise. Annual HCP review completed today ? ? ? PLAN 1) Annual [id number] back @ [facility] (2024) for continued annual monitoring 2) Use of proper HP in all noise designated areas 3) Future audio as needed ? Pee Almanza James Doctor of Audiology Audiology Dept. [employer] [place] ? Extracted from:Title: FTF-PHA Author: ABHIJIT CALVO [...] to 60 minutes before a meal, Pharmacy: [facility]/pharmacy #[id number] [External Rx] Lt Col Abhijit Calvo M.D. Chief of Aerospace Medicine (SGP) [facility] GIOVANNISEAN ? ? 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 07/09/2024 [id number] [place] [address] Assessment and Plan Extracted from:Title : MHA/PHA [...] screening tools. ? AUDIT-C=0 PCL-C=0 PHQ-8=0 ? 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 At this time no tasking or consults needed.?SM made?aware of [facility] ()?services available, ?[facility], Fire Dispatcher Services, Walk in , Emergency Room (ER) [...] at age 37. Compared medications reported by environmental services lead to active medication list in?[facility]?and any variances were documented.? ? Any complaints or issues identified while conducting the PHA have been addressed and or referred back to the patient's?primary laboratory animal care veterinarian (PCM)?for care.?SM?advised to follow up with PCM, [...] VISIT REASON Hearing loss or concerns: Abnormal [id number] @ [facility] over the past [...] No? Ototoxic medications:? No? ? PRIOR TESTING ?[id number]'s [facility] ( and 29 AUG 2023) HEARING [...] and?improved??compared with previous testing recently obtained @ [facility]. No STS is noted in either ear compared to current [id number] on record (2009). ? SPEECH AUDIOMETRY Right: Word recognition was? excellent??at?55 dB HL ?Masking level: _40dB HL ? Left: Word recognition was? ? ?excellent?at?55 dB HL ?Masking level:?40 dB HL ? SUMMARY Today s results indicate normal hearing in both ears at all test frequencies with good reliability. Normal ME function, bilaterally. ? 15 min (INDV) debt and budget counselor on proper hand formed (Sound Guard) hearing protection insertion and uses in noise. Annual HCP review completed today ? ? ? PLAN 1) Annual [id number] back @ [facility] (2024) for continued annual monitoring 2) Use of proper HP in all noise designated areas 3) Future audio as needed ? Pascual Almanza. ALY-Jasmyn, Larry Livingston of Audiology Audiology Dept. [employer] [facility] JAYLEN ? Extracted from:Title: FTF-PHA Author: ABHIJIT CALVO [...] [facility] #[id number] [External Rx] Lt Col Abhijit Calvo M.D. Chief of Aerospace Medicine (SGP) [employer] Gaudencio FERNANDEZ MA ? ? 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 07/09/[address] [place] [address] Functional Status Combined list of recent functional and cognitive assessments recorded at [facility] [employer] [facility] Functional [place] Measurement (FIM) Scale: 1 = Total Assistance (Subject = 0% +), 2 = Maximal Assistance (Subject = 25% +), 3 = Moderate Assistance (Subject = 50% +), 4 = Minimal Assistance (Subject = 75% +), 5 = Supervision, 6 = Modified [place] (Device), 7 = Complete [place] (Timely, Safely). Assessment Date/Time Source Assessment Type Assessment Skill Assessment Score Assessment Details No data available for this section
== END 2024-07-09 14:21 | disposition home or self-care (01) ==
LOC: HO.HMGCX 14:20
PROVIDERS: PCP Internal Medicine; Visit Provider Physician Assistant Medical
DX: N50.811 Right testicular pain (principal)
CPT/HCPCS: 76870

== ENCOUNTER → 2024-07-09 14:26 | Outpatient (BNV) | payer OTHER, SELFPAY | PROVIDERS: PCP Internal Medicine; Visit Provider Radiology Diagnostic Radiology | DX: N50.811 Right testicular pain (principal) | CPT/HCPCS: 76870; 93975 ==

== ENCOUNTER 2024-07-17 07:47 | Outpatient (AMB) | payer OTHER, SELFPAY ==
--- OUTSIDE RECORDS SUMMARY | 2024-07-17 07:50 | XMS_ITS | Clinical Summary ---
Author Organization [facility] ity Address [id number] [place] [id number] Care Team Providers Care Loin Puller Name Role Phone Unavailable Primary Care Provider [...]
--- OUTSIDE RECORDS SUMMARY | 2024-07-17 07:50 | XMS_ITS | Continuity of Care Document ---
Author Name [facility] Organization [facility] Care Team Providers Care Plsql Developer Name Role Phone [facility] Unavailable Unavailable Problems [...] (BMI) 30.0-30.9, adult Active 9 Condition DoD Myopia, bilateral Active Condition 0310 C-AF-C [facility] Regular astigmatism, bilateral Active Condition 0310C-AF-C [facility] Left knee pain Active Condition 0310C-A F-C [facility] Encounter for examination of eyes and vision without abnormal findings Active Condition 0310C-A F[facility]C [facility] Other specified disorders of thyroid Active Condition [...] NEW PATIENT OPHTHALMOLOGICAL EXAM Inactive Condition DoD Medications Combined list of [...] Acute Not Applic able Ordered 2022 1.0 0310C-A [facility] DOXYCYCLINE HYCLATE (doxycyclin e hyclate), 100 MG, TABLET, ORAL, [employer], 50 ea. BOTTLE Cancele d [id number] : 2023 0 Pharmac y Data Transac tion Service Facilit y DOXYCYCLINE HYCLATE (doxycyclin e hyclate), 100 MG, TABLET, ORAL, EP[employer] PHARMA LLC, 50 ea. BOTTLE Active [id number] 2023 19 Pharmac y Data Transac tion Service Facilit y FAMOTIDINE (famotidine ), 20 MG, TABLET, ORAL, [employer], 100 ea. BOTTLE Cancele d [id number] : 2023 0 Pharmac y Data Transac tion Service Facilit y FAMOTIDINE (famotidine ), 40 MG, TABLET, ORAL, [employer], 100 ea. BOTTLE Cancele d [id number] : 2023 0 Pharmac y Data Transac [...] ORAL, [employer], 500 ea. BOTTLE Active [id number] 2023 20 Pharmac y Data Transac tion Service Facilit y IBUPROFEN (ibuprofen) , 800 MG, TABLET, ORAL, STRIDES PHARMA, 500 ea. BOTTLE Active [id number] 2023 20 Pharmac y Data Transac [...] Ordered 2022 90.0 309C-A F-C[facility] omeprazole 20 mg oral delayed release [...] [employer]ARM, 90 ea. BOTTLE Cancele d [id number] : 2023 0 Pharmac y Data Transac tion Service Facilit y SUCRALFATE (SUCRALFATE ), 1G, TABLET, ORAL, [employer], 500 ea. 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 Comments Source tetanus, diphtheria, acellular pertu is 2021 GABRIELLA [id number] comple t ed Result Comment: Route: Unknown Manufactu rer: OTH ([facility]) 0310C-A F-C-[facility] influenza, injectable, quadrivalent- pf 2021 [facility] [id number] comple t ed Result Comment: Route: Unknown Manufactu rer: OTH ([facility]) 0310C-A F-C-[facility] [employer] COVID Vaccine [...] quadrivalent, preservative free 1 2020 [id number] 150 [facility] ([facility]) complet ed Influenza , injectabl e, quadrival [...] dose DoD influenza, injectable, quadrivalent- pf 2019 [id number] 150 [employer] complet ed influenza , injectabl e, quadrival ent-pf 02/28/20 Given Ambulat ory Pharmac y Influenza, injectable, quadrivalent, preservative free 1 2019 [id number] 150 [employer] (SEQ) complet ed Influenza , injectabl e, quadrival ent, preservat angel free DoD influenza, injectable, quadrivalent- pf 2018 [id number] 150 [employer] complet ed influenza , injectabl e, quadrival ent-pf 02/27/19 Given Ambulat ory Pharmac y Influenza, injectable, quadrivalent, preservative free 13 2018 [id number] 349 150 [employer] (SEQ) complet ed Influenza , injectabl e, quadrival ent, preservat angel free DoD influenza, injectable, quadrivalent- pf 2017 [id number] 150 [employer] complet ed influenza , injectabl e, quadrival ent-pf 02/05/18 Given Ambulat ory Pharmac y Influenza, injectable, quadrivalent, preservative free 12 2017 [id number] 150 [employer] (SEQ) comple t ed Influenza [...] angel free DoD influenza, seasonal, injectable-pf 2015 [id number] 1A 140 [employer] complet ed influenza , seasonal, injectabl e-pf 12/23/15 Given Ambulat ory Pharmac y Influenza, seasonal, injectable, preservative free 10 2015 [id number] 1A 140 [employer] (SEQ) complet ed Influenza , seasonal, injectabl e, preservat angel free DoD influenza, live, intranasal,qu adrivalent 2014 [id number] 149 Butlr Inc comple t ed influenza , live, intranasa l,quadriv alent 01/05/15 Given Ambulat ory Pharmac y typhoid Vi capsular polysaccharid e vac 2014 [id number] 101 sanofi pasteur complet ed typhoid Vi capsular polysacch aride vac 01/05/15 Given Ambulat ory Pharmac y typhoid Vi capsular polysaccharid e vaccine 1 2014 [id number] 101 Sanofi Pasteur ([facility]) complet ed typhoid Vi capsular polysacch aride vaccine DoD influenza, live, intranasal, quadrivalent 9 2014 [id number] 149 MedImmune, Inc. (MED) complet ed influenza , live, intranasa l, quadrival ent DoD Human Papillomaviru s,quadrivalen t(HPV4) 2014 [id number] 62 gis.to & Weby[employer] Inc complet ed Human Papilloma virus,holden drivalent (HPV4) 05/16/14 Given Ambulat ory Pharmac y human papilloma virus vaccine, quadrivalent 0 2014 [id number] 62 gis.to (MSD) complet ed human papilloma virus vaccine, quadrival ent DoD influenza, live, intranasal,qu adrivalent 2013 [id number] 149 Medimmune Inc comple t ed influenza , live, intranasa l,quadriv alent 01/20/14 Given Ambulat ory Pharmac y influenza, live, intranasal, quadrivalent 8 2013 [id number] 149 MedImmune, Inc. (MED) complet ed influenza , live, intranasa l, quadrival ent DoD influenza, live, intranasal,qu adrivalent 2012 [id number] 149 Medimmune Inc comple t ed influenza , live, intranasa l,quadriv alent 12/24/12 Given Ambulat ory Pharmac y influenza, live, intranasal, quadrivalent 7 2012 [id number] 149 MedICrucialtecune, Inc. (MED) complet ed influenza , live, intranasa l, quadrival ent DoD influenza, seasonal, injectable-pf 2011 [id number] 140 sanofi pasteur complet ed influenza , seasonal, injectabl e-pf 03/08/12 Given Ambulat ory Pharmac y Influenza, seasonal, injectable, preservative free 6 2011 [id number] 140 Sanofi Pasteur ([facility]) complet ed Influenza , seasonal, injectabl e, preservat angel free DoD tetanus, diphtheria, acellular pertu is 2011 [id number] 5AA 115 GlaxoSmithKli ne complet ed tetanus, diphtheri a, acellular pertussis 10/26/11 Given Ambulat ory Pharmac y tetanus toxoid, reduced diphtheria toxoid, and acellular pertu is vaccine, adsorbed 0 2011 [id number] 5AA 115 [facility] (SKB) complet ed tetanus toxoid, reduced diphtheri a toxoid, and acellular pertussis vaccine, adsorbed DoD influenza virus vaccine, live 2010 [id number] 111 Butlr Inc comple t ed influenza virus vaccine, live 11/23/10 Given Ambulat ory Pharmac y influenza virus vaccine, live, attenuated, for intranasal use 5 2010 [id number] 111 commercetools, Inc. (MED) complet ed influenza virus vaccine, live, attenuate d, for intranasa l use DoD influenza virus vaccine,split 2009 [id number] 15 CSL Behring complet ed influenza virus vaccine,s plit 01/05/10 Given Ambulat ory Pharmac y influenza virus vaccine, split virus (incl. purified surface antigen)-reti red CODE 1 2009 [id number] 15 CSIchor Therapeutics[employer]SurveyGiz[employer], Inc. (CSL) complet ed influenza virus vaccine, split virus (incl. purified surface antigen)- retired CODE DoD Novel influenza-H1N 1-09, injectable 2009 [id number] 127 sanofi pasteur complet ed Novel influenza -S9M1-90, injectabl e 10/05/09 Given Ambulat ory Pharmac y Novel influenza-H1N 1-09, injectable 1 2009 [id number] 127 Sanofi Pasteur ([facility]) complet ed Novel influenza -P5L8-96, injectabl e DoD influenza virus vaccine, live 2008 [id number] 111 Butlr Inc complet ed influenza virus vaccine, live 01/19/09 Given Ambulat ory Pharmac y influenza virus vaccine, live, attenuated, for intranasal use 1 2008 [id number] 111 MedICrucialtecune, Inc. (MED) complet ed influenza virus vaccine, live, attenuate d, for intranasa l use DoD influenza virus vaccine, live 2007 [id number] 111 Medi[employer]aHE[employer] Inc comple t ed influenza virus vaccine, live 01/11/08 Given Ambulat ory Pharmac y influenza virus vaccine, live, attenuated, for intranasal use 1 2007 [id number] 111 commercetools, Inc. (MED) complet ed influenza virus vaccine, live, attenuate d, for intranasa l use DoD hepatitis A adult vaccine 2007 [id number] 52 Merck & Company Inc complet ed hepatitis A adult vaccine 09/20/07 Given Ambulat ory Pharmac y hepatitis A vaccine, adult dosage 2 2007 [id number] 52 Merck (MSD) complet ed hepatitis A vaccine, adult dosage DoD tuberculin purified protein derivative 2006 [id number] 96 sanofi pasteur complet ed tuberculi n [...] ory Pharmac y meningococcal A,C,Y,W-135 (MCV4P) 2006 [id number] 114 sanofi pasteur complet ed meningoco ccal A,C,Y,W-1 35 (MCV4P) 01/11/07 Given Ambulat ory Pharmac y poliovirus vaccine, inactivated 2006 [id number] 10 sanofi pasteur complet ed polioviru s vaccine, inactivat ed 01/11/07 Given Ambulat ory Pharmac y tetanus-dipht h toxoids (Td) adult/adol 2006 [id number] 09 sanofi pasteur complet ed tetanus-d iphth toxoids (Td) adult/ado l 01/11/07 Given Ambulat ory Pharmac y tetanus and diphtheria toxoids, adsorbed, preservative free, for adult use (2 Lf of tetanus toxoid and 2 Lf of diphtheria toxoid) 1 2006 [id number] 09 Sanofi Pasteur (PMC) complet ed tetanus [...] diphtheria toxoid conjugate vaccine (MCV4P) 1 2006 [id number] 114 Sanofi Pasteur (PMC) complet ed meningoco [...] Prevention' s HIV diagnostic algorithm. Refer to [facility] Lab Guide for additional information : [email or web address]/ [email or web address] x Testing performed by Blayne kuhn [employer] Miscellan eous Sendouts Repository Sample Received (07/14/23 1:29 PM) 07/13 N [employer] Vital Signs Combined list of inpatient and outpatient Vital Signs from Department of Defense and Veterans Affairs, ranging from 12 months to all on record, depending upon the facility. Vital Sign Value Date Comments Source Blood Pressure Manual Automatic 08/31/2022 13:55:00 0315V-HF-L-[facility] [employer] Temperature Oral 36.7 Pat 08/31/2022 13:55:00 5995V-JB-L-[facility] [employer] Systolic Blood Pressure 124 mm[Hg] 09/01/19 23 13:55:00 1637I-HK-C-[facility] [employer] Diastolic Blood Pressure 79 mm[Hg] 023 13:55:00 0125I-RB-T-[facility] [employer] BP Site Right arm 08/31/2022 13:55:00 3101W-TA-E-[facility] [employer] Mean Arterial Pressure, Calc 94 mm[Hg] 08/31/2022 13:55:00 8110K-MD-G-[facility] [employer] Peripheral Pulse Rate 69 bpm 08/31/2022 13:55:00 8882M-LP-B-[facility] [employer] Respiratory Rate 16 br/min 08/31/2022 13:55:00 9431T-VG-D-66th [facility] Encounters Combined list of: 1) Encounters from Department of Veterans Affairs facilities going backup to the last 18 months, not all VA inpatient encounters are included; 2) Encounters from the Department of Defense facilities going backup to 280 months. Location Location Details Encounter Type Encounter Number Reason For Visit Attending Provider ADM Date DC Date Status Disposition Source [facility](Opt ometry) OUTPATIENT [id number] rout visit CHASE BARON 10/11 Released w/o Limitations [facility](O ptometr y) [facility](Fam Med Pod 2) OUTPATIENT [id number] health concern s w/ cardiac history NASSAUX, LORRIE Y 10/14 Released w/o Limitations [facility](F am Med Pod 2) [facility](Fam Med Pod 2) OUTPATIENT [id number] ekg NASSAUX, LORRIE Y 10/22 Released w/o Limitations [facility](F am Med Pod 2) [facility](Fam Med Pod 2) TELE CONSULT [id number] ON/OFF COUGH WITH MUCUS X 1 YR. APPT REQUEST ED. FELTON MARTIN 09/24 Referred for Appointment [facility](F am Med Pod 2) [facility](Fam Med Pod 2) TELE CONSULT [id number] Nose bleeds during exercis e. FELTON MARTIN 11/03 Referred for Appointment [facility](F am Med Pod 2) [facility](Fam Med Pod 1) OUTPATIENT [id number] lt rib pain makes it difficu lt to breath and sleep on that side PILY FLORES 11/04 Released w/o Limitations [facility](F am Med Pod 1) [facility](Fam Med Pod 2) OUTPATIENT [id number] Nose bleeds KAROLINA PLEITEZ 11/10 Released w/o Limitations [facility](F am Med Pod 2) [facility](Fam Med Pod 2) TELE CONSULT [id number] PHA RESPONS E NASSAUX, LORRIE Y 12/05 [facility](F am Med Pod 2) [facility](Fam Med Pod 2) TELE CONSULT [id number] sore throat, runny nose ABEITA, FRANCO A 01/01 Referred for Appointment [facility](F am Med Pod 2) [facility](Fam Med Pod 2) OUTPATIENT [id number] ear pain, throat, running nose WILLAM RODRIGUEZ 01/02 Sick at Home/Quarter s [facility](F am Med Pod 2) [facility](Fam Med Pod 2) OUTPATIENT [id number] skin issues NASSAUX, LORRIE Y 06/22 Released w/o Limitations [facility](F am Med Pod 2) [facility](Fam Med Pod 1) TELE CONSULT [id number] abdomin al pain, n/v, diarrhe a ILCUS, MASHA S 07/15 [facility](F am Med Pod 1) [facility](Fam Med Pod 2) TELE CONSULT [id number] Pt still not feeling well. Currenshaheen ty on quarter s. FRANCO MURPHY A 07/15 [facility](F am Med Pod 2) [facility](Fam Med Pod 2) OUTPATIENT [id number] f/u possibl e food poisoni ng MIKESAUX, LORRIE Y 07/16 Released with Work/Duty Limitations [facility](F am Med Pod 2) [facility](Fam Med Pod 2) TELE CONSULT [id number] possibl e Salmene bakarijasmyn SAMPSONJasmyn FRANCO A 11/05 [facility](F am Med Pod 2) [facility](Fam Med Pod 2) TELE CONSULT [id number] request ing STD check w/ symptom s ADRIÁNJasmyn FRANCO A 01/15 [facility](F am Med Pod 2) [facility](Fam Med Pod 2) OUTPATIENT [id number] possibl e std NASSAUX, LORRIE Y 01/18 Released w/o Limitations [facility](F am Med Pod 2) [facility]) OUTPATIENT [id number] Presump tiSHARRI Alvares S 01/18 Released w/o Limitations [facility](Fam Med Pod 1) TELE CONSULT [id number] PHA RESPONS TORO HALEY 01/19 Referred for Appointment [facility](F am Med Pod 1) [facility](Fam Med Pod 2) TELE CONSULT [id number] lab results FRANCO MURPYH A 01/29 [facility](F am Med Pod 2) [facility](Fam Med Pod 2) TELE CONSULT [id number] lab results FRANCO MURPHY A 02/26 [facility](F am Med Pod 2) [facility](Fam Med Pod 2) OUTPATIENT [id number] sore throat NASSAUX, LORRIE Y 08/24 Released w/o Limitations [facility](F am Med Pod 2) [facility](Fam Med Pod 2) OUTPATIENT [id number] PAIN TO LT KNEE TOYIN, TOD A 03/28 Released w/o Limitations [facility](F am Med Pod 2) [facility](Phy sical Therapy) OUTPATIENT [id number] l knee PUGIA, CHERISE 04/08 Released w/o Limitations [facility](P hysical Therapy ) [facility](Phy sical Therapy) OUTPATIENT [id number] l knee DANIELA SHAH 04/22 Released w/o Limitations [facility](P hysical Therapy ) [facility](Phy sical Therapy) OUTPATIENT [id number] l knee DANIELA SHAH 04/25 Released w/o Limitations [facility](P hysical Therapy ) [facility](Phy sical Therapy) OUTPATIENT [id number] l knee DANIELA SHAH 04/29 Released w/o Limitations [facility](P hysical Therapy ) [facility](Fam Med Pod 2) TELE CONSULT [id number] Notes Entered by: SHARRI BECERRA 03 May 2011 1108 ------- ------- ------- ------- -- AURELIANO CROUCH 05/03 Other Not Elsewhere Classified [facility](F am Med Pod 2) [facility](Phy sical Therapy) OUTPATIENT [id number] f/u l knee PUGIA, CHERISE 05/10 Released w/o Limitations [facility](P hysical Therapy ) [facility](Phy sical Therapy) OUTPATIENT [id number] VAHID TRIPLETT 05/22 Released w/o Limitations [facility](P hysical Therapy ) [facility](Phy sical Therapy) OUTPATIENT [id number] VAHID TRIPLETT 05/29 Released w/o Limitations [facility](P hysical Therapy ) [facility](Phy sical Therapy) OUTPATIENT [id number] APARNA MARCELO 06/01 Released w/o Limitations [facility](P hysical Therapy ) [facility](Phy sical Therapy) OUTPATIENT [id number] F/U KNEE DANTE SANTOS 06/15 Released w/o Limitations [facility](P hysical Therapy ) [facility] Team C) OUTPATIENT [id number] renew 469/422 needed pt test LORRIE PATEL 07/05 Released w/o Limitations [facility] Team C) [facility] Team E) TELE CONSULT [id number] Notes Entered by: ROSELINE STEELE 23 Nov 2011 1412 ------- ------- ------- ------- -- FRANCO Mercado 11/22 Referred for Appointment [facility] Team E) [facility] _Team_Lob o) OUTPATIENT [id number] [facility] IVONE ROSA 12/08 Released w/o Limitations [facility]_Te am_Lobo ) [facility] _Team_Lob o) TELE CONSULT [id number] Notes Entered by: Madeline ROSA 14 Dec 2011 1415 ------- ------- ------- ------- -- +ELIZABETH Caraballo 12/13 Referred for Appointment [facility] _Team_Lob o) OUTPATIENT [id number] f/u labs IVONE ROSA 12/14 Released w/o Limitations [facility] _[facility]_Te am_Lobo ) [facility]) OUTPATIENT [id number] Notes Entered by: GOOD DACOSTA SA 15 Dec 2011 1552 ------- ------- ------- ------- -- + ALVA CAMACHO 12/14 Released w/o Limitations [facility]) [facility] Team E) OUTPATIENT [id number] extensi on of 422 NASSAUX, LORRIE Y 12/18 Released with Work/Duty Limitations [facility] Team E) [facility] Team E) TELE CONSULT [id number] Notes Entered by: GOOD MEDINA 01 Feb 2012 1033 ------- ------- ------- ------- -- FRANCO JON 01/31 Referred for Appointment [facility] Team E) [facility] Team E) OUTPATIENT [id number] sore throat NASSAUX, LORRIE Y 02/20 Released with Work/Duty Limitations [facility] Team E) [facility] Team E) OUTPATIENT [id number] profile NASSAUX, LORRIE Y 03/08 Released with Work/Duty Limitations [facility] Team E) [facility] Team E) OUTPATIENT [id number] nose bleeds NASSAUX, LORRIE Y 04/11 Released w/o Limitations [facility] Team E) [facility] Team E) OUTPATIENT [id number] poss sleep apnea NASSAUX, LORRIE Y 06/12 Released w/o Limitations [facility] Team E) [facility] Team E) TELE CONSULT [id number] Notes Entered by: LORRIE SIMON 20 Aug 2012 1357 ------- ------- ------- ------- -- PHA MAIK JASSO 08/20 Other Not Elsewhere Classified [facility] Team E) [facility] Team E) OUTPATIENT [id number] f/u on knee MIKESAUX, LORRIE Y 09/11 Released w/o Limitations [facility] Team E) [facility] Team E) OUTPATIENT [id number] excessi ve sweatin g JORGE, LORRIE Y 11/01 Released w/o Limitations [facility] Team E) [facility] Team E) TELE CONSULT [id number] Notes Entered by: MAIK JOSEPH 05 Dec 2012 1130 ------- ------- ------- ------- -- MAIK WARD 12/05 Referred for Appointment [facility] Team E) [facility] OUTPATIENT [id number] Discuss sleep Issues x 7 months YULIA RODRIGUEZ 01/31 Released w/o Limitations [facility](I ntegrat ed Behavio ral [facility] Cl[facility]) [facility](Opt ometry Clinic) OUTPATIENT [id number] sergio jacinto 1 year JUAN JOSE LEE 03/22 Released w/o Limitations [facility](O ptometr y Clinic) [facility]) OUTPATIENT [id number] SLEEP ISSUES YULIA RODRIGUEZ 03/25 Released w/o Limitations [facility](Fam Med Cl Tm B Non-Ad) TELE CONSULT [id number] Notes Entered by: CHRISTOPHER CHA 09 Apr 2013 1037 ------- ------- ------- ------- -- Network Result - Apnea Link 014 BECKYNEAL 04/09 [facility](F am Med Cl Tm B Non-Ad) [facility](Fam Med Cl Tm B Non-Ad) OUTPATIENT [id number] LEFT KNEE SWELLIN G/ ONGOING TRISTANEMILYAlcidesNEAL 04/15 Released w/o Limitations [facility](F am Med Cl Tm B Non-Ad) [facility](Fam Med Cl Tm B Non-Ad) OUTPATIENT [id number] chest pain BECKY NEAL Lilia 04/16 Released w/o Limitations [facility](F am Med Cl Tm B Non-Ad) [facility](Fam Med Cl Tm B Non-Ad) TELE CONSULT [id number] Notes Entered by: CATE CASTRO 29 Apr 2013 1604 ------- ------- ------- ------- -- Profile JANNA OLIVAS 04/29 Referred for Appointment [facility](F am Med Cl Tm B Non-Ad) [facility](Fam Med Cl Tm B Non-Ad) TELE CONSULT [id number] Notes Entered by: DAVINA DE LA PAZ 07 May 2013 1512 ------- ------- ------- ------- -- ACTIVE DUTY/ PROFILE REQUEST JANNA OLIVAS 05/07 Referred for Appointment [facility](F am Med Cl Tm B Non-Ad) [facility](Fam Med Cl Tm B Non-Ad) OUTPATIENT [id number] PT test this month wants profile for knee DUSTIN OLGUIN 05/15 Released with Work/Duty Limitations [facility](F am Med Cl Tm B Non-Ad) [place] OUTPATIENT [id number] joint pain, localiz ed in the knee... [employer] KAREN SLOAN 05/20 Released w/o Limitations [place]Orth opedics ) [facility](Fam Med Cl Tm B Non-Ad) TELE CONSULT [id number] Notes Entered by: JAIMIE HAZEL 21 Oct 2013 1121 ------- ------- ------- ------- -- RENEW JANNA LACEY 10/21 Released to [employer] [facility](F am Med Cl Tm B Non-Ad) [facility](Fam Med Cl Tm B Non-Ad) OUTPATIENT [id number] Deonin g up mucous and abd pain x 2 months DUSTIN OLGUIN 11/05 Released w/o Limitations [facility](F am Med Cl Tm B Non-Ad) [facility](Fam Med Cl Tm B Non-Ad) OUTPATIENT [id number] profile concern s DUSTIN OLGUIN 11/11 Released with Work/Duty Limitations [facility](F am Med Cl Tm B Non-Ad) [facility](Phy sical Therapy Clinic) OUTPATIENT [id number] Joint pain in the left knee RICK BATEMAN 11/25 Released w/o Limitations [facility](P [facility] Therapy Clinic) [facility]hy [facility]ical Therapy Clinic) OUTPATIENT [id number] FERNY DOMINGO 11/29 Released with Work/Duty Limitations [facility] Therapy Clinic) [facility](Phy [facility]ical Therapy Clinic) OUTPATIENT [id number] FERNY DOMINGO 12/06 Released with Work/Duty Limitations [facility](P [facility]ysical Therapy Clinic) [facility](Phy [facility]ical Therapy Clinic) OUTPATIENT [id number] TORI REES 12/12 Released with Work/Duty Limitations [facility] Therapy Clinic) [facility](Phy [facility]ical Therapy Clinic) OUTPATIENT [id number] FERNY DOMINGO 12/16 Released with Work/Duty Limitations [facility](P hysical Therapy Clinic) [facility](Fam Med Cl Tm B Non-Ad) TELE CONSULT [id number] Notes Entered by: DAVINA DE LA PAZ 16 Jan 2014 1142 ------- ------- ------- ------- -- ACTIVE DUTY/ RIGHT HAND PAIN ZEN KUMAR 01/16 Referred for Appointment [facility](F am Med Cl Tm B Non-Ad) [facility](Phy sical Therapy Clinic) OUTPATIENT [id number] RICK BATEMAN 01/17 Released w/o Limitations [facility](P hysical Therapy Clinic) [employer] [facility](Fam Med Cl Tm B Non-Ad) OUTPATIENT [id number] right hand pain x 3 weeks DUSTIN OLGUIN 01/20 Released w/o Limitations [employer](F am Med Cl Tm B Non-Ad) [facility](P[facility]ical Therapy Clinic) OUTPATIENT [id number] RICK BATEMAN 02/11 Released w/o Limitations [facility](P hysical Therapy Clinic) [facility](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) OUTPATIENT [id number] Joint pain, localiz ed in the knee KAREN SLOAN 02/20 Released w/o Limitations [facility](O rthoped ic Clinic DUCT INSTALLER) [employer](PHA Cell) OUTPATIENT [id number] Notes Entered by: SEAN CANALES 07 Mar 2014 1450 ------- ------- ------- ------- -- RIGOBERTO YUAN 03/07 Released w/o Limitations [employer](P BAILEY Cell) [facility](Fam Med Cl Tm B Non-Ad) TELE CONSULT [id number] Notes Entered by: COLT JUDD 24 Mar 2014 1146 ------- ------- ------- ------- -- ЕЛЕНА SADLER 03/24 Released to Self Care [employer](F am Med Cl Tm B Non-Ad) [facility](Fam Med Cl Tm B Non-Ad) TELE CONSULT [id number] Notes Entered by: DAVINA ED LA PAZ 03 Apr 2014 1333 ------- ------- ------- ------- -- CONSULT WITH SURGEON DUSTIN OLGUIN 04/03 [facility](F am Med Cl Tm B Non-Ad) [facility](Fam Med Cl Tm B Non-Ad) TELE CONSULT [id number] Notes Entered by: Alcides WEATHERS 14 Apr 2014 1437 ------- ------- ------- ------- -- Needs Stitche s Removed Today MURALI BUCIO V 04/14 Referred for Appointment [facility](F am Med Cl Tm B Non-Ad) [facility](Fam Med Cl Tm B Non-Ad) OUTPATIENT [id number] WALK IN SUTURE REMOVAL DUSTIN OLGUIN 04/14 Released with Work/Duty Limitations [facility](F am Med Cl Tm B Non-Ad) [place](Orthop [place]ics) OUTPATIENT [id number] post op DOS: 25 Mar 2014 KAREN SLOAN 04/17 Released w/o Limitations [place](Orth opedics ) [facility](Phy [facility]ical Therapy [facility]) OUTPATIENT [id number] RICK BATEMAN 04/29 Released w/o Limitations [facility](P hysical Therapy Clinic) [facility] Therapy [facility]) OUTPATIENT [id number] FERNY DOMINGO 05/07 Released w/o Limitations [facility](P hysical Therapy Clinic) [facility]hy [facility]ical Therapy [facility]) OUTPATIENT [id number] YAZMIN NELSON 05/12 Released w/o Limitations [facility](P [facility] Therapy [facility]) [facility](Fam Med Cl Tm B Non-Ad) TELE CONSULT [id number] Notes Entered by: Alcides WRIGHT 23 May 2014 1610 ------- ------- ------- ------- -- Profile extensi on HIRAM JAVED 05/23 Referred for Appointment [facility](F am Med Cl Tm B Non-Ad) [facility]ical Therapy [facility]) OUTPATIENT [id number] FERNY DOMINGO 05/27 Released w/o Limitations [facility](P hysical Therapy Clinic) [facility] Therapy [facility]) OUTPATIENT [id number] RICK BATEMAN R 06/16 Released w/o Limitations [facility](P hysical Therapy Clinic) [facility](Phy [facility]ical Therapy Clinic) OUTPATIENT [id number] FELICIANO SLATER 06/24 Released with Work/Duty Limitations [facility](P hysical Therapy Clinic) [facility]hy [facility]ical Therapy Clinic) OUTPATIENT [id number] FRANSICOMARLONLESLEY Lantigua 07/15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 [employer]([facility] Primary [facility]) [employer]([facility]) OUTPATIENT [id number] 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 BAILEY [phone] (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) FELIZ TILLMAN 06/08 Released w/o Limitations [employer]([facility]) [employer]([facility] OUTPATIENT [id number] Profile extensi on for Left knee BARBIEJC URBAN N 06/30 Released with Work/Duty Limitations [employer]([facility] Primary [facility]) [employer]([facility]) TELE CONSULT [id number] Notes Entered by: HAYDEE PATEL 06 Aug 2020 1352 ------- ------- ------- ------- -- Triage: painful lump on throat under STEFANI Ace 08/06 Other Not Elsewhere Classified [employer]([facility] Primary [facility]) [employer]([facility]) OUTPATIENT [id number] sick call- swellin g throat [phone] JC ESTRELLA N 08/07 Released w/o Limitations [employer]([facility] Primary [facility]) [employer]([facility]) OUTPATIENT [id number] Notes Entered by: MADISON CHEN 18 Aug 2020 1408 ------- ------- ------- ------- -- Sick call : severe cough ESEQUIEL MIRANDA 08/18 Sick at Home/Quarter s [employer]([facility] Primary [facility]) [employer]([facility]) TELE CONSULT [id number] Notes Entered by: WALTER RING 25 Sep 2020 0811 ------- ------- ------- ------- -- Network Results - ENT - 021 TORSTEN CAPONE 09/25 [employer]([facility] Primary Care) [employer]([facility]) TELE CONSULT [id number] Notes Entered by: HAYDEE PATEL 01 Dec 2020 1345 ------- ------- ------- ------- -- Concern about Covid vaccine and family heart issues STEFANI LOCKETT 12/01 Referred for Appointment [employer]([facility] Primary [facility]) [employer](Opt ometry Clinic) OUTPATIENT [id number] IGNACIA UNDERWOOD 06/18 Released w/o Limitations [employer](O ptometr y Clinic) [employer]([facility]) OUTPATIENT [id number] 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 [phone] FELIZ TILLMAN 07/12 Released w/o Limitations [employer]([facility]) [employer]([facility]) OUTPATIENT [id number] follow up - PHAQ TORSTEN CAPONE 08/05 Released with Work/Duty Limitations [employer]([facility] per[facility] Primary [facility]) [employer]([facility]) TELE CONSULT [id number] Notes Entered by: ANANTH MEJIA 06 Aug 2021 1613 ------- ------- ------- ------- -- BRIDGER STEFANI LOCKETT 08/06 Other Not Elsewhere Classified [employer]([facility]al Primary Care) [employer]([facility]) OUTPATIENT [id number] per pcm needs Spec- [phone] TORSTEN CAPONE 08/10 Released w/o Limitations [employer]([facility]al Primary Care) [employer]([facility]) TELE CONSULT [id number] Notes Entered by: JENELLE RIOS 20 Aug 2021 1419 ------- ------- ------- ------- -- Profile STEFANI LOCKETT 08/20 Other Not Elsewhere Classified [employer](O peratio nal Primary Care) [employer]([facility]) TELE CONSULT [id number] Notes Entered by: Phil LOCKETT 26 Aug 2021 1506 ------- ------- ------- ------- -- notes, klever jamison sent to [facility]- care [facility] STEFANI LOCKETT 08/26 Other Not Elsewhere Classified [employer](O peratio nal Primary Care) [employer]([facility]) TELE CONSULT [id number] Notes Entered by: HAYDEE PATEL 21 Oct 2021 1410 ------- ------- ------- ------- -- Referra jamison Renewal : urgent- DME CPAP and mask STEFANI LOCKETT 10/21 Other Not Elsewhere Classified [employer](O peratio [facility]al Primary Care) [employer]([facility]) TELE CONSULT [id number] Notes Entered by: KASIA RIVERS 08 Nov 2021 0749 ------- ------- ------- ------- -- COVID 19 Guidanc e : Positiv e COVID test with symptom s STEFANI LOCKETT 11/08 Sick at Home/Quarter s [employer](O peratio nal Primary Care) [employer]([facility]) TELE CONSULT [id number] 6 Notes Entered by: MARIKA MAYNARD 12 Nov 2021 1444 ------- ------- ------- ------- -- Remove AUoF MP Helmet and Command Interes t Red Flag Icons MARIKA MAYNARD 11/12 Referred- Emergency Department [employer](O peratio [facility]al Primary Care) 0- [facility] [employer] Between Visit [id number] 12/25 Discharge Disposition: Home or Self Care 309C-A -C-66t h [facility] [place] -AF- C [facility] Between Visit [id number] 02/11 Discharge Disposition: Home or Self Care 0310C-A F-C-66t h [facility] [place] 309C-AF- C [facility] [employer] Between Visit [id number] 03/11 Discharge Disposition: Home or Self Care 0C-A F-C-66t h [facility] [place] [facility] Between Visit [id number] 04/10 Discharge Disposition: Home or Self Care 0C-A F-C-66t h [facility] [place] 309C-AF- C [facility] [employer] Between Visit [id number] 06/26 Discharge Disposition: Home or Self Care 0C-A F-C-66t h [facility] Procedures Combined list of: 1) Procedures from Department of Veterans Affairs facilities going back up to thelast 18 months, not all [place] non-surgical procedures are included; 2) All procedures from the Department of Defense facilities. Procedure Procedure Type Code Date Perfomer Comments Sourc e Strapping; knee Strapping; knee [address] [place] [address] [facility] Brief emotional/behavioral a e ment (eg, depre ion inventory, attention-deficit/hyp eractivity disorder [ADHD] scale), with scoring and documentation, per standardized instrument Brief emotional/behavioral assessment (eg, depression inventory, attention-deficit/hy peractivity disorder [ADHD] scale), with scoring and documentation, per standardized instrument [address] [place], [place] [address] Fitting of spectacles, except for aphakia; monofocal Fitting of spectacles, except for aphakia; monofocal [address] [place] [address] BODY MASS INDEX (BMI) DOCUMENTED BODY MASS INDEX (BMI) DOCUMENTED 3008F [address] [place] [address] Application of a modality to one or more areas; iontophoresis, each 15 minutes Application of a modality to one or more areas; iontophoresis, each 15 minutes [id number] [facility] Therapeutic procedure, one or more areas, each 15 minutes; neuromuscular reeducation of movement, balance, coordination, kinesthetic sense, posture, and/or proprioception for sitting and/or standing activities Therapeutic procedure, one or more areas, each 15 minutes; neuromuscular reeducation of movement, balance, coordination, kinesthetic sense, posture, and/or proprioception for sitting and/or standing activities [address] [place] [address] Health behavior intervention, individual, [id number]; initial 30 minutes Health behavior intervention, individual, [id number]; initial 30 minutes [address] [place] [address] Therapeutic procedure, one or more areas, each 15 minutes; therapeutic exercises to develop strength and endurance, range of motion and flexibility Therapeutic procedure, one or more areas, each 15 minutes; therapeutic exercises to develop strength and endurance, range of motion and flexibility [address] [place] [address] Psychiatric evaluation of hospital records, other psychiatric reports, psychometric and/or projective tests, and other accumulated data for medical diagnostic purposes Psychiatric evaluation of hospital records, other psychiatric reports, psychometric and/or projective tests, and other accumulated data for medical diagnostic purposes [address] [place] [address] Health behavior a e ment, or re-a e ment (ie, health-focused clinical interview, behavioral observations, clinical decision making) Health behavior assessment, or re-assessment (ie, health-focused clinical interview, behavioral observations, clinical decision making) [address] [place] [address] Application of a modality to one or more areas; hot or cold packs Application of a modality to one or more areas; hot or cold packs [address] [place] [address] PURE TONE AUDIOMTRY THRESHOLD COMPUTER DEV AIR PURE TONE AUDIOMTRY THRESHOLD COMPUTER DEV AIR [address]208T [address] [place] [address] [place] [address] Determination of refractive state Determination of refractive state [address] [place] [address] [place] [address] L knee surgery [facility] Endoscopy [facility] [id number] [facility] Septoplasty 2018 [facility] Tonsillectomy 2018 [facility] UNLISTED SPECIAL SERVICE, PROCEDURE OR REPORT DoD STRAPPING; KNEE DoD APPLICATION OF A MODALITY TO 1 OR MORE AREAS; IONTOPHORESIS, EACH 15 MINUTES DoD APPLICATION OF A MODALITY TO 1 OR MORE AREAS; IONTOPHORESIS, EACH 15 MINUTES DoD APPLICATION OF A MODALITY TO 1 OR MORE AREAS; IONTOPHORESIS, EACH 15 MINUTES [facility] PHYSICAL THERAPY RE-EVALUATION 012 DoD THERAPEUTIC PROCEDURE,1 OR MORE AREAS,EACH 15 MINUTES;NEUROMUSCULAR REEDUCATION OF MOVEMENT,BALANCE,COOR DINATION,KINESTHETIC SENSE,POSTURE,AND/OR PROPRIOCEPTION FOR SITTING AND/OR STANDING ACTIVITIES 012 DoD THERAPEUTIC PROCEDURE,1 OR MORE AREAS,EACH 15 MINUTES;NEUROMUSCULAR REEDUCATION OF MOVEMENT,BALANCE,COOR DINATION,KINESTHETIC SENSE,POSTURE,AND/OR PROPRIOCEPTION FOR SITTING AND/OR STANDING ACTIVITIES 012 DoD THERAPEUTIC PROCEDURE,1 OR MORE AREAS,EACH 15 MINUTES;NEUROMUSCULAR REEDUCATION OF MOVEMENT,BALANCE,COOR DINATION,KINESTHETIC SENSE,POSTURE,AND/OR PROPRIOCEPTION FOR SITTING AND/OR STANDING ACTIVITIES DoD PHYSICAL THERAPY EVALUATION DoD DETERMINATION OF REFRACTIVE STATE DoD BRIEF EMOTIONAL/BEHAVIORAL ASSESSMENT (EG, DEPRESSION INVENTORY, ATTENTION-DEFICIT/HYP ERACTIVITY DISORDER [ADHD] SCALE), WITH SCORING AND DOCUMENTATION, PER STANDARDIZED INSTRUMENT DoD FITTING OF SPECTACLES, EXCEPT FOR APHAKIA; MONOFOCAL 016 DoD PURE TONE AUDIOMETRY (THRESHOLD), AUTOMATED; AIR ONLY 016 DoD PSYCHIATRIC EVALUATION OF HOSPITAL RECORDS, OTHER PSYCHIATRIC REPORTS, PSYCHOMETRIC AND/OR PROJECTIVE TESTS, AND OTHER ACCUMULATED DATA FOR MEDICALDIAGNOSTIC PURPOSES 015 DoD FITTING OF SPECTACLES, EXCEPT FOR APHAKIA; [...] AREAS; HOT OR COLD PACKS 014 DoD APPLICATION OF A MODALITY TO 1 OR MORE AREAS; HOT OR COLD PACKS 014 DoD APPLICATION OF A MODALITY TO 1 [...] W/IN NEXT 24HR/SOON FIDENCIO; 5-10 MIN DISC [facility] BRIEF EMOTIONAL/BEHAVIORAL ASSESSMENT (EG, DEPRESSION INVENTORY, [...] WITH SCORING AND DOCUMENTATION, PER STANDARDIZED INSTRUMENT 017 DoD PURE TONE AUDIOMETRY (THRESHOLD), AUTOMATED; AIR ONLY 017 DoD DETERMINATION OF REFRACTIVE STATE 017 DoD Modalities Iontophoresis Modalities Iontophoresis 63332 012 VAHID TRIPLETT Physical Therapy Neuromuscular Re-education Physical Therapy Neuromuscular Re-education 66631 012 VAHID TRIPLETT Exercises A isted Exercises For ROM Exercises Assisted Exercises For ROM 75113 012 VAHID TRIPLETT Modalities Iontophoresis Modalities Iontophoresis 30761 012 VAHID TRIPLETT Physical Therapy Neuromuscular Re-education Physical Therapy Neuromuscular Re-education 18958 012 VAHID TRIPLETT Exercises A isted Exercises For ROM Exercises Assisted Exercises For ROM 35642 012 VAHID TRIPLETT Physical Medicine Physical Therapy Re-Evaluation Physical Medicine Physical Therapy Re-Evaluation 66999 012 DANTE SANTOS [facility] Physical Therapy Neuromuscular Re-education Physical Therapy Neuromuscular Re-education 99425 012 DANIELA SHAH Exercises A isted Exercises For ROM Exercises Assisted Exercises For ROM 44023 012 DANIELA SHAH Exercises A isted Exercises For ROM Exercises Assisted Exercises [place] ROM 24614 012 DANIELA SHAH Physical Therapy Neuromuscular Re-education Physical Therapy Neuromuscular Re-education 50149 012 DANIELA SHAH Physical Medicine Physical Therapy Evaluation Physical Medicine Physical Therapy Evaluation 66856 012 DANTE SANTOS [facility] Ophthalmological New Patient Start Comprehensive Care Ophthalmological New Patient Start Comprehensive Care 48972 008 CHASE BARON [facility] Spectacles Services Fitting Monofocals (Not For Aphakia) Spectacles Services Fitting Monofocals (Not For Aphakia) 33403 019 SEVEN VELEZ [facility] Determination Of Refractive State Determination Of Refractive State 97779 019 SEVEN VELEZ [facility] Ophthalmological Prior Patient Start Comprehensive Care Ophthalmological Prior Patient Start Comprehensive Care 74764 019 SEVEN VELEZ [facility] Non-Physician Phone Call To Patient/Provider Brief (5-10min) Non-Physician Phone Call To Patient/Provider Brief (5-10min) [id number] 019 CAMILO JANG [facility] Non-Physician Phone Call To Patient/Provider Brief (5-10min) Non-Physician Phone Call To Patient/Provider Brief (5-10min) 26502 019 DANNY YEH [facility] Non-Physician Phone Call To Patient/Provider Brief (5-10min) Non-Physician Phone Call To Patient/Provider Brief (5-10min) 16550 019 ARCADIO WOLFE [employer] Qual Nonphys Healthcare Prof Estab Patient Internet Med Svc Qual Nonphys Healthcare Prof Estab Patient [id number] GABINO BLACK Threshold Audiogram (Pure Tone) Automated Threshold Audiogram (Pure Tone) Automated [id number] CAROL CRAIG Do[facility] Non-Physician Phone Call To Patient/Provider Brief (5-10min) Non-Physician Phone Call To Patient/Provider Brief (5-10min) 23341 018 NATHALY HOLLOWAY [employer] Fitting Monofocals (Not For Aphakia) Spectacles Services Fitting Monofocals (Not For Aphakia) 93463 018 JUNG-VILLANUEVA , ALEXUS [employer] Prescription & Fitting Bilateral Corneal Lenses (Not Aphakia Prescription & Fitting Bilateral Corneal Lenses (Not Aphakia 37379 018 JUNG-VILLANUEVA , ALEXUS Do[employer] Determination Of Refractive State Determination Of Refractive State 14850 018 JUNG-VILLANUEVA , ALEXUS DoD Prescription & Fitting Bilateral Corneal Lenses (Not Aphakia Prescription & Fitting Bilateral Corneal Lenses (Not Aphakia 32919 018 JUNG-VILLANUEVA , ALEXUS DoD Non-Physician Phone Call To Patient/Provider Brief (5-10min) Non-Physician Phone Call To Patient/Provider Brief (5-10min) 64780 018 CATRINA SMITH [employer] Services Fitting Monofocals (Not For Aphakia) Spectacles Services Fitting Monofocals (Not For Aphakia) 07922 018 MOE SINGH DoD Non-Physician Phone Call To Patient/Provider Brief (5-10min) Non-Physician Phone Call To Patient/Provider Brief (5-10min) 74340 017 MIESHA HENRY [employer] Qual Nonphys Healthcare Prof Estab Patient Internet Med Svc Qual Nonphys Healthcare Prof Estab Patient [id number] 017 GABINO BLACK [facility] Threshold Audiogram (Pure Tone) Automated Threshold Audiogram (Pure Tone) Automated 0208T 017 NANY ROJAS [facility] Determination Of Refractive State Determination Of Refractive State 79278 017 ALEXUS BRANTLEY [facility] Ophthalmological Prior Patient Start Comprehensive Care Ophthalmological Prior Patient Start Comprehensive Care 93988 017 JUNG-KAY , ALEXUS [facility] Spectacles Services Fitting Monofocals (Not For Aphakia) Spectacles Services Fitting Monofocals (Not For Aphakia) 45768 016 FELTON DILLARD Determination Of Refractive State Determination Of Refractive State 016 FELTON DILLARD Ophthalmological Prior Patient Start Comprehensive Care Ophthalmological Prior Patient Start Comprehensive Care 24053 016 FELTON DILLARD Threshold Audiogram (Pure Tone) Automated Threshold Audiogram (Pure Tone) Automated 0208T 016 JUAN CRAWFORD Patient education, not otherwise cla ified, non-physician provider, group, per se ion 016 JUAN CRAWFORD Psychometric Neuropsych Testing Battery Admin By Computer Psychometric Neuropsych Testing Battery Admin By Computer 58711 015 YEFRI HAMILTON Psychiatric Evaluation Review of Records and Reports Psychiatric Evaluation Review of Records and Reports 06406 015 YEFRI HAMILTON [employer] Services Fitting Monofocals (Not For Aphakia) Spectacles Services Fitting Monofocals (Not For Aphakia) 46028 015 FELTON DILLARD Determination Of Refractive State Determination Of Refractive State 94449 015 FELTON DILLARD Ophthalmological Prior Patient Start Comprehensive Care Ophthalmological Prior Patient Start Comprehensive Care 60783 015 FELTON DILLARD Exercises A isted Exercises For ROM Exercises Assisted Exercises For ROM 68597 015 RICK BATEMAN Physical Medicine Physical Therapy Re-Evaluation Physical Medicine Physical Therapy Re-Evaluation 69069 015 RICK BATEMAN Physical Therapy Neuromuscular Re-education Physical Therapy Neuromuscular Re-education [id number] 015 FELICIANO SLATER Physical Therapy: ___ Se ion Segments, 15 Minutes Each Physical Therapy: ___ Session Segments, 15 Minutes Each 94794 015 FELICIANO SLATER Exercises A isted Exercises For ROM Exercises Assisted Exercises For ROM 13207 015 RICK BATEMAN Physical Medicine Physical Therapy Re-Evaluation Physical Medicine Physical Therapy Re-Evaluation 96510 015 RICK BATEMAN Physical Therapy Neuromuscular Re-education Physical Therapy Neuromuscular Re-education 18990 015 FERNY DOMINGO Physical Therapy: ___ Se ion Segments, 15 Minutes Each Physical Therapy: ___ Session Segments, 15 Minutes Each 82549 015 FERNY DOMINGO Physical Therapy Neuromuscular Re-education Physical Therapy Neuromuscular Re-education 02821 015 OMAR, YAZMIN E Pilar Physical Therapy: ___ Se ion Segments, 15 Minutes Each Physical Therapy: ___ Session Segments, 15 Minutes Each 89611 015 OMAR, YAZMIN E [facility] Physical Therapy: ___ Se ion Segments, 15 Minutes Each Physical Therapy: ___ Session Segments, 15 Minutes Each 03812 015 FERNY DOMINGO Physical Therapy Neuromuscular Re-education Physical Therapy Neuromuscular Re-education 06711 015 FENRY DOMINGO Exercises A isted Exercises For ROM Exercises [place] 32826 015 RICK BATEMAN Physical Medicine Physical Therapy Evaluation Physical Medicine Physical Therapy Evaluation 10597 015 RICK BATEMAN Exercises A isted Exercises For ROM Exercises Assisted [place]ercises [place] ROM 46538 014 RICK BATEMAN Physical Medicine Physical Therapy Re-Evaluation Physical Medicine Physical Therapy Re-Evaluation 63156 014 RICK BATEMAN Exercises A isted Exercises For ROM Exercises Assisted Exercises [place] ROM 56187 014 RICK BATEMAN Physical Medicine Physical Therapy Re-Evaluation Physical Medicine Physical Therapy Re-Evaluation 14459 RICK BATEMAN [facility] Modalities Cryotherapy Cold Packs Modalities Cryotherapy Cold Packs 74766 014 CHAYO [facility] Physical Therapy: ___ Se ion Segments, 15 Minutes Each Physical Therapy: ___ Session Segments, 15 Minutes Each 12875 014 CHAYO, [facility] Physical Therapy Neuromuscular Re-education Physical Therapy Neuromuscular Re-education 98253 014 CHAYO [facility] Modalities Cryotherapy Cold Packs Modalities Cryotherapy Cold Packs [address] [facility] Physical Therapy Neuromuscular Re-education Physical Therapy Neuromuscular Re-education 43707 014 [facility] Therapy: ___ Se ion Segments, 15 Minutes Each Physical Therapy: ___ Session Segments, 15 Minutes Each 79319 014 [facility] Modalities Cryotherapy Cold Packs Modalities Cryotherapy Cold Packs 49887 014 CHAYO [facility] Physical Therapy Neuromuscular Re-education Physical Therapy Neuromuscular Re-education 33302 014 [facility] Physical Therapy: ___ Se ion Segments, 15 Minutes Each Physical Therapy: ___ Session Segments, 15 Minutes Each 54251 014 CHAYO [facility] Physical Therapy Neuromuscular Re-education Physical Therapy Neuromuscular Re-education 43731 014 [facility] Physical Therapy: ___ Se ion Segments, 15 Minutes Each Physical Therapy: ___ Session Segments, 15 Minutes Each 26506 014 [facility] Exercises A isted Exercises For ROM Exercises Assisted Exercises For ROM 96278 014 RICK BATEMAN [facility] Physical Medicine Physical Therapy Evaluation Physical Medicine Physical Therapy Evaluation 27154 014 RICK BATEMAN [facility] Spectacles Services Fitting Monofocals (Not For Aphakia) Spectacles Services Fitting Monofocals (Not For Aphakia) 00252 014 JUAN JOSE LEE [facility] Determination Of Refractive State Determination Of Refractive State 62923 JUAN JOSE LEE [facility] Ophthalmological New Patient Start Comprehensive Care Ophthalmological New Patient Start Comprehensive Care 73162 JUAN JOSE LEE [facility] Taping Knee Taping Knee 23868 ELIZABETHDANTE ONEILL [facility] Physical Medicine Physical Therapy Re-Evaluation Physical Medicine Physical Therapy Re-Evaluation 39942 ELIZABETHMAI DANTE Jamison [facility] Modalities Iontophoresis Modalities Iontophoresis 27568 APARNA MARCELO [facility] Exercises A isted Exercises For ROM Exercises [place] 89271 APARNA MARCELO [facility] Physical Therapy Neuromuscular Re-education Physical Therapy Neuromuscular Re-education 46011 APARNA MARCELO [facility] Ophthalmological Prior Patient Start Intermediate Level Care Ophthalmological Prior Patient Start Intermediate Level Care 82295 IGNACIA AGUILAR Determination Of Refractive State Determination Of Refractive State 36610 IGNACIA AGUILAR [facility] Fitting Monofocals (Not For Aphakia) [facility] Fitting Monofocals (Not For Aphakia) 69439 IGNACIA AGUILAR [facility] Brief communication technology-based service, e.g. virtual check-in, [...] appointment; 5-10 minutes of medical discu ion FELIZ TILLMAN [facility] Preventive Medicine Results Documented/Reviewed Body Ma Index Preventive Medicine Results Documented/Reviewed Body Mass Index 3008F FELIZ TILLMAN [facility] Waiver services; not otherwise specified (NOS) TORSTEN CAPONE [facility] Non-Physician Phone Call To Patient/Provider Brief (5-10min) Non-Physician Phone Call To Patient/Provider Brief (5-10min) 05951 RYAN MILLER [facility] Ophthalmological Prior Patient Start Comprehensive Care Ophthalmological Prior Patient Start Comprehensive Care 90176 ROSI EDDY [facility] Health And Behav A e mt Each 15 Min Initial A e ment Health And Behav Assessmt Each 15 Min Initial Assessment 55052 BETTY MENJIVAR [facility] Social History Combined list of available smoking, tobacco, and other social history from 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 Social History Type Response Date Comment [facility] e Sex Representation Male (finding) 01/11/2021 Un known Organization Tobacco Never-cigarette user Cigarette use:. Never-other tobacco user (not cigarettes) Other Tobacco use:. Ambulatory Pharmacy Sexual Orientation Ambula tory Pharmacy Gender identity Ambulator y Pharmacy This section is an empty social history section. [facility] Assessment and Plan Combined list of future care activities from Department of Defense and Veterans Affairs facilities (e.g., assessment and plan notes, appointments, orders, and referrals). Additional future care activities may be listed in the Plan of Care section. Result Assessment and Plan Date Source Assessment and Plan Extracted from:Title : MHA/PHA Author: ONRMA PAINTER PA Date: 10/13/23 Encounter for issue [...] screening tools. ? AUDIT-C=0 PCL-C=0 PHQ-8=0 ? Inspector Raw Quartz (SM)?denies suicidal or homicidal ideations at this time and is not at an elevated risk. At this time no tasking or consults needed.?SM made?aware of [facility] ()?services available, ?One Source, Radiation Physicist Services, Walk in , Emergency Room (ER) [...] at age 37. Compared medications reported by student services counselor to active medication list in?[facility]?and any variances were documented.? ? Any complaints or issues identified while conducting the PHA have been addressed and or referred back to the patient's?primary care transport nurse (PCM)?for care.?SM?advised to follow up with PCM, [...] years or PRN if symptomatic.? Extracted from:Title: [facility] Comp. Audio Author: LARRY CUEVAS, AuD Date: 09/12/23 1.?Hearing normal GENERAL INFORMATION History Branch:? ?[employer]? Command:?[facility] MOS:?2A5 ? ? VISIT REASON Hearing loss or concerns: Abnormal [id number] @ [facility] over the past couple of weeks for [...] No? Ototoxic medications:? No? ? PRIOR TESTING ?[id number]'s [facility] Medical ( and 29 AUG 2023) HEARING [...] and?improved??compared with previous testing recently obtained @ [facility]. No STS is noted in either ear compared to current [id number] on record (2009). ? SPEECH AUDIOMETRY Right: Word recognition was? excellent??at?55 dB HL ?Masking level: _40dB HL ? Left: Word recognition was? ? ?excellent?at?55 dB HL ?Masking level:?40 dB HL ? SUMMARY Today s results indicate normal hearing in both ears at all test frequencies with good reliability. Normal ME function, bilaterally. ? 15 min (INDV) high school counselor on proper hand formed (Sound Guard) hearing protection insertion and uses in noise. Annual HCP review completed today ? ? ? PLAN 1) Annual [id number] back @ [facility] (2024) for continued annual monitoring 2) Use of proper HP in all noise designated areas 3) Future audio as needed ? Pee Almanza James Doctor of Audiology Audiology Dept. [place] [facility] Protection [facility] [phone] ? Extracted from:Title: FTF-PHA Author: ABHIJIT CAVLO MD Date: 08/31/22 EXAM, FORMAL OCCUPATIONAL HEALTH [...] to 60 minutes before a meal, Pharmacy: [facility]/pharmacy #[id number] [External Rx] Lt Col Abhijit Calvo M.D. Chief of Aerospace Medicine (SGP) [employer] Gaudencio FERNANDEZ MA ? ? 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 07/17/[address] [place] [address] Assessment and Plan Extracted from:Title : MHA/PHA [...] screening tools. ? AUDIT-C=0 PCL-C=0 PHQ-8=0 ? Inspector Raw Quartz (SM)?denies suicidal or homicidal ideations at this time and is not at an elevated risk. At this time no tasking or consults needed.?SM made?aware of [facility] ()?services available, ?One Source, Radiation Physicist Services, Walk in , Emergency Room (ER) [...] at age 37. Compared medications reported by student services counselor to active medication list in?[facility]?and any variances were documented.? ? Any complaints or issues identified while conducting the PHA have been addressed and or referred back to the patient's?primary care transport nurse (PCM)?for care.?SM?advised to follow up with PCM, [...] normal GENERAL INFORMATION History Branch:? ?[employer]? Command:?[employer] [facility] MOS:?2A5 ? ? VISIT REASON Hearing loss or concerns: Abnormal [id number] @ [facility] over the past couple of weeks for [...] No? Ototoxic medications:? No? ? PRIOR TESTING ?[id number]'s [facility] ( and 29 AUG 2023) HEARING AID [...] and?improved??compared with previous testing recently obtained @ [facility]. No STS is noted in either ear compared to current [id number] on record (2009). ? SPEECH AUDIOMETRY Right: Word recognition was? excellent??at?55 dB HL ?Masking level: _40dB HL ? Left: Word recognition was? ? ?excellent?at?55 dB HL ?Masking level:?40 dB HL ? SUMMARY Today s results indicate normal hearing in both ears at all test frequencies with good reliability. Normal ME function, bilaterally. ? 15 min (INDV) high school counselor on proper hand formed (Sound Guard) hearing protection insertion and uses in noise. Annual HCP review completed today ? ? ? PLAN 1) Annual [id number] back @ [facility] (2024) for continued annual monitoring 2) Use of proper HP in all noise designated areas 3) Future audio as needed ? Pee Almanza, Larry Livingston of Audiology Audiology Dept. [facility] [phone] ? Extracted from:Title: FTF-PHA Author: ABHIJIT CALVO [...] to 60 minutes before a meal, Pharmacy: [facility]/pharmacy #[id number] [External Rx] Lt Col Abhijit Calvo M.D. Chief of Aerospace Medicine (SGP) [facility] SEAN FERNANDEZ ? ? 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 07/17/[address]24 [id number] [place] [address] Assessment and Plan Extracted from:Title : MHA/PHA [...] screening tools. ? AUDIT-C=0 PCL-C=0 PHQ-8=0 ? Inspector Raw Quartz (SM)?denies suicidal or homicidal ideations at this time and is not at an elevated risk. At this time no tasking or consults needed.?SM made?aware of [facility] ()?services available, ?One Source, Radiation Physicist Services, Walk in , Emergency Room (ER) [...] at age 37. Compared medications reported by student services counselor to active medication list in?S Maribel/JLV?and any variances were documented.? ? Any complaints or issues identified while conducting the PHA have been addressed and or referred back to the patient's?primary care transport nurse (PCM)?for care.?SM?advised to follow up with PCM, Behavioral Health, ER/911, or [facility] One Source as needed for continuation [...] VISIT REASON Hearing loss or concerns: Abnormal [id number] @ [facility] over the past couple of weeks for [...] Ototoxic medications:? No? ? PRIOR TESTING ?NICK's [facility] ( and 29 AUG 2023) HEARING AID [...] and?improved??compared with previous testing recently obtained @ [facility]. No STS is noted in either ear compared to current [id number] on record (2009). ? SPEECH AUDIOMETRY Right: Word recognition was? excellent??at?55 dB HL ?Masking level: _40dB HL ? Left: Word recognition was? ? ?excellent?at?55 dB HL ?Masking level:?40 dB HL ? SUMMARY Today s results indicate normal hearing in both ears at all test frequencies with good reliability. Normal ME function, bilaterally. ? 15 min (INDV) high school counselor on proper hand formed (Sound Guard) hearing protection insertion and uses in noise. Annual HCP review completed today ? ? ? PLAN 1) Annual [id number] back @ [facility] (2024) for continued annual monitoring 2) Use of proper HP in all noise designated areas 3) Future audio as needed ? Pee Almanza CCC-Jasmyn, Larry Livingston of Audiology Audiology Dept. [facility] JAYLEN ? Extracted from:Title: FTF-PHA Author: [...] 60 minutes before a meal, Pharmacy: [facility]/pharmacy #[id number] [External Rx] Lt Col Abhijit Calvo M.D. Chief of Aerospace Medicine (SGP) [employer] Gaudencio FERNANDEZ MA ? ? 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 07/17/[address] [place] [address] Functional Status Combined list of recent functional and cognitive assessments recorded at [facility] of Defense and [facility] ([place] Functional [place] Measurement (FIM) Scale: 1 = Total Assistance (Subject = 0% +), 2 = Maximal Assistance (Subject = 25% +), 3 = Moderate Assistance (Subject = 50% +), 4 = Minimal Assistance (Subject = 75% +), 5 = Supervision, 6 = Modified [place] (Device), 7 = Complete [place] (Timely, Safely). Assessment Date/Time Source Assessment Type Assessment Skill Assessment Score Assessment Details No data available for this section
--- NOTE | 2024-07-17 08:06 | MHC.OFFVIS ---
Intake Visit Reasons: OV- Left knee pain follow up Intake Note: Rickey is a 38 year old male who presents today for a follow up of his left knee pain. Patient reports that his left knee has become increasingly painful. He is interested in a possible injection. He is taking tylenol and ibuprofene for his pain. His swelling is increasing and consistent. Allergies No Known Allergies Allergy (Verified 07/17/24 08:09) HPI HPI OV- Left knee pain follow up: Details: Rickey is a 38 year old male who presents today for a follow up of his left knee pain. Patient reports that his left knee has become increasingly painful. He is interested in a possible injection. He is taking tylenol and ibuprofene for his pain. His swelling is increasing and consistent. [facility] Medical History Annual physical exam Right testicular pain GERD (gastroesophageal reflux disease) Rosacea Somnolence, daytime Retrognathia Obesity (BMI 30.0-34.9) Anxiety and depression Obstructive sleep apnea History of esophageal dilatation Esophagitis Surgical History History of vasectomy Bilateral inguinal hernia (BIH) (03/28/24) History of esophagogastroduodenoscopy (EGD) H/O nasal septoplasty History of tonsillectomy History of knee surgery Family History Father Hypertension Heart attack, Onset Age: 35 Mother No problems noted. 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 Current occupational exposures/hazards: No Cognitive needs: No Hearing needs: No Vision needs: Yes Review of Systems Const All systems reviewed & are unremarkable except as noted in HPI and below Physical Exam Extrem Other: On inspection, there is noted to be increased prominence of the left tibial tubercle when compared to the right, as well as a well-healed surgical scar in the anterior aspect of the left knee No edema, erythema, ecchymosis noted No lacerations, abrasions, open areas No evidence of infection Tenderness to palpation over the left tibial tubercle, medial and lateral joint lines, peripatellar and suprapatellar regions of the left knee No tenderness to palpation of the posterior left knee Patient is able to extend the left knee to 0 degrees and flex to approximately 120 degrees without difficulty No ligamentous laxity noted Distal sensation intact Capillary refill brisk Positive Adry's on both the medial and lateral aspects of the left knee Positive patellar grind on the left Office Procedures Joint Inj/Aspir; Non-Pain Clin Joint Injection/Drain Prep: site was prepped using aseptic technique and injection warnings given Approach Used: anterolateral Procedure: The patient tolerated the procedure well, but had some pain with the injection and there was some relief with the local anesthesia Shoulders, Hips, Knees, Knee Large Joint Injection [id number]: Left Knee Coding Procedure code (CPT) selection complete Assessment & Plan Assessment & Plan (1) Patellofemoral arthralgia of left knee: Code(s): M25.562 - Pain in left knee Category: Medical (2) Left knee pain: Code(s): M25.562 - Pain in left knee Category: Medical Plan 1. Patellofemoral arthralgia and lateralization of patella of left knee Patient is educated about this condition and the treatment options available Patient would like to proceed with steroid injection at this time The risks and benefits of a steroid injection including but not limited to risk of damage to blood vessels, nerves, tendons, infection, skin bleaching, failure to improve symptoms, increased pain, and possible need for further injections or other intervention were discussed with the patient and the patient wishes to proceed with the steroid injection. Once consent was obtained, I aseptically prepped the area over the anterolateral joint line of the left knee. I then injected the area over the lateral epicondyle with a combination of 80 mg of dexamethasone and 8 mL of 1% lidocaine. The patient tolerated the procedure well with no complications. If the patient continues to experience symptoms over the following few weeks or months, they can make an appointment to return and discuss alternative treatment measures, such as physical therapy. Patient was also referred to physical therapy Follow-up prn Orders: Orders PT Evaluation and Treatment Today M25.562 - Pain in left knee Coding Level of Care Code Est Pt Level 3 (32300) Diagnoses Patellofemoral arthralgia of left knee M25.562 Left knee pain M25.562 CPT Codes Shoulders, Hips, Knees, - Knee Large Joint Injection : Left Knee ([id number])
== END 2024-07-17 08:51 | disposition home or self-care (01) ==
LOC: HO.HOS 07:47
PROVIDERS: PCP Internal Medicine
DX: M25.562 Pain in left knee (principal)
CPT/HCPCS: 20610; 99213

== ENCOUNTER → 2024-07-17 07:47 | Outpatient (BNVA) | payer OTHER, SELFPAY | PROVIDERS: PCP Internal Medicine | DX: M25.562 Pain in left knee (principal) | CPT/HCPCS: 20610; 99212; J1010; J2003 ==

== ENCOUNTER 2024-07-31 10:53 | Outpatient (AMB) | payer OTHER, SELFPAY ==
--- NOTE | 2024-07-31 10:56 | A.OFFVIS_ITS ---
Vital Signs 07/31/24 11:07 Height 5 ft 11 in Weight 243 lb BMI 33.9 BP 131/63 Blood Pressure Location Rt brachial Position Sitting Pulse 68 Intake Visit Reasons: s/p Intake Note: Patient being seen today as an urgent appointment. Patient c/o: lump along incision noticed right after surgery. Still pain when bending and walking. At times tingling sensation that spreads down left leg. Tylenol and ibuprofen doesn't not help as much. Hx: bilateral open inguinal herniorrhaphy with Bard mesh 03-28-2024. 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 Vivar last March,. He has had lingering pain in the right groin on the repair site. 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 He says he does not have this when he is not moving or when he is in bed. Denies any palpable mass. He denies any GI complaints or urinary complaints. [facility] Medical History (Updated 07/31/24 @ 11:14 by Vaughn Cotto MD) Rt inguinal pain Annual physical exam Right testicular pain GERD (gastroesophageal reflux disease) Rosacea Somnolence, daytime Retrognathia Obesity (BMI 30.0-34.9) Anxiety and depression Obstructive sleep apnea History of esophageal dilatation Esophagitis Surgical History History of vasectomy Bilateral inguinal hernia (BIH) (03/28/24) History of esophagogastroduodenoscopy (EGD) H/O nasal septoplasty History of tonsillectomy History of knee surgery Family History Father Hypertension Heart attack, Onset Age: 35 Mother No problems noted. 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 Current occupational exposures/hazards: No Cognitive needs: No Hearing needs: No Vision needs: Yes Review of Systems Const Denies chills and Denies fever(s) Card Denies chest pain, Denies dyspnea and Denies dyspnea on exertion Resp Denies cough, Denies dyspnea and Denies dyspnea on exertion GI Denies hematochezia and Denies change in bowel habits Denies hematuria and Denies difficulty urinating Musc Denies back pain and Denies limited range of motion Neuro Denies focal weakness and Denies convulsions Psych Denies depression and Denies mood swings Physical Exam Const General: comfortable and no acute distress Resp Effort & Inspection: normal respiratory effort GI Other: No palpable mass on both the right and the left inguinal hernia repair sites. No skin changes except for the scar. No induration or fluctuance. No significant tenderness currently Assessment & Plan Assessment & Plan (1) Rt inguinal pain: Code(s): R10.31 - Right lower quadrant pain Category: Medical Plan: He continues to have pain in the right inguinal area after repair of the inguinal hernia on both sides by Dr. Vivar last March,. I do not feel any suggestion of recurrent hernia. I am going to order for a CAT scan of the pelvis to check his inguinal areas. I will see him again in the office after that. In the meantime, he will stay on light duty because of the nature of his work. Coding Level of Care Code Est Pt Level 3 (28437) Diagnoses Rt inguinal pain R10.31
[2024-07-31 11:07] VITALS: BP 131/63; PULSE 68; BMI 33.9
--- OUTSIDE RECORDS SUMMARY | 2024-07-31 11:58 | XMS_ITS | Clinical Summary ---
Author Organization 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
--- OUTSIDE RECORDS SUMMARY | 2024-07-31 11:58 | XMS_ITS | Patient Health Record ---
Author Organization [facility] Address [address] [place] [address] Care Team Providers Care Gantry Rigger Name Role Phone JOSHUA MORATAYA Unavailable [phone] [facility], [facility] Unavailable Unavailable Allergies No Known Allergies Reason For Referral No Information Medications Medication SIG (Take, Route, Frequency, Duration) Notes Start Date End Date Status Omeprazole 20 MG Tablet Delayed Release 1 tablet Orally twice a day; Duration: 30 day(s) 09/24/2020 Active Social History Social History Additional Details Category Social Info Options Details Miscellaneous: Caffeine: 1-2 cups per day Drugs/Alcohol: Do you drink alcohol? Yes Tobacco Use: exposure to Second Hand Smoke No Problems Problem Type SNOMED Code ICD Code Onset Dates Problem Status W/U Status Risk Notes Problem Gastro-esophagea l reflux disease without esophagitis (413999554) Gastro-esophage al reflux disease without esophagitis (K21.9) Active confirmed Problem Allergic rhinitis caused by pollen (39646204) Seasonal allergic rhinitis due to pollen (J30.1) Active confirmed Problem Dysphagia (69093011) Dysphagia, unspecified type (R13.10) Active confirmed Problem Allergic rhinitis caused by pollen (disorder) (59102388) Allergic rhinitis due to pollen (J30.1) 8 Active confirmed Problem Chronic maxillary sinusitis (30979761) Chronic maxillary sinusitis (J32.0) 8 Active confirmed Problem Deviated nasal septum (920099050) Deviated nasal septum (J34.2) 8 Active confirmed Problem Hypertrophy of nasal turbinates (77837500) Hypertrophy of nasal turbinates (J34.3) 8 Active confirmed Plan Of Treatment No Information Insurance Providers Payer Name Payer Address Payer Phone Subscriber Number Group Number Insured Name Patient Relationship to Insured Coverage Start Date Coverage End Date [employer] [address] [place] [phone] [id number] Rickey Santamaria Self - patient is the insured Medical (General) History Medical History History ICD Code sinusitis Nasal Allergies Surgical History Surgery Date(Month/Year) latera implantation, revision submucousa resection of turbinates 2018 Tonsillectomy 10/11/2019
--- OUTSIDE RECORDS SUMMARY | 2024-07-31 11:59 | XMS_ITS | Continuity of Care Document ---
Author Name [facility] Organization [facility] Care Team Providers Care Rn Med Surg Name Role Phone [facility] Unavailable Unavailable Problems [...] Ordered 2022 1.0 0310C-A F-C-66t h [facility] FAMOTIDINE (famotidine ), 20 MG, TABLET, ORAL, [employer], 100 ea. BOTTLE Cancele d [id number] : 2023 0 Pharmac y Data Transac [...] y Access ibuprofen 0 total [facility] methylPREDN ISolone 4 mg oral tablet methylPR EDNISolo ne 4 mg oral tablet Start Date: 11/23/20 Stop Date: 07/12/22 Status: Disconti nued Repeat number: 1 Discont inued 07/12/20222022 No Facilit y Access omeprazole 20 mg oral delayed release capsule 1 cap(s), Oral, Daily, 30 to 60 minutes before a meal, # 90 cap(s), 3 total refill(s ), [id number] Oral (given by mouth) Ordered 2022 90.0 0310C-A F-C-66t h [facility] omeprazole 20 mg oral delayed release capsule [...] [employer] [facility], 90 ea. BOTTLE Cancele d [id number] : 2023 0 Pharmac y Data Transac tion Service Facilit y SUCRALFATE (SUCRALFATE ), 1G, TABLET, ORAL, [employer], 500 ea. 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 Comments Source tetanus, diphtheria, acellular pertu is 2021 [facility] [id number] comple t ed Result Comment: Route: Unknown Manufactu rer: OT ([facility]) 0310C-A F-C-66t h [facility] influenza, injectable, quadrivalent- pf 2021 [facility] [id number] comple t ed Result Comment: Route: Unknown Manufactu rer: OT ([facility]) 0310C-A F-C-66t h MEDGRP [employer] COVID Vaccine [...] influenza, injectable, quadrivalent- pf 2020 [id number] 150 Yvolver ne complet ed influenza , injectabl e, quadrival ent-pf 12/10/20 Given Ambulat ory Pharmac y Influenza, injectable, quadrivalent, preservative free 1 2020 [id number] 150 [facility] ([facility]) complet ed Influenza , injectabl e, quadrival ent, preservat angel free DoD COVID Vaccine Moderna 2020 TRANSCR IBED 207 complet ed COVID Vaccine Moderna 12/09/20 Given Ambulat ory Pharmac y COVID-19, mRNA, LNP-S, PF, 100 mcg or 50 mcg dose 2020 SALINI, Moderna [employer] (MOD) Not Given COVID-19, mRNA, LNP-S, PF, 100 mcg or 50 mcg dose DoD SARS-COV-2 (COVID-19) vaccine, mRNA, spike protein, LNP, preservative free, 100 mcg or 50 mcg dose 1 2020 207 PillPacka Family[employer] Inc. (MOD) complet ed SARS-COV- 2 (COVID-19 ) vaccine, mRNA, spike protein, LNP, preservat angel free, 100 mcg or 50 mcg dose DoD influenza, injectable, quadrivalent- pf 2019 [id number] 150 Seqirus complet ed influenza , injectabl e, quadrival ent-pf 02/28/20 Given Ambulat ory Pharmac y Influenza, injectable, quadrivalent, preservative free 1 2019 [id number] 150 Se[employer]irus (SEQ) complet ed Influenza , injectabl e, quadrival ent, preservat angel free DoD influenza, injectable, quadrivalent- pf 2018 [id number] 150 [employer] complet ed influenza , injectabl e, quadrival ent-pf 02/27/19 Given Ambulat ory Pharmac y Influenza, injectable, quadrivalent, preservative free 13 2018 [id number] 150 Seqirus (SEQ) complet ed Influenza , injectabl e, quadrival ent, preservat angel free DoD influenza, injectable, quadrivalent- pf 2017 [id number] 150 Se[employer]irus complet ed influenza , injectabl e, quadrival ent-pf 02/05/18 Given Ambulat ory Pharmac y Influenza, injectable, quadrivalent, preservative free 12 2017 [id number] 150 Se[employer]irus (SEQ) comple t ed Influenza , injectabl e, quadrival ent, preservat angel free DoD influenza, injectable, quadrivalent- pf 2016 [id number] 150 [employer] comple t ed influenza , injectabl e, quadrival ent-pf 01/30/17 Given Ambulat ory Pharmac y Influenza, injectable, quadrivalent, preservative free 11 2016 [id number] 150 (IDB) complet ed Influenza , injectabl e, quadrival ent, preservat angel free DoD influenza, seasonal, injectable-pf 2015 [id number] 1A 140 Seqirus complet ed influenza , seasonal, injectabl e-pf 12/23/15 Given Ambulat ory Pharmac y Influenza, seasonal, injectable, preservative free 10 2015 [id number] 1A 140 Seqirus (SEQ) complet ed Influenza , seasonal, injectabl e, preservat angel free DoD influenza, live, intranasal,qu adrivalent 2014 [id number] 149 Mediune Inc comple t ed influenza , live, intranasa l,quadriv alent 01/05/15 Given Ambulat ory Pharmac y typhoid Vi capsular polysaccharid e vac 2014 [id number] 101 sanofi pasteur complet ed typhoid Vi capsular polysacch aride vac 01/05/15 Given Ambulat ory Pharmac y typhoid Vi capsular polysaccharid e vaccine 1 2014 K1536 101 Sanofi Pasteur ([facility]) complet ed typhoid Vi capsular polysacch aride vaccine DoD influenza, live, intranasal, quadrivalent 9 2014 [id number] 149 PublicVine, Inc. (MED) complet ed influenza , live, intranasa l, quadrival ent DoD Human Papillomaviru s,quadrivalen t(HPV4) 2014 [id number] 62 Merck & Company Inc complet ed Human Papilloma virus,holden drivalent (HPV4) 05/16/14 Given Ambulat ory Pharmac y human papilloma virus vaccine, quadrivalent 0 2014 [id number] 62 Merck (MSD) complet ed human papilloma virus vaccine, quadrival ent DoD influenza, live, intranasal,qu adrivalent 2013 [id number] 149 MediBioAnalytixune Inc comple t ed influenza , live, intranasa l,quadriv alent 01/20/14 Given Ambulat ory Pharmac y influenza, live, intranasal, quadrivalent 8 2013 [id number] 149 NoDaysOffune, Inc. (MED) complet ed influenza , live, intranasa l, quadrival ent DoD influenza, live, intranasal,qu adrivalent 2012 [id number] 149 Medimmune Inc comple t ed influenza , live, intranasa l,quadriv alent 12/24/12 Given Ambulat ory Pharmac y influenza, live, intranasal, quadrivalent 7 2012 [id number] 149 MedIBioAnalytixune, Inc. (MED) complet ed influenza , live, intranasa l, quadrival ent DoD influenza, seasonal, injectable-pf 2011 [id number] 140 sanofi pasteur complet ed influenza , seasonal, injectabl e-pf 03/08/12 Given Ambulat ory Pharmac y Influenza, seasonal, injectable, preservative free 6 2011 [id number] 140 Sanofi Pasteur (PMC) complet ed Influenza , seasonal, injectabl e, preservat angel free DoD tetanus, diphtheria, acellular pertu is 2011 [id number] 5AA 115 GlaxoSmithKli ar complet ed tetanus, diphtheri a, acellular pertussis 10/26/11 Given Ambulat ory Pharmac y tetanus toxoid, reduced diphtheria toxoid, and acellular pertu is vaccine, adsorbed 0 2011 [id number] 5AA 115 [facility] ([place]) complet ed tetanus toxoid, reduced diphtheri a toxoid, and acellular pertussis vaccine, adsorbed DoD influenza virus vaccine, live 2010 [id number] 111 Medimmune Inc comple t ed influenza virus vaccine, live 11/23/10 Given Ambulat ory Pharmac y influenza virus vaccine, live, attenuated, for intranasal use 5 2010 [id number] 111 MedIBswift, Inc. (MED) complet ed influenza virus vaccine, live, attenuate d, for intranasa l use [facility] influenza virus vaccine,split 2009 [id number] 15 CSL Behring complet ed influenza virus vaccine,s plit 01/05/10 Given Ambulat ory Pharmac y influenza virus vaccine, split virus (incl. purified surface antigen)-reti red CODE 1 2009 [id number] 15 CSsetObjectulike, Inc. (CSL) complet ed influenza virus vaccine, split virus (incl. purified surface antigen)- retired CODE DoD Novel influenza-H1N 1-09, injectable 2009 [id number] 127 sanofi pasteur complet ed Novel influenza -X3O4-88, injectabl e 10/05/09 Given Ambulat ory Pharmac y Novel influenza-H1N 1-09, injectable 1 2009 [id number] 127 Sanofi Pasteur (PMC) complet ed Novel influenza -E6T9-60, injectabl e DoD influenza virus vaccine, live 2008 [id number] 111 Jammit Inc complet ed influenza virus vaccine, live 01/19/09 Given Ambulat ory Pharmac y influenza virus vaccine, live, attenuated, for intranasal use 1 2008 [id number] 111 PublicVine, Inc. (MED) complet ed influenza virus vaccine, live, attenuate d, for intranasa l use DoD influenza virus vaccine, live 2007 [id number] 111 Jammit Inc comple t ed influenza virus vaccine, live 01/11/08 Given Ambulat ory Pharmac y influenza virus vaccine, live, attenuated, for intranasal use 1 2007 [id number] 111 PublicVine, Inc. (MED) complet ed influenza virus vaccine, live, attenuate d, for intranasa l use DoD hepatitis A adult vaccine 2007 [id number] 52 Merck & Company Inc complet ed hepatitis A adult vaccine 09/20/07 Given Ambulat ory Pharmac y hepatitis A vaccine, adult dosage 2 2007 [id number] 52 Merck (MSD) complet ed hepatitis A vaccine, adult dosage DoD tuberculin purified protein derivative 2006 [id number] 96 sanofi pasteur complet ed tuberculi n [...] adult dosage 1 2006 [id number] 52 [employer]line (SKB) complet ed hepatitis A vaccine, adult dosage DoD influenza virus vaccine,split 2006 [id number] 0AA 15 Yvolver ne complet ed influenza virus vaccine,s plit 01/11/07 Given Ambulat ory Pharmac y meningococcal A,C,Y,W-135 (MCV4P) 2006 [id number] 114 sanofi pasteur complet ed meningoco ccal A,C,Y,W-1 35 (MCV4P) 01/11/07 Given Ambulat ory Pharmac y poliovirus vaccine, inactivated 2006 A0126 10 sanofi pasteur complet ed polioviru s vaccine, inactivat ed 01/11/07 Given Ambulat ory Pharmac y tetanus-dipht h toxoids (Td) adult/adol 2006 [id number] 09 sanofi pasteur complet ed tetanus-d iphth toxoids (Td) adult/ado l 01/11/07 Given Ambulat ory Pharmac y tetanus and diphtheria toxoids, adsorbed, preservative free, for adult use (2 Lf of tetanus toxoid and 2 Lf of diphtheria toxoid) 1 2006 [id number] 09 Sanofi Pasteur ([facility]) complet ed tetanus and diphtheri a toxoids, adsorbed, preservat angel free, for adult use (2 Lf of tetanus toxoid and 2 Lf of diphtheri a toxoid) DoD poliovirus vaccine, inactivated 1 2006 A0126 10 Sanofi Pasteur ([facility]) complet ed polioviru s vaccine, inactivat ed DoD influenza virus vaccine, split virus (incl. purified surface antigen)-reti red CODE 1 2006 [id number] 0AA 15 WheeboxEquifax (SKB) complet ed influenza virus vaccine, split virus (incl. purified surface antigen)- retired CODE DoD meningococcal polysaccharid e (groups A, C, Y and W-135) diphtheria toxoid conjugate vaccine (MCV4P) 1 2006 [id number] 114 Sanofi Pasteur (PMC) complet ed meningoco [...] Prevention' s HIV diagnostic algorithm. Refer to [facility] Lab Guide for additional information : [email or web address] x Testing performed by Blayne kuhn 5600A-U [facility] Miscellan eous Sendouts Repository Sample Received (07/14/23 1:29 PM) 07/13 N 5600A[facility]U [facility] Vital Signs Combined list of inpatient and outpatient Vital Signs from Department of myAchy and Veterans Affairs, ranging from 12 months to all on record, depending upon the facility. Vital Sign Value Date Comments Source Blood Pressure Manual Automatic 08/31/2022 13:55:00 4479W-TB-O-66th [facility] [employer] Temperature Oral 36.7 Pat 08/31/2022 13:55:00 4415A-BR-U-66th [facility] [employer] Systolic Blood Pressure 124 mm[Hg] 09/01/19 23 13:55:00 5439P-DG-M-66th [facility] [employer] Diastolic Blood Pressure 79 mm[Hg] 023 13:55:00 6805T-VL-C-66th [facility] [employer] BP Site Right arm 08/31/2022 13:55:00 0133J-PF-C-66th [facility] [employer] Mean Arterial Pressure, Calc 94 mm[Hg] 08/31/2022 13:55:00 2799O-UI-K-66th [facility] [employer] Peripheral Pulse Rate 69 bpm 08/31/2022 13:55:00 7621G-SY-F-66th [facility] [employer] Respiratory Rate 16 br/min 08/31/2022 13:55:00 2310F-SX-U-66th [facility] [employer] Encounters Combined list of: 1) Encounters from Department of Veterans Affairs facilities going backup to the last 18 months, not all VA inpatient encounters are included; 2) Encounters from the Department of Defense facilities going backup to 280 months. Location Location Details Encounter Type Encounter Number Reason For Visit Attending Provider ADM Date DC Date Status Disposition Source [facility](Opt ometry) OUTPATIENT [id number] rout visit CHASE BARON 10/11 Released w/o Limitations [facility](O ptometr y) [facility](Fam Med Pod 2) OUTPATIENT [id number] health concern s w/ cardiac history LORRIE PATEL Y 10/14 Released w/o Limitations [facility](F am Med Pod 2) [facility](Fam Med Pod 2) OUTPATIENT [id number] ekg LORRIE PATEL Y 10/22 Released w/o Limitations [facility](F am Med Pod 2) [facility](Fam Med Pod 2) TELE CONSULT [id number] ON/OFF COUGH WITH MUCUS X 1 YR. APPT REQUEST ED. FELTON MARTIN 09/24 Referred for Appointment [facility](F am Med Pod 2) [facility](Fam Med Pod 2) TELE CONSULT [id number] Nose bleeds during exercis e. FELTON MARTIN 11/03 Referred for Appointment [facility](F am Med Pod 2) [facility] Medical [facility](Fam Med Pod 1) OUTPATIENT [id number] lt rib pain makes it difficu lt to breath and sleep on that side PILY FLORES 11/04 Released w/o Limitations [facility](F am Med Pod 1) [facility] Medical [facility](Fam Med Pod 2) OUTPATIENT [id number] Nose bleeds KAROLINA PLEITEZ 11/10 Released w/o Limitations [facility] Medical [facility](F am Med Pod 2) [facility] Medical [facility](Fam Med Pod 2) TELE CONSULT [id number] PHA RESPONS E NASSAUX, LORRIE Y 12/05 [facility] Medical [facility](F am Med Pod 2) [facility] Medical [facility](Fam Med Pod 2) TELE CONSULT [id number] sore throat, runny nose ABEITA, FRANCO A 01/01 Referred for Appointment [facility] Medical [facility](F am Med Pod 2) [facility] Medical [facility](Fam Med Pod 2) OUTPATIENT [id number] ear pain, throat, running nose WILLAM RODRIGUEZ 01/02 Sick at Home/Quarter s [facility] Medical [facility](F am Med Pod 2) [facility] Medical [facility](Fam Med Pod 2) OUTPATIENT [id number] skin issues NASSAUX, LORRIE Y 06/22 Released w/o Limitations [facility] Medical [facility](F am Med Pod 2) [facility] Medical [facility](Fam Med Pod 1) TELE CONSULT [id number] abdomin al pain, n/v, diarrhe a ILCUS, MASHA S 07/15 [facility] Medical [facility](F am Med Pod 1) [facility] Medical [facility](Fam Med Pod 2) TELE CONSULT [id number] Pt still not feeling well. Currenl ty on quarter s. ABEITA, FRANCO A 07/15 [facility] Medical [facility](F am Med Pod 2) [facility] Medical [facility](Fam Med Pod 2) OUTPATIENT [id number] f/u possibl e food poisoni ng NASSAUX, LORRIE Y 07/16 Released with Work/Duty Limitations [facility] Medical [facility](F am Med Pod 2) [facility] Group(Fam Med Pod 2) TELE CONSULT [id number] possibl e Salmene lla FRANCO MURPHY A 11/05 [facility](F am Med Pod 2) [facility](Fam Med Pod 2) TELE CONSULT [id number] request ing STD check w/ symptom s FRANCO MURPHY A 01/15 [facility](F am Med Pod 2) [facility](Fam Med Pod 2) OUTPATIENT [id number] possibl e std NASSAUX, LORRIE Y 01/18 Released w/o Limitations [facility](F am Med Pod 2) [facility]) OUTPATIENT [id number] SHARRI Castillo S 01/18 Released w/o Limitations [facility](P ublic Health) [facility](Fam Med Pod 1) TELE CONSULT [id number] PHA TORO GARDNER 01/19 Referred for Appointment [facility](F am Med Pod 1) [facility](Fam Med Pod 2) TELE CONSULT [id number] lab results FRANCO MURPHY A 01/29 [facility](F am Med Pod 2) [facility](Fam Med Pod 2) TELE CONSULT [id number] lab results FRANCO MURPHY A 02/26 [facility](F am Med Pod 2) [facility](Fam Med Pod 2) OUTPATIENT [id number] sore throat NASSAUX, LORRIE Y 08/24 Released w/o Limitations [facility](F am Med Pod 2) [facility](Fam Med Pod 2) OUTPATIENT [id number] PAIN TO LT KNEE TOYIN, TOD A 03/28 Released w/o Limitations [facility](F am Med Pod 2) [facility](Phy sical Therapy) OUTPATIENT [id number] l knee PUGIA, CHERISE 04/08 Released w/o Limitations [facility](P hysical Therapy ) [facility](Phy sical Therapy) OUTPATIENT [id number] l knee ALYSSADANIELA D 04/22 Released w/o Limitations [facility](P hysical Therapy ) [facility](Phy sical Therapy) OUTPATIENT [id number] l knee DANIELA SHAH D 04/25 Released w/o Limitations [facility](P hysical Therapy ) [facility](Phy sical Therapy) OUTPATIENT [id number] l knee DANIELA SHAH D 04/29 Released w/o Limitations [facility](P hysical Therapy ) [facility](Fam Med Pod 2) TELE CONSULT [id number] Notes Entered by: SHARRI BECERRA 03 May 2011 1108 ------- ------- ------- ------- -- AURELIANO CROUCH 05/03 Other Not Elsewhere Classified [facility](F am Med Pod 2) [facility](Phy sical Therapy) OUTPATIENT [id number] f/u l knee PUGIA, CHERISE 05/10 Released w/o Limitations [facility](P hysical Therapy ) [facility](Phy sical Therapy) OUTPATIENT [id number] VAHID TRIPLETT 05/22 Released w/o Limitations [facility](P hysical Therapy ) [facility](Phy sical Therapy) OUTPATIENT [id number] VAHID TRIPLETT 05/29 Released w/o Limitations [facility](P hysical Therapy ) [facility](Phy sical Therapy) OUTPATIENT [id number] APARNA MARCELO 06/01 Released w/o Limitations [facility](P hysical Therapy ) [facility](Phy sical Therapy) OUTPATIENT [id number] F/U KNEE PUGIA, CHERISE 06/15 Released w/o Limitations [facility](P hysical Therapy ) [facility](Katherine gomez [facility] Team C) OUTPATIENT [id number] renew 469/422 needed pt test LORRIE PATEL 07/05 Released w/o Limitations [facility](Srikanth thomas [facility] Team C) [facility](Katherine gomez [facility] Team E) TELE CONSULT [id number] Notes Entered by: ROSELINE STEELE 23 Nov 2011 1412 ------- ------- ------- ------- -- ref JEFFREYDEVINFRANCO A 11/22 [facility]erred for Appointment [facility] _Team_Lob [facility]) OUTPATIENT [id number] bumps on genital s IVONE ROSA 12/08 Released w/o Limitations [facility]_Te am_[facility] ) [facility] _Team_Lob o) TELE CONSULT [id number] Notes Entered by: Madeline ROSA 14 Dec 2011 1415 ------- ------- ------- ------- -- +ELIZABETH Caraballo 12/13 Referred for Appointment [facility] ) [facility] _Team_Lob o) OUTPATIENT [id number] f/u labs IVONE ROSA 12/14 Released w/o Limitations [facility]_Te [facility] ) [facility]) OUTPATIENT [id number] Notes Entered by: GOOD DACOSTA SA 15 Dec 2011 1552 ------- ------- ------- ------- -- + ALVA ACMACHO 12/14 Released w/o Limitations [facility]) [facility] Team E) OUTPATIENT [id number] extensi on of 422 LORRIE PATEL Y 12/18 Released with Work/Duty Limitations [facility] Team E) TELE CONSULT [id number] Notes Entered by: GOOD MEDINA 01 Feb 2012 1033 ------- ------- ------- ------- -- REFERFRANCO CABAN 01/31 Referred for Appointment [facility] Team E) [facility] Team E) OUTPATIENT [id number] sore throat NASSAUX, LORRIE Y 02/20 Released with Work/Duty Limitations [facility] Team E) [facility] Team E) OUTPATIENT [id number] profile NASSAUX, LORRIE Y 03/08 Released with Work/Duty Limitations [facility] Team E) [facility] Team E) OUTPATIENT [id number] nose bleeds NASSAUX, LORRIE Y 04/11 Released w/o Limitations [facility] Team E) [facility] Team E) OUTPATIENT [id number] poss sleep apnea NASSAUX, LORRIE Y 06/12 Released w/o Limitations [facility] Team E) TELE CONSULT [id number] Notes Entered by: LORRIE SIMON 20 Aug 2012 1357 ------- ------- ------- ------- -- MAIK DEL ROSARIO 08/20 Other Not Elsewhere Classified [facility] Team E) OUTPATIENT [id number] f/u on knee NASSAUX, LORRIE Y 09/11 Released w/o Limitations [facility]( [facility] Team E) OUTPATIENT [id number] excessi ve sweatin g NASSAUX, LORRIE Y 11/01 Released w/o Limitations [facility] Team E) TELE CONSULT [id number] Notes Entered by: MAIK JOSEPH 05 Dec 2012 1130 ------- ------- ------- ------- -- MAIK WARD 12/05 Referred for Appointment [employer](Srikanth thomas [facility] Team E) [employer]([facility] OUTPATIENT [id number] Discuss sleep Issues x 7 months YULIA RODRIGUEZ Shaheen 01/31 Released w/o Limitations [employer](I ntegrat ed Behavio ral Hlth Cln) [employer](Opt ometry Clinic) OUTPATIENT [id number] ree; [place] 1 year JUAN JOSE LEE 03/22 Released w/o Limitations [employer](O ptometr y Clinic) [employer]([facility]) OUTPATIENT [id number] SLEEP ISSUES YULIA RODRIGUEZ Shaheen 03/25 Released w/o Limitations [employer](I ntegrat ed Behavio ral Hlth Cln) [employer](Fam Med Cl Tm B Non-Ad) TELE CONSULT [id number] Notes Entered by: CHRISTOPHER CHA 09 Apr 2013 1037 ------- ------- ------- ------- -- Network Result - Apnea Link 014 NEAL PENA 04/09 [employer](F am Med Cl Tm B Non-Ad) [employer](Fam Med Cl Tm B Non-Ad) OUTPATIENT [id number] LEFT KNEE SWELLIN G/ ONGOING NEAL PENA 04/15 Released w/o Limitations [employer](F am Med Cl Tm B Non-Ad) [employer](Fam Med Cl Tm B Non-Ad) OUTPATIENT [id number] chest pain NEAL PENA 04/16 Released w/o Limitations [employer](F am Med Cl Tm B Non-Ad) [employer](Fam Med Cl Tm B Non-Ad) TELE CONSULT [id number] Notes Entered by: CATE CASTRO 29 Apr 2013 1604 ------- ------- ------- ------- -- Profile JANNA OLIVAS 04/29 Referred for Appointment [facility](F am Med Cl Tm B Non-Ad) [facility](Fam Med Cl Tm B Non-Ad) TELE CONSULT [id number] Notes Entered by: DAVINA DE LA PAZ 07 May 2013 1512 ------- ------- ------- ------- -- ACTIVE DUTY/ PROFILE REQUEST JANNA OLIVAS 05/07 Referred for Appointment [facility](F am Med Cl Tm B Non-Ad) [facility](Fam Med Cl Tm B Non-Ad) OUTPATIENT [id number] PT test this month wants profile for knee DUSTIN OLGUIN 05/15 Released with Work/Duty Limitations [facility](F am Med Cl Tm B Non-Ad) [place]ics[place] OUTPATIENT [id number] joint pain, localiz ed in the knee... [employer] KAREN SLOAN 05/20 Released w/o Limitations [place]ics ) [facility](Fam Med Cl Tm B Non-Ad) TELE CONSULT [id number] Notes Entered by: JAIMIE HAZEL 21 Oct 2013 1121 ------- ------- ------- ------- -- RENEW PROFILE JANNA OLIVAS 10/21 Released to [facility](F am Med Cl Tm B Non-Ad) [facility] [employer](Fam Med Cl Tm B Non-Ad) OUTPATIENT [id number] Coughin g up mucous and abd pain x 2 months DUSTIN OLGUIN 11/05 Released w/o Limitations [facility](F am Med Cl Tm B Non-Ad) [facility] [employer](Fam Med Cl Tm B Non-Ad) OUTPATIENT [id number] profile concern s DUSTIN OLGUIN 11/11 Released with Work/Duty Limitations [facility](F am Med Cl Tm B Non-Ad) [facility] Group(Phy sical Therapy Clinic) OUTPATIENT [id number] Joint pain in the left knee RICK BATEMAN 11/25 Released w/o Limitations [facility]) [employer]([facility] Therapy [facility]) OUTPATIENT [id number] FERNY DOMINGO 11/29 Released with Work/Duty Limitations [facility](P [facility] Therapy Clinic) [employer](Phy [facility]ical Therapy Clinic) OUTPATIENT [id number] FERNY DOMINGO 12/06 Released with Work/Duty Limitations [facility](P hysical Therapy Clinic) [facility](Phy [facility]ical Therapy Clinic) OUTPATIENT [id number] TORI REES 12/12 Released with Work/Duty Limitations [facility](P hysical Therapy Clinic) [facility] Group(Phy sical Therapy Clinic) OUTPATIENT [id number] FERNY DOMINGO 12/16 Released with Work/Duty Limitations [facility](P hysical Therapy Clinic) [facility](Fam Med Cl Tm B Non-Ad) TELE CONSULT [id number] Notes Entered by: DAVINA DE LA PAZ 16 Jan 2014 1142 ------- ------- ------- ------- -- ACTIVE DUTY/ RIGHT HAND PAIN ZEN KUMAR 01/16 Referred for Appointment [facility](F am Med Cl Tm B Non-Ad) [employer](Phy sical Therapy Clinic) OUTPATIENT [id number] RICK BATEMAN Rhina 01/17 Released w/o Limitations [facility](P hysical Therapy Clinic) [employer](Fam Med Cl Tm B Non-Ad) OUTPATIENT [id number] right hand pain x 3 weeks DUSTIN OLGUIN 01/20 Released w/o Limitations [facility](F am Med Cl Tm B Non-Ad) [employer](Phy sical Therapy Clinic) OUTPATIENT [id number] RICK BATEMAN Rhina 02/11 Released w/o Limitations [employer](P hysical Therapy Clinic) [employer](Ort hopedic Clinic ) OUTPATIENT [id number] Joint pain, localiz ed in the knee KAREN SLOAN 02/20 Released w/o Limitations [employer]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) [employer](PHA Cell) OUTPATIENT [id number] Notes Entered by: SEAN CANALES 07 Mar 2014 1450 ------- ------- ------- ------- -- RIGOBERTO YUAN 03/07 Released w/o Limitations [employer](P [facility]AILEY Cell) [facility](Fam Med Cl Tm B Non-Ad) TELE CONSULT [id number] Notes Entered by: COLT JUDD 24 Mar 2014 1146 ------- ------- ------- ------- -- CON ЕЛЕНА HENDRIX 03/24 Released to [facility] [employer](F am Med Cl Tm B Non-Ad) [facility] [employer](Fam Med Cl Tm B Non-Ad) TELE CONSULT [id number] Notes Entered by: DAVINA DE LA PAZ 03 Apr 2014 1333 ------- ------- ------- ------- -- CONSULT WITH SURGEON DUSTIN OLGUIN 04/03 [facility](F am Med Cl Tm B Non-Ad) [facility] [employer](Fam Med Cl Tm B Non-Ad) TELE CONSULT [id number] Notes Entered by: Alcides WEATHERS 14 Apr 2014 1437 ------- ------- ------- ------- -- Needs Stitche s Removed Today MURALI BUCIO V 04/14 Referred for Appointment [employer](F am Med Cl Tm B Non-Ad) [facility] [employer](Fam Med Cl Tm B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 CONSULT [id number] Notes Entered by: HAYDEE PATEL 30 Apr 2020 1127 ------- ------- ------- ------- -- COVID 19 Lupillo e : STEFANI LOCKETT 04/30 Advice Assessment [employer]([facility]) [employer](Renae demic Virus) OUTPATIENT [id number] Notes Entered by: MADISON CHENI 30 Apr 2020 1419 ------- ------- ------- ------- -- COVID Cece ng: Symptom wangic ROSI CUMMINGS 04/30 Released with Work/Duty Limitations [employer](P andemic Virus) [employer]([facility]) TELE CONSULT [id number] Notes Entered by: ANDREA JANSENDOMENIC REBEKAH 01 May 2020 1401 ------- ------- ------- ------- -- dalton simmons results PAPITO ROB 05/01 [employer]([facility]) [employer]([facility] TELE CONSULT [id number] Notes Entered by: EVANS WALTON 04 Jun 2020 1133 ------- ------- ------- ------- -- Med Refill/ 3 days left - STEFANI Bradley 06/04 Referred for Appointment [employer]([facility]) [employer]([facility] OUTPATIENT [id number] need Zoloft refill - [phone] PAPITO ROB 06/05 Released w/o Limitations [employer]([facility]) [employer]([facility]) OUTPATIENT [id number] vMHA/acls specialist BAILEY (GLOBAL SUPPLY CHAIN DIRECTOR needed later appt) FELIZ TILLMAN 06/08 Released w/o Limitations [employer](B [facility]) [employer]([facility]) OUTPATIENT [id number] Profile extensi on for Left knee JC ESTRELLA 06/30 Released with Work/Duty Limitations [employer]([facility]) [employer]([facility]) TELE CONSULT [id number] Notes Entered by: HAYDEE PATEL 06 Aug 2020 1352 ------- ------- ------- ------- -- Triage: painful lump on throat under STEFANI Ace 08/06 Other Not Elsewhere Classified [employer]([facility]) [employer]([facility] OUTPATIENT [id number] sick call- swellin g throat [phone] JC ESTRELLA 08/07 Released w/o Limitations [employer]([facility]) [employer]([facility] OUTPATIENT [id number] Notes Entered by: MADISON CHEN NMI 18 Aug 2020 1408 ------- ------- ------- ------- -- Sick call : severe cough RUTH ESEQUIEL D 08/18 Sick at Home/Quarter s [employer]([facility]) [employer]([facility]) TELE CONSULT [id number] Notes Entered by: WALTER RING 25 Sep 2020 0811 ------- ------- ------- ------- -- Network Results - ENT - 021 TORSTEN CAPONE 09/25 [employer]([facility]) [employer]([facility]) TELE CONSULT [id number] Notes Entered by: HAYDEE PATEL 01 Dec 2020 1345 ------- ------- ------- ------- -- Concern about Covid vaccine and family heart issues STEFANI LOCKETT 12/01 Referred for Appointment [employer]([facility] [employer](Opt [facility]metry [facility]) OUTPATIENT [id number] IGNACIA UNDERWOOD 06/18 Released w/o Limitations [employer](O ptometr y Clinic) [employer]([facility]) OUTPATIENT [id number] vMHA/acls specialist [phone] FELIZ TILLMAN 07/12 Released w/o Limitations [employer]([facility]) [employer]([facility] OUTPATIENT [id number] follow up - PHAQ TORSTEN CAPONE 08/05 Released with Work/Duty Limitations [employer]([facility]) [employer]([facility]) TELE CONSULT [id number] Notes Entered by: ANANTH MEJIA 06 Aug 2021 1613 ------- ------- ------- ------- -- BRIDGER STEFANI LOCKETT 08/06 Other Not Elsewhere Classified [employer]([facility]) [employer]([facility]) OUTPATIENT [id number] per pcm needs Spec- [phone] TORSTEN CAPONE 08/10 Released w/o Limitations [employer]([facility]) [employer]([facility]) TELE CONSULT [id number] Notes Entered by: JENELLE RIOS 20 Aug 2021 1419 ------- ------- ------- ------- -- Profile STEFANI LOCKETT 08/20 Other Not Elsewhere Classified [employer]([facility] Primary [facility]) [employer]([facility] TELE CONSULT [id number] Notes Entered by: Phil LOCKETT 26 Aug 2021 1506 ------- ------- ------- ------- -- notesklever sent to [facility] Expres[facility]- care [facility] STEFANI Javier 08/26 Other Not Elsewhere Classified [employer]([facility]) [employer]([facility]) TELE CONSULT [id number] Notes Entered by: HAYDEE PATEL 21 Oct 2021 1410 ------- ------- ------- ------- -- Referra l Renewal : urgent- DME CPAP and mask STEFANI LOCKETT 10/21 Other Not Elsewhere Classified [employer]([facility]) [employer]([facility]) TELE CONSULT [id number] Notes Entered by: KASIA RIVERS 08 Nov 2021 0749 ------- ------- ------- ------- -- COVID 19 Guidanc e : Positiv e COVID test with symptom s STEFANI LOCKETT 11/08 Sick at Home/Quarter s [employer]([facility]) [employer]([facility]) TELE CONSULT [id number] Notes Entered by: MARIKA MAYNARD 12 Nov 2021 1444 ------- ------- ------- ------- -- Remove AUoF MP Helmet and Command Interes t Red Flag Icons MARIKA MAYNARD 11/12 Referred- Emergency Department [employer] 0310C-AF- C-[facility]th [facility] [employer] Between Visit [id number] 12/25 Discharge Disposition: Home or Self Care 0310C-A F-C-66t h [facility] [employer] 0310C-AF- C-66th [facility] [employer] Between Visit [id number] 02/11 Discharge Disposition: Home or Self Care 0310C-A F-C-66t h [employer] [employer] 0310C-AF- C-66th [facility] [employer] Between Visit [id number] 03/11 Discharge Disposition: Home or Self Care 0310C-A F-C-66t h [employer] [employer] 0310C-AF- C-66th [facility] [employer] Between Visit [id number] 04/10 Discharge Disposition: Home or Self Care 0310C-A F-C-66t h [facility] [employer] 0310C-AF- C-66th [facility] [employer] Between Visit [id number] 06/26 Discharge Disposition: Home or Self Care 0310C-A F-C-66t h [facility] [employer] Procedures Combined list of: 1) Procedures from Department of Veterans Affairs facilities going back up to thelast 18 months, not all VA non-surgical procedures are included; 2) All procedures from the Department of Defense facilities. Procedure Procedure Type Code Date Perfomer Comments Sourc e Strapping; knee Strapping; knee [address] [place] [address] Brief emotional/behavioral a e ment (eg, depre ion inventory, attention-deficit/hyp eractivity disorder [ADHD] scale), with scoring and documentation, per standardized instrument Brief emotional/behavioral assessment (eg, depression inventory, attention-deficit/hy peractivity disorder [ADHD] scale), with scoring and documentation, per standardized instrument [address] [place] [address] Fitting of spectacles, except for aphakia; monofocal Fitting of spectacles, except for aphakia; monofocal [address] [place] [address] BODY MASS INDEX (BMI) DOCUMENTED BODY MASS INDEX (BMI) DOCUMENTED 3008F [address] [place] [address] Application of a modality to one or more areas; iontophoresis, each 15 minutes Application of a modality to one or more areas; iontophoresis, each 15 minutes [address] [place] [address] Therapeutic procedure, one or more areas, each 15 minutes; neuromuscular reeducation of movement, balance, coordination, kinesthetic sense, posture, and/or proprioception for sitting and/or standing activities Therapeutic procedure, one or more areas, each 15 minutes; neuromuscular reeducation of movement, balance, coordination, kinesthetic sense, posture, and/or proprioception for sitting and/or standing activities [address] [place] [address] Health behavior intervention, individual, [id number]; initial 30 minutes Health behavior intervention, individual, [id number]; initial 30 minutes [address] [place] [address] Therapeutic procedure, one or more areas, each 15 minutes; therapeutic exercises to develop strength and endurance, range of motion and flexibility Therapeutic procedure, one or more areas, each 15 minutes; therapeutic exercises to develop strength and endurance, range of motion and flexibility [address] [place] [address] Psychiatric evaluation of hospital records, other psychiatric reports, psychometric and/or projective tests, and other accumulated data for medical diagnostic purposes Psychiatric evaluation of hospital records, other psychiatric reports, psychometric and/or projective tests, and other accumulated data for medical diagnostic purposes 29384 [facility] Health behavior a e ment, or re-a e ment (ie, health-focused clinical interview, behavioral observations, clinical decision making) Health behavior assessment, or re-assessment (ie, health-focused clinical interview, behavioral observations, clinical decision making) 05427 [facility] Application of a modality to one or more areas; hot or cold packs Application of a modality to one or more areas; hot or cold packs 25443 309 [facility] PURE TONE AUDIOMTRY THRESHOLD COMPUTER DEV AIR PURE TONE AUDIOMTRY THRESHOLD COMPUTER DEV AIR 0208T [facility] Determination of refractive state Determination of refractive state [id number] [facility] L knee surgery 2012 [facility] Endoscopy [facility] [id number] [facility] Septoplasty 2018 [facility] Tonsillectomy 2018 [facility] Modalities Iontophoresis Modalities Iontophoresis 50375 012 VAHID TRIPLETT [facility] Physical Therapy Neuromuscular Re-education Physical Therapy Neuromuscular Re-education 78141 012 VAHID TRIPLETT [facility] Exercises A isted Exercises For ROM Exercises Assisted Exercises For ROM 36571 012 VAHID TRIPLETT [facility] Modalities Iontophoresis Modalities Iontophoresis 59865 012 VAHID TRIPLETT [facility] Physical Therapy Neuromuscular Re-education Physical Therapy Neuromuscular Re-education 74182 012 VAHID TRIPLETT [facility] Exercises A isted Exercises For ROM Exercises Assisted Exercises For ROM 71553 012 VAHID TRIPLETT [facility] Physical Medicine Physical Therapy Re-Evaluation Physical Medicine Physical Therapy Re-Evaluation 39753 012 DANTE SANTOS [facility] Physical Therapy Neuromuscular Re-education Physical Therapy Neuromuscular Re-education 55902 012 DANIELA SHAH [facility] Exercises A isted Exercises For ROM Exercises Assisted Exercises For ROM 23705 012 DANIELA SHAH Exercises A isted Exercises For ROM Exercises Assisted Exercises For ROM 39616 012 DANIELA SHAH Physical Therapy Neuromuscular Re-education Physical Therapy Neuromuscular Re-education 12640 012 DANIELA SHAH Physical Medicine Physical Therapy Evaluation Physical Medicine Physical Therapy Evaluation 87760 012 DANTE SANTOS Ophthalmological New Patient Start Comprehensive Care Ophthalmological New Patient Start Comprehensive Care 69601 008 CHASE BARON [facility] Spectacles Services Fitting Monofocals (Not For Aphakia) Spectacles Services Fitting Monofocals (Not For Aphakia) 55400 019 SEVEN VELEZ [facility] Determination Of Refractive State Determination Of Refractive State [id number] [id number] SEVEN VELEZ Ophthalmological Prior Patient Start Comprehensive Care Ophthalmological Prior Patient Start Comprehensive Care 48491 019 SEVEN VELEZ [facility] Non-Physician Phone Call To Patient/Provider Brief (5-10min) Non-Physician Phone Call To Patient/Provider Brief (5-10min) 64061 019 CAMILO JANG [facility] Non-Physician Phone Call To Patient/Provider Brief (5-10min) Non-Physician Phone Call To Patient/Provider Brief (5-10min) 25366 019 DANNY YEH [facility] Non-Physician Phone Call To Patient/Provider Brief (5-10min) Non-Physician Phone Call To Patient/Provider Brief (5-10min) [id number] 019 ARCADIO WOLFE [facility] Internet Med Svc Qual Nonphys Healthcare Prof Estab Patient Internet Med Svc Qual Nonphys Healthcare Prof Estab Patient 03541 018 GABINO BLACK [facility] Threshold Audiogram (Pure Tone) Automated Threshold Audiogram (Pure Tone) Automated [id number] 018 CAROL CRAIG [facility] Non-Physician Phone Call To Patient/Provider Brief (5-10min) Non-Physician Phone Call To Patient/Provider Brief (5-10min) 34261 018 NATHALY HOLLOWAY [employer] Fitting Monofocals (Not For Aphakia) [employer] Services Fitting Monofocals (Not For Aphakia) 34910 018 ALEXUS BRANTLEY Prescription & Fitting Bilateral Corneal Lenses (Not Aphakia Prescription & Fitting Bilateral Corneal Lenses (Not Aphakia 81668 018 ALEXUS BRANTLEY Determination Of Refractive State Determination Of Refractive State [id number] 018 ALEXUS BRANTLEY Prescription & Fitting Bilateral Corneal Lenses (Not Aphakia Prescription & Fitting Bilateral Corneal Lenses (Not Aphakia 39274 018 ALEXUS BRANTLEY Non-Physician Phone Call To Patient/Provider Brief (5-10min) Non-Physician Phone Call To Patient/Provider Brief (5-10min) 47701 018 CATRINA SMITH [employer] Fitting Monofocals (Not For Aphakia) [employer] Services Fitting Monofocals (Not For Aphakia) 53822 018 MOE SINGH [employer] Non-Physician Phone Call To Patient/Provider Brief (5-10min) Non-Physician Phone Call To Patient/Provider Brief (5-10min) 66059 017 MIESHA HENRY [employer] Svc Qual Nonphys Healthcare Prof Estab Patient Internet Med Svc Qual Nonphys Healthcare Prof Estab Patient [id number] GABINO BLACK DoD Threshold Audiogram (Pure Tone) Automated Threshold Audiogram (Pure Tone) Automated 0208T 017 NANY ROJAS DoD Determination Of Refractive State Determination Of Refractive State [id number] ALEXUS BRANTLEY Ophthalmological Prior Patient Start Comprehensive Care Ophthalmological Prior Patient Start Comprehensive Care [id number] [phone] ALEXUS BRANTLEY Spectacles Services Fitting Monofocals (Not For Aphakia) Spectacles Services Fitting Monofocals (Not For Aphakia) 79657 016 FELTON DILLARD DoD Determination Of Refractive State Determination Of Refractive State 85755 016 FELTON DILLARD Ophthalmological Prior Patient Start Comprehensive Care Ophthalmological Prior Patient Start Comprehensive Care [id number] 016 FELTON DILLARD Threshold Audiogram (Pure Tone) Automated Threshold Audiogram (Pure Tone) Automated 0208T 016 JUAN CRAWFORD Patient education, not otherwise cla ified, non-physician provider, group, per se ion JUAN CRAWFORD Psychometric Neuropsych Testing Battery Admin By Computer Psychometric Neuropsych Testing Battery Admin By Computer [id number] YEFRI HAMILTON Psychiatric Evaluation Review of Records and Reports Psychiatric Evaluation Review of Records and Reports 38555 YEFRI HAMILTON Spectacles Services Fitting Monofocals (Not For Aphakia) Spectacles Services Fitting Monofocals (Not For Aphakia) 12537 FELTON DILLARD Determination Of Refractive State Determination Of Refractive State 015 FELTON DILLARD Ophthalmological Prior Patient Start Comprehensive Care Ophthalmological Prior Patient Start Comprehensive Care 15204 015 FELTON DILLARD Exercises A isted Exercises For ROM Exercises Assisted Exercises For ROM 05068 015 RICK BATEMAN Physical Medicine Physical Therapy Re-Evaluation Physical Medicine Physical Therapy Re-Evaluation 38244 015 RICK BATEMAN Physical Therapy Neuromuscular Re-education Physical Therapy Neuromuscular Re-education 11010 015 FELICIANO SLATER Physical Therapy: ___ Se ion Segments, 15 Minutes Each Physical Therapy: ___ Session Segments, 15 Minutes Each 62581 015 FELICIANO SLATER Exercises A isted Exercises For ROM Exercises Assisted Exercises For ROM 87786 015 RICK BATEMAN Physical Medicine Physical Therapy Re-Evaluation Physical Medicine Physical Therapy Re-Evaluation 98173 015 RICK BATEMAN Physical Therapy Neuromuscular Re-education Physical Therapy Neuromuscular Re-education 41755 015 FERNY DOMINGO [facility] Physical Therapy: ___ Se ion Segments, 15 Minutes Each Physical Therapy: ___ Session Segments, 15 Minutes Each 92036 015 FERNY DOMINGO [facility] Physical Therapy Neuromuscular Re-education Physical Therapy Neuromuscular Re-education 16784 015 [facility] Physical Therapy: ___ Se ion Segments, 15 Minutes Each Physical Therapy: ___ Session Segments, 15 Minutes Each 79220 015 [facility] YAZMIN Lilia [facility] Physical Therapy: ___ Se ion Segments, 15 Minutes Each Physical Therapy: ___ Session Segments, 15 Minutes Each 98678 015 FERNY DOMINGO [facility] Physical Therapy Neuromuscular Re-education Physical Therapy Neuromuscular Re-education 98870 015 CHAYO [facility] Exercises A isted Exercises For ROM Exercises Assisted Exercises For ROM 94688 015 RICK BATEMAN [facility] Physical Medicine Physical Therapy Evaluation Physical Medicine Physical Therapy Evaluation 08251 015 RICK BATEMAN [facility] Exercises A isted Exercises For ROM Exercises Assisted Exercises [place] ROM 23440 014 RICK BATEMAN [facility] Physical Medicine Physical Therapy Re-Evaluation Physical Medicine Physical Therapy Re-Evaluation 19322 014 RICK PANIAGUA [facility] Exercises A isted Exercises For ROM Exercises Assisted [place]ercises [place] ROM 28185 014 RICK BATEMAN [facility] Physical Medicine Physical Therapy Re-Evaluation Physical Medicine Physical Therapy Re-Evaluation 21695 014 RICK BATEMAN [facility] Modalities Cryotherapy Cold Packs Modalities Cryotherapy Cold Packs 79755 014 FERNY DOMINGO [facility] Physical Therapy: ___ Se ion Segments, 15 Minutes Each Physical Therapy: ___ Session Segments, 15 Minutes Each 48192 014 FERNY DOMINGO [facility] Physical Therapy Neuromuscular Re-education Physical Therapy Neuromuscular Re-education 22411 014 CHAYO [facility] Modalities Cryotherapy Cold Packs Modalities Cryotherapy Cold Packs 39613 014 TORI REES [facility] Physical Therapy Neuromuscular Re-education Physical Therapy Neuromuscular Re-education 58751 014 TORI REES [facility] Physical Therapy: ___ Se ion Segments, 15 Minutes Each Physical Therapy: ___ Session Segments, 15 Minutes Each 26895 014 TORI REES [facility] Modalities Cryotherapy Cold Packs Modalities Cryotherapy Cold Packs 22424 014 CHAYO [facility] Physical Therapy Neuromuscular Re-education Physical Therapy Neuromuscular Re-education 36086 014 [facility] Physical Therapy: ___ Se ion Segments, 15 Minutes Each Physical Therapy: ___ Session Segments, 15 Minutes Each 13121 014 CHAYO [facility] Physical Therapy Neuromuscular Re-education Physical Therapy Neuromuscular Re-education 65274 [facility]: ___ Se ion Segments, 15 Minutes Each Physical Therapy: ___ Session Segments, 15 Minutes Each 74696 014 [facility] Exercises A isted Exercises For ROM Exercises Assisted Exercises For ROM 78520 014 RICK BATEMAN [facility] Physical Medicine Physical Therapy Evaluation Physical Medicine Physical Therapy Evaluation 31922 RICK BATEMAN [facility] Spectacles Services Fitting Monofocals (Not For Aphakia) Spectacles Services Fitting Monofocals (Not For Aphakia) 54276 014 JUAN JOSE LEE [facility] Determination Of Refractive State Determination Of Refractive State 47795 014 JUAN JOSE LEE Ophthalmological New Patient Start Comprehensive Care Ophthalmological New Patient Start Comprehensive Care 97841 JUAN JOSE LEE Taping Knee Taping Knee 62623 012 DANTE SANTOS Physical Medicine Physical Therapy Re-Evaluation Physical Medicine Physical Therapy Re-Evaluation 84766 012 DANTE SANTOS Modalities Iontophoresis Modalities Iontophoresis 21166 012 APARNA MARCELO [facility] Exercises A isted Exercises For ROM Exercises Assisted Exercises For ROM 37038 012 APARNA MARCELO [facility] Physical Therapy Neuromuscular Re-education Physical Therapy Neuromuscular Re-education 56243 012 APARNA MARCELO [facility] Ophthalmological Prior Patient Start Intermediate Level Care Ophthalmological Prior Patient Start Intermediate Level Care 20910 IGNACIA AGUILAR [facility] Determination Of Refractive State Determination Of Refractive State 97828 IGNCAIA AGUILAR [facility] Spectacles Services Fitting Monofocals (Not For Aphakia) Spectacles Services Fitting Monofocals (Not For Aphakia) 56251 IGNACIA AGUILAR [facility] Brief communication technology-based service, e.g. virtual check-in, [...] minutes of medical discu ion FELIZ TILLMAN [facility] Preventive Medicine Results Documented/Reviewed Body Ma Index Preventive Medicine Results Documented/Reviewed Body Mass Index 3008F FELIZ TILLMAN [facility] Waiver services; not otherwise specified (NOS) TORSTEN CAPONE [facility] Non-Physician Phone Call To Patient/Provider Brief (5-10min) Non-Physician Phone Call To Patient/Provider Brief (5-10min) 09594 RYAN MILLER [facility] Ophthalmological Prior Patient Start Comprehensive Care Ophthalmological Prior Patient Start Comprehensive Care 45590 ROSI EDDY [facility] Health And Behav A e mt Each 15 Min Initial A e ment Health And Behav Assessmt Each 15 Min Initial Assessment 67179 BETTY MENJIVAR [facility] UNLISTED SPECIAL SERVICE, PROCEDURE OR REPORT 015 [facility] STRAPPING; KNEE 012 DoD APPLICATION OF A MODALITY TO 1 OR MORE AREAS; IONTOPHORESIS, EACH 15 MINUTES 012 DoD APPLICATION OF A MODALITY TO 1 OR MORE AREAS; IONTOPHORESIS, EACH 15 MINUTES 012 DoD APPLICATION OF A MODALITY TO 1 OR MORE AREAS; IONTOPHORESIS, EACH 15 MINUTES 012 [facility] PHYSICAL THERAPY RE-EVALUATION 012 [facility] THERAPEUTIC PROCEDURE,1 OR MORE AREAS,EACH 15 MINUTES;NEUROMUSCULAR REEDUCATION OF MOVEMENT,BALANCE,COOR DINATION,KINESTHETIC SENSE,POSTURE,AND/OR PROPRIOCEPTION FOR SITTING AND/OR STANDING ACTIVITIES 012 [facility] THERAPEUTIC PROCEDURE,1 OR MORE AREAS,EACH 15 MINUTES;NEUROMUSCULAR REEDUCATION OF MOVEMENT,BALANCE,COOR DINATION,KINESTHETIC SENSE,POSTURE,AND/OR PROPRIOCEPTION FOR SITTING AND/OR STANDING ACTIVITIES [facility] THERAPEUTIC PROCEDURE,1 OR MORE AREAS,EACH 15 MINUTES;NEUROMUSCULAR REEDUCATION OF MOVEMENT,BALANCE,COOR DINATION,KINESTHETIC SENSE,POSTURE,AND/OR PROPRIOCEPTION FOR SITTING AND/OR STANDING ACTIVITIES [facility] PHYSICAL THERAPY EVALUATION [facility] DETERMINATION OF REFRACTIVE STATE [facility] BRIEF EMOTIONAL/BEHAVIORAL ASSESSMENT (EG, DEPRESSION INVENTORY, ATTENTION-DEFICIT/HYP ERACTIVITY DISORDER [ADHD] SCALE), WITH SCORING AND DOCUMENTATION, PER STANDARDIZED INSTRUMENT [facility] FITTING OF SPECTACLES, EXCEPT FOR APHAKIA; MONOFOCAL [facility] PURE TONE AUDIOMETRY (THRESHOLD), AUTOMATED; AIR ONLY [facility] PSYCHIATRIC EVALUATION OF HOSPITAL RECORDS, OTHER PSYCHIATRIC REPORTS, PSYCHOMETRIC AND/OR PROJECTIVE TESTS, AND OTHER ACCUMULATED DATA FOR MEDICALDIAGNOSTIC PURPOSES [facility] FITTING OF SPECTACLES, EXCEPT FOR APHAKIA; MONOFOCAL [facility] THERAPEUTIC PROCEDURE, 1 OR MORE AREAS, EACH 15 MINUTES; THERAPEUTIC EXERCISES TO DEVELOP STRENGTH AND ENDURANCE, RANGE OF MOTION AND FLEXIBILITY DoD THERAPEUTIC PROCEDURE,1 OR MORE AREAS,EACH 15 MINUTES;NEUROMUSCULAR REEDUCATION OF MOVEMENT,BALANCE,COOR DINATION,KINESTHETIC SENSE,POSTURE,AND/OR PROPRIOCEPTION FOR SITTING AND/OR STANDING ACTIVITIES [facility] THERAPEUTIC PROCEDURE, 1 OR MORE AREAS, EACH 15 MINUTES; THERAPEUTIC EXERCISES TO DEVELOP STRENGTH AND ENDURANCE, RANGE OF MOTION AND FLEXIBILITY [facility] THERAPEUTIC PROCEDURE,1 OR MORE AREAS,EACH 15 MINUTES;NEUROMUSCULAR [...] DoD WAIVER SERVICES; NOT OTHERWISE SPECIFIED (NOS) [facility] BRIEF COMM TECH-BASE SERV,E.G. VIRT CHK-IN,BY PHYS/OTH QUAL HCP,RPT E&M SERV,PROV TO EST PT,NOT ORIG FRM REL E/M SERV PROV W/IN PREV 7DAY NOR LEAD TO E/M SRV/PX W/IN NEXT 24HR/SOON FIDENCIO; 5-10 MIN DISC [facility] BRIEF EMOTIONAL/BEHAVIORAL ASSESSMENT (EG, DEPRESSION INVENTORY, ATTENTION-DEFICIT/HYP ERACTIVITY DISORDER [ADHD] SCALE), WITH SCORING AND DOCUMENTATION, PER STANDARDIZED INSTRUMENT [facility] BRIEF EMOTIONAL/BEHAVIORAL ASSESSMENT (EG, DEPRESSION INVENTORY, [...] W/IN NEXT 24HR/SOON FIDENCIO; 5-10 MIN DISC 020 DoD BRIEF COMM TECH-BASE SERV,E.G. VIRT CHK-IN,BY [...] WITH SCORING AND DOCUMENTATION, PER STANDARDIZED INSTRUMENT [facility] PURE TONE AUDIOMETRY (THRESHOLD), AUTOMATED; AIR ONLY [facility] DETERMINATION OF REFRACTIVE STATE [facility] Social History Combined list of available smoking, tobacco, and other social history from 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 Social History Type Response Date Comment [facility] e Sex Representation Male (finding) 01/11/2021 Un known Organization Tobacco Never-cigarette user Cigarette use:. Never-other tobacco user (not cigarettes) Other Tobacco use:. Ambulatory Pharmacy Sexual Orientation Ambula tory Pharmacy Gender identity Ambulator y Pharmacy This section is an empty social history section. [facility] Assessment and Plan Combined list of future [...] screening tools. ? AUDIT-C=0 PCL-C=0 PHQ-8=0 ? Mold Setter (SM)?denies suicidal or homicidal ideations at this time and is not at an elevated risk. At this time no tasking or consults needed.?SM made?aware of [facility] ()?services available, ?One Source, [employer], Walk in , Emergency Room (ER) [...] age 37. Compared medications reported by student financial services counselor to active medication list in?[facility]?and any variances were documented.? ? Any complaints or issues identified while conducting the PHA have been addressed and or referred back to the patient's?primary animal care provider (PCM)?for care.?SM?advised to follow up with PCM, [...] PRN if symptomatic.? Extracted from:Title: [facility] Comp. Audio Author: LARRY CUEVAS, AuD Date: 09/12/23 1.?Hearing normal GENERAL INFORMATION History Branch:? ?[employer]? [employer]:?[employer] MOS:?2A5 ? ? VISIT REASON Hearing loss or concerns: Abnormal [id number] @ [facility] over the past couple of weeks [...] No? Ototoxic medications:? No? ? PRIOR TESTING ?[id number]'s [facility] ( and 29 AUG 2023) HEARING [...] and?improved??compared with previous testing recently obtained @ [facility]. No STS is noted in either ear compared to current [id number] on record (2009). ? SPEECH AUDIOMETRY Right: Word recognition was? excellent??at?55 dB HL ?Masking level: _40dB HL ? Left: Word recognition was? ? ?excellent?at?55 dB HL ?Masking level:?40 dB HL ? SUMMARY Today s results indicate normal hearing in both ears at all test frequencies with good reliability. Normal ME function, bilaterally. ? 15 min (INDV) rehabilitation counselor on proper hand formed (Sound Guard) hearing protection insertion and uses in noise. Annual HCP review completed today ? ? ? 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 07/31/[address] [place] [address] Assessment and Plan Extracted from:Title : MHA/PHA [...] screening tools. ? AUDIT-C=0 PCL-C=0 PHQ-8=0 ? Mold Setter (SM)?denies suicidal or homicidal ideations at this time and is not at an elevated risk. At this time no tasking or consults needed.?SM made?aware of [facility] ()?services available, ?[facility], [employer] [facility], Walk in , Emergency Room (ER) [...] age 37. Compared medications reported by student financial services counselor to active medication list in?S Maribel/JLV?and any variances were documented.? ? Any complaints or issues identified while conducting the PHA have been addressed and or referred back to the patient's?primary animal care provider (PCM)?for care.?SM?advised to follow up with PCM, Behavioral Health, ER/911, or [facility] as needed for continuation [...] PRN if symptomatic.? Extracted from:Title: [facility] Comp. Audio Author: LARRY CUEVAS, Landry Date: 09/12/23 1.?Hearing normal GENERAL INFORMATION History Branch:? ?[employer]? Command:?[facility] MOS:?2A5 ? ? VISIT REASON Hearing loss or concerns: Abnormal NICK @ [facility] over the past couple of weeks [...] Ototoxic medications:? No? ? PRIOR TESTING ?NICK's [facility] ( and 29 AUG 2023) HEARING [...] and?improved??compared with previous testing recently obtained @ [facility]. No STS is noted in either ear compared to current [id number] on record (2009). ? SPEECH AUDIOMETRY Right: Word recognition was? excellent??at?55 dB HL ?Masking level: _40dB HL ? Left: Word recognition was? ? ?excellent?at?55 dB HL ?Masking level:?40 dB HL ? SUMMARY Today s results indicate normal hearing in both ears at all test frequencies with good reliability. Normal ME function, bilaterally. ? 15 min (INDV) rehabilitation counselor on proper hand formed (Sound Guard) hearing protection insertion and uses in noise. Annual HCP review completed today ? ? ? PLAN 1) Annual [id number] back @ [facility] (2024) for continued annual monitoring 2) Use of proper HP in all noise designated areas 3) Future audio as needed ? Pee Almanza CCC-Jasmyn, Larry Doctor of Audiology Audiology Dept. [employer] [facility] ? Extracted from:Title: FTF-PHA Author: ABHIJIT CALVO [...] 60 minutes before a meal, Pharmacy: [id number] [External Rx] Lt Col Abhijit Calvo M.D. Chief of Aerospace Medicine (SGP) [employer] Gaudencio FERNANDEZ MA ? ? 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 07/31/2024 [id number] Assessment and Plan Extracted from:Title : MHA/PHA [...] screening tools. ? AUDIT-C=0 PCL-C=0 PHQ-8=0 ? Mold Setter (SM)?denies suicidal or homicidal ideations at this time and is not at an elevated risk. At this time no tasking or consults needed.?SM made?aware of [facility] ()?services available, ?[facility], [employer] [facility], Walk in , Emergency Room (ER) [...] age 37. Compared medications reported by student financial services counselor to active medication list in?[facility]?and any variances were documented.? ? Any complaints or issues identified while conducting the PHA have been addressed and or referred back to the patient's?primary animal care provider (PCM)?for care.?SM?advised to follow up with PCM, [...] PRN if symptomatic.? Extracted from:Title: [facility] Comp. Audio Author: LARRY CUEVAS, AuD Date: 09/12/23 1.?Hearing normal GENERAL INFORMATION History Branch:? ?[employer]? Command:?[facility] MOS:?2A5 ? ? VISIT REASON Hearing loss or concerns: Abnormal [id number] @ [facility] over the past couple of weeks [...] No? Ototoxic medications:? No? ? PRIOR TESTING ?CT0149's [facility] ( and 29 AUG 2023) [...] and?improved??compared with previous testing recently obtained @ [facility]. No STS is noted in either ear compared to current [id number] on record (2009). ? SPEECH AUDIOMETRY Right: Word recognition was? excellent??at?55 dB HL ?Masking level: _40dB HL ? Left: Word recognition was? ? ?excellent?at?55 dB HL ?Masking level:?40 dB HL ? SUMMARY Today s results indicate normal hearing in both ears at all test frequencies with good reliability. Normal ME function, bilaterally. ? 15 min (INDV) rehabilitation counselor on proper hand formed (Sound Guard) hearing protection insertion and uses in noise. Annual HCP review completed today ? ? ? PLAN 1) Annual PS4840 back @ [facility] (2024) for continued annual monitoring 2) Use of proper HP in all noise designated areas 3) Future audio as needed ? Pee Almanza James Doctor of Audiology Audiology Dept. [place] [facility] [phone] ? Extracted from:Title: FTF-PHA Author: ABHIJIT CALVO [...] to 60 minutes before a meal, Pharmacy: [id number] [External Rx] Lt Col Abhijit Calvo M.D. Chief of Aerospace Medicine (SGP) [employer] Gaudencio FERNANDEZ MA ? ? 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 07/31/2024 003-[facility] Functional Status Combined list of recent functional and cognitive assessments recorded at [facility] of Defense and Veterans Affairs (VA[facility] Functional [place] Measurement (FIM) Scale: 1 = Total Assistance (Subject = 0% +), 2 = Maximal Assistance (Subject = 25% +), 3 = Moderate Assistance (Subject = 50% +), 4 = Minimal Assistance (Subject = 75% +), 5 = Supervision, 6 = Modified [place] (Device), 7 = Complete [place] (Timely, Safely). Assessment Date/Time Source Assessment Type Assessment Skill Assessment Score Assessment Details No data available for this section
== END 2024-07-31 11:16 | disposition home or self-care (01) ==
LOC: HO.HGS 10:54
PROVIDERS: PCP Internal Medicine; Visit Provider Surgery
DX: R10.31 Right lower quadrant pain (principal)
CPT/HCPCS: 99213

== ENCOUNTER → 2024-07-31 10:53 | Outpatient (BNVA) | payer OTHER, SELFPAY | PROVIDERS: PCP Internal Medicine; Visit Provider Surgery | DX: R10.31 Right lower quadrant pain (principal) | CPT/HCPCS: 99212 ==

== ENCOUNTER 2024-08-01 08:11 | Outpatient (AMB) | payer OTHER, SELFPAY ==
--- OUTSIDE RECORDS SUMMARY | 2024-08-01 08:14 | XMS_ITS | Clinical Summary ---
Author Organization [facility] ity Address [address] [place] [id number] Care Team Providers Care Field Coordinator Name Role Phone Unavailable Primary Care Provider [...]
--- OUTSIDE RECORDS SUMMARY | 2024-08-01 08:14 | XMS_ITS | Patient Health Record ---
Author Organization [facility] Address [address] [place] [address] Care Team Providers Care Chair Name Role Phone JOSHUA MORATAYA Unavailable [phone] [facility], [employer] Unavailable Unavailable Allergies No Known [...] Problem Gastro-esophagea l reflux disease without esophagitis (384472406) Gastro-esophage al reflux disease without esophagitis (K21.9) Active confirmed Problem Seasonal allergic rhinitis due to pollen (J30.1) Active confirmed Problem Dysphagia, unspecified type (R13.10) Active confirmed Problem Allergic rhinitis caused by pollen (disorder) (78689622) Allergic rhinitis due to pollen (J30.1) 8 Active confirmed Problem Chronic maxillary sinusitis (67018272) Chronic maxillary sinusitis (J32.0) 8 Active confirmed Problem Deviated nasal septum (594165994) Deviated nasal septum (J34.2) 8 Active confirmed Problem Hypertrophy of nasal turbinates (05576835) Hypertrophy of nasal turbinates (J34.3) 8 Active confirmed Plan Of Treatment No Information Insurance Providers Payer Name Payer Address Payer Phone Subscriber Number Group Number Insured Name Patient Relationship to Insured Coverage Start Date Coverage End Date [facility] [address] [place] [phone] [id number] Rickey Santamaria Self - patient is the insured Medical (General) History Medical History History ICD Code sinusitis Nasal Allergies Surgical History Surgery Date(Month/Year) latera implantation, revision submucousa resection of turbinates 2018 Tonsillectomy 10/11/2019
--- OUTSIDE RECORDS SUMMARY | 2024-08-01 08:15 | XMS_ITS | Continuity of Care Document ---
Author Name [facility] Organization [facility] Care Team Providers Care Buffer Nickel Name Role Phone [facility] Unavailable Unavailable Problems [...] Inactive Condition DoD Myopia, bilateral Active Condition 309 C-AF-C [facility] [employer] Regular astigmatism, bilateral Active Condition 0C-AF-C [facility] Left knee pain Active Condition 309C-A F-C [facility] [employer] Encounter for examination of eyes and vision without abnormal findings Active Condition 309C-A F-C [facility] [employer] Medications Combined list of outpatient medications from [...] Ordered 2022 1.0 0C-A F-C-[facility] [employer] FAMOTIDINE (famotidine ), 20 MG, TABLET, ORAL, [employer], 100 ea. BOTTLE Cancele d [id number] : 2023 0 Pharmac y Data Transac [...] y Access ibuprofen 0 total refill(s ), [facility] Ordered 2022 0310C-A F-C[facility] methylPREDN ISolone 4 mg oral tablet methylPR EDNISolo ne 4 mg oral tablet Start Date: 11/23/20 Stop Date: 07/12/22 Status: Disconti nued Repeat number: 1 Discont inued 07/12/20222022 No Facilit y Access omeprazole 20 mg oral delayed release capsule 1 cap(s), Oral, Daily, 30 to 60 minutes before a meal, # 90 cap(s), 3 total refill(s ), [facility], [facility] : [id number] Oral (given by mouth) Ordered 2022 90.0 0310C-A F[facility] omeprazole 20 mg oral delayed release capsule [...] AUROBINDO PHARM, 90 ea. BOTTLE Cancele d [id number] : 2023 0 Pharmac y Data Transac tion Service Facilit y SUCRALFATE (SUCRALFATE ), 1G, TABLET, ORAL, [employer], 500 ea. BOTTLE Active [id number] 2023 90 Pharmac y Data Transac [...] Site Reaction Lot Number CVX Code Drug Rn Home Care Status Comments Source tetanus, diphtheria, acellular pertu is 2021 [facility] [id number] comple t ed Result Comment: Route: Unknown Manufactu rer: OT ([facility]) 0310C-A F-C-[facility] influenza, injectable, quadrivalent- pf 2021 [facility] [id number] 150 comple t ed Result Comment: Route: Unknown Manufactu rer: OT ([facility]) 0310C-A F-C-[facility] [employer] [...] influenza, injectable, quadrivalent- pf 2020 [id number] 150 [employer] ne complet ed influenza , injectabl e, quadrival ent-pf 12/10/20 Given Ambulat ory Pharmac y Influenza, injectable, quadrivalent, preservative free 1 2020 [id number] 150 [facility] (SKB) complet ed Influenza , injectabl e, quadrival ent, preservat angel free DoD COVID Vaccine Moderna 2020 TRANSCR IBED 207 complet ed COVID Vaccine Moderna 12/09/20 Given Ambulat ory Pharmac y COVID-19, mRNA, LNP-S, PF, 100 mcg or 50 mcg dose 2020 SALINI, Moderna [employer]OR[employer]JP[employer] (MOD) Not Given COVID-19, mRNA, LNP-S, PF, 100 mcg or 50 mcg dose DoD SARS-COV-2 (COVID-19) vaccine, mRNA, spike protein, LNP, preservative free, 100 mcg or 50 mcg dose 1 2020 207 [employer] (MOD) complet ed SARS-COV- 2 (COVID-19 ) vaccine, mRNA, spike protein, LNP, preservat angel free, 100 mcg or 50 mcg dose DoD influenza, injectable, quadrivalent- pf 2019 [id number] 150 [employer] complet ed influenza , injectabl e, quadrival ent-pf 02/28/20 Given Ambulat ory Pharmac y Influenza, injectable, quadrivalent, preservative free 1 2019 [id number] 150 [employer] (SEQ) complet ed Influenza , injectabl e, quadrival ent, preservat angel free DoD influenza, injectable, quadrivalent- pf 2018 [id number] 349 150 [employer] complet ed influenza , injectabl e, quadrival ent-pf 02/27/19 Given Ambulat ory Pharmac y Influenza, injectable, quadrivalent, preservative free 13 2018 [id number] 349 150 [employer] (SEQ) complet ed Influenza , injectabl e, quadrival ent, preservat angel free DoD influenza, injectable, quadrivalent- pf 2017 [id number] 150 [employer] complet ed influenza , injectabl e, quadrival ent-pf 02/05/18 Given Ambulat ory Pharmac y Influenza, injectable, quadrivalent, preservative free 12 2017 [id number] 150 [employer] (SEQ) comple t ed Influenza [...] angel free DoD influenza, seasonal, injectable-pf 2015 [id number] 1A 140 [employer] complet ed influenza , seasonal, injectabl e-pf 12/23/15 Given Ambulat ory Pharmac y Influenza, seasonal, injectable, preservative free 10 2015 [id number] 1A 140 [employer] (SEQ) complet ed Influenza , seasonal, injectabl e, preservat angel free DoD influenza, live, intranasal,qu adrivalent 2014 [id number] 149 Mediune Inc comple t ed influenza [...] DoD influenza, live, intranasal, quadrivalent 9 2014 [id number] 149 [employer]Promote, Inc. (MED) complet ed influenza , live, intranasa l, quadrival ent DoD Human Papillomaviru s,quadrivalen t(HPV4) 2014 [id number] 62 Merck & Company Inc complet ed Human Papilloma virus,holden drivalent (HPV4) 05/16/14 Given Ambulat ory Pharmac y human papilloma virus vaccine, quadrivalent 0 2014 [id number] 62 Merck (MSD) complet ed human papilloma virus vaccine, quadrival ent DoD influenza, live, intranasal,qu adrivalent 2013 [id number] 149 MediDUHEMune Inc comple t ed influenza , live, intranasa l,quadriv alent 01/20/14 Given Ambulat ory Pharmac y influenza, live, intranasal, quadrivalent 8 2013 [id number] 149 Digital Music Indiaune, Inc. (MED) complet ed influenza , live, intranasa l, quadrival ent DoD influenza, live, intranasal,qu adrivalent 2012 [id number] 149 Medimmune Inc comple t ed influenza , live, intranasa l,quadriv alent 12/24/12 Given Ambulat ory Pharmac y influenza, live, intranasal, quadrivalent 7 2012 [id number] 149 MedIDUHEMune, Inc. (MED) complet ed influenza , live, intranasa l, quadrival ent DoD influenza, seasonal, injectable-pf 2011 [id number] 140 sanofi pasteur complet ed influenza , seasonal, injectabl e-pf 03/08/12 Given Ambulat ory Pharmac y Influenza, seasonal, injectable, preservative free 6 2011 [id number] 140 Sanofi Pasteur (PMC) complet ed Influenza , seasonal, injectabl e, preservat angel free DoD tetanus, diphtheria, acellular pertu is 2011 [id number] 5AA 115 GlaxoSmithKli mi complet ed tetanus, diphtheri a, acellular pertussis 10/26/11 Given Ambulat ory Pharmac y tetanus toxoid, reduced diphtheria toxoid, and acellular pertu is vaccine, adsorbed 0 2011 [id number] 5AA 115 [facility] (SKB) complet ed tetanus toxoid, reduced diphtheri a toxoid, and acellular pertussis vaccine, adsorbed DoD influenza virus vaccine, live 2010 [id number] 111 Medimmune Inc comple t ed influenza virus vaccine, live 11/23/10 Given Ambulat ory Pharmac y influenza virus vaccine, live, attenuated, for intranasal use 5 2010 [id number] 111 MedIFeedtrace, Inc. (MED) complet ed influenza virus vaccine, live, attenuate d, for intranasa l use [facility] influenza virus vaccine,split 2009 [id number] 15 CSL Behring complet ed influenza virus vaccine,s plit 01/05/10 Given Ambulat ory Pharmac y influenza virus vaccine, split virus (incl. purified surface antigen)-reti red CODE 1 2009 [id number] 15 CSPlayedCrowdTransfer, Inc. (CSL) complet ed influenza virus vaccine, split virus (incl. purified surface antigen)- retired CODE DoD Novel influenza-H1N 1-09, injectable 2009 [id number] 127 sanofi pasteur complet ed Novel influenza -Q4N2-32, injectabl e 10/05/09 Given Ambulat ory Pharmac y Novel influenza-H1N 1-09, injectable 1 2009 [id number] 127 Sanofi Pasteur (PMC) complet ed Novel influenza -H7P6-61, injectabl e DoD influenza virus vaccine, live 2008 [id number] 111 Free All Media Inc complet ed influenza virus vaccine, live 01/19/09 Given Ambulat ory Pharmac y influenza virus vaccine, live, attenuated, for intranasal use 1 2008 [id number] 111 [employer]Prom[employer], Inc. (MED) complet ed influenza virus vaccine, live, attenuate d, for intranasa l use DoD influenza virus vaccine, live 2007 [id number] 111 Free [employer] Media Inc comple t ed influenza virus vaccine, live 01/11/08 Given Ambulat ory Pharmac y influenza virus vaccine, live, attenuated, for intranasal use 1 2007 [id number] 111 [employer]Prom[employer], Inc. (MED) complet ed influenza virus vaccine, live, attenuate d, for intranasa l use DoD hepatitis A adult vaccine 2007 [id number] 52 Merck & Company Inc complet ed hepatitis A adult vaccine 09/20/07 Given Ambulat ory Pharmac y hepatitis A vaccine, adult dosage 2 2007 [id number] 52 Merck (MSD) complet ed hepatitis A vaccine, adult dosage DoD tuberculin purified protein derivative 2006 [id number] 96 sanofi pasteur complet ed tuberculi n [...] adult dosage 1 2006 [id number] [id number] 52 [employer] (SKB) complet ed hepatitis A vaccine, adult dosage DoD influenza virus vaccine,split 2006 [id number] 0AA 15 [employer] ne complet ed influenza virus vaccine,s plit 01/11/07 Given Ambulat ory Pharmac y meningococcal A,C,Y,W-135 (MCV4P) 2006 [id number] 114 sanofi pasteur complet ed meningoco ccal A,C,Y,W-1 35 (MCV4P) 01/11/07 Given Ambulat ory Pharmac y poliovirus vaccine, inactivated 2006 [id number] 10 sanofi pasteur complet ed polioviru s vaccine, inactivat ed 01/11/07 Given Ambulat ory Pharmac y tetanus-dipht h toxoids (Td) adult/adol 2006 [id number] 09 sanofi pasteur complet ed tetanus-d iphth toxoids (Td) adult/ado l 01/11/07 Given Ambulat ory Pharmac y tetanus and diphtheria toxoids, adsorbed, preservative free, for adult use (2 Lf of tetanus toxoid and 2 Lf of diphtheria toxoid) 1 2006 [id number] 09 Sanofi Pasteur ([facility]) complet ed tetanus and diphtheri a toxoids, adsorbed, preservat angel free, for adult use (2 Lf of tetanus toxoid and 2 Lf of diphtheri a toxoid) DoD poliovirus vaccine, inactivated 1 2006 [id number] 10 Sanofi Pasteur ([facility]) complet ed polioviru s vaccine, inactivat ed DoD influenza virus vaccine, split virus (incl. purified surface antigen)-reti red CODE 1 2006 [id number] [id number] 15 [employer] (SKB) complet ed influenza virus vaccine, split virus (incl. purified surface antigen)- retired CODE DoD meningococcal polysaccharid e (groups A, C, Y and W-135) diphtheria toxoid conjugate vaccine (MCV4P) 1 2006 [id number] 114 Sanofi Pasteur (PMC) complet ed meningoco [...] Prevention' s HIV diagnostic algorithm. Refer to [facility] Lab Guide for additional information : [email or web address] x Testing performed by Blayne kuhn 5600A[facility]U [employer] Miscellan eous Sendouts Repository Sample Received (07/14/23 1:29 PM) 07/13 N [facility] [employer] Vital Signs Combined list of inpatient and outpatient Vital Signs from Department of Caregivers and Veterans Affairs, ranging from 12 months to all on record, depending upon the facility. Vital Sign Value Date Comments Source Blood Pressure Manual Automatic 08/31/2022 13:55:00 7047H-HM-V[facility] Temperature Oral 36.7 Pat 08/31/2022 13:55:00 4374L-JV-L-[facility] Systolic Blood Pressure 124 mm[Hg] 09/01/19 23 13:55:00 6153K-VM-J-[facility] Diastolic Blood Pressure 79 mm[Hg] 023 13:55:00 8426F-OJ-V-[facility] BP Site Right arm 08/31/2022 13:55:00 0011J-VL-P-[facility] Mean Arterial Pressure, Calc 94 mm[Hg] 08/31/2022 13:55:00 3417M-NZ-X-[facility] Peripheral Pulse Rate 69 bpm 08/31/2022 13:55:00 9740S-NS-J-[facility] Respiratory Rate 16 br/min 08/31/2022 13:55:00 0854V-BI-X-[facility] Encounters Combined list of: 1) Encounters from Department of Veterans Affairs facilities going backup to the last 18 months, not all VA inpatient encounters are included; 2) Encounters from the Department of Defense facilities going backup to 280 months. Location Location Details Encounter Type Encounter Number Reason For Visit Attending Provider ADM Date DC Date Status Disposition Source [facility](Opt ometry) OUTPATIENT [id number] rout visit CHASE BARON 10/11 Released w/o Limitations [facility](O ptometr y) [facility](Fam Med Pod 2) OUTPATIENT [id number] health concern s w/ cardiac history LORRIE PATEL Y 10/14 Released w/o Limitations [facility](F am Med Pod 2) [facility](Fam Med Pod 2) OUTPATIENT [id number] ekg LORRIE PATEL Y 10/22 Released w/o Limitations [facility](F am Med Pod 2) [facility](Fam Med Pod 2) TELE CONSULT [id number] ON/OFF COUGH WITH MUCUS X 1 YR. APPT REQUEST ED. FELTON MARTIN 09/24 Referred for Appointment [facility](F am Med Pod 2) [facility](Fam Med Pod 2) TELE CONSULT [id number] Nose bleeds during exercis e. FELTON MARTIN 11/03 Referred for Appointment [facility](F am Med Pod 2) [facility](Fam Med Pod 1) OUTPATIENT [id number] lt rib pain makes it difficu lt to breath and sleep on that side PILY FLORES 11/04 Released w/o Limitations [facility](F am Med Pod 1) [facility](Fam Med Pod 2) OUTPATIENT [id number] Nose bleeds KAROLINA PLEITEZ 11/10 Released w/o Limitations [facility](F am Med Pod 2) [facility](Fam Med Pod 2) TELE CONSULT [id number] PHA RESPONS E NASSAUX, LORRIE Y 12/05 [facility](F am Med Pod 2) [facility](Fam Med Pod 2) TELE CONSULT [id number] sore throat, runny nose ABEITA, FRANCO A 01/01 Referred for Appointment [facility](F am Med Pod 2) [facility](Fam Med Pod 2) OUTPATIENT [id number] ear pain, throat, running nose WILLAM RODRIGUEZ 01/02 Sick at Home/Quarter s [facility](F am Med Pod 2) [facility](Fam Med Pod 2) OUTPATIENT [id number] skin issues NASSAUX, LORRIE Y 06/22 Released w/o Limitations [facility](F am Med Pod 2) [facility](Fam Med Pod 1) TELE CONSULT [id number] abdomin al pain, n/v, diarrhe a ILCUS, MASHA S 07/15 [facility](F am Med Pod 1) [facility](Fam Med Pod 2) TELE CONSULT [id number] Pt still not feeling well. Currenl ty on quarter s. ABEITA, FRANCO A 07/15 [facility](F am Med Pod 2) [facility](Fam Med Pod 2) OUTPATIENT [id number] f/u possibl e food poisoni ng NASSAUX, LORRIE Y 07/16 Released with Work/Duty Limitations [facility](F am Med Pod 2) [facility](Fam Med Pod 2) TELE CONSULT [id number] possibl e Salmene lla FRANCO MURPHY A 11/05 [facility](F am Med Pod 2) [facility](Fam Med Pod 2) TELE CONSULT [id number] request ing STD check w/ symptom s FRANCO MURPHY A 01/15 [facility](F am Med Pod 2) [facility](Fam Med Pod 2) OUTPATIENT [id number] possibl e std NASSAUX, LORRIE Y 01/18 Released w/o Limitations [facility](F am Med Pod 2) [facility]) OUTPATIENT [id number] SHARRI Castillo S 01/18 Released w/o Limitations [facility](P ublic Health) [facility](Fam Med Pod 1) TELE CONSULT [id number] PHA TORO GARDNER 01/19 Referred for Appointment [facility](F am Med Pod 1) [facility](Fam Med Pod 2) TELE CONSULT [id number] lab results FRANCO MURPHY A 01/29 [facility](F am Med Pod 2) [facility](Fam Med Pod 2) TELE CONSULT [id number] lab results FRANCO MURPHY A 02/26 [facility](F am Med Pod 2) [facility](Fam Med Pod 2) OUTPATIENT [id number] sore throat NASSAUX, LORRIE Y 08/24 Released w/o Limitations [facility](F am Med Pod 2) [facility](Fam Med Pod 2) OUTPATIENT [id number] PAIN TO LT KNEE TOYIN, TOD A 03/28 Released w/o Limitations [facility](F am Med Pod 2) [facility](Phy sical Therapy) OUTPATIENT [id number] l knee PUGIA, CHERISE 04/08 Released w/o Limitations [facility](P hysical Therapy ) [facility](Phy sical Therapy) OUTPATIENT [id number] l knee ALYSSADANIELA D 04/22 Released w/o Limitations [facility](P hysical Therapy ) [facility](Phy sical Therapy) OUTPATIENT [id number] l knee DANIELA SHAH D 04/25 Released w/o Limitations [facility](P hysical Therapy ) [facility](Phy sical Therapy) OUTPATIENT [id number] l knee DANIELA SHAH D 04/29 Released w/o Limitations [facility](P hysical Therapy ) [facility](Fam Med Pod 2) TELE CONSULT [id number] Notes Entered by: SHARRI BECERRA 03 May 2011 1108 ------- ------- ------- ------- -- AURELIANO CROUCH 05/03 Other Not Elsewhere Classified [facility](F am Med Pod 2) [facility](Phy sical Therapy) OUTPATIENT [id number] f/u l knee PUGIA, CHERISE 05/10 Released w/o Limitations [facility](P hysical Therapy ) [facility](Phy sical Therapy) OUTPATIENT [id number] VAHID TRIPLETT 05/22 Released w/o Limitations [facility](P hysical Therapy ) [facility](Phy sical Therapy) OUTPATIENT [id number] VAHID TRIPLETT 05/29 Released w/o Limitations [facility](P hysical Therapy ) [facility](Phy sical Therapy) OUTPATIENT [id number] APARNA MARCELO 06/01 Released w/o Limitations [facility](P hysical Therapy ) [facility](Phy sical Therapy) OUTPATIENT [id number] F/U KNEE PUGIA, CHERISE 06/15 Released w/o Limitations [facility](P hysical Therapy ) [facility](Katherine gomez [facility] Team C) OUTPATIENT [id number] renew 469/422 needed pt test LORRIE PATEL 07/05 Released w/o Limitations [facility](Srikanth thomas [facility] Team C) [facility](Katherine gomez [facility] Team E) TELE CONSULT [id number] Notes Entered by: ROSELINE STEELE 23 Nov 2011 1412 ------- ------- ------- ------- -- ref JEFFREYDEVINFRANCO A 11/22 [facility]erred for Appointment [facility] _Team_Lob o) OUTPATIENT [id number] bumps on genital s IVONE ROSA 12/08 Released w/o Limitations [facility] _[facility]_Te am_Lobo ) [facility] _Team_Lob o) TELE CONSULT [id number] Notes Entered by: Madeline ROSA 14 Dec 2011 1415 ------- ------- ------- ------- -- +ELIZABETH Caraballo 12/13 Referred for Appointment [facility]_Te am_Lobo ) [facility] _Team_Lob o) OUTPATIENT [id number] f/u labs IVONE ROSA 12/14 Released w/o Limitations [facility] _[facility]_Te am_Lobo ) [facility]) OUTPATIENT [id number] Notes Entered by: GOOD DACOSTA SA 15 Dec 2011 1552 ------- ------- ------- ------- -- + ALVA CAMACHO 12/14 Released w/o Limitations [facility]) [facility] Team E) OUTPATIENT [id number] extensi on of 422 LORRIE PATEL Y 12/18 Released with Work/Duty Limitations [facility] Team E) TELE CONSULT [id number] Notes Entered by: GOOD MEDINA 01 Feb 2012 1033 ------- ------- ------- ------- -- REFERFRANCO CABAN 01/31 Referred for Appointment [facility] Team E) [facility] Team E) OUTPATIENT [id number] sore throat NASSAUX, LORRIE Y 02/20 Released with Work/Duty Limitations [facility] Team E) [facility] Team E) OUTPATIENT [id number] profile NASSAUX, LORRIE Y 03/08 Released with Work/Duty Limitations [facility] Team E) [facility] Team E) OUTPATIENT [id number] nose bleeds NASSAUX, LORRIE Y 04/11 Released w/o Limitations [facility] Team E) [facility] Team E) OUTPATIENT [id number] poss sleep apnea NASSAUX, LORRIE Y 06/12 Released w/o Limitations [facility] Team E) TELE CONSULT [id number] Notes Entered by: LORRIE SIMON 20 Aug 2012 1357 ------- ------- ------- ------- -- MAIK DEL ROSARIO 08/20 Other Not Elsewhere Classified [facility] Team E) OUTPATIENT [id number] f/u on knee NASSAUX, LORRIE Y 09/11 Released w/o Limitations [facility] Team E) OUTPATIENT [id number] excessi ve sweatin g NASSAUX, LORRIE Y 11/01 Released w/o Limitations [facility]( [facility] Team E) TELE CONSULT [id number] Notes Entered by: MAIK JOSEPH 05 Dec 2012 1130 ------- ------- ------- ------- -- MAIK WARD 12/05 Referred for Appointment [facility](Srikanth thomas [facility] Team E) [facility] OUTPATIENT [id number] Discuss sleep Issues x 7 months YULIA RODRIGUEZ Shaheen 01/31 Released w/o Limitations [facility]) [facility](Opt ometry Clinic) OUTPATIENT [id number] ree; [place] 1 year JUAN JOSE LEE 03/22 Released w/o Limitations [facility](O ptometr y Clinic) [facility] [facility]) OUTPATIENT [id number] SLEEP ISSUES YULIA RODRIGUEZ Shaheen 03/25 Released w/o Limitations [employer](I ntegrat ed Behavio ral Hlth Cln) [facility] [facility] [employer](Fam Med Cl Tm B Non-Ad) TELE CONSULT [id number] Notes Entered by: CHRISTOPHER CHA 09 Apr 2013 1037 ------- ------- ------- ------- -- Network Result - Apnea Link 014 NEAL PENA 04/09 [employer] [facility] [employer](F am Med Cl Tm B Non-Ad) [facility] [facility](Fam Med Cl Tm B Non-Ad) OUTPATIENT [id number] LEFT KNEE SWELLIN G/ ONGOING NEAL PENA 04/15 Released w/o Limitations [employer](F am Med Cl Tm B Non-Ad) [facility] [facility](Fam Med Cl Tm B Non-Ad) OUTPATIENT [id number] chest pain NEAL PENA 04/16 Released w/o Limitations [facility](F am Med Cl Tm B Non-Ad) [facility](Fam Med Cl Tm B Non-Ad) TELE CONSULT [id number] Notes Entered by: CATE CASTRO 29 Apr 2013 1604 ------- ------- ------- ------- -- Profile JANNA OLIVAS 04/29 [facility] Appointment [facility](F am Med Cl Tm B Non-Ad) [facility](Fam Med Cl Tm B Non-Ad) TELE CONSULT [id number] Notes Entered by: DAVINA DE LA PAZ 07 May 2013 1512 ------- ------- ------- ------- -- ACTIVE DUTY/ PROFILE REQUEST JANNA OLIVAS 05/07 Referred for Appointment [facility](F am Med Cl Tm B Non-Ad) [facility](Fam Med Cl Tm B Non-Ad) OUTPATIENT [id number] PT test this month wants profile for knee DUSTIN OLGUIN 05/15 Released with Work/Duty Limitations [facility](F am Med Cl Tm B Non-Ad) [place] OUTPATIENT [id number] joint pain, localiz ed in the knee... [employer] KAREN SLOAN 05/20 Released w/o Limitations [place]Orth [place]ics ) [facility](Fam Med Cl Tm B Non-Ad) TELE CONSULT [id number] Notes Entered by: JAIMIE HAZEL 21 Oct 2013 1121 ------- ------- ------- ------- -- RENEW PROFILE JANNA OLIVAS 10/21 [facility]ased to [facility](F am Med Cl Tm B Non-Ad) [facility](Fam Med Cl Tm B Non-Ad) OUTPATIENT [id number] Coughin g up mucous and abd pain x 2 months DUSTIN OLGUIN 11/05 Released w/o Limitations [facility](F am Med Cl Tm B Non-Ad) [facility](Fam Med Cl Tm B Non-Ad) OUTPATIENT [id number] profile concern s DUSTIN OLGUIN 11/11 Released with Work/Duty Limitations [facility](F am Med Cl Tm B Non-Ad) [facility]) OUTPATIENT [id number] Joint pain in the left knee RICK BATEMAN 11/25 Released w/o Limitations [facility]) [facility]) OUTPATIENT [id number] FERNY DOMINGO 11/29 Released with Work/Duty Limitations [facility]) [facility]) OUTPATIENT [id number] FERNY DOMINGO 12/06 Released with Work/Duty [employer] [facility]) [facility]) OUTPATIENT [id number] TORI REES 12/12 Released with Work/Duty [employer] [facility](P [facility] Therapy [facility]) [facility]) OUTPATIENT [id number] FERNY DOMINGO 12/16 Released with Work/Duty Limitations [facility](P [facility]) [facility](Fam Med Cl Tm B Non-Ad) TELE CONSULT [id number] Notes Entered by: DAVINA DE LA PAZ 16 Jan 2014 1142 ------- ------- ------- ------- -- ACTIVE DUTY/ RIGHT HAND PAIN ZEN KUMAR 01/16 Referred for Appointment [facility](F am Med Cl Tm B Non-Ad) [facility] Therapy [facility]) OUTPATIENT [id number] RICK BATEMAN Rhina 01/17 Released w/o Limitations [facility](P [facility]) [facility](Fam Med Cl Tm B Non-Ad) OUTPATIENT [id number] right hand pain x 3 weeks DUSTIN OLGUIN 01/20 Released w/o Limitations [facility](F am Med Cl Tm B Non-Ad) [facility] Therapy [facility]) OUTPATIENT [id number] RICK BATEMAN Rhina 02/11 Released w/o Limitations [facility](P hysical Therapy Clinic) [facility](Ort hopedic Clinic ) OUTPATIENT [id number] Joint pain, localiz ed in the knee KAREN SLOAN 02/20 Released w/o Limitations [facility](O rthoped ic Clinic OFFICE HELPER CLERICAL) [employer](PHA Cell) OUTPATIENT [id number] Notes Entered by: SEAN CANALES 07 Mar 2014 1450 ------- ------- ------- ------- -- RIGOBERTO YUAN 03/07 Released w/o Limitations [facility](P [facility]AILEY Cell) [facility](Fam Med Cl Tm B Non-Ad) TELE CONSULT [id number] Notes Entered by: COLT JUDD 24 Mar 2014 1146 ------- ------- ------- ------- -- CON ЕЛЕНА HENDRIX 03/24 [facility]ased to [facility](F am Med Cl Tm B Non-Ad) [facility](Fam Med Cl Tm B Non-Ad) TELE CONSULT [id number] Notes Entered by: DAVINA DE LA PAZ 03 Apr 2014 1333 ------- ------- ------- ------- -- CONSULT WITH SURGEON DUSTIN OLGUIN 04/03 [facility](F am Med Cl Tm B Non-Ad) [facility](Fam Med Cl Tm B Non-Ad) TELE CONSULT [id number] Notes Entered by: Alcides WAETHERS 14 Apr 2014 1437 ------- ------- ------- ------- -- Needs Stitche s Removed Today MURALI BUCIO V 04/14 Referred for Appointment [facility](F am Med Cl Tm B Non-Ad) [facility](Fam Med Cl Tm B Non-Ad) OUTPATIENT [id number] WALK IN SUTURE REMOVAL DUSTIN OLGUIN 04/14 Released with Work/Duty Limitations [facility](F am Med Cl Tm B Non-Ad) [place] OUTPATIENT [id number] post op DOS: 25 Mar 2014 KAREN SLOAN 04/17 Released w/o Limitations [place]ics ) [facility] Therapy [facility]) OUTPATIENT [id number] FRANSICO RICK R 04/29 Released w/o Limitations [facility](P hysical Therapy Clinic) [facility] Therapy [facility]) OUTPATIENT [id number] CHAYO FERNY Madeline 05/07 Released w/o Limitations [facility](P [facility]ysical Therapy Clinic) [facility]) OUTPATIENT [id number] YAZMIN NELSON 05/12 Released w/o Limitations [facility](P [facility]ysical Therapy Clinic) [facility](Fam Med Cl Tm B Non-Ad) TELE CONSULT [id number] Notes Entered by: Alcides WRIGHT 23 May 2014 1610 ------- ------- ------- ------- -- Profile extensi on HIRAM JAVED 05/23 Referred for Appointment [facility](F am Med Cl Tm B Non-Ad) [facility] Therapy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 [employer] [facility]) [employer] [facility]) TELE CONSULT [id number] Notes Entered by: EVANS WALTON 04 Jun 2020 1133 ------- ------- ------- ------- -- Med Refill/ 3 days left - STEFANI Bradley 06/04 Referred for Appointment [facility]) [employer] [facility] OUTPATIENT [id number] need Zoloft refill - [phone] PAPITO ROB 06/05 Released w/o Limitations [employer]([facility]al Primary [facility]) [employer]([facility]) OUTPATIENT [id number] 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) FELIZ TILLMAN 06/08 Released w/o Limitations [employer](B OM) [employer] [facility]) OUTPATIENT [id number] Profile extensi on for Left knee JC ESTRELLA 06/30 Released with Work/Duty Limitations [employer]([facility]) [employer] [facility]) TELE CONSULT [id number] Notes Entered by: HAYDEE PATEL 06 Aug 2020 1352 ------- ------- ------- ------- -- Triage: painful lump on throat under STEFANI Ace 08/06 Other Not Elsewhere Classified [employer] [facility]al Primary Care) [employer] [facility]) OUTPATIENT [id number] sick call- swellin g throat 701 362 JC ESTRELLA 08/07 Released w/o Limitations [employer] [facility]al Primary [facility]) [employer] [facility] OUTPATIENT [id number] Notes Entered by: MADISON CHEN NMI 18 Aug 2020 1408 ------- ------- ------- ------- -- Sick call : severe cough RUTH ESEQUIEL D 08/18 Sick at Home/Quarter s [employer] [facility]al Primary [facility]) [employer] [facility]) TELE CONSULT [id number] Notes Entered by: WALTER RING 25 Sep 2020 0811 ------- ------- ------- ------- -- Network Results - ENT - 021 TORSTEN CAPONE 09/25 [employer] [facility]al Primary Care) [employer] [facility]) TELE CONSULT [id number] Notes Entered by: HAYDEE PATEL 01 Dec 2020 1345 ------- ------- ------- ------- -- Concern about Covid vaccine and family heart issues STEFANI LOCKETT 12/01 Referred for Appointment [employer] [facility](O peratio nal Primary Care) [facility](Opt [facility]metry Clinic) OUTPATIENT [id number] IGNACIA UNDERWOOD 06/18 Released w/o Limitations [employer] [facility](O ptometr y Clinic) [employer]([facility]) OUTPATIENT [id number] 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 [phone] FELIZ TILLMAN 07/12 Released w/o Limitations [employer] [facility]) [employer] [facility]) OUTPATIENT [id number] follow up - PHAQ TORSTEN CAPONE 08/05 Released with Work/Duty Limitations [employer](O per[facility]al Primary Care) [employer] [facility]) TELE CONSULT [id number] Notes Entered by: ANANTH MEJIA 06 Aug 2021 1613 ------- ------- ------- ------- -- 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 STEFANI LOCKETT 08/06 Other Not Elsewhere Classified [employer] [facility](O [facility]al Primary Care) [employer] [facility]) OUTPATIENT [id number] per pcm needs Spec- [phone] TORSTEN CAPONE 08/10 Released w/o Limitations [employer] [facility](O per[facility]al Primary Care) [employer] [facility]) TELE CONSULT [id number] Notes Entered by: JENELLE RIOS 20 Aug 2021 1419 ------- ------- ------- ------- -- Profile STEFANI LOCKETT 08/20 Other Not Elsewhere Classified [employer] [facility](O peratio nal Primary Care) [employer] [facility]) TELE CONSULT [id number] Notes Entered by: Phil LOCKETT 26 Aug 2021 1506 ------- ------- ------- ------- -- notesklever sent to [facility] STEFANI Javier 08/26 Other Not Elsewhere Classified [employer] [facility](O peratio [facility]al Primary Care) [employer] [facility]) TELE CONSULT [id number] Notes Entered by: HAYDEE PATEL 21 Oct 2021 1410 ------- ------- ------- ------- -- Referra l Renewal : urgent- DME CPAP and mask STEFANI LOCKETT 10/21 Other Not Elsewhere Classified [employer] [facility](O peratio [facility]al Primary Care) [employer] [facility]) TELE CONSULT [id number] Notes Entered by: KASIA RIVERS 08 Nov 2021 0749 ------- ------- ------- ------- -- COVID 19 Guidanc e : Positiv e COVID test with symptom STEFANI Maire 11/08 Sick at Home/Quarter s [employer] [facility](O peratio [facility]al Primary Care) [employer] [facility]) TELE CONSULT [id number] 6 Notes Entered by: MARIKA MAYNARD 12 Nov 2021 1444 ------- ------- ------- ------- -- Remove AUoF MP Helmet and Command Interes t Red Flag Icons MARIKA MAYNARD 11/12 Referred- Emergency Department [facility] 0310C-AF- C-[facility]th [employer] [employer] Between Visit [id number] 12/25 Discharge Disposition: Home or Self Care 0310C-A F-C-66t h [employer] 0310C-AF- C-66th [employer] [employer] Between Visit [id number] 02/11 Discharge Disposition: Home or Self Care 0310C-A F-C-66t h [employer] 0310C-AF- C-66th [employer] [employer] Between Visit [id number] 03/11 Discharge Disposition: Home or Self Care 0310C-A F-C-66t h [employer] 0310C-AF- C-66th [employer] [employer] Between Visit [id number] 04/10 Discharge Disposition: Home or Self Care 0310C-A F-C-66t h [employer] 0310C-AF- C-66th [employer] [employer] Between Visit [id number] 06/26 Discharge Disposition: Home or Self Care 0310C-A F-C-66t h [employer] [employer] Procedures Combined list of: 1) Procedures from Department of Veterans Affairs facilities going back up to thelast 18 months, not all VA non-surgical procedures are included; 2) All procedures from the Department of Defense facilities. Procedure Procedure Type Code Date Perfomer Comments Sourc e Modalities Iontophoresis Modalities Iontophoresis 12771 012 VAHID TRIPLETT Physical Therapy Neuromuscular Re-education Physical Therapy Neuromuscular Re-education 92503 012 VAHID TRIPLETT Exercises A isted Exercises For ROM Exercises Assisted Exercises For ROM 35213 012 VAHID TRIPLETT Modalities Iontophoresis Modalities Iontophoresis 98298 012 VAHID TRIPLETT Physical Therapy Neuromuscular Re-education Physical Therapy Neuromuscular Re-education 57653 012 VAHID TRIPLETT Exercises A isted Exercises For ROM Exercises Assisted Exercises For ROM 57379 012 VAHID TRIPLETT Physical Medicine Physical Therapy Re-Evaluation Physical Medicine Physical Therapy Re-Evaluation 55563 012 DANTE SANTOS Physical Therapy Neuromuscular Re-education Physical Therapy Neuromuscular Re-education 68602 012 DANIELA SHAH Exercises A isted Exercises For ROM Exercises Assisted Exercises For ROM 61244 012 DANIELA SHAH Exercises A isted Exercises For ROM Exercises Assisted Exercises For ROM 52595 012 DANIELA SHAH Physical Therapy Neuromuscular Re-education Physical Therapy Neuromuscular Re-education 55755 012 DANIELA SHAH Physical Medicine Physical Therapy Evaluation Physical Medicine Physical Therapy Evaluation 29350 012 DANTE SANTOS Ophthalmological New Patient Start Comprehensive Care Ophthalmological New Patient Start Comprehensive Care 59397 008 CHASE BARON [facility] Spectacles Services Fitting Monofocals (Not For Aphakia) [employer] Fitting Monofocals (Not For Aphakia) 43563 019 SEVEN VELEZ [facility] Determination Of Refractive State Determination Of Refractive State 78589 019 SEVEN VELEZ Ophthalmological Prior Patient Start Comprehensive Care Ophthalmological Prior Patient Start Comprehensive Care 32492 019 SEVEN VELEZ [facility] Non-Physician Phone Call To Patient/Provider Brief (5-10min) Non-Physician Phone Call To Patient/Provider Brief (5-10min) 62025 019 CAMILO JANG [employer] Non-Physician Phone Call To Patient/Provider Brief (5-10min) Non-Physician Phone Call To Patient/Provider Brief (5-10min) 86928 019 DANNY YEH [employer] Non-Physician Phone Call To Patient/Provider Brief (5-10min) Non-Physician Phone Call To Patient/Provider Brief (5-10min) 28873 019 ARCADIO WOLFE [employer] Internet [employer] Svc Qual Nonphys Healthcare Prof Estab Patient Internet Med Svc Qual Nonphys Healthcare Prof Estab Patient 85121 018 GABINO BLACK [employer] Threshold Audiogram (Pure Tone) Automated Threshold Audiogram (Pure Tone) Automated 0208T 018 CAROL CRAIG [employer] Non-Physician Phone Call To Patient/Provider Brief (5-10min) Non-Physician Phone Call To Patient/Provider Brief (5-10min) 11987 018 NATHALY HOLLOWAY [employer] Fitting Monofocals (Not For Aphakia) [employer] Fitting Monofocals (Not For Aphakia) 40511 018 FABIANA-VILLANUEVA , ALEXUS [employer] Prescription & Fitting Bilateral Corneal Lenses (Not Aphakia Prescription & Fitting Bilateral Corneal Lenses (Not Aphakia 14941 018 JUNG-VILLANUEVA , ALEXUS [employer] Determination Of Refractive State Determination Of Refractive State 06597 018 FABIANA-KAY ALEXUS [employer] Prescription & Fitting Bilateral Corneal Lenses (Not Aphakia Prescription & Fitting Bilateral Corneal Lenses (Not Aphakia 92491 018 FABIANA-VILLANUEVA , ALEXUS [employer] Non-Physician Phone Call To Patient/Provider Brief (5-10min) Non-Physician Phone Call To Patient/Provider Brief (5-10min) 28070 018 CATRINA SMITH [employer] Fitting Monofocals (Not For Aphakia) [employer] Fitting Monofocals (Not For Aphakia) 22467 018 MOE SINGH [employer] Non-Physician Phone Call To Patient/Provider Brief (5-10min) Non-Physician Phone Call To Patient/Provider Brief (5-10min) 07097 017 MIESHA HENRY [employer] Svc Qual Nonphys Healthcare Prof Estab Patient Internet Med Sv Qual Nonphys Healthcare Prof Estab Patient 22454 017 GABINO BLACK Threshold Audiogram (Pure Tone) Automated Threshold Audiogram (Pure Tone) Automated 0208T 017 NANY ROJAS Determination Of Refractive State Determination Of Refractive State 017 ALEXUS BRANTLEY Ophthalmological Prior Patient Start Comprehensive Care Ophthalmological Prior Patient Start Comprehensive Care 017 ALEXUS BRANTLEY [employer] Fitting Monofocals (Not For Aphakia) [employer] Fitting Monofocals (Not For Aphakia) 66919 016 FELTON DILLARD Determination Of Refractive State Determination Of Refractive State 016 FELTON DILLARD Ophthalmological Prior Patient Start Comprehensive Care Ophthalmological Prior Patient Start Comprehensive Care 016 FELTON DILLARD Threshold Audiogram (Pure Tone) Automated Threshold Audiogram (Pure Tone) Automated 0208T 016 JUAN CRAWFORD Patient education, not otherwise cla ified, non-physician provider, group, per se ion 016 JUAN CRAWFORD Psychometric Neuropsych Testing Battery Admin By Computer Psychometric Neuropsych Testing Battery Admin By Computer 26489 YEFRI HAMILTON Psychiatric Evaluation Review of Records and Reports Psychiatric Evaluation Review of Records and Reports 19293 015 YEFRI HAMILTON [employer] [facility] Fitting Monofocals (Not For Aphakia) Spectacles Services Fitting Monofocals (Not For Aphakia) 96379 015 FELTON DILLARD Determination Of Refractive State Determination Of Refractive State 25418 015 FELTON DILLARD Ophthalmological Prior Patient Start Comprehensive Care Ophthalmological Prior Patient Start Comprehensive Care 69969 015 FELTON DILLARD Exercises A isted Exercises For ROM Exercises Assisted Exercises For ROM 23481 015 RICK BATEMAN Physical Medicine Physical Therapy Re-Evaluation Physical Medicine Physical Therapy Re-Evaluation 21231 015 RICK BATEMAN Physical Therapy Neuromuscular Re-education Physical Therapy Neuromuscular Re-education 82066 015 FELICIANO SLATER Physical Therapy: ___ Se ion Segments, 15 Minutes Each Physical Therapy: ___ Session Segments, 15 Minutes Each 63926 015 FELICIANO SLATER Exercises A isted Exercises For ROM Exercises Assisted Exercises For ROM 87376 015 RICK BATEMAN Physical Medicine Physical Therapy Re-Evaluation Physical Medicine Physical Therapy Re-Evaluation 52946 015 RICK BATEMAN Physical Therapy Neuromuscular Re-education Physical Therapy Neuromuscular Re-education 14889 015 FERNY DOMINGO Physical Therapy: ___ Se ion Segments, 15 Minutes Each Physical Therapy: ___ Session Segments, 15 Minutes Each 24266 015 FERNY DOMINGO Physical Therapy Neuromuscular Re-education Physical Therapy Neuromuscular Re-education 51202 015 OMAR, YAZMIN E Pilar Physical Therapy: ___ Se ion Segments, 15 Minutes Each Physical Therapy: ___ Session Segments, 15 Minutes Each 60818 015 OMAR, YAZMIN E Pilar Physical Therapy: ___ Se ion Segments, 15 Minutes Each Physical Therapy: ___ Session Segments, 15 Minutes Each 20117 015 FERNY DOMINGO Physical Therapy Neuromuscular Re-education Physical Therapy Neuromuscular Re-education 03105 015 FERNY DOMINGO Exercises A isted Exercises For ROM Exercises Assisted Exercises For ROM 30590 015 RICK BATEMAN Physical Medicine Physical Therapy Evaluation Physical Medicine Physical Therapy Evaluation 70226 015 RICK BATEMAN Exercises A isted Exercises For ROM Exercises Assisted Exercises For ROM 76722 014 RICK BATEMAN Physical Medicine Physical Therapy Re-Evaluation Physical Medicine Physical Therapy Re-Evaluation 64998 014 RICK BATEMAN Exercises A isted Exercises For ROM Exercises Assisted Exercises For ROM 85221 014 RICK BATEMAN [facility] Physical Medicine Physical Therapy Re-Evaluation Physical Medicine Physical Therapy Re-Evaluation 89902 RICK BATEMAN [facility] Modalities Cryotherapy Cold Packs Modalities Cryotherapy Cold Packs 28797 014 CHAYO, [facility] Physical Therapy: ___ Se ion Segments, 15 Minutes Each Physical Therapy: ___ Session Segments, 15 Minutes Each 00476 014 CHAYO [facility] Physical Therapy Neuromuscular Re-education Physical Therapy Neuromuscular Re-education 56613 014 CHAYO [facility] Modalities Cryotherapy Cold Packs Modalities Cryotherapy Cold Packs 32957 014 REESTORI DIAZ [facility] Physical Therapy Neuromuscular Re-education Physical Therapy Neuromuscular Re-education 48325 014 REESTORI DIAZ [facility] Physical Therapy: ___ Se ion Segments, 15 Minutes Each Physical Therapy: ___ Session Segments, 15 Minutes Each 70246 014 TORI REES [facility] Modalities Cryotherapy Cold Packs Modalities Cryotherapy Cold Packs 70827 014 CHAYO, [facility] Physical Therapy Neuromuscular Re-education Physical Therapy Neuromuscular Re-education 03939 014 CHAYO [facility] Physical Therapy: ___ Se ion Segments, 15 Minutes Each Physical Therapy: ___ Session Segments, 15 Minutes Each 83358 014 CHAYO, [facility] Physical Therapy Neuromuscular Re-education Physical Therapy Neuromuscular Re-education [id number] [place], [facility] Physical Therapy: ___ Se ion Segments, 15 Minutes Each Physical Therapy: ___ Session Segments, 15 Minutes Each [id number] [facility] [place] [facility] Exercises A isted Exercises For ROM Exercises Assisted Exercises For ROM [id number] RICK BATEMAN [facility] Physical Medicine Physical Therapy Evaluation Physical Medicine Physical Therapy Evaluation [id number] RICK BATEMAN [facility] Spectacles Services Fitting Monofocals (Not For Aphakia) Spectacles Services Fitting Monofocals (Not For Aphakia) [id number] [phone] JUAN JOSE LEE [facility] Determination Of Refractive State Determination Of Refractive State [id number] JUAN JOSE LEE [facility] Ophthalmological New Patient Start Comprehensive Care Ophthalmological New Patient Start Comprehensive Care [id number] [phone] JUAN JOSE LEE [facility] Taping Knee Taping Knee 86287 ELIZABETHDANTE ONEILL [facility] Physical [facility] Physical Therapy Re-Evaluation Physical Medicine Physical Therapy Re-Evaluation [id number] ELIZABETHMAI DANTE Dan [facility] Modalities Iontophoresis Modalities Iontophoresis 49877 APARNA MARCELO [facility] Exercises A isted Exercises For ROM Exercises Assisted Exercises For ROM 17689 APARNA MARCELO Physical Therapy Neuromuscular Re-education Physical Therapy Neuromuscular Re-education 39678 APARNA MARCELO [facility] Ophthalmological Prior Patient Start Intermediate Level Care Ophthalmological Prior Patient Start Intermediate Level Care 49592 IGNACIA AGUILAR [facility] Determination Of Refractive State Determination Of Refractive State 74679 IGNACIA AGUILAR [facility] Fitting Monofocals (Not For Aphakia) Spectacles Services Fitting Monofocals (Not For Aphakia) 52847 IGNACIA AGUILAR [facility] Brief communication technology-based service, e.g. virtual [...] minutes of medical discu ion FELIZ TILLMAN [facility] Preventive Medicine Results Documented/Reviewed Body Ma Index Preventive Medicine Results Documented/Reviewed Body Mass Index [id number] FELIZ TILLMAN [facility] Waiver services; not otherwise specified (NOS) TORSTEN CAPONE [facility] Non-Physician Phone Call To Patient/Provider Brief (5-10min) Non-Physician Phone Call To Patient/Provider Brief (5-10min) 51627 RYAN MILLER [facility] Ophthalmological Prior Patient Start Comprehensive Care Ophthalmological Prior Patient Start Comprehensive Care 37056 ROSI EDDY DoD Health And Behav A e mt Each 15 Min Initial A e ment Health And Behav Assessmt Each 15 Min Initial Assessment 66286 BETTY MENJIVAR [facility] UNLISTED SPECIAL SERVICE, PROCEDURE OR REPORT [facility] STRAPPING; KNEE [facility] APPLICATION OF A MODALITY TO 1 OR MORE AREAS; IONTOPHORESIS, EACH 15 MINUTES [facility] APPLICATION OF A MODALITY TO 1 OR MORE AREAS; IONTOPHORESIS, EACH 15 MINUTES [facility] APPLICATION OF A MODALITY TO 1 OR MORE AREAS; IONTOPHORESIS, EACH 15 MINUTES [facility] PHYSICAL THERAPY RE-EVALUATION DoD THERAPEUTIC PROCEDURE,1 OR MORE AREAS,EACH 15 MINUTES;NEUROMUSCULAR REEDUCATION OF MOVEMENT,BALANCE,COOR DINATION,KINESTHETIC SENSE,POSTURE,AND/OR PROPRIOCEPTION FOR SITTING AND/OR STANDING ACTIVITIES [facility] THERAPEUTIC PROCEDURE,1 OR MORE AREAS,EACH 15 MINUTES;NEUROMUSCULAR REEDUCATION OF MOVEMENT,BALANCE,COOR DINATION,KINESTHETIC SENSE,POSTURE,AND/OR PROPRIOCEPTION FOR SITTING AND/OR STANDING ACTIVITIES [facility] THERAPEUTIC PROCEDURE,1 OR MORE AREAS,EACH 15 MINUTES;NEUROMUSCULAR REEDUCATION OF MOVEMENT,BALANCE,COOR DINATION,KINESTHETIC SENSE,POSTURE,AND/OR PROPRIOCEPTION FOR SITTING AND/OR STANDING ACTIVITIES [facility] PHYSICAL THERAPY EVALUATION [facility] DETERMINATION OF REFRACTIVE STATE [facility] BRIEF EMOTIONAL/BEHAVIORAL ASSESSMENT (EG, DEPRESSION INVENTORY, ATTENTION-DEFICIT/HYP ERACTIVITY DISORDER [ADHD] SCALE), WITH SCORING AND DOCUMENTATION, PER STANDARDIZED INSTRUMENT [facility] FITTING OF SPECTACLES, EXCEPT FOR APHAKIA; MONOFOCAL [facility] PURE TONE AUDIOMETRY (THRESHOLD), AUTOMATED; AIR ONLY [facility] PSYCHIATRIC EVALUATION OF HOSPITAL RECORDS, OTHER PSYCHIATRIC REPORTS, PSYCHOMETRIC AND/OR PROJECTIVE TESTS, AND OTHER ACCUMULATED DATA FOR MEDICALDIAGNOSTIC PURPOSES [facility] FITTING OF SPECTACLES, EXCEPT FOR APHAKIA; MONOFOCAL [facility] THERAPEUTIC PROCEDURE, 1 OR MORE AREAS, EACH 15 MINUTES; THERAPEUTIC EXERCISES TO DEVELOP STRENGTH AND ENDURANCE, RANGE OF MOTION AND FLEXIBILITY [facility] THERAPEUTIC PROCEDURE,1 OR MORE AREAS,EACH 15 [...] FITTING OF SPECTACLES, EXCEPT FOR APHAKIA; MONOFOCAL [facility] WAIVER SERVICES; NOT OTHERWISE SPECIFIED (NOS) DoD [...] 24HR/SOON FIDENCIO; 5-10 MIN DISC DoD BRIEF EMOTIONAL/BEHAVIORAL ASSESSMENT (EG, DEPRESSION INVENTORY, [...] DoD DETERMINATION OF REFRACTIVE STATE 017 DoD Strapping; knee Strapping; knee [id number] [facility] Brief emotional/behavioral a e ment (eg, depre ion inventory, attention-deficit/hyp eractivity disorder [ADHD] scale), with scoring and documentation, per standardized instrument Brief emotional/behavioral assessment (eg, depression inventory, attention-deficit/hy peractivity disorder [ADHD] scale), with scoring and documentation, per standardized instrument [address] [place] [address] Fitting of spectacles, except for aphakia; monofocal Fitting of spectacles, except for aphakia; monofocal [address] [place] [address] BODY MASS INDEX (BMI) DOCUMENTED BODY MASS INDEX (BMI) DOCUMENTED 3008F [address] [place] [address] Application of a modality to one or more areas; iontophoresis, each 15 minutes Application of a modality to one or more areas; iontophoresis, each 15 minutes [address] [place] [address] Therapeutic procedure, one or more areas, each 15 minutes; neuromuscular reeducation of movement, balance, coordination, kinesthetic sense, posture, and/or proprioception for sitting and/or standing activities Therapeutic procedure, one or more areas, each 15 minutes; neuromuscular reeducation of movement, balance, coordination, kinesthetic sense, posture, and/or proprioception for sitting and/or standing activities [address] [place] [address] Health behavior intervention, individual, [id number]; initial 30 minutes Health behavior intervention, individual, [id number]; initial 30 minutes [address] [place] [address] Therapeutic procedure, one or more areas, each 15 minutes; therapeutic exercises to develop strength and endurance, range of motion and flexibility Therapeutic procedure, one or more areas, each 15 minutes; therapeutic exercises to develop strength and endurance, range of motion and flexibility [address] [place] [address] Psychiatric evaluation of hospital records, other psychiatric reports, psychometric and/or projective tests, and other accumulated data for medical diagnostic purposes Psychiatric evaluation of hospital records, other psychiatric reports, psychometric and/or projective tests, and other accumulated data for medical diagnostic purposes [address] [place] [address] Health behavior a e ment, or re-a e ment (ie, health-focused clinical interview, behavioral observations, clinical decision making) Health behavior assessment, or re-assessment (ie, health-focused clinical interview, behavioral observations, clinical decision making) 8[address]48 [facility] Application of a modality to one or more areas; hot or cold packs Application of a modality to one or more areas; hot or cold packs 91357 [facility] PURE TONE AUDIOMTRY THRESHOLD COMPUTER DEV AIR PURE TONE AUDIOMTRY THRESHOLD COMPUTER DEV AIR 0208T [facility] Determination of refractive state Determination of refractive state 29568 [facility] L knee surgery 2012 [facility] Endoscopy [facility] [id number] [facility] Septoplasty [facility] Tonsillectomy 2018 [facility] Social History Combined list of available smoking, tobacco, and other social history from 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 Social History Type Response Date Comment [facility] e Sex Representation Male (finding) 01/11/2021 Un known Organization This section is an empty social history section. [facility] Tobacco Never-cigarette user Cigarette use:. Never-other tobacco [...] screening tools. ? AUDIT-C=0 PCL-C=0 PHQ-8=0 ? 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 At this time no tasking or consults needed.?SM made?aware of [facility] ()?services available, ?One [employer], [employer], Walk in , Emergency Room (ER) [...] at age 37. Compared medications reported by private branch exchange service advisor to active medication list in?[facility]?and any variances were documented.? ? Any complaints or issues identified while conducting the PHA have been addressed and or referred back to the patient's?primary lead care manager (PCM)?for care.?SM?advised to follow up with PCM, [...] years or PRN if symptomatic.? Extracted from:Title: [facility] Comp. Audio Author: LARRY CUEVAS, AuD Date: 09/12/23 1.?Hearing normal GENERAL INFORMATION History Branch:? ?[employer]? [employer]:?[employer] MOS:?2A5 ? ? VISIT REASON Hearing loss or concerns: Abnormal [id number] @ [facility] over the past couple of weeks [...] No? Ototoxic medications:? No? ? PRIOR TESTING ?[id number]'s [facility] ( and 29 AUG 2023) [...] and?improved??compared with previous testing recently obtained @ [facility]. No STS is noted in either ear compared to current [id number] on record (2009). ? SPEECH AUDIOMETRY Right: Word recognition was? excellent??at?55 dB HL ?Masking level: _40dB HL ? Left: Word recognition was? ? ?excellent?at?55 dB HL ?Masking level:?40 dB HL ? SUMMARY Today s results indicate normal hearing in both ears at all test frequencies with good reliability. Normal ME function, bilaterally. ? 15 min (INDV) vocational guidance counselor on proper hand formed (Sound Guard) hearing protection insertion and uses in noise. Annual HCP review completed today ? ? ? 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 08/01/[address] [place] [address] Assessment and Plan Extracted from:Title : MHA/PHA [...] screening tools. ? AUDIT-C=0 PCL-C=0 PHQ-8=0 ? 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 At this time no tasking or consults needed.?SM made?aware of [facility] ()?services available, ?[employer], [employer], Walk in , Emergency Room (ER) [...] at age 37. Compared medications reported by private branch exchange service advisor to active medication list in?[facility]/JLV?and any variances were documented.? ? Any complaints or issues identified while conducting the PHA have been addressed and or referred back to the patient's?primary lead care manager (PCM)?for care.?SM?advised to follow up with PCM, Behavioral Health, ER/911, or [facility] One Source as needed for continuation of [...] years or PRN if symptomatic.? Extracted from:Title: [facility] Comp. Audio Author: LARRY CUEVAS, Landry Date: 09/12/23 1.?Hearing normal GENERAL INFORMATION History Branch:? ?[employer]? Command:?[employer] MOS:?2A5 ? ? VISIT REASON Hearing loss or concerns: Abnormal NICK @ [facility] over the past couple of weeks [...] Ototoxic medications:? No? ? PRIOR TESTING ?NICK's [facility] ( and 29 AUG 2023) [...] and?improved??compared with previous testing recently obtained @ [facility]. No STS is noted in either ear compared to current [id number] on record (2009). ? SPEECH AUDIOMETRY Right: Word recognition was? excellent??at?55 dB HL ?Masking level: _40dB HL ? Left: Word recognition was? ? ?excellent?at?55 dB HL ?Masking level:?40 dB HL ? SUMMARY Today s results indicate normal hearing in both ears at all test frequencies with good reliability. Normal ME function, bilaterally. ? 15 min (INDV) vocational guidance counselor on proper hand formed (Sound Guard) hearing protection insertion and uses in noise. Annual HCP review completed today ? ? ? PLAN 1) Annual [id number] back @ [facility] (2024) for continued annual monitoring 2) Use of proper HP in all noise designated areas 3) Future audio as needed ? Pee Almanza CCC-Jasmyn, Larry Doctor of Audiology Audiology Dept. [employer] [facility] ? Extracted from:Title: FTF-PHA Author: ABHIJIT [...] 60 minutes before a meal, Pharmacy: [id number] [External Rx] Lt Col Abhijit Calvo M.D. Chief of Aerospace Medicine (SGP) [employer] Gaudencio FERNANDEZ MA ? ? 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 08/01/2024 [id number] [facility] Assessment and Plan Extracted from:Title : MHA/PHA [...] screening tools. ? AUDIT-C=0 PCL-C=0 PHQ-8=0 ? 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 At this time no tasking or consults needed.?SM made?aware of [facility] ()?services available, ?[employer], [employer], Walk in , Emergency Room (ER) [...] at age 37. Compared medications reported by private branch exchange service advisor to active medication list in?[facility]?and any variances were documented.? ? Any complaints or issues identified while conducting the PHA have been addressed and or referred back to the patient's?primary lead care manager (PCM)?for care.?SM?advised to follow up with PCM, [...] years or PRN if symptomatic.? Extracted from:Title: [facility] Comp. Audio Author: LARRY CUEVAS, AuD Date: 09/12/23 1.?Hearing normal GENERAL INFORMATION History Branch:? ?[employer]? Command:?[employer] MOS:?2A5 ? ? VISIT REASON Hearing loss or concerns: Abnormal [id number] @ [facility] over the past couple of weeks [...] No? Ototoxic medications:? No? ? PRIOR TESTING ?[id number]'s [facility] Medical ( and 29 AUG 2023) [...] and?improved??compared with previous testing recently obtained @ [facility]. No STS is noted in either ear compared to current [id number] on record (2009). ? SPEECH AUDIOMETRY Right: Word recognition was? excellent??at?55 dB HL ?Masking level: _40dB HL ? Left: Word recognition was? ? ?excellent?at?55 dB HL ?Masking level:?40 dB HL ? SUMMARY Today s results indicate normal hearing in both ears at all test frequencies with good reliability. Normal ME function, bilaterally. ? 15 min (INDV) vocational guidance counselor on proper hand formed (Sound Guard) hearing protection insertion and uses in noise. Annual HCP review completed today ? ? ? PLAN 1) Annual [id number] back @ [facility] (2024) for continued annual monitoring 2) Use of proper HP in all noise designated areas 3) Future audio as needed ? Pee Almanza James Doctor of Audiology Audiology Dept. [place] [facility] [id number] ? Extracted from:Title: FTF-PHA Author: ABHIJIT CALVO [...] to 60 minutes before a meal, Pharmacy: [facility] #[id number] [External Rx] Lt Col Abhijit Calvo M.D. Chief of Aerospace Medicine (SGP) [employer] Gaudencio FERNANDEZ MA ? ? 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 08/01/2024 003-[facility] Functional Status Combined list of recent functional and cognitive assessments recorded at [facility] of Defense and Veterans Affairs ([facility] Functional [place] Measurement (FIM) Scale: 1 = Total Assistance (Subject = 0% +), 2 = Maximal Assistance (Subject = 25% +), 3 = Moderate Assistance (Subject = 50% +), 4 = Minimal Assistance (Subject = 75% +), 5 = Supervision, 6 = Modified [place] (Device), 7 = Complete [place] (Timely, Safely). Assessment Date/Time Source Assessment Type Assessment Skill Assessment Score Assessment Details No data available for this section
--- NOTE | 2024-08-01 08:38 | MHC.PC.OV ---
Vital Signs 08/01/24 08:41 Height 5 ft 11 in Weight 241 lb 6 oz BMI 33.7 BP 110/62 Blood Pressure Location Lt brachial Position Sitting Pulse 71 Pulse Source Pulse Oximeter Temp 97.1 F Temp Source Temporal Artery Scan Pulse Oximetry (%) 95 Oxygen Delivery Method Room Air Intake Visit Reasons: discuss ed Intake Note: Patient is here to follow up on Discuss ED. School Cleaner Required: No Tax Map Technician: Not Required per policy Accompanied by: Self / Same As Patient Allergies No Known Allergies Allergy (Verified 08/01/24 08:40) Tobacco use date assessed: 08/01/24 Dental Screening Dental Screen Date: 05/30/24 [facility] Medical History (Updated 08/01/24 @ 09:32 by Angelo Samuel MD) Erectile dysfunction Rt inguinal pain Annual physical exam Right testicular pain GERD (gastroesophageal reflux disease) Rosacea Somnolence, daytime Retrognathia Obesity (BMI 30.0-34.9) Anxiety and depression Obstructive sleep apnea History of esophageal dilatation Esophagitis Surgical History History of vasectomy Bilateral inguinal hernia (BIH) (03/28/24) History of esophagogastroduodenoscopy (EGD) H/O nasal septoplasty History of tonsillectomy History of knee surgery Family History Father Hypertension Heart attack, Onset Age: 35 Mother No problems noted. 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 1. Little interest or pleasure in doing things: not at all 2. Feeling down, depressed, or hopeless: not at all 3. Trouble falling or staying asleep, or sleeping too much: not at all 4. Feeling tired or having little energy: not at all 5. Poor appetite or overeating: not at all 6. Feeling bad about yourself - or that you are a failure or have let yourself or your family down: not at all 7. Trouble concentrating on things, such as reading the newspaper or watching television: not at all 8. Moving or speaking so slowly that other people could have noticed. Or the opposite - being so fidgety or restless that you have been moving around a lot more than usual: not at all 9. Thoughts that you would be better off or of hurting yourself in some way: not at all Total score: 0 Depression Screening Interpretation: Negative Depression Screening Done: Yes Source: Developed by Drs. Tobias Rangel, Felipe Saleh and colleagues, with an educational yury from [employer]. Thrive Questionnaire Date Thrive assessed: 05/30/24 I am a: Patient What is your living situation today?: I have a steady place to live Within the past 12 months, did the food you bought not last and you didn't have the money to get more?: Never true Within the past 12 months, did you worry whether your food would run out before you got money to buy more?: Never true Do you have trouble paying for medicines?: No Do you have trouble getting transportation to medical appointments?: No Do you have trouble paying your heating and electricity bill?: No Do you have trouble taking care of your child, family member or friend?: No Do you have trouble with day-to-day activities such as bathing, preparing meals, shopping, managing finances, etc.?: No Are you currently unemployed and looking for a job?: No Are you interested in more education?: No Please select the resources that you would like help with: None Currently or been in a relationship where the following occur: I choose not to answer THRIVE Score: 0 BERENICE-7 AMB Questionnaire BERENICE-7 Date BERENICE - 7 assessed: 05/30/24 Source: Developed by Drs. Tobias Rangel, Felipe Saleh and colleagues, with an educational yury from [employer]. Physical exam (Primary Care) Vital Signs: Last Vital Signs Temp 97.1 F 08/01/24 08:41 Pulse 71 08/01/24 08:41 BP 110/62 08/01/24 08:41 Pulse Ox 95 08/01/24 08:41 Oxygen Delivery Method Room Air 08/01/24 08:41 BMI result Body Mass Index 33.7 Tobacco/Smoking Status: Tobacco use Status Tobacco use date assessed 08/01/24 08/01/24 08:46 Patient Tobacco Use Status Never used Tobacco 08/01/24 08:46 e-Cigarette/Vaping Use Never Used 08/01/24 08:46 PHQ-9: PHQ-9 Score PHQ-9: Total score 0 08/01/24 08:46 Depression Screening Interpretation: Negative Thrive Assessment: Date of Thrive Assessment Date Thrive assessed 05/30/24 08/01/24 08:46 Currently or been in a relationship where the following occur: I choose not to answer Coding Level of Care Code Est Pt Level 4 (03752) Complex EM visit Add On G2211 Diagnoses Erectile dysfunction N52.9 Assessment & Plan Assessment & Plan (1) Erectile dysfunction: Code(s): N52.9 - Male erectile dysfunction, unspecified Category: Medical Plan: Trial of sildenafil. Plan History of Present Illness The patient is a 38-year-old male presenting with erectile dysfunction that began after hernia repair surgery in March. He describes his erections as less firm and unable to last as long as before the surgery, though he does not experience premature ejaculation. This issue consistently affects his ability to maintain an erection, although he can still achieve satisfactory intercourse. The erectile dysfunction developed after his surgery, and he continues to experience a recurrence of the inguinal hernia with associated nerve-like sensations. There is no previous pharmacological treatment for the erectile dysfunction, but an MRI is scheduled by the surgeon to assess the recurrent hernia. Social History - No specific social determinants discussed in the conversation Review of Systems - Genitourinary: Reports erectile dysfunction, Denies premature ejaculation - Neurological: Reports nerve-like pricks related to recurrent hernia Physical Exam General: Cooperative and healthy appearing Nutritional Appearance: Well nourished Orientation/consciousness: Patient oriented x3 Limitations: No limitations Head: Normal to inspection General: Appearance normal, both eyes and all related structures Neck: Normal visual inspection Chest: Normal palpation of entire chest wall Respiratory: N ormal respiratory effort Neurology: Patient oriented x3, reports nerve pricks post-hernia surgery Results Plan 1. Erectile Dysfunction - Prescribe Sildenafil to be taken one hour before sexual activity to improve erectile function. 2. Recurrent Inguinal Hernia - Scheduled MRI to review the recurrent hernia and associated symptoms. Discussion Notes I discussed the patient's erectile dysfunction, which began following his hernia surgery. I proposed initiating Sildenafil (Viagra) therapy to help improve his erections, emphasizing that it should be taken one hour before anticipated sexual activity. We also reviewed his recurrent inguinal hernia symptoms, and the surgeon has advised conducting an MRI to evaluate any nerve involvement and to guide further management. All records of this plan were duly documented, and the patient expressed understanding and agreement with the proposed strategies. Patient Instructions - Take prescribed Sildenafil one hour before engaging in sexual activity and observe for any changes in erectile function. - Attend the scheduled MRI appointment scheduled by the surgeon for the recurrent hernia - Follow up with me if there are any concerns or if symptoms persist or worsen.
[2024-08-01 08:41] VITALS: BP 110/62; PULSE 71; TEMP 36.2; O2SAT 95; BMI 33.7
== END 2024-08-01 11:45 | disposition home or self-care (01) ==
LOC: HO.HMCH 08:11
PROVIDERS: PCP Internal Medicine; Visit Provider Internal Medicine
DX: N52.9 Male erectile dysfunction, unspecified (principal)

== ENCOUNTER → 2024-08-01 08:11 | Outpatient (BNVA) | payer OTHER, SELFPAY | PROVIDERS: PCP Internal Medicine; Visit Provider Internal Medicine | DX: N52.9 Male erectile dysfunction, unspecified (principal) | CPT/HCPCS: 99212 ==

== ENCOUNTER 2024-08-07 13:50 | Outpatient (AMB) | payer OTHER, SELFPAY ==
--- OUTSIDE RECORDS SUMMARY | 2024-08-07 14:24 | XMS_ITS | Clinical Summary ---
Author Organization [facility] ity Address [address] [place] [id number] Care Team Providers Care Adjunct History Instructor Name Role Phone Unavailable Primary Care Provider [...]
--- OUTSIDE RECORDS SUMMARY | 2024-08-07 14:24 | XMS_ITS | Patient Health Record ---
Author Organization [facility] executive vice president of sales [facility] Address [address] [place] [address] Care Team Providers Care Ultrasound Coordinator Name Role Phone JOSHUA MORATAYA Unavailable [phone] [facility], [employer] Unavailable Unavailable Allergies No Known [...] Problem Gastro-esophagea l reflux disease without esophagitis (596978493) Gastro-esophage al reflux disease without esophagitis (K21.9) Active confirmed Problem Seasonal allergic rhinitis due to pollen (J30.1) Active confirmed Problem Dysphagia, unspecified type (R13.10) Active confirmed Problem Allergic rhinitis caused by pollen (disorder) (99789311) Allergic rhinitis due to pollen (J30.1) 8 Active confirmed Problem Chronic maxillary sinusitis (08599121) Chronic maxillary sinusitis (J32.0) 8 Active confirmed Problem Deviated nasal septum (058522721) Deviated nasal septum (J34.2) 8 Active confirmed Problem Hypertrophy of nasal turbinates (27634833) Hypertrophy of nasal turbinates (J34.3) 8 Active confirmed Plan Of Treatment No Information Insurance Providers Payer Name Payer Address Payer Phone Subscriber Number Group Number Insured Name Patient Relationship to Insured Coverage Start Date Coverage End Date [facility] [address] [place] [address] [id number] Rickey Santamaria Self - patient is the insured Medical (General) History Medical History History ICD Code sinusitis Nasal Allergies Surgical History Surgery Date(Month/Year) latera implantation, revision submucousa resection of turbinates 2018 Tonsillectomy 10/11/2019
--- NOTE | 2024-08-07 14:52 | A.OFFVIS_ITS ---
Intake Visit Reasons: scrotal pain Intake Note: New Patient presents for initial visit for scrotal pain Urology Medications: none Blood Thinner: none Can Filling Room Sweeper Required: No Accompanied by: Self / Same As Patient Allergies No Known Allergies Allergy (Verified 08/07/24 15:46) Medication List - Last Reconciled 08/07/24 by MEMO Wright-KALEY hydrocortisone 2.5% (Anusol-HC) 1 appl IN BID-QID PRN meloxicam 15 mg PO DAILY 30 days pantoprazole 40 mg PO DAILY polyethylene glycol 3350 (Miralax) 17 grams PO DAILY HPI Comments Details: Rickey is a very pleasant 38-year-old male patient of Dr. Samuel. He has a past medical history of somnolence, obesity, anxiety, depression, and obstructive sleep apnea. He presents to the office today for follow-up. Of note, patient was seen as a new patient December of last year for right-sided testicular pain he had been experiencing. On exam right inguinal hernia was palpated and recommendations were made for general surgery referral for further assessment evaluation. In discussion with the patient today he reports having undergone bilateral hernia repairs earlier this year and has since been experiencing ongoing issues with bilateral groin pain that has limited his range of motion. On exam today patient with significant tenderness during palpation of groins as well as inguinal canal inguinal canal. Otherwise no open areas, lesions, and or masses palpated. He reports having followed up with General surgery last week and will be undergoing an MRI of his pelvis in the next 6 weeks. He reports feeling pain worsens and or is exacerbated as the day goes on. He reports initially upon waking up he does not feel any discomfort. He does have a history of a prior vasectomy 4 years ago in [place]. He denies any bothersome urinary issues. He reports be happy with current voiding parameters. He denies urinary urgency, urinary frequency, incontinence, nocturia, hematuria, dysuria, foul smelling urine, changes to urinary stream, flank pain, fever, and or chills. In office urinalysis results reviewed with the patient today. We discussed potential causes of right-sided scrotal discomfort he is experiencing as well as further treatment options and risks and benefits of these treatment options. He otherwise offers no other issues or concerns at this time. In review of patient's chart it appears scrotal ultrasound was ordered and performed. These results were reviewed and communicated with the patient today 07/12 no testicular torsion, epididymitis, varicocele, hydrocele, and or testicular masses noted on ultrasound. [facility] Medical History Erectile dysfunction Rt inguinal pain Annual physical exam Right testicular pain GERD (gastroesophageal reflux disease) Rosacea Somnolence, daytime Retrognathia Obesity (BMI 30.0-34.9) Anxiety and depression Obstructive sleep apnea History of esophageal dilatation Esophagitis Surgical History History of vasectomy Bilateral inguinal hernia (BIH) (03/28/24) History of esophagogastroduodenoscopy (EGD) H/O nasal septoplasty History of tonsillectomy History of knee surgery Family History Father Hypertension Heart attack, Onset Age: 35 Mother No problems noted. 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 Current occupational exposures/hazards: No Cognitive needs: No Hearing needs: No Vision needs: Yes Review of Systems Const All systems reviewed & are unremarkable except as noted in HPI and below Physical Exam Const General: cooperative, comfortable, no acute distress, well developed, alert and awake Orientation/consciousness: patient oriented x3 HEENT Head: Yes normal to inspection, Yes normocephalic and Yes atraumatic Ears: hearing grossly normal bilaterally Eyes General: appearance normal, both eyes and all related structures Neck Neck: Yes normal visual inspection and Yes trachea midline Chest Chest palpation & inspection: normal inspection of the chest Resp Effort & Inspection: normal respiratory effort and able to speak in complete s entences Cardio Rate: regular rate GI Inspection: Yes normal to inspection General: Yes no CVA tenderness Male General Exam: Yes normal external exam Penis: normal penis Meatus: meatus normal Scrotum: scrotum normal Testes: Testes normal Back/Spine/Pelvis Back: no CVA tenderness Skin General skin exam: no rashes or lesions noted Neuro General: patient oriented x3 Extrem General: Yes normal to inspection Psych Appearance: grossly normal and well kempt Mental Status: mental status grossly normal Speech and movement: Normal speech and movement present and Clear speech present Affect: normal affect Attitude: cooperative Thought process: Normal thought process present Thought content: Normal thought content present Insight: Fair insight present (Psych) Judgement: Fair judgement present (Psych) Results AMB Urinalysis, Automated UA Leukoctes 0 Nigel/uL Last Edit by [employer] on 08/07/24 16:16 UA Nitrite Last Edit by [employer] on 08/07/24 16:16 UA Urobilinogen 0.2 mg/dL Last Edit by [employer] on 08/07/24 16:16 UA Protein 0 mg/dL Last Edit by [employer] on 08/07/24 16:16 UA pH 6.0 Last Edit by [employer] on 08/07/24 16:16 UA Blood 0 Conor/uL Last Edit by [employer] on 08/07/24 16:16 UA Specific Jay 1.015 Last Edit by [employer] on 08/07/24 16:16 UA Ketone Last Edit by [employer] on 08/07/24 16:16 UA Bilirubin 0 mg/dL Last Edit by [employer] on 08/07/24 16:16 UA Glucose 0 mg/dL Last Edit by [employer] on 08/07/24 16:16 Results Reviewed Results Reviewed: Laboratory Last Values Urine pH (Auto) 6.0 08/07/24 16:15 Specific Jay (Auto) 1.015 08/07/24 16:15 Urine Protein (Auto) 0 mg/dL 08/07/24 16:15 Glucose (UA)(Auto) 0 mg/dL 08/07/24 16:15 Urine Blood (Auto) 0 Conor/uL 08/07/24 16:15 Urine Bilirubin (Auto) 0 mg/dL 08/07/24 16:15 Urine Urobilinogen (Auto) 0.2 mg/dL 08/07/24 16:15 Leukocyte Esterase (Auto) 0 Nigel/uL 08/07/24 16:15 Date of Service: 07/09/24 Procedure(s): US scrotum FINDINGS: RIGHT: Right testicle measures 4.3 x 2.0 x 3.0 cm, volume 13.5 mL. No focal testicular parenchymal lesions are visualized. Spectral Doppler analysis of the arterial and venous flow is normal in the right testis. Right epididymal head is normal in size. No right hydrocele or varicocele is seen. Right epididymal Doppler flow is normal.. 4 mm simple cyst in the head of the epididymis. LEFT: Left testicle measures 3.7 x 1.6 x 2.7 cm, volume 8.4 mL. No focal testicular parenchymal lesions are visualized. Spectral Doppler analysis of the arterial and venous flow is normal in the left testis. Left epididymal head is normal in size. No left hydrocele or varicocele is seen. Left epididymal Doppler flow is normal. 7 mm simple cysts, head of the epididymis. IMPRESSION: No testicular torsion. No epididymitis. No varicocele. No hydrocele. No testicular mass. Assessment & Plan Assessment & Plan (1) Scrotal pain: Code(s): N50.82 - Scrotal pain Category: Medical (2) Groin pain: Code(s): R10.30 - Lower abdominal pain, unspecified Category: Medical Plan We discussed potential causes of scrotal discomfort he is experiencing as well as further treatment options and risks and benefits of these treatment options Recent scrotal ultrasound results reviewed with the patient today; as noted above Patient with upcoming MRI He denies any bothersome urinary issues. He reports be happy with current voiding parameters. Stop ibuprofen. Start meloxicam as discussed and prescribed; we discussed avoiding all other NSAIDs Follow-up with Dr. Ac in 2 months; or sooner with any issues, concerns, and or questions. Orders: Orders AMB Urinalysis Automated Today Z13.9 - Encounter for screening, unspecified Medications: New meloxicam 15 mg PO DAILY 30 tabs 0RF 30 days R10.31 - Right lower quadrant pain, R10.32 - Left lower quadrant pain Discontinued ibuprofen Discontinued Reason: Doctor's Order 800 mg PO Q8H 90 tabs 1RF Patient Instructions: The patient had an opportunity to ask questions regarding the treatment plan. All questions were answered. Physical exam, labs, and imaging were discussed and reviewed in detail. As well as risks, benefits, and discussion of treatment choices. No major barriers to understanding were identified. The patient expressed understanding and agreement with the above treatment plan. The patient was made aware they should contact our office by phone for worsening of their current condition, the appearance of new symptoms, or with any questions or concerns. Compliance is encouraged with any medications and follow up testing that is ordered. It is a privilege to be allowed the opportunity to participate in? your urological care.? Again, if you have any questions or concerns If you have any questions or concerns please do not hesitate to contact me. The office is [phone]. This note is constructed using voice recognition software. While every effort has been made to ensure accuracy engineering designer errors may have been included. Yours sincerely, EPIFANIO Wright Coding Level of Care Code Est Pt Level 4 (70887) Diagnoses Scrotal pain N50.82 Groin pain R10.30
== END 2024-08-07 15:47 | disposition home or self-care (01) ==
LOC: HO.HUSH 13:51
PROVIDERS: PCP Internal Medicine; Visit Provider Nurse Practitioner Family
DX: N50.82 Scrotal pain (principal); R10.30 Lower abdominal pain, unspecified; Z13.9 Encounter for screening, unspecified
CPT/HCPCS: 99214

== ENCOUNTER → 2024-08-07 13:50 | Outpatient (BNVA) | payer OTHER, SELFPAY | PROVIDERS: PCP Internal Medicine; Visit Provider Nurse Practitioner Family | DX: N50.82 Scrotal pain (principal); R10.30 Lower abdominal pain, unspecified | CPT/HCPCS: 81003; 99212 ==

== ENCOUNTER 2024-10-03 07:20 | Outpatient (REF) | payer OTHER, SELFPAY ==
--- NOTE | ~2024-10-03 | CT_ITS ---
CLINICAL HISTORY: R10.31 - Right lower quadrant pain --- Additional Notes or Special Instructions: Persistent right groin pain after bilateral inguinal hernia repair Exam: CT pelvis without intravenous contrast. Comparison: None provided. Findings: Moderate stool seen throughout the visualized portions of the colon. No colonic wall thickening or pericolonic inflammatory stranding is evident. There are no findings of appendicitis. Terminal ileum is unremarkable. No free fluid or free air within the pelvis. There is a fat containing right inguinal hernia No focal bony lesions. Impression: Fat containing right inguinal hernia. This document has been electronically signed by: Misael Medellin MD on 10/03/2024 09:55:48
--- OUTSIDE RECORDS SUMMARY | 2024-10-03 07:22 | XMS_ITS | Clinical Summary ---
Author Organization [facility] ity Address [address] [place] [phone] Care Team Providers Care Transit Manager Name Role Phone Unavailable Primary Care Provider [...] Influencers of Health Screening 10/11/2023 COVID-19 Vaccine ( - 2023-2 5 season) 2023 Influenza Vaccine (#1) 2024 HIB Vaccines Aged Out No longer [...] 5 Years) and At-Risk Patients (6 to 49 Years) Aged Out No longer eligible b ased on patient's age to complete this topic RSV Immunization Patients Un gerson 20 months Aged Out No longer eligible b ased on patient's age to complete this topic Varicella Vaccines Aged Out No longer eligible based on patient's age to complete this topic
--- OUTSIDE RECORDS SUMMARY | 2024-10-03 07:22 | XMS_ITS | Patient Health Record ---
Author Organization [facility] broadband engineer [facility] Address [address] [place] [address] Care Team Providers Care Mechanical Service Specialist Name Role Phone JOSHUA MORATAYA Unavailable [phone] [facility], [employer] Unavailable Unavailable Allergies No Known [...] Problem Gastro-esophagea l reflux disease without esophagitis (060337080) Gastro-esophage al reflux disease without esophagitis (K21.9) Active confirmed Problem Seasonal allergic rhinitis due to pollen (J30.1) Active confirmed Problem Dysphagia, unspecified type (R13.10) Active confirmed Problem Allergic rhinitis caused by pollen (disorder) (86199091) Allergic rhinitis due to pollen (J30.1) 8 Active confirmed Problem Chronic maxillary sinusitis (64574336) Chronic maxillary sinusitis (J32.0) 8 Active confirmed Problem Deviated nasal septum (530686965) Deviated nasal septum (J34.2) 8 Active confirmed Problem Hypertrophy of nasal turbinates (55700895) Hypertrophy of nasal turbinates (J34.3) 8 Active confirmed Plan Of Treatment No Information Insurance Providers Payer Name Payer Address Payer Phone Subscriber Number Group Number Insured Name Patient Relationship to Insured Coverage Start Date Coverage End Date [facility] [address] [place] [phone] [id number] Rickey Santamaria Self - patient is the insured Medical (General) History Medical History History ICD Code sinusitis Nasal Allergies Surgical History Surgery Date(Month/Year) latera implantation, revision submucousa resection of turbinates 2018 Tonsillectomy 10/11/2019
[2024-10-03 08:08] LABS: MANUAL DIFF FLAG NO
[2024-10-03 08:25] LABS: Hematocrit 42.8 % (42.0-52.0); Hemoglobin 15.5 g/dl (14.0-18.0); Imm Gran Abs Auto 0.02 X10*3/uL (0.00-0.03); Imm Gran Pct Auto 0.3 % (0.0-0.4); Lymphocytes Absolute Auto 2.5 X10*3/uL (1.2-4.9); Mean Corpuscular HGB Conc 36.2 g/dl (31.0-36.0); Mean Corpuscular Hemoglobin 30.2 pg (27.0-33.0); Mean Corpuscular Volume 83.4 fL (80.0-98.0); NRBC Abs Auto 0.000 X10*3/uL (0.0-0.012); NRBC Pct Auto 0.0 /100WBC (0.0-0.2); Platelet Count 212 X10*3/uL (160-400); Red Blood Count 5.13 X10*6/uL (4.60-5.80); White Blood Count 6.7 X10*3/uL (4.8-10.8)
[2024-10-03 08:37] LABS: Hemoglobin A1C 135.1920 umol/L; Total Hemoglobin (HGBA1C) 3996.0457 umol/L
[2024-10-03 09:00] LABS: Alanine Aminotransferase 55 U/L (0-40); Albumin Level 4.7 g/dL (3.5-5.0); Alkaline Phosphatase 103 U/L (39-117); Anion Gap 11 (12-20); Aspartate Amino Transferase 35 U/L (5-37); Blood Urea Nitrogen 26 mg/dL (9-16); Calcium 9.4 mg/dL (8.4-10.2); Carbon Dioxide 25 mmol/L (22-29); Chloride 106 mmol/L (96-108); Cholesterol 233 mg/dL (<200); Estimated Glomerular Filt Rate > 60; HDL Cholesterol 38 mg/dL (>40); Magnesium 2.1 mg/dL (1.6-2.6); Potassium 4.2 mmol/L (3.3-5.1); Sodium 138 mmol/L (135-145); Total Protein 7.9 g/dL (6.5-8.0); Triglycerides 165 mg/dL (<150)
[2024-10-03 09:13] LABS: PSA,Total (Free>4and<10) 0.64 ng/mL (0.00-4.00)
[2024-10-03 09:28] LABS: Folate 11.5 ng/mL (> or = 4.0); Vitamin B12 791 pg/mL (200-900)
== END 2024-10-03 07:21 | disposition home or self-care (01) ==
LOC: HO.CT 07:20
PROVIDERS: Absent Provider Physician Assistant Medical; PCP Internal Medicine; Visit Provider Surgery
DX: R10.31 Right lower quadrant pain (principal); R19.8 Other specified symptoms and signs involving the digestive system and abdomen; Z12.5 Encounter for screening for malignant neoplasm of prostate; Z13.1 Encounter for screening for diabetes mellitus; Z13.6 Encounter for screening for cardiovascular disorders; Z00.00 Encounter for general adult medical examination without abnormal findings
CPT/HCPCS: 36415; 72192; 80053; 80061; 80076; 82248; 82306; 82607; 82746; 83036; 83735; 84153; 84403; 84425; 84443; 85025; 86140; 99212

== ENCOUNTER → 2024-10-03 07:22 | Outpatient (BNV) | payer OTHER, SELFPAY | PROVIDERS: Absent Provider Physician Assistant Medical; PCP Internal Medicine; Visit Provider Radiology Diagnostic Radiology | DX: K40.90 Unilateral inguinal hernia, without obstruction or gangrene, not specified as recurrent (principal) | CPT/HCPCS: 72192 ==

== ENCOUNTER 2024-10-03 10:26 | Outpatient (AMB) | payer OTHER, SELFPAY ==
--- NOTE | 2024-10-03 10:30 | A.OFFPC_ITS ---
Vital Signs 10/03/24 10:31 Height 5 ft 11 in Weight 237 lb BMI 33.1 BP 124/78 Blood Pressure Location Lt brachial Position Sitting Pulse 71 Pulse Source Pulse Oximeter Temp 97.1 F Temp Source Temporal Artery Scan Pulse Oximetry (%) 95 Oxygen Delivery Method Room Air Intake Visit Reasons: constipated and having a lot of pain to rectal ar Intake Note: Patient is here to follow up on Constipation and rectal pain. Rn International Required: No Software Development Manager: Not Required per policy Accompanied by: Self / Same As Patient Allergies No Known Allergies Allergy (Verified 10/03/24 10:31) Tobacco use date assessed: 10/03/24 Dental Screening Dental Screen Date: 05/30/24 [facility] Medical History (Updated 10/03/24 @ 11:07 by Angelo Samuel MD) Altered bowel function Erectile dysfunction Rt inguinal pain Annual physical exam Right testicular pain GERD (gastroesophageal reflux disease) Rosacea Somnolence, daytime Retrognathia Obesity (BMI 30.0-34.9) Anxiety and depression Obstructive sleep apnea History of esophageal dilatation Esophagitis Surgical History History of vasectomy Bilateral inguinal hernia (BIH) (03/28/24) History of esophagogastroduodenoscopy (EGD) H/O nasal septoplasty History of tonsillectomy History of knee surgery Family History Father Hypertension Heart attack, Onset Age: 35 Mother No problems noted. 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 Current occupational exposures/hazards: No Cognitive needs: No Hearing needs: No Vision needs: Yes Questionnaire Thrive Questionnaire Date Thrive assessed: 05/30/24 I am a: Patient What is your living situation today?: I have a steady place to live Within the past 12 months, did the food you bought not last and you didn't have the money to get more?: Never true Within the past 12 months, did you worry whether your food would run out before you got money to buy more?: Never true Do you have trouble paying for medicines?: No Do you have trouble getting transportation to medical appointments?: No Do you have trouble paying your heating and electricity bill?: No Do you have trouble taking care of your child, family member or friend?: No Do you have trouble with day-to-day activities such as bathing, preparing meals, shopping, managing finances, etc.?: No Are you currently unemployed and looking for a job?: No Are you interested in more education?: No Please select the resources that you would like help with: None Currently or been in a relationship where the following occur: I choose not to answer THRIVE Score: 0 BERENICE-7 AMB Questionnaire BERENICE-7 Date BERENICE - 7 assessed: 05/30/24 Source: Developed by Drs. Tobias Rangel, Beth Dickens, Felipe Max and colleagues, with an educational yury from [employer]. Physical exam (Primary Care) Vital Signs: Last Vital Signs Temp 97.1 F 10/03/24 10:31 Pulse 71 10/03/24 10:31 BP 124/78 10/03/24 10:31 Pulse Ox 95 10/03/24 10:31 Oxygen Delivery Method Room Air 10/03/24 10:31 BMI result Body Mass Index 33.1 Tobacco/Smoking Status: Tobacco use Status Tobacco use date assessed 10/03/24 10/03/24 10:37 Patient Tobacco Use Status Never used Tobacco 10/03/24 10:37 e-Cigarette/Vaping Use Never Used 10/03/24 10:37 Thrive Assessment: Date of Thrive Assessment Date Thrive assessed 05/30/24 10/03/24 10:37 Currently or been in a relationship where the following occur: I choose not to answer Coding Level of Care Code Est Pt Level 3 (43776) Complex EM visit Add On G2211 Diagnoses Altered bowel function R19.8 Assessment & Plan Assessment & Plan (1) Altered bowel function: Code(s): R19.8 - Other specified symptoms and signs involving the digestive system and abdomen Category: Medical Plan: Reports altered bowel movements, pain in the rectal area ( minimal relief with prescriptions) after the inguinal surgery. Rpt CT done shows a hernia. He is scheduled to see a surgeon in the coming weeks. Requesting a GI appt and a possible colonoscopy. I will get a referral done.
[2024-10-03 10:31] VITALS: BP 124/78; PULSE 71; TEMP 36.2; O2SAT 95; BMI 33.1
== END 2024-10-03 14:59 | disposition home or self-care (01) ==
LOC: HO.HMCH 10:27
PROVIDERS: PCP Internal Medicine; Visit Provider Internal Medicine
DX: R19.8 Other specified symptoms and signs involving the digestive system and abdomen (principal)

== ENCOUNTER 2024-10-16 09:25 | Outpatient (AMB) | payer OTHER, SELFPAY ==
--- NOTE | 2024-10-16 09:36 | MHC.OFFVIS ---
Intake Visit Reasons: follow up Intake Note: Patient presents today for follow up/scrotal pain Urology Medications: none Blood Thinner: none Well Puller Head Required: No Accompanied by: Self / Same As Patient Allergies No Known Allergies Allergy (Verified 10/16/24 09:37) HPI Comments Details: Rickey is a pleasant male. He is a patient of Dr. sunshine he seen for the following urologic conditions - inguinal disruption - borderline testosterone Inguinal disruption CT scan recurrent right inguinal hernia On examination has pain bilateral at rectus abdominis insertion point Did respond to Mobic Discussed exercises in self-care He will perform these Borderline testosterone Background sleep apnea Repeat lab work PFSH Medical History Hypertriglyceridemia Low HDL (under 40) Pure hypercholesterolemia, unspecified Hyperlipidemia Elevated liver enzymes Abdominal pain Altered bowel function Erectile dysfunction Rt inguinal pain Annual physical exam Right testicular pain GERD (gastroesophageal reflux disease) Rosacea Somnolence, daytime Retrognathia Obesity (BMI 30.0-34.9) Anxiety and depression Obstructive sleep apnea History of esophageal dilatation Esophagitis Surgical History History of vasectomy Bilateral inguinal hernia (BIH) (03/28/24) History of esophagogastroduodenoscopy (EGD) H/O nasal septoplasty History of tonsillectomy History of knee surgery Family History Father Hypertension Heart attack, Onset Age: 35 Mother No problems noted. 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 Current occupational exposures/hazards: No Cognitive needs: No Hearing needs: No Vision needs: Yes Review of Systems Const Denies chills and Denies fever(s) Card Reports no additional complaints and Denies syncope Resp Denies cough GI Denies abdominal pain and Denies heartburn Reports as per HPI and Denies change in libido Neuro Denies syncope Psych Denies change in libido Endo Denies change in libido Physical Exam Const General: cooperative, healthy appearing, comfortable and no acute distress Orientation/consciousness: patient oriented x3 HEENT Face and sinus: Yes normal facial exam Mouth: moist mucous membranes Neck Neck: Yes normal visual inspection, Yes full ROM and Yes trachea midline Chest Chest palpation & inspection: normal inspection of the chest Resp Effort & Inspection: normal respiratory effort, able to speak in complete sentences and no respiratory distress GI Inspection: Yes normal to inspection Back/Spine/Pelvis Cervical Spine: normal cervical lordosis Thoracic/Lumbar Spine: thoracic and lumbar spine normal to inspection Skin General skin exam: no rashes or lesions noted Neuro General: patient oriented x3, gait normal, tone normal and moves all extremities Extrem General: Yes normal to inspection and Yes capillary refill normal Assessment & Plan Assessment & Plan (1) Low testosterone in male: Code(s): R79.89 - Other specified abnormal findings of blood chemistry Category: Medical (2) Deep inguinal pain: Code(s): R10.30 - Lower abdominal pain, unspecified Category: Medical Plan Inguinal disruption Information provided 6 week follow-up check lab work Orders: Orders Testosterone, Free/Total Today R79.89 - Other specified abnormal findings of blood chemistry Lutenizing Hormone Today R79.89 - Other specified abnormal findings of blood chemistry Estrad Free (Tot Ultra + Free) Today R79.89 - Other specified abnormal findings of blood chemistry Follicle Stimulating Hormone Today R79.89 - Other specified abnormal findings of blood chemistry Medications: Refilled meloxicam 15 mg PO DAILY 30 tabs 0RF 30 days R10.31 - Right lower quadrant pain, R10.32 - Left lower quadrant pain Patient Instructions: This note is constructed using voice recognition software. While every effort has been made to ensure accuracy forming roll operator heavy duty errors may have been included. Imaging studies, laboratory and physical exam results were discussed and reviewed in detail. No major barriers to patient understanding were identified. An opportunity to ask questions regarding the treatment plan was provided. All questions were answered. The patient expressed understanding and agreement with the above treatment plan. The patient is aware they should contact our office by phone for worsening of their current condition or the appearance of new urologic symptoms. Compliance is encouraged with any medications and followup testing that is ordered. It is a privilege to participate in the urologic care of your patient. If you have any questions or concerns regarding treatment for the above conditions, or other urologic issues, please do not hesitate to contact me. The office telephone contact is [phone]. Sincerely, Dr Stu Ac MD, [facility] - Urology Compassionate Specialist Care for the Genitourinary System Coding Level of Care Code Est Pt Level 4 (32070) Diagnoses Low testosterone in male R79.89 Deep inguinal pain R10.30
--- OUTSIDE RECORDS SUMMARY | 2024-10-16 09:55 | XMS_ITS | Clinical Summary ---
Author Organization [facility] ity Address [address] [place] [id number] Care Team Providers Care Butcherette Name Role Phone Unavailable Primary Care Provider [...] series) 10/19/2006 Cholesterol Screening (Lipid Panel) 10/11/2023 HIV Screening 10/11/2023 Hepatitis C Screening 10/11/2023 Social Influencers of Health Screening 10/11/2023 COVID-19 Vaccine ( - 2023-2 5 season) 2023 Depression Screening 03/20/2024 Influenza Vaccine (#1) 2024 HIB Vaccines Aged [...]
--- OUTSIDE RECORDS SUMMARY | 2024-10-16 09:55 | XMS_ITS | Patient Health Record ---
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 [facility] Address [address] [place] [address] Care Team Providers Care Fire Information Officer Name Role Phone JOSHUA MORATAYA Unavailable [phone] [facility], Med[employer] Unavailable Unavailable Allergies No Known [...] Problem Gastro-esophagea l reflux disease without esophagitis (855572241) Gastro-esophage al reflux disease without esophagitis (K21.9) Active confirmed Problem Allergic rhinitis caused by pollen (62759848) Seasonal allergic rhinitis due to pollen (J30.1) Active confirmed Problem Dysphagia (52527036) Dysphagia, unspecified type (R13.10) Active confirmed Problem Allergic rhinitis caused by pollen (disorder) (98208365) Allergic rhinitis due to pollen (J30.1) 8 Active confirmed Problem Chronic maxillary sinusitis (49059905) Chronic maxillary sinusitis (J32.0) 8 Active confirmed Problem Deviated nasal septum (790420330) Deviated nasal septum (J34.2) 8 Active confirmed Problem Hypertrophy of nasal turbinates (17241515) Hypertrophy of nasal turbinates (J34.3) 8 Active confirmed Plan Of Treatment No Information Insurance Providers Payer Name Payer Address Payer Phone Subscriber Number Group Number Insured Name Patient Relationship to Insured Coverage Start Date Coverage End Date [facility] [address] [place] [phone] [id number] Rickey Santamaria Self - patient is the insured Medical (General) History Medical History History ICD Code sinusitis Nasal Allergies Surgical History Surgery Date(Month/Year) latera implantation, revision submucousa resection of turbinates 2018 Tonsillectomy 10/11/2019
== END 2024-10-16 10:09 | disposition home or self-care (01) ==
LOC: HO.HUSH 09:26
PROVIDERS: PCP Internal Medicine; Visit Provider Urology
DX: R79.89 Other specified abnormal findings of blood chemistry (principal); R10.30 Lower abdominal pain, unspecified
CPT/HCPCS: 99214

== ENCOUNTER → 2024-10-16 09:25 | Outpatient (BNVA) | payer OTHER, SELFPAY | PROVIDERS: PCP Internal Medicine; Visit Provider Urology | DX: R10.30 Lower abdominal pain, unspecified (principal); K40.91 Unilateral inguinal hernia, without obstruction or gangrene, recurrent | CPT/HCPCS: 99212 ==

== ENCOUNTER 2024-10-23 07:17 | Outpatient (REF) | payer OTHER, SELFPAY ==
--- OUTSIDE RECORDS SUMMARY | 2024-10-23 07:20 | XMS_ITS | Patient Health Record ---
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 [facility] Address [address] [place] [address] Care Team Providers Care Etymology Teacher Name Role Phone JOSHUA MORATAYA Unavailable [phone] [facility], Med[employer]p Unavailable Unavailable Allergies No Known [...] Problem Gastro-esophagea l reflux disease without esophagitis (440483207) Gastro-esophage al reflux disease without esophagitis (K21.9) Active confirmed Problem Seasonal allergic rhinitis due to pollen (J30.1) Active confirmed Problem Dysphagia, unspecified type (R13.10) Active confirmed Problem Allergic rhinitis caused by pollen (disorder) (56572155) Allergic rhinitis due to pollen (J30.1) 8 Active confirmed Problem Chronic maxillary sinusitis (59150398) Chronic maxillary sinusitis (J32.0) 8 Active confirmed Problem Deviated nasal septum (724055689) Deviated nasal septum (J34.2) 8 Active confirmed Problem Hypertrophy of nasal turbinates (40079766) Hypertrophy of nasal turbinates (J34.3) 8 Active confirmed Plan Of Treatment No Information Insurance Providers Payer Name Payer Address Payer Phone Subscriber Number Group Number Insured Name Patient Relationship to Insured Coverage Start Date Coverage End Date [facility] [address] [place] [phone] [id number] Rickey Santamaria Self - patient is the insured Medical (General) History Medical History History ICD Code sinusitis Nasal Allergies Surgical History Surgery Date(Month/Year) latera implantation, revision submucousa resection of turbinates 2018 Tonsillectomy 10/11/2019
--- OUTSIDE RECORDS SUMMARY | 2024-10-23 07:20 | XMS_ITS | Clinical Summary ---
Author Organization [facility] ity Address [address] [place] [address] Care Team Providers Care Residential Mortgage Manager Name Role Phone Unavailable Primary Care [...]
[2024-10-24 09:07] LABS: Follicle Stimulating Hormone 9.4 mIU/mL (1.4-12.8)
[2024-10-27 17:23] LABS: Testosterone, Free 66.0 pg/mL (35.0-155.0)
[2024-11-06 05:14] LABS: Estradiol Free 0.62 pg/mL; Estradiol, Ultrasensitive 26 pg/mL (< OR = 29)
== END 2024-10-23 07:18 | disposition home or self-care (01) ==
LOC: HO.LAB 07:17
PROVIDERS: PCP Internal Medicine; Visit Provider Urology
DX: R79.89 Other specified abnormal findings of blood chemistry (principal)
CPT/HCPCS: 36415; 82670; 82681; 83001; 83002; 84402; 84403

== ENCOUNTER 2024-10-31 14:05 | Outpatient (AMB) | payer OTHER, SELFPAY ==
--- NOTE | 2024-10-31 14:14 | MHC.OFFVIS ---
Vital Signs 10/31/24 14:19 Height 5 ft 11 in Weight 233 lb BMI 32.5 BP 128/76 Blood Pressure Location Rt brachial Position Sitting Pulse 76 Intake Visit Reasons: s/p ct 10-03 Intake Note: Patient here to discuss abdomen CT from 10-03-2024. Patent c/o: constant Rt inguinal pain. Meloxicam helps. Barrel Straightener Required: No Accompanied by: Self / Same As Patient Allergies No Known Allergies Allergy (Verified 10/31/24 14:18) Medication List - Last Reconciled 11/06/24 by Vaughn Cotto MD hydrocortisone 2.5% (Anusol-HC) 1 appl IA BID-QID PRN meloxicam 15 mg PO DAILY 30 days pantoprazole 40 mg PO DAILY polyethylene glycol 3350 (Miralax) 17 grams PO DAILY rosuvastatin (Crestor) 10 mg PO DAILY HPI HPI s/p ct 10-03: Details: 39-year-old male here for follow-up for right groin pain. He had undergone bilateral inguinal hernia repair with Dr. Vivar last March,. He has had lingering pain in the right groin on the repair site. 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 He says he does not have this when he is not moving or when he is in bed. Denies any palpable mass. He denies any GI complaints or urinary complaints. I had sent him for a CAT scan and this shows a recurrent hernia which was fat containing on the right side. He wants to proceed with repair. [facility] Medical History Recurrent right inguinal hernia Hypertriglyceridemia Low HDL (under 40) Pure hypercholesterolemia, unspecified Hyperlipidemia Elevated liver enzymes Abdominal pain Altered bowel function Erectile dysfunction Rt inguinal pain Annual physical exam Right testicular pain GERD (gastroesophageal reflux disease) Rosacea Somnolence, daytime Retrognathia Obesity (BMI 30.0-34.9) Anxiety and depression Obstructive sleep apnea History of esophageal dilatation Esophagitis Surgical History History of vasectomy Bilateral inguinal hernia (BIH) (03/28/24) History of esophagogastroduodenoscopy (EGD) H/O nasal septoplasty History of tonsillectomy History of knee surgery Family History Father Hypertension Heart attack, Onset Age: 35 Mother No problems noted. 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 Current occupational exposures/hazards: No Cognitive needs: No Hearing needs: No Vision needs: Yes Review of Systems Const Denies chills and Denies fever(s) Card Denies chest pain, Denies dyspnea and Denies dyspnea on exertion Resp Denies cough, Denies dyspnea and Denies dyspnea on exertion GI Denies hematochezia and Denies change in bowel habits Denies hematuria and Denies difficulty urinating Musc Denies back pain and Denies limited range of motion Neuro Denies focal weakness and Denies convulsions Psych Denies depression and Denies mood swings Physical Exam Vital Signs: Last Vital Signs Pulse 76 10/31/24 14:19 BP 128/76 10/31/24 14:19 BMI result Body Mass Index 32.5 Const General: comfortable and no acute distress Orientation/consciousness: patient oriented x3 Neck Neck: Yes no lymphadenopathy Resp Auscultation: clear to auscultation bilaterally Cardio Rhythm: regular rhythm GI Other: Reducible right inguinal hernia which is a recurrence Palpation (GI): Soft to palpation, nontender and no guarding Neuro General: patient oriented x3 Assessment & Plan Assessment & Plan (1) Recurrent right inguinal hernia: Code(s): K40.91 - Unilateral inguinal hernia, without obstruction or gangrene, recurrent Category: Medical Plan: He has had this chronic pain in the right inguinal hernia repair site. His CAT scan shows another fat containing hernia. This appears to be reducible. This is a recurrence after he had a bilateral inguinal hernia repair with Dr. Vivar last March 2024. He wants this repaired in view of his pain and discomfort I had a long discussion with him about the technique of repair of the recurrent right inguinal hernia with mesh. I reviewed the risks including but not limited to bleeding, infections, injury to bowel, vas deferens and testicle, postop pain, as well as the benefits and alternatives. I did tell him that his perioperative risks are much higher in view of this being a recurrence . He also understands that he may require a longer time for recovery. He says he understands and wants to proceed. Coding Level of Care Code Est Pt Level 3 (12695) Diagnoses Recurrent right inguinal hernia K40.91
[2024-10-31 14:19] VITALS: BP 128/76; PULSE 76; BMI 32.5
--- OUTSIDE RECORDS SUMMARY | 2024-10-31 14:55 | XMS_ITS | Clinical Summary ---
Author Organization [facility] [address] ity Address [address] [place] [address] Care Team Providers Care Firestopper Installer Name Role Phone Unavailable Primary Care Provider [...]
--- OUTSIDE RECORDS SUMMARY | 2024-10-31 14:55 | XMS_ITS | Patient Health Record ---
Author Organization [facility]et [facility] Address [address] [place] [address] Care Team Providers Care Phlebotomy Supervisor Name Role Phone JOSHUA MORATAYA Unavailable [phone] [facility], Med[employer]p Unavailable Unavailable Allergies No Known [...] Problem Gastro-esophagea l reflux disease without esophagitis (480122229) Gastro-esophage al reflux disease without esophagitis (K21.9) Active confirmed Problem Seasonal allergic rhinitis due to pollen (J30.1) Active confirmed Problem Dysphagia, unspecified type (R13.10) Active confirmed Problem Allergic rhinitis caused by pollen (disorder) (13580192) Allergic rhinitis due to pollen (J30.1) 8 Active confirmed Problem Chronic maxillary sinusitis (11313314) Chronic maxillary sinusitis (J32.0) 8 Active confirmed Problem Deviated nasal septum (335109413) Deviated nasal septum (J34.2) 8 Active confirmed Problem Hypertrophy of nasal turbinates (83577633) Hypertrophy of nasal turbinates (J34.3) 8 Active confirmed Plan Of Treatment No Information Insurance Providers Payer Name Payer Address Payer Phone Subscriber Number Group Number Insured Name Patient Relationship to Insured Coverage Start Date Coverage End Date [facility] [address] [place] [address] [id number] Rickey Santamaria Self - patient is the insured Medical (General) History Medical History History ICD Code sinusitis Nasal Allergies Surgical History Surgery Date(Month/Year) latera implantation, revision submucousa resection of turbinates 2018 Tonsillectomy 10/11/2019
== END 2024-10-31 14:54 | disposition home or self-care (01) ==
LOC: HO.HGS 14:06
PROVIDERS: PCP Internal Medicine; Visit Provider Surgery
DX: K40.91 Unilateral inguinal hernia, without obstruction or gangrene, recurrent (principal)
CPT/HCPCS: 99213

== ENCOUNTER → 2024-10-31 14:05 | Outpatient (BNVA) | payer OTHER, SELFPAY | PROVIDERS: PCP Internal Medicine; Visit Provider Surgery | DX: K40.91 Unilateral inguinal hernia, without obstruction or gangrene, recurrent (principal) | CPT/HCPCS: 99212 ==

== ENCOUNTER 2024-11-12 15:19 | Outpatient (REF) | payer OTHER, SELFPAY ==
--- NOTE | ~2024-11-12 | CT_ITS ---
EXAMINATION: CT ABDOMEN WITH CONTRAST CLINICAL INFORMATION: R10.9 - Unspecified abdominal pain COMPARISON: CT pelvis from October 03, 2024 TECHNIQUE: Contiguous axial thin section helical images of the abdomen were performed following the administration of 85 mL of Omnipaque 350 intravenous contrast. The data set was reformatted in the coronal and sagittal planes and reviewed on an independent workstation. This CT examination was performed using dose optimization techniques as appropriate, variously including the following: *Automated exposure control *Adjustment of mA and/or kV according to patient size (this includes techniques or standardized protocols for targeted exams where dose is matched to indication/reason for exam; i.e. extremities or head) *Use of iterative reconstruction technique DLP: 3:30 mGY*cm FINDINGS: LUNG BASES: Clear LIVER, GALLBLADDER, AND BILIARY TREE: The liver is homogeneous. Gallbladder is partially decompressed but appears grossly unremarkable. No biliary ductal dilation is evident. PANCREAS: Unremarkable SPLEEN: Unremarkable ADRENAL GLANDS AND KIDNEYS: Unremarkable BOWEL LOOPS: Unremarkable LYMPH NODES: No adenopathy VASCULAR: Minimal vascular calcification is present. BONES: Unremarkable CT/CT abdomen w IV con IMPRESSION: Unremarkable examination. Fleischner guidelines were followed. Electronically signed by: Ronnell Aleman MD 11/12/2024 04:29 PM EDT
--- OUTSIDE RECORDS SUMMARY | 2024-11-12 16:12 | XMS_ITS | Clinical Summary ---
Author Organization [facility] ity Address [address] [place] [address] Care Team Providers Care Chain Maker Hand Name Role Phone Unavailable Primary Care Provider [...]
--- OUTSIDE RECORDS SUMMARY | 2024-11-12 16:12 | XMS_ITS | Patient Health Record ---
Author Organization [facility] Address [address] [place] [address] Care Team Providers Care Infantry Assaultman Name Role Phone JOSHUA MORATAYA Unavailable [phone] [facility], [employer] Unavailable Unavailable Allergies No Known [...] Problem Gastro-esophagea l reflux disease without esophagitis (176516672) Gastro-esophage al reflux disease without esophagitis (K21.9) Active confirmed Problem Allergic rhinitis caused by pollen (48083620) Seasonal allergic rhinitis due to pollen (J30.1) Active confirmed Problem Dysphagia (42602507) Dysphagia, unspecified type (R13.10) Active confirmed Problem Allergic rhinitis caused by pollen (disorder) (28866361) Allergic rhinitis due to pollen (J30.1) 8 Active confirmed Problem Chronic maxillary sinusitis (38037422) Chronic maxillary sinusitis (J32.0) 8 Active confirmed Problem Deviated nasal septum (217171915) Deviated nasal septum (J34.2) 8 Active confirmed Problem Hypertrophy of nasal turbinates (93198956) Hypertrophy of nasal turbinates (J34.3) 8 Active confirmed Plan Of Treatment No Information Insurance Providers Payer Name Payer Address Payer Phone Subscriber Number Group Number Insured Name Patient Relationship to Insured Coverage Start Date Coverage End Date [facility] [address] [place] [phone] [id number] Rickey Santamaria Self - patient is the insured Medical (General) History Medical History History ICD Code sinusitis Nasal Allergies Surgical History Surgery Date(Month/Year) latera implantation, revision submucousa resection of turbinates 2018 Tonsillectomy 10/11/2019
[2024-11-12] MEDS: iohexoL 350 MG/ML 100 ML INFUS..BTL IV (16:18)
== END 2024-11-12 15:20 | disposition home or self-care (01) ==
LOC: HO.CT 15:19
PROVIDERS: PCP Physician Assistant Medical; Visit Provider Physician Assistant Medical
DX: R10.9 Unspecified abdominal pain (principal); R74.8 Abnormal levels of other serum enzymes
CPT/HCPCS: 74160; Q9967

== ENCOUNTER → 2024-11-12 15:22 | Outpatient (BNV) | payer OTHER, SELFPAY | PROVIDERS: PCP Physician Assistant Medical; Visit Provider Radiology Diagnostic Radiology | DX: R10.9 Unspecified abdominal pain (principal) | CPT/HCPCS: 74160 ==

== ENCOUNTER 2024-11-13 08:14 | Outpatient (AMB) | payer OTHER, SELFPAY ==
--- NOTE | 2024-11-13 08:14 | A.OFFVIS_ITS ---
Intake Visit Reasons: 4w Testo lab follow up Intake Note: Patient presents today for: telehealth 4week follow up/ labs Urology Medications: none Blood Thinner: none Labs done 10/23/24: total testo 355, fr testo 66.0, FSH 9.4, luteinizing hormone 43, fr estradiol 0.62, total estradiol 26 Application Architect Manager Required: No Accompanied by: Self / Same As Patient Allergies No Known Allergies Allergy (Verified 11/13/24 08:18) HPI Comments Details: Rickey is a pleasant male. He is a patient of Dr. singh. he seen for the following urologic conditions - inguinal disruption - borderline testosterone Telemedicine Evaluation 15 min Consultation Fin Quiver Lucia Video Follow-up for possible borderline low testosterone Lab work indicates low LH with low for age testosterone Recommend testosterone christian Would use enclomiphene 6.25 daily with repeat lab work in three-month Inguinal disruption CT scan recurrent right inguinal hernia On examination has pain bilateral at rectus abdominis insertion point Did respond to Mobic Discussed exercises in self-care He will perform these Borderline testosterone Background sleep apnea Labs - 10/11 440, 11/11 355 LH 4.3, FSH 9.4, estradiol 26 Minimal spontaneous nocturnal erections PFSH Medical History Recurrent right inguinal hernia Hypertriglyceridemia Low HDL (under 40) Pure hypercholesterolemia, unspecified Hyperlipidemia Elevated liver enzymes Abdominal pain Altered bowel function Erectile dysfunction Rt inguinal pain Annual physical exam Right testicular pain GERD (gastroesophageal reflux disease) Rosacea Somnolence, daytime Retrognathia Obesity (BMI 30.0-34.9) Anxiety and depression Obstructive sleep apnea History of esophageal dilatation Esophagitis Surgical History History of vasectomy Bilateral inguinal hernia (BIH) (03/28/24) History of esophagogastroduodenoscopy (EGD) H/O nasal septoplasty History of tonsillectomy History of knee surgery Family History Father Hypertension Heart attack, Onset Age: 35 Mother No problems noted. 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 Current occupational exposures/hazards: No Cognitive needs: No Hearing needs: No Vision needs: Yes Review of Systems Const All systems reviewed & are unremarkable except as noted in HPI and below Reports no additional complaints Resp Reports no additional complaints GI Reports no additional complaints Reports as per HPI Musc Reports no additional complaints Physical Exam Telemedicine evaluation Appropriate responses Regular breathing rate and rhythm HEENT Head: Yes normal to inspection Ears: hearing grossly normal bilaterally Eyes General: appearance normal, both eyes and all related structures Neck Neck: Yes normal visual inspection Chest Chest palpation & inspection: normal inspection of the chest Resp Effort & Inspection: normal respiratory effort and able to speak in complete sentences Telehealth Telehealth Telehealth Platform: Fin Quiver Location of provider rendering services: practice address Location of patient: address on file Patient Identification confirmed using: Name, : Yes Telehealth method: video Patient verbally consented to treatment: Yes Patient verbally consented to billing insurance company: Yes Patient informed of any privacy concerns related to visit: Yes Minutes spent on Phone/Video with Pt.: 15 Assessment & Plan Assessment & Plan (1) Erectile dysfunction: Code(s): N52.9 - Male erectile dysfunction, unspecified Category: Medical (2) Low testosterone in male: Code(s): R79.89 - Other specified abnormal findings of blood chemistry Category: Medical Plan Trial of testosterone christian Orders: Orders Testosterone, Total 2 Months R79.89 - Other specified abnormal findings of blood chemistry Lutenizing Hormone 2 Months R79.89 - Other specified abnormal findings of blood chemistry Medications: New [enclomiphene] Patient Cell Number - [phone] 1 tab PO DAILY 90 tabs 0RF 90 days R79.89 - Other specified abnormal findings of blood chemistry Refilled meloxicam 15 mg PO DAILY 30 tabs 0RF 30 days R10.31 - Right lower quadrant pain, R10.32 - Left lower quadrant pain Patient Instructions: This note is constructed using voice recognition software. While every effort has been made to ensure accuracy accounting analyst errors may have been included. Imaging studies, laboratory and physical exam results were discussed and reviewed in detail. No major barriers to patient understanding were identified. An opportunity to ask questions regarding the treatment plan was provided. All questions were answered. The patient expressed understanding and agreement with the above treatment plan. The patient is aware they should contact our office by phone for worsening of their current condition or the appearance of new urologic symptoms. Compliance is encouraged with any medications and followup testing that is ordered. It is a privilege to participate in the urologic care of your patient. If you have any questions or concerns regarding treatment for the above conditions, or other urologic issues, please do not hesitate to contact me. The office telephone contact is [phone]. Sincerely, Dr Stu Ac MD, [facility] - Urology Compassionate Specialist Care for the Genitourinary System Coding Level of Care Code Tele Est Pt Level 4 (56942) Complex EM visit Add On G2211 Diagnoses Erectile dysfunction N52.9 Low testosterone in male R79.89
--- OUTSIDE RECORDS SUMMARY | 2024-11-13 08:30 | XMS_ITS | Continuity of Care Document ---
Author Name [facility] Organization [facility] Care Team Providers Care Curator Of Manuscripts Name Role Phone [facility] Unavailable Unavailable Problems [...] Left knee pain Active Condition 309C-A F-C -66 [facility] Encounter for examination of eyes and vision without abnormal findings Active Condition 309C-A F-C -66th [facility] Medications Combined list of outpatient medications from [...] Ordered 2022 1.0 0C-A F-C-66t h [facility] fexofenadin e 180 mg oral tablet fexofena [...] Access ibuprofen 0 total refill(s ), Maintena txe Ordered 2022 0310C-A [facility]t [facility] Active Storage methylPREDN ISolone 4 mg oral tablet methylPR EDNISolo ne 4 mg oral tablet Start Date: 11/23/20 Stop Date: 07/12/22 Status: Disconti nued Repeat number: 1 Discont inued 07/12/20222022 No Facilit y Access omeprazole 20 mg oral delayed release capsule 1 cap(s), Oral, Daily, 30 to 60 minutes before a meal, # 90 cap(s), 3 total refill(s ), [facility]aintena [facility], Pharmacy : [id number] Oral (given by mouth) Ordered 2022 90.0 0310C-A F-C-66t h [facility] 20 mg oral delayed release capsule omeprazo le 20 mg oral delayed release capsule Start Date: 10/03/20 Status: Ordered Repeat number: 1 Ordered 2020 No Facilit y Access ondansetron 8 mg oral tablet, disintegrat ing ondanset linda 8 mg oral tablet, disinteg rating Start Date: 11/23/20 Stop Date: 07/12/22 Status: Disconti nuted Repeat number: 1 Discont inued 07/12/20222022 No Facilit y Access Allergies, Adverse Reactions, Alerts Combined list of [...] Site Reaction Lot Number CVX Code Drug Tubular Stock Glass Bulb Machine Former Status Comments Source tetanus, diphtheria, acellular pertu is 2021 NATWASKOMABROOKS [id number] comple t ed Result Comment: Route: Unknown Manufactu rer: OT ([facility]) 031C-A F-C-66t h [facility] influenza, injectable, quadrivalent- pf 2021 NATMARGARETABROORANJEET [id number] 150 comple t ed Result Comment: [...] injectable, quadrivalent- pf 2020 [id number] 150 GlaxoSmithKli va complet ed influenza , injectabl e, quadrival ent-pf 12/10/20 Given Ambulat ory Pharmac y Influenza, injectable, quadrivalent, preservative free 1 2020 [id number] 150 [facility] (B) complet ed Influenza , injectabl e, [...] or 50 mcg dose 1 2020 207 In[employer]ink[employer] Inc.a [employer] ( HLM ), Inc. (MOD) complet ed SARS-COV- 2 (COVID-19 ) vaccine, mRNA, spike protein, LNP, preservat angel free, 100 mcg or 50 mcg dose DoD influenza, injectable, quadrivalent- pf 2019 [id number] 150 Seqirus complet ed influenza , injectabl e, quadrival ent-pf 02/28/20 Given Ambulat ory Pharmac y Influenza, injectable, quadrivalent, preservative free 1 2019 [id number] 150 Seqirus (SEQ) complet ed Influenza , injectabl e, quadrival ent, preservat angel free DoD influenza, injectable, quadrivalent- pf 2018 [id number] 349 150 Seqirus complet ed influenza , injectabl e, quadrival ent-pf 02/27/19 Given Ambulat ory Pharmac y Influenza, injectable, quadrivalent, preservative free 13 2018 [id number] 349 150 Seqirus (SEQ) complet ed Influenza , injectabl e, quadrival ent, preservat angel free DoD influenza, injectable, quadrivalent- pf 2017 [id number] 150 Seqirus complet ed influenza , injectabl e, quadrival ent-pf 02/05/18 Given Ambulat ory Pharmac y Influenza, injectable, quadrivalent, preservative free 12 2017 [id number] 150 Seqirus (SEQ) comple t ed Influenza [...] angel free DoD influenza, seasonal, injectable-pf 2015 [id number] 1A 140 Seqirus complet ed influenza , seasonal, injectabl e-pf 12/23/15 Given Ambulat ory Pharmac y Influenza, seasonal, injectable, preservative free 10 2015 [id number] 1A 140 Seqirus (SEQ) complet ed Influenza , seasonal, injectabl e, preservat angel free DoD influenza, live, intranasal,qu adrivalent 2014 [id number] 149 Medimmune Inc comple t ed influenza , live, intranasa l,quadriv alent 01/05/15 Given Ambulat ory Pharmac y typhoid Vi capsular polysaccharid e vac 2014 [id number] 101 sanofi pasteur complet ed typhoid Vi capsular polysacch aride vac 01/05/15 Given Ambulat ory Pharmac y typhoid Vi capsular polysaccharid e vaccine 1 2014 [id number] 101 Sanofi Pasteur ([facility]) complet ed typhoid Vi capsular polysacch aride vaccine DoD influenza, live, intranasal, quadrivalent 9 2014 [id number] 149 MedICity Notesune, Inc. (MED) complet ed influenza , live, intranasa l, quadrival ent DoD Human Papillomaviru s,quadrivalen t(HPV4) 2014 [id number] 62 uma information technology & [employer] Inc complet ed Human Papilloma virus,holden drivalent (HPV4) 05/16/14 Given Ambulat ory Pharmac y human papilloma virus vaccine, quadrivalent 0 2014 [id number] 62 Merck (MSD) complet ed human papilloma virus vaccine, quadrival ent DoD influenza, live, intranasal,qu adrivalent 2013 [id number] 149 Medimmune Inc comple t ed influenza , live, intranasa l,quadriv alent 01/20/14 Given Ambulat ory Pharmac y influenza, live, intranasal, quadrivalent 8 2013 [id number] 149 MedICity Notesune, Inc. (MED) complet ed influenza , live, intranasa l, quadrival ent DoD influenza, live, intranasal,qu adrivalent 2012 [id number] 149 Medimmune Inc comple t ed influenza , live, intranasa l,quadriv alent 12/24/12 Given Ambulat ory Pharmac y influenza, live, intranasal, quadrivalent 7 2012 [id number] 149 MedImmune, Inc. (MED) complet ed influenza , live, intranasa l, quadrival ent DoD influenza, seasonal, injectable-pf 2011 [id number] 140 sanofi pasteur complet ed influenza , seasonal, injectabl e-pf 12/20/12 Given Ambulat ory Pharmac y Influenza, seasonal, injectable, preservative free 6 2011 [id number] 140 Sanofi Pasteur (PMC) complet ed Influenza , seasonal, injectabl e, preservat angel free DoD tetanus, diphtheria, acellular pertu is 2011 [id number] 5AA 115 GlaxoSmSeafarers [facility] complet ed tetanus, diphtheri a, acellular pertussis 10/26/11 Given Ambulat ory Pharmac y tetanus toxoid, reduced diphtheria toxoid, and acellular pertu is vaccine, adsorbed 0 2011 [id number] 5AA 115 Evince (SKB) complet ed tetanus toxoid, reduced diphtheri a toxoid, and acellular pertussis vaccine, adsorbed DoD influenza virus vaccine, live 2010 [id number] 111 Epiclist Inc comple t ed influenza virus vaccine, live 11/23/10 Given Ambulat ory Pharmac y influenza virus vaccine, live, attenuated, for intranasal use 5 2010 [id number] 111 Signdat, Inc. (MED) complet ed influenza virus vaccine, live, attenuate d, for intranasa l use DoD influenza virus vaccine,split 2009 [id number] 15 CSL Behring complet ed influenza virus vaccine,s plit 01/05/10 Given Ambulat ory Pharmac y influenza virus vaccine, split virus (incl. purified surface antigen)-reti red CODE 1 2009 [id number] 15 CSL TerraLUXherapies, Inc. (CSL) complet ed influenza virus vaccine, split virus (incl. purified surface antigen)- retired CODE DoD Novel influenza-H1N 1-09, injectable 2009 [id number] 127 sanofi pasteur complet ed Novel influenza -G0O0-94, injectabl e 10/05/09 Given Ambulat ory Pharmac y Novel influenza-H1N 1-09, injectable 1 2009 [id number] 127 Sanofi Pasteur (PMC) complet ed Novel influenza -C9V4-59, injectabl e DoD influenza virus vaccine, live 2008 [id number] 111 Epiclist Inc complet ed influenza virus vaccine, live 01/19/09 Given Ambulat ory Pharmac y influenza virus vaccine, live, attenuated, for intranasal use 1 2008 [id number] 111 MedILabPixies, Inc. (MED) complet ed influenza virus vaccine, live, attenuate d, for intranasa l use DoD influenza virus vaccine, live 2007 [id number] 111 MediLabPixies Inc comple t ed influenza virus vaccine, live 01/11/08 Given Ambulat ory Pharmac y influenza virus vaccine, live, attenuated, for intranasal use 1 2007 [id number] 111 Signdat, Inc. (MED) complet ed influenza virus vaccine, live, attenuate d, for intranasa l use DoD hepatitis A adult vaccine 2007 [id number] 52 Merck & Company Inc complet ed hepatitis A adult vaccine 09/20/07 Given Ambulat ory Pharmac y hepatitis A vaccine, adult dosage 2 2007 [id number] 52 Merck (MSD) complet ed hepatitis A vaccine, adult dosage DoD tuberculin purified protein derivative 2006 [id number] 96 sanofi pasteur complet ed tuberculi n [...] adult dosage 1 2006 [id number] 52 [facility] hepatitis A vaccine, adult dosage DoD influenza virus vaccine,split 2006 [id number] [id number] 15 GlaxoSmithKli ne complet ed influenza virus vaccine,s plit 01/11/07 Given Ambulat ory Pharmac y meningococcal A,C,Y,W-135 (MCV4P) 2006 [id number] 114 sanofi pasteur complet ed meningoco ccal A,C,Y,W-1 35 (MCV4P) 01/11/07 Given Ambulat ory Pharmac y poliovirus vaccine, inactivated 2006 [id number] 10 sanofi pasteur complet ed polioviru s vaccine, inactivat ed 01/11/07 Given Ambulat ory Pharmac y tetanus-dipht h toxoids (Td) adult/adol 2006 [id number] 09 sanofi pasteur complet ed tetanus-d iphth toxoids (Td) adult/ado l 01/11/07 Given Ambulat ory Pharmac y tetanus and diphtheria toxoids, adsorbed, preservative free, for adult use (2 Lf of tetanus toxoid and 2 Lf of diphtheria toxoid) 1 2006 [id number] 09 Sanofi Pasteur (PMC) complet ed tetanus [...] diphtheria toxoid conjugate vaccine (MCV4P) 1 2006 [id number] 114 Sanofi Pasteur (PMC) complet ed meningoco [...] Prevention' s HIV diagnostic algorithm. Refer to [facility] Lab Guide for additional information : [email or web address]://[employer]uid [email or web address]. [email or web address]/ [email or web address] x Testing performed by Blayne kuhn 5600A-U COM DEV Miscellan eous Sendouts Repository Sample Received (07/14/23 1:29 PM) 07/13 N 5600A-U COM DEV Vital Signs Combined list of inpatient and outpatient Vital Signs from Department of Defense and Veterans Affairs, ranging from 12 months to all on record, depending upon the facility. Vital Sign Value Date Comments Source Blood Pressure Manual Automatic 08/31/2022 13:55:00 9554O-GT-V-66th [facility] Temperature Oral 36.7 Pat 08/31/2022 13:55:00 2075O-FX-W-66th [facility] Systolic Blood Pressure 124 mm[Hg] 09/01/19 23 13:55:00 9347I-ZS-H-66th [facility] Diastolic Blood Pressure 79 mm[Hg] 023 13:55:00 5146O-BT-Y-66th [facility] BP Site Right arm 08/31/2022 13:55:00 2143Y-TR-W-66th [facility] Mean Arterial Pressure, Cuff (Calc) 94 mm[Hg] 08/31/2022 13:55:00 0799Z-LI-B-66th [facility] Peripheral Pulse Rate 69 bpm 08/31/2022 13:55:00 6183U-OS-Z-66th [facility] Respiratory Rate 16 br/min 08/31/2022 13:55:00 8838V-BV-U-66th [facility] Encounters Combined list of: 1) Encounters from Department of Veterans Affairs facilities going backup to the last 18 months, not all VA inpatient encounters are included; 2) Encounters from the Department of [facility] facilities going backup to 280 months. Location Location Details Encounter Type Encounter Number Reason For Visit Attending Provider ADM Date DC Date Status Disposition Source [address] [place] [address](Opt ometry) OUTPATIENT [id number] rout visit CHASE BARON 10/11 Released w/o Limitations [facility](O ptometr y) [facility](Fam Med Pod 2) OUTPATIENT [id number] health concern s w/ cardiac history NASSAUX, LORRIE Y 10/14 Released w/o Limitations [facility](F am Med Pod 2) [facility](Fam Med Pod 2) OUTPATIENT [id number] ekg NASLJ, LORRIE Y 10/22 Released w/o Limitations [facility](F am Med Pod 2) [facility](Fam Med Pod 2) TELE CONSULT [id number] ON/OFF COUGH WITH MUCUS X 1 YR. APPT REQUEST ED. FELTON MARTIN 09/24 Referred for Appointment [facility](F am Med Pod 2) [facility](Fam Med Pod 2) TELE CONSULT [id number] Nose bleeds during exercis e. FELTON MARTIN 11/03 Referred for Appointment [facility](F am Med Pod 2) [facility](Fam Med Pod 1) OUTPATIENT [id number] lt rib pain makes it difficu lt to breath and sleep on that side PILY FLORES 11/04 Released w/o Limitations [facility](F am Med Pod 1) [facility](Fam Med Pod 2) OUTPATIENT [id number] Nose bleeds KAROLINA PLEITEZ 11/10 Released w/o Limitations [facility](F am Med Pod 2) [facility](Fam Med Pod 2) TELE CONSULT [id number] PHA RESPONS E NASSAUX, LORRIE Y 12/05 [facility](F am Med Pod 2) [facility](Fam Med Pod 2) TELE CONSULT [id number] sore throat, runny nose ABEITA, FRANCO A 01/01 Referred for Appointment [facility](F am Med Pod 2) [facility](Fam Med Pod 2) OUTPATIENT [id number] ear pain, throat, running nose WILLAM RODRIGUEZ 01/02 Sick at Home/Quarter s [facility](F am Med Pod 2) [facility] Med Pod 2) OUTPATIENT [id number] skin issues NASSAUX, LORRIE Y 06/22 Released w/o Limitations [facility](F am Med Pod 2) [facility] Med Pod 1) TELE CONSULT [id number] abdomin al pain, n/v, diarrhe a ILCUS, MASHA S 07/15 [facility](F am Med Pod 1) [facility] Med Pod 2) TELE CONSULT [id number] Pt still not feeling well. Currenl ty on quarter s. ABEITA, FRANCO A 07/15 [facility](F am Med Pod 2) [facility] Med Pod 2) OUTPATIENT [id number] f/u possibl e food poisoni ng JORGE, LORRIE Y 07/16 Released with Work/Duty Limitations [facility](F am Med Pod 2) [facility](Fam Med Pod 2) TELE CONSULT [id number] possibl e Salmene lla ABEITA, FRANCO A 11/05 [facility](F am Med Pod 2) [facility] Med Pod 2) TELE CONSULT [id number] request ing STD check w/ symptom s ABEITA, FRANCO A 01/15 [facility](F am Med Pod 2) [facility](Fam Med Pod 2) OUTPATIENT [id number] possibl e std NASSAUX, LORRIE Y 01/18 Released w/o Limitations [facility](F am Med Pod 2) [facility]) OUTPATIENT [id number] Presump SHARRI Boogie S 01/18 Released w/o Limitations [facility](P ublic Health) [facility](Fam Med Pod 1) TELE CONSULT [id number] TORO VILLEGAS 01/19 Referred for Appointment [facility](F am Med Pod 1) [facility](Fam Med Pod 2) TELE CONSULT [id number] lab results FRANCO MURPHY A 01/29 [facility](F am Med Pod 2) [facility](Fam Med Pod 2) TELE CONSULT [id number] lab results FRANCO MURPHY A 02/26 [facility](F am Med Pod 2) [facility](Fam Med Pod 2) OUTPATIENT [id number] sore throat NASSAUX, LORRIE Y 08/24 Released w/o Limitations [facility](F am Med Pod 2) [facility](Fam Med Pod 2) OUTPATIENT [id number] PAIN TO LT KNEE TOYIN, TOD A 03/28 Released w/o Limitations [facility](F am Med Pod 2) [facility](Phy sical Therapy) OUTPATIENT [id number] l knee PUGIA, CHERISE 04/08 Released w/o Limitations [facility](P hysical Therapy ) [facility](Phy sical Therapy) OUTPATIENT [id number] l knee DANIELA SHAH 04/22 Released w/o Limitations [facility](P hysical Therapy ) [facility](Phy sical Therapy) OUTPATIENT [id number] l knee DANIELA SHAH 04/25 Released w/o Limitations [facility](P hysical Therapy ) [facility](Phy sical Therapy) OUTPATIENT [id number] l knee DANIELA SHAH 04/29 Released w/o Limitations [facility](P hysical Therapy ) [facility](Fam Med Pod 2) TELE CONSULT [id number] Notes Entered by: SHARRI BECERRA 03 May 2011 1108 ------- ------- ------- ------- -- AURELIANO CROUCH 05/03 Other Not Elsewhere Classified [facility](F am Med Pod 2) [facility](Phy sical Therapy) OUTPATIENT [id number] f/u l knee DANTE SANTOS L 05/10 Released w/o Limitations [facility](P hysical Therapy ) [facility](Phy sical Therapy) OUTPATIENT [id number] VAHID TRIPLETT 05/22 Released w/o Limitations [facility](P hysical Therapy ) [facility](Phy sical Therapy) OUTPATIENT [id number] VAHID TRIPLETT 05/29 Released w/o Limitations [facility](P hysical Therapy ) [facility](Phy sical Therapy) OUTPATIENT [id number] APARNA MARCELO 06/01 Released w/o Limitations [facility](P hysical Therapy ) [facility](Phy sical Therapy) OUTPATIENT [id number] F/U KNEE DANTE SANTOS 06/15 Released w/o Limitations [facility](P hysical Therapy ) [facility] Team C) OUTPATIENT [id number] renew 469/422 needed pt test LORRIE PATEL Axel 07/05 Released w/o Limitations [facility] Team C) [facility] Team E) TELE CONSULT [id number] Notes Entered by: ROSELINE STEELE 23 Nov 2011 1412 ------- ------- ------- ------- -- ref FRANCO MURPHY 11/22 Referred for Appointment [facility] Team E) [facility] _Team_Lob o) OUTPATIENT [id number] chinyeres on genital s IVONE ROSA 12/08 Released w/o Limitations [facility]_Te am_Lobo ) [facility] _Team_Lob o) TELE CONSULT [id number] Notes Entered by: Madeline ROSA 14 Dec 2011 1415 ------- ------- ------- ------- -- +ELIZABETH Caraballo 12/13 Referred for Appointment [facility]_Te am_Lobo ) [facility] _Team_Lob o) OUTPATIENT [id number] f/u labs IVONE ROSA 12/14 Released w/o Limitations [facility] _[facility]_Te am_Lobo ) [facility]) OUTPATIENT [id number] Notes Entered by: GOOD DACOSTA SA 15 Dec 2011 1552 ------- ------- ------- ------- -- + ALVA CAAMCHO 12/14 Released w/o Limitations [facility]) [facility] Team E) OUTPATIENT [id number] extensi on of 422 NASSAUX, LORRIE Y 12/18 Released with Work/Duty Limitations [facility] Team E) [facility] Team E) TELE CONSULT [id number] Notes Entered by: GOOD MEDINA 01 Feb 2012 1033 ------- ------- ------- ------- -- FRANCO JON 01/31 Referred for Appointment [facility] Team E) [facility] Team E) OUTPATIENT [id number] sore throat NASSAUX, LORRIE Y 02/20 Released with Work/Duty Limitations [facility] Team E) [facility] Team E) OUTPATIENT [id number] profile NASSAUX, LORRIE Y 03/08 Released with Work/Duty Limitations [facility] Team E) [facility] Team E) OUTPATIENT [id number] nose bleeds NASSAUX, LORRIE Y 04/11 Released w/o Limitations [facility] Team E) [facility] Team E) OUTPATIENT [id number] poss sleep apnea LORRIE PATEL Y 06/12 Released w/o Limitations [facility] Team E) [facility] Team E) TELE CONSULT [id number] Notes Entered by: LORRIE SIMON 20 Aug 2012 1357 ------- ------- ------- ------- -- PHA MAIK JASSO 08/20 Other Not Elsewhere Classified [facility] Team E) [facility] Team E) OUTPATIENT [id number] f/u on knee JORGE, LORRIE Y 09/11 Released w/o Limitations [facility] Team E) [facility] Team E) OUTPATIENT [id number] excessi ve sweatin g JORGE, LORRIE Y 11/01 Released w/o Limitations [facility] Team E) [facility] Team E) TELE CONSULT [id number] Notes Entered by: MAIK JOSEPH 05 Dec 2012 1130 ------- ------- ------- ------- -- MAIK WARD 12/05 Referred for Appointment [facility] Team E) [facility](Int [facility]grated [facility]) OUTPATIENT [id number] Discuss sleep Issues x 7 months LONGYULIA 01/31 Released w/o Limitations [employer] [facility] [employer](I ntegrat ed Behavio ral [facility] Cl[facility]) [facility](Opt ometry Clinic) OUTPATIENT [id number] ramos; [place] 1 year JUAN JOSE LEE 03/22 Released w/o Limitations [facility](O ptometr y Clinic) [facility] [facility] OUTPATIENT [id number] SLEEP ISSUES MICHAEL JOHNATHANJERAMY Jamison 03/25 Released w/o Limitations [employer](I ntegrat ed Behavio ral [facility]) [employer](Fam Med Cl Tm B Non-Ad) TELE CONSULT [id number] Notes Entered by: CHRISTOPHER CHA 09 Apr 2013 1037 ------- ------- ------- ------- -- Network Result - Apnea Link 014 [facility] 04/09 [employer](F am Med Cl Tm B Non-Ad) [employer](Fam Med Cl Tm B Non-Ad) OUTPATIENT [id number] LEFT KNEE SWELLIN G/ ONGOING LUZ MARINA [facility] 04/15 Released w/o Limitations [employer](F am Med Cl Tm B Non-Ad) [employer](Fam Med Cl Tm B Non-Ad) OUTPATIENT [id number] chest pain [facility] 04/16 Released w/o Limitations [employer](F am Med Cl Tm B Non-Ad) [employer](Fam Med Cl Tm B Non-Ad) TELE CONSULT [id number] Notes Entered by: CATE CASTRO 29 Apr 2013 1604 ------- ------- ------- ------- -- Profile JANNA OLIVAS 04/29 Referred for Appointment [employer](F am Med Cl Tm B Non-Ad) [employer](Fam Med Cl Tm B Non-Ad) TELE CONSULT [id number] Notes Entered by: DAVINA DE LA PAZ 07 May 2013 1512 ------- ------- ------- ------- -- ACTIVE DUTY/ PROFILE REQUEST JANNA OLIVAS 05/07 Referred for Appointment [employer](F am Med Cl Tm B Non-Ad) [employer](Fam Med Cl Tm B Non-Ad) OUTPATIENT [id number] PT test this month wants profile for knee DUSTIN OLGUIN 05/15 Released with Work/Duty Limitations [employer](F am Med Cl Tm B Non-Ad) [place] OUTPATIENT [id number] joint pain, localiz ed in the knee... Torres KAREN MAI 05/20 Released w/o Limitations [place], [place](Orth [place]ics ) [employer](Fam Med Cl Tm B Non-Ad) TELE CONSULT [id number] Notes Entered by: JAIMIE HAZEL 21 Oct 2013 1121 ------- ------- ------- ------- -- RENEW PROFILE JANNA OLIVAS 10/21 Released to [facility] [employer](F am Med Cl Tm B Non-Ad) [employer](Fam Med Cl Tm B Non-Ad) OUTPATIENT [id number] Coughin g up mucous and abd pain x 2 months DUSTIN OLGUIN 11/05 Released w/o Limitations [employer](F am Med Cl Tm B Non-Ad) [employer](Fam Med Cl Tm B Non-Ad) OUTPATIENT [id number] profile concern s DUSTIN OLGUIN 11/11 Released with Work/Duty Limitations [facility](F am Med Cl Tm B Non-Ad) [facility] [facility]) OUTPATIENT [id number] Joint pain in the left knee RICK BATEMAN 11/25 Released w/o Limitations [facility]) [facility] [facility]) OUTPATIENT [id number] FERNY DOMINGO 11/29 Released with Work/Duty Limitations [facility]) [facility] [facility]) OUTPATIENT [id number] FERNY DOMINGO 12/06 Released with Work/Duty Limitations [employer] [facility](P [facility]) [facility] [facility]) OUTPATIENT [id number] TORI REES 12/12 Released with Work/Duty Limitations [employer](P hysical Therapy Clinic) [employer] [facility]) OUTPATIENT [id number] FERNY DOMINGO 12/16 Released with Work/Duty Limitations [employer](P hysical Therapy Clinic) [employer](Fam Med Cl Tm B Non-Ad) TELE CONSULT [id number] Notes Entered by: DAVINA DE LA PAZ 16 Jan 2014 1142 ------- ------- ------- ------- -- ACTIVE DUTY/ RIGHT HAND PAIN JOSÉ ZEN 01/16 Referred for Appointment [employer] [facility](F am Med Cl Tm B Non-Ad) [facility] [facility] Therapy [facility]) OUTPATIENT [id number] RICK BATEMAN 01/17 Released w/o Limitations [employer] [facility](P hysical Therapy Clinic) [employer](Fam Med Cl Tm B Non-Ad) OUTPATIENT [id number] right hand pain x 3 weeks DUSTIN OLGUIN 01/20 Released w/o Limitations [employer](F am Med Cl Tm B Non-Ad) [employer] [facility] Therapy [facility]) OUTPATIENT [id number] RICK BATEMAN 02/11 Released w/o Limitations [employer](P hysical Therapy Clinic) [employer](Ort hopedic Clinic [employer]) OUTPATIENT [id number] Joint pain, localiz ed in the knee KAREN SLOAN 02/20 Released w/o Limitations [employer](O rthoped ic Clinic FISH [employer]ING M[employer]) [employer](PHA Cell) OUTPATIENT [id number] Notes Entered by: SEAN CANALES 07 Mar 2014 1450 ------- ------- ------- ------- -- RIGOBERTO YUAN 03/07 Released w/o Limitations [employer](P BAILEY Cell) [employer](Fam Med Cl Tm B Non-Ad) TELE CONSULT [id number] Notes Entered by: COLT JUDD 24 Mar 2014 1146 ------- ------- ------- ------- -- CON LEAVE HANS MATTHEW Vogel 03/24 Released to [facility] [employer](F am Med Cl Tm B Non-Ad) [employer](Fam Med Cl Tm B Non-Ad) TELE CONSULT [id number] Notes Entered by: DAVINA DE LA PAZ 03 Apr 2014 1333 ------- ------- ------- ------- -- CONSULT WITH SURGEON DUSTIN OLGUIN 04/03 [employer](F am Med Cl Tm B Non-Ad) [employer](Fam Med Cl Tm B Non-Ad) TELE CONSULT [id number] Notes Entered by: Alcides WEATHERS 14 Apr 2014 1437 ------- ------- ------- ------- -- Needs Stitche s Removed Today MURALI BUCIO V 04/14 Referred for Appointment [employer] [facility](F am Med Cl Tm B Non-Ad) [employer](Fam Med Cl Tm B Non-Ad) OUTPATIENT [id number] WALK IN SUTURE REMOVAL DUSTIN OLGUIN 04/14 Released with Work/Duty Limitations [employer](F am Med Cl Tm B Non-Ad) [place] OUTPATIENT [id number] post op DOS: 25 Mar 2014 KAREN SLOAN 04/17 Released w/o Limitations [place](Orth [place]ics ) [facility] [facility]ical Therapy [facility]) OUTPATIENT [id number] RICK BATEMAN 04/29 Released w/o Limitations [employer] [facility](P hysical Therapy Clinic) [employer] [facility]) OUTPATIENT [id number] FERNY DOMINGO 05/07 Released w/o Limitations [employer] [facility](P hysical Therapy Clinic) [employer] [facility]) OUTPATIENT [id number] YAZMIN NELSON 05/12 Released w/o Limitations [employer](P hysical Therapy Clinic) [employer](Fam Med Cl Tm B Non-Ad) TELE CONSULT [id number] Notes Entered by: Alcides WRIGHT 23 May 2014 1610 ------- ------- ------- ------- -- Profile extensi on HIRAM JAVED 05/23 Referred for Appointment [employer](F am Med Cl Tm B Non-Ad) [employer] [facility] Therapy [facility]) OUTPATIENT [id number] FERNY DOMINGO 05/27 Released w/o Limitations [employer](P hysical Therapy Clinic) [employer] [facility] Therapy [facility]) OUTPATIENT [id number] RICK BATEMAN 06/16 Released w/o Limitations [employer] [facility](P hysical Therapy Clinic) [employer] [facility] Therapy [facility]) OUTPATIENT [id number] FELICIANO SLATER 06/24 Released with Work/Duty Limitations [employer](P hysical Therapy Clinic)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 simmons results PAPITO ROB 05/01 [employer]([facility]al Primary Care) [employer]([facility]) TELE CONSULT [id number] Notes Entered by: EVANS WALTON 04 Jun 2020 1133 ------- ------- ------- ------- -- Med Refill/ 3 days left - STEFANI Bradley 06/04 Referred for Appointment [employer]([facility]al Primary Care) [employer]([facility]) OUTPATIENT [id number] need Zoloft refill - [phone] PAPITO ROB 06/05 Released w/o Limitations [employer](O peratio [facility]al Primary Care) [employer]([facility]) OUTPATIENT 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 (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) FELIZ TILLMAN 06/08 Released w/o Limitations [employer]([facility]) [employer]([facility]) OUTPATIENT [id number] Profile extensi on for Left knee JC ESTRELLA N 06/30 Released with Work/Duty Limitations [employer](O peratio nal Primary Care) [employer]([facility]) TELE CONSULT [id number] Notes Entered by: HAYDEE PATEL 06 Aug 2020 1352 ------- ------- ------- ------- -- Triage: painful lump on throat under STEFANI Ace 08/06 Other Not Elsewhere Classified [employer](O peratio nal Primary Care) [employer]([facility]) OUTPATIENT [id number] sick call- swellin g throat [phone] BARBIEJC RUBAN N 08/07 Released w/o Limitations [employer](O peratio nal Primary Care) [employer]([facility]) OUTPATIENT [id number] Notes Entered by: MADISON CHEN NMI 18 Aug 2020 1408 ------- ------- ------- ------- -- Sick call : severe cough ESEQUIEL MIRANDA 08/18 Sick at Home/Quarter s [employer](O peratio nal Primary Care) [employer]([facility]) TELE CONSULT [id number] Notes Entered by: WALTER RING 25 Sep 2020 0811 ------- ------- ------- ------- -- Network Results - ENT - 021 CAPONE TORSTEN 09/25 [employer](O peratio nal Primary Care) [employer]([facility]) TELE CONSULT [id number] Notes Entered by: HAYDEE PATEL 01 Dec 2020 1345 ------- ------- ------- ------- -- Concern about Covid vaccine and family heart issues STEFANI LOCKETT 12/01 Referred for Appointment [employer](O peratio nal Primary Care) [employer](Opt [facility]metry Clinic) OUTPATIENT [id number] IGNACIA UNDERWOOD 06/18 Released w/o Limitations [employer](O ptometr y Clinic) [employer]([facility]) OUTPATIENT [id number] 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 FELIZ TILLMAN 07/12 Released w/o Limitations [employer]([facility]) [employer]([facility]) OUTPATIENT [id number] follow up - PHAQ LIBORIO TORSTEN HENRIQUEZ 08/05 Released with Work/Duty Limitations [employer](O peratio nal Primary Care) [employer]([facility]) TELE CONSULT [id number] Notes Entered by: ANANTH MEJIA 06 Aug 2021 1613 ------- ------- ------- ------- -- BRIDGER STEFANI LOCKETT 08/06 Other Not Elsewhere Classified [employer](O peratio nal Primary Care) [employer]([facility]) OUTPATIENT [id number] BRID[address] per pcm needs Spec- [phone] TORSTEN CAPONE 08/10 Released w/o Limitations [employer](O peratio [facility]al Primary Care) [employer]([facility]) TELE CONSULT [id number] Notes Entered by: JENELLE RIOS 20 Aug 2021 1419 ------- ------- ------- ------- -- Profile STEFANI LOCKETT 08/20 Other Not Elsewhere Classified [employer](O peratio nal Primary Care) [employer]([facility]) TELE CONSULT [id number] Notes Entered by: Phil LOCKETT 26 Aug 2021 1506 ------- ------- ------- ------- -- notes, referra jamison sent to [facility] ation STEFANI LOCKETT 08/26 Other Not Elsewhere Classified [employer](O peratio nal Primary Care) [employer]([facility]) TELE CONSULT [id number] Notes Entered by: HAYDEE PATEL 21 Oct 2021 1410 ------- ------- ------- ------- -- Referra l Renewal : urgent- DME CPAP and mask STEFANI LOCKETT 10/21 Other Not Elsewhere Classified [employer](O per[facility]al Primary Care) [employer]([facility]) TELE CONSULT [id number] 5 Notes Entered by: KASIA RIVERS 08 Nov 2021 0749 ------- ------- ------- ------- -- COVID 19 Guidanc e : Positiv e COVID test with symptom s STEFANI LOCKETT 11/08 Sick at Home/Quarter s [employer](O peratio nal Primary Care) [employer]([facility]) TELE CONSULT [id number] 6 Notes Entered by: MARIKA MAYNARD 12 Nov 2021 1444 ------- ------- ------- ------- -- Remove AUoF MP Helmet and Command Interes t Red Flag Icons MARIKA MAYNARD 11/12 Referred- Emergency Department [employer](O peratio nal Primary Care) 0310C-AF- C-[facility]th [facility] [employer] Between Visit [id number] 03/11 Discharge Disposition: Home or Self Care 0310C-A F-C-66t [facility] [employer] [employer] 0310C-AF- C-[facility] [employer] Between Visit [id number] 04/10 Discharge Disposition: Home or Self Care 0310C-A F-C-66t [facility] [employer] [employer] 0310C-AF- C-66th [facility] [employer] Between Visit [id number] 06/26 Discharge Disposition: Home or Self Care 0310C-A F-C-66t h [employer] [employer] 0310C-AF- C-[facility]th [employer] [employer] Between Visit [id number] 08/01 Discharge Disposition: Home or Self Care 0310C-A F-C-[facility]t [facility] [employer] 0310C-AF- C-[facility]th [facility] [employer] Dental [id number] AYLA MARC 09/26 Discharge Disposition: Home or Self Care 0310C-A F-C-[facility]t [facility] [employer] Procedures Combined list of: 1) Procedures from Department of Veterans Affairs facilities going back up to thelast 18 months, not all VA non-surgical procedures are included; 2) All procedures from the Department of Defense facilities. Procedure Procedure Type Code Date Perfomer Comments Sour e UNLISTED SPECIAL SERVICE, PROCEDURE OR REPORT 015 DoD INJECTION, PENICILLIN G BENZATHINE AND PENICILLIN G PROCAINE, UP TO 1,200,000 UNITS 007 DoD STRAPPING; KNEE 012 DoD APPLICATION OF A MODALITY TO 1 OR MORE AREAS; IONTOPHORESIS, EACH 15 MINUTES 012 DoD APPLICATION OF A MODALITY TO 1 OR MORE AREAS; IONTOPHORESIS, EACH 15 MINUTES 012 DoD APPLICATION OF A MODALITY TO 1 OR MORE AREAS; IONTOPHORESIS, EACH 15 MINUTES 012 DoD PHYSICAL THERAPY RE-EVALUATION 012 DoD THERAPEUTIC PROCEDURE,1 OR MORE AREAS,EACH 15 MINUTES;NEUROMUSCULAR REEDUCATION OF MOVEMENT,BALANCE,COOR DINATION,KINESTHETIC SENSE,POSTURE,AND/OR PROPRIOCEPTION FOR SITTING AND/OR STANDING ACTIVITIES DoD THERAPEUTIC PROCEDURE,1 OR MORE AREAS,EACH 15 MINUTES;NEUROMUSCULAR REEDUCATION OF MOVEMENT,BALANCE,COOR DINATION,KINESTHETIC SENSE,POSTURE,AND/OR PROPRIOCEPTION FOR SITTING AND/OR STANDING ACTIVITIES DoD THERAPEUTIC PROCEDURE,1 OR MORE AREAS,EACH 15 MINUTES;NEUROMUSCULAR REEDUCATION OF MOVEMENT,BALANCE,COOR DINATION,KINESTHETIC SENSE,POSTURE,AND/OR PROPRIOCEPTION FOR SITTING AND/OR STANDING ACTIVITIES [facility] PHYSICAL THERAPY EVALUATION [facility] DETERMINATION OF REFRACTIVE STATE [facility] BRIEF EMOTIONAL/BEHAVIORAL ASSESSMENT (EG, DEPRESSION INVENTORY, ATTENTION-DEFICIT/HYP ERACTIVITY DISORDER [ADHD] SCALE), WITH SCORING AND DOCUMENTATION, PER STANDARDIZED INSTRUMENT [facility] FITTING OF SPECTACLES, EXCEPT FOR APHAKIA; MONOFOCAL [facility] PURE TONE AUDIOMETRY (THRESHOLD), AUTOMATED; AIR ONLY [facility] PSYCHIATRIC EVALUATION OF HOSPITAL RECORDS, OTHER PSYCHIATRIC REPORTS, PSYCHOMETRIC AND/OR PROJECTIVE TESTS, AND OTHER ACCUMULATED DATA FOR MEDICALDIAGNOSTIC PURPOSES [facility] FITTING OF SPECTACLES, EXCEPT FOR APHAKIA; [...] RANGE OF MOTION AND FLEXIBILITY 014 DoD APPLICATION OF A MODALITY TO [...] FITTING OF SPECTACLES, EXCEPT FOR APHAKIA; MONOFOCAL 014 DoD WAIVER SERVICES; NOT OTHERWISE SPECIFIED (NOS) [...] CORNEAL LENS, BOTH EYES, EXCEPT FOR APHAKIA DoD TELE ASSESS & MGT SRV PROV [...] STATE 017 DoD Modalities Iontophoresis Modalities Iontophoresis 08730 012 VAHID TRIPLETT [facility] Physical Therapy Neuromuscular Re-education Physical Therapy Neuromuscular Re-education 31382 012 VAHID TRIPLETT DoD Exercises A isted Exercises For ROM Exercises Assisted Exercises For ROM 48121 012 VAHID TRIPLETT Modalities Iontophoresis Modalities Iontophoresis 94535 012 VAHID TRIPLETT Physical Therapy Neuromuscular Re-education Physical Therapy Neuromuscular Re-education 94936 012 VAHID TRIPLETT DoD Exercises A isted Exercises For ROM Exercises Assisted Exercises For ROM 21755 012 VAHID TRIPLETT [facility] Physical Medicine Physical Therapy Re-Evaluation Physical Medicine Physical Therapy Re-Evaluation 89075 012 DANTE SANTOS [facility] Physical Therapy Neuromuscular Re-education Physical Therapy Neuromuscular Re-education 89117 012 DANIELA SHAH [facility] Exercises A isted Exercises For ROM Exercises Assisted Exercises [place] ROM 35496 012 DANIELA SHAH Exercises A isted Exercises For ROM Exercises Assisted Exercises For ROM 12203 012 DANIELA SHAH Physical Therapy Neuromuscular Re-education Physical Therapy Neuromuscular Re-education 65597 012 DANIELA SHAH [facility] Physical Medicine Physical Therapy Evaluation Physical Medicine Physical Therapy Evaluation 47996 012 DANTE SANTOS [facility] Ophthalmological New Patient Start Comprehensive Care Ophthalmological New Patient Start Comprehensive Care 76100 008 CHASE BARON [facility] Spectacles Services Fitting Monofocals (Not For Aphakia) [employer] Fitting Monofocals (Not For Aphakia) 00252 019 SEVEN VELEZ [facility] Determination Of Refractive State Determination Of Refractive State [id number] 019 SEVEN VELEZ Ophthalmological Prior Patient Start Comprehensive Care Ophthalmological Prior Patient Start Comprehensive Care [id number] 019 SEVEN VELEZ [facility] Non-Physician Phone Call To Patient/Provider Brief (5-10min) Non-Physician Phone Call To Patient/Provider Brief (5-10min) 06677 019 CAMILO JANG [facility] Non-Physician Phone Call To Patient/Provider Brief (5-10min) Non-Physician Phone Call To Patient/Provider Brief (5-10min) 49447 019 DANNY YEH [facility] Non-Physician Phone Call To Patient/Provider Brief (5-10min) Non-Physician Phone Call To Patient/Provider Brief (5-10min) 54329 019 ARCADIO WOLFE [facility] Internet Med Svc Qual Nonphys Healthcare Prof Estab Patient Internet Med Svc Qual Nonphys Healthcare Prof Estab Patient 16550 018 GABINO BLACK [facility] Threshold Audiogram (Pure Tone) Automated Threshold Audiogram (Pure Tone) Automated 0208T 018 CAROL CRAIG [facility] Non-Physician Phone Call To Patient/Provider Brief (5-10min) Non-Physician Phone Call To Patient/Provider Brief (5-10min) 53754 018 NATHALY HOLLOWAY [employer] Fitting Monofocals (Not For Aphakia) [employer] Fitting Monofocals (Not For Aphakia) 07100 018 ALEXUS BRANTLEY Prescription & Fitting Bilateral Corneal Lenses (Not Aphakia Prescription & Fitting Bilateral Corneal Lenses (Not Aphakia 00189 018 ALEXUS BRANTLEY Determination Of Refractive State Determination Of Refractive State 72748 018 ALEXUS BRANTLEY Prescription & Fitting Bilateral Corneal Lenses (Not Aphakia Prescription & Fitting Bilateral Corneal Lenses (Not Aphakia 09471 018 ALEXUS BRANTLEY Non-Physician Phone Call To Patient/Provider Brief (5-10min) Non-Physician Phone Call To Patient/Provider Brief (5-10min) 66963 018 CATRINA SMITH [employer] Fitting Monofocals (Not For Aphakia) [employer] Fitting Monofocals (Not For Aphakia) 68160 018 MOE SINGH Non-Physician Phone Call To Patient/Provider Brief (5-10min) Non-Physician Phone Call To Patient/Provider Brief (5-10min) 34585 017 MIESHA HENRY DoD Internet Med Svc Qual Nonphys Healthcare Prof Estab Patient Internet Med Svc Qual Nonphys Healthcare Prof Estab Patient 74123 017 GABINO BLACK DoD Threshold Audiogram (Pure Tone) Automated Threshold Audiogram (Pure Tone) Automated 0208T 017 NANY ROJAS Determination Of Refractive State Determination Of Refractive State 00866 017 ALEXUS BRANTLEY Ophthalmological Prior Patient Start Comprehensive Care Ophthalmological Prior Patient Start Comprehensive Care 90583 017 ALEXUS BRANTLEY [employer] Fitting Monofocals (Not For Aphakia) [employer] Services Fitting Monofocals (Not For Aphakia) 68001 016 FELTON DILLARD Determination Of Refractive State Determination Of Refractive State 75223 016 FELTON DILLARD Ophthalmological Prior Patient Start Comprehensive Care Ophthalmological Prior Patient Start Comprehensive Care 69950 016 FELTON DILLARD Threshold Audiogram (Pure Tone) Automated Threshold Audiogram (Pure Tone) Automated 0208T 016 JUAN CRAWFORD Patient education, not otherwise cla ified, non-physician provider, group, per se ion JUAN CRAWFORD Psychometric Neuropsych Testing Battery Admin By Computer Psychometric Neuropsych Testing Battery Admin By Computer 71949 YEFRI HAMILTON Psychiatric Evaluation Review of Records and Reports Psychiatric Evaluation Review of Records and Reports 12536 YEFRI HAMILTON [employer] Fitting Monofocals (Not For Aphakia) [employer] Fitting Monofocals (Not For Aphakia) 39817 FELTON DILLARD Determination Of Refractive State Determination Of Refractive State 75653 FELTON DILLARD Ophthalmological Prior Patient Start Comprehensive Care Ophthalmological Prior Patient Start Comprehensive Care 18459 FELTON DILLARD Exercises A isted Exercises For ROM Exercises Assisted Exercises For ROM 50619 015 RICK BATEMAN Physical Medicine Physical Therapy Re-Evaluation Physical Medicine Physical Therapy Re-Evaluation 70693 015 RICK BATEMAN Physical Therapy Neuromuscular Re-education Physical Therapy Neuromuscular Re-education 07679 015 FELICIANO SLATER Physical Therapy: ___ Se ion Segments, 15 Minutes Each Physical Therapy: ___ Session Segments, 15 Minutes Each 55504 015 FELICIANO SLATER Exercises A isted Exercises For ROM Exercises Assisted Exercises For ROM [id number] 015 RICK BATEMAN Physical Medicine Physical Therapy Re-Evaluation Physical Medicine Physical Therapy Re-Evaluation 92572 015 RICK BATEMAN Physical Therapy Neuromuscular Re-education Physical Therapy Neuromuscular Re-education 63068 015 FERNY DOMINGO [facility] Physical Therapy: ___ Se ion Segments, 15 Minutes Each Physical Therapy: ___ Session Segments, 15 Minutes Each 47035 015 FERNY DOMINGO [facility] Physical Therapy Neuromuscular Re-education Physical Therapy Neuromuscular Re-education 47087 015 [facility] Physical Therapy: ___ Se ion Segments, 15 Minutes Each Physical Therapy: ___ Session Segments, 15 Minutes Each 56976 015 [facility] E [facility] Physical Therapy: ___ Se ion Segments, 15 Minutes Each Physical Therapy: ___ Session Segments, 15 Minutes Each 55875 015 FERNY DOMINGO [facility] Physical Therapy Neuromuscular Re-education Physical Therapy Neuromuscular Re-education 17332 015 [facility] Exercises A isted Exercises For ROM Exercises Assisted Exercises For ROM 68471 015 RICK BATEMAN [facility] Physical Medicine Physical Therapy Evaluation Physical Medicine Physical Therapy Evaluation 73585 015 RICK BATEMAN [facility] Exercises A isted Exercises For ROM Exercises Assisted Exercises [place] ROM 01953 014 RICK BATEMAN [facility] Physical Medicine Physical Therapy Re-Evaluation Physical Medicine Physical Therapy Re-Evaluation 82369 014 RICK BATEMAN [facility] Exercises A isted Exercises For ROM Exercises Assisted [place]ercises [place] ROM 46974 014 RICK PANIAGUA [facility] Physical Medicine Physical Therapy Re-Evaluation Physical Medicine Physical Therapy Re-Evaluation 90074 014 RICK BATEMAN [facility] Modalities Cryotherapy Cold Packs Modalities Cryotherapy Cold Packs 58318 014 FERNY DOMINGO [facility] Physical Therapy: ___ Se ion Segments, 15 Minutes Each Physical Therapy: ___ Session Segments, 15 Minutes Each 25439 014 FERNY DOMINGO [facility] Physical Therapy Neuromuscular Re-education Physical Therapy Neuromuscular Re-education 82188 014 [facility] Modalities Cryotherapy Cold Packs Modalities Cryotherapy Cold Packs 64917 014 TORI REES [facility] Physical Therapy Neuromuscular Re-education Physical Therapy Neuromuscular Re-education 67942 014 TORI REES [facility] Physical Therapy: ___ Se ion Segments, 15 Minutes Each Physical Therapy: ___ Session Segments, 15 Minutes Each 09992 014 TORI REES [facility] Modalities Cryotherapy Cold Packs Modalities Cryotherapy Cold Packs 00982 014 [facility] Physical Therapy Neuromuscular Re-education Physical Therapy Neuromuscular Re-education 22686 014 [facility] Physical Therapy: ___ Se ion Segments, 15 Minutes Each Physical Therapy: ___ Session Segments, 15 Minutes Each 54580 014 [facility] Physical Therapy Neuromuscular Re-education Physical Therapy Neuromuscular Re-education 39404 014 [facility] Physical Therapy: ___ Se ion Segments, 15 Minutes Each Physical Therapy: ___ Session Segments, 15 Minutes Each 19645 014 [facility] Exercises A isted Exercises For ROM Exercises Assisted Exercises For ROM 35566 014 RICK BATEMAN [facility] Physical Medicine Physical Therapy Evaluation Physical Medicine Physical Therapy Evaluation 83980 RICK BATEMAN [facility] Spectacles Services Fitting Monofocals (Not For Aphakia) Spectacles Services Fitting Monofocals (Not For Aphakia) 53391 014 JUAN JOSE LEE [facility] Determination Of Refractive State Determination Of Refractive State 89370 014 JUAN JOSE LEE Ophthalmological New Patient Start Comprehensive Care Ophthalmological New Patient Start Comprehensive Care 37191 014 JUAN JOSE LEE [facility] Taping Knee Taping Knee 84320 012 DANTE SANTOS Physical Medicine Physical Therapy Re-Evaluation Physical Medicine Physical Therapy Re-Evaluation 93490 012 DANTE SANTOS Modalities Iontophoresis Modalities Iontophoresis 96263 012 APARNA MARCELO [facility] Exercises A isted Exercises For ROM Exercises Assisted Exercises For ROM 59185 012 APARNA MARCELO [facility] Physical Therapy Neuromuscular Re-education Physical Therapy Neuromuscular Re-education 19784 012 APARNA MARCELO [facility] Ophthalmological Prior Patient Start Intermediate Level Care Ophthalmological Prior Patient Start Intermediate Level Care 35499 IGNACIA AGUILAR [facility] Determination Of Refractive State Determination Of Refractive State 02662 IGNACIA AGUILAR [facility] Spectacles Services Fitting Monofocals (Not For Aphakia) Spectacles Services Fitting Monofocals (Not For Aphakia) 82525 IGNACIA AGUILAR [facility] Brief communication technology-based service, e.g. virtual [...] minutes of medical discu ion FELIZ TILLMAN [facility] Preventive Medicine Results Documented/Reviewed Body Ma Index Preventive Medicine Results Documented/Reviewed Body Mass Index 3008F FELIZ TILLMAN [facility] Waiver services; not otherwise specified (NOS) TORSTEN CAPONE [facility] Non-Physician Phone Call To Patient/Provider Brief (5-10min) Non-Physician Phone Call To Patient/Provider Brief (5-10min) [id number] RYAN MILLER [facility] Ophthalmological Prior Patient Start Comprehensive Care Ophthalmological Prior Patient Start Comprehensive Care 10674 ROSI EDDY [facility] Health And Behav A e mt Each 15 Min Initial A e ment Health And Behav Assessmt Each 15 Min Initial Assessment 09540 BETTY MENJIVAR [facility] Strapping; knee Strapping; knee 35321 [id number]-C [facility] [employer] Brief emotional/behavioral a e ment (eg, depre ion inventory, attention-deficit/hyp eractivity disorder [ADHD] scale), with scoring and documentation, per standardized instrument Brief emotional/behavioral assessment (eg, depression inventory, attention-deficit/hy peractivity disorder [ADHD] scale), with scoring and documentation, per standardized instrument 10531 [id number]-AF-C [facility] [place] Fitting of spectacles, except for aphakia; monofocal Fitting of spectacles, except for aphakia; monofocal 31008 [id number]-AF[facility]C [facility] BODY MASS INDEX (BMI) DOCUMENTED BODY MASS INDEX (BMI) DOCUMENTED 3008F [id number]-AF-C [facility] [employer] Application of a modality to one or more areas; iontophoresis, each 15 minutes Application of a modality to one or more areas; iontophoresis, each [address] [place] [address] Therapeutic procedure, one or more areas, each 15 minutes; neuromuscular reeducation of movement, balance, coordination, kinesthetic sense, posture, and/or proprioception for sitting and/or standing activities Therapeutic procedure, one or more areas, each 15 minutes; neuromuscular reeducation of movement, balance, coordination, kinesthetic sense, posture, and/or proprioception for sitting and/or standing activities [address] [place] [address] Health behavior intervention, individual, [id number]; initial 30 minutes Health behavior intervention, individual, [id number]; initial 30 minutes [address] [place] [address] Therapeutic procedure, one or more areas, each 15 minutes; therapeutic exercises to develop strength and endurance, range of motion and flexibility Therapeutic procedure, one or more areas, each 15 minutes; therapeutic exercises to develop strength and endurance, range of motion and flexibility [address] [place] [address] Psychiatric evaluation of hospital records, other psychiatric reports, psychometric and/or projective tests, and other accumulated data for medical diagnostic purposes Psychiatric evaluation of hospital records, other psychiatric reports, psychometric and/or projective tests, and other accumulated data for medical diagnostic purposes [address] [place] [address] Health behavior a e ment, or re-a e ment (ie, health-focused clinical interview, behavioral observations, clinical decision making) Health behavior assessment, or re-assessment (ie, health-focused clinical interview, behavioral observations, clinical decision making) [address] [place] [address] Application of a modality to one or more areas; hot or cold packs Application of a modality to one or more areas; hot or cold packs [address] [place] [address] PURE TONE AUDIOMTRY THRESHOLD COMPUTER DEV AIR PURE TONE AUDIOMTRY THRESHOLD COMPUTER DEV AIR [address]T [address] [place] [address] Determination of refractive state Determination of refractive state [address] [place] [address] L knee surgery [address] [place] [id number] Septoplasty 2018 [facility] Tonsillectomy 2018 [facility] Social History Combined list of available smoking, tobacco, and other social history from 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 Social History Type Response Date Comment Sour e Sex Representation Male (finding) 01/11/2021 Un known Organization This section is an empty social history section. [facility] Tobacco Never-cigarette user Cigarette use:. Never-other [...] screenings and provided patient education as appropriate. Reviewed and assessed responses to screening tools. AUDIT-C=0 PCL-C=0 PHQ-8=0 Medical Educator (SM) d enies suicidal or homicidal ideations at this time and is not at an elevated risk. At this time no tasking or consults needed. S M made a jaeger of [facility] () s ervices available, O ne Source, Ocular Care Aide Services, Walk in , Emergency Room (ER) or 911, Notify chain of command, etc and how to contact them if needed. Preventative services reviewed and discussed. Reviewed immunization history and assessed immunization status. Reviewed physical activity. Reviewed sexual health screenings, including HIV screening date. Reviewed readiness labs and examinations needed including recommendation for lipid screening every 5 years beginning at age 35. Compared medications reported by private branch exchange service advisor to active medication list in M [facility] Maribel/JLV a nd any variances were documented. Any complaints or issues identified while conducting the PHA have been addressed and or referred back to the patient's p [facility] cna caregiver (PCM) f or care. Alcides vines dvised to follow up with PCM, Behavioral Health, ER/911, or One Source as needed for continuation of care, and/or further evaluation during exacerbations of physical and/or psychological illness or injury. See PHA document for additional information. 20 minutes of total time spent reviewing records, completing record review, discussing health concerns and preventative health measures with patient. Extracted from:Title: Eye Care Office Visit Note - REE with DFE Author: ROSI GALAN, OD Date: 09/28/23 1. E ncounter for examination of eyes and vision without abnormal findings 2. M yopia, bilateral 3. R egular astigmatism, bilateral No change in Rx, give Rx and order necessary glasses. No ocular pathology n oted with exam. No Tx. S ee back in 1 - 2 years or PRN if symptomatic. Extracted from:Title: [facility] Comp. Audio Author: LARRY CUEVAS, AuD Date: 09/12/23 1. H earing normal GENERAL INFORMATION History Branch: A ir [employer]: [employer] [facility] MOS: 2 A5 VISIT REASON Hearing loss or concerns: Abnormal [id number] @ [facility] over the past couple of weeks for annual monitoring Hearing loss onset: 2 years Tinnitus: Y es (both) Tinnitus Onset: u nknown Tinnitus described as: I ntermittent PERTINENT EAR OR RELATED HISTORY noise exposure: Y es Non- Occupational noise exposure: No Recreational noise exposure: No Hearing protection used: Yes e ar plugs and ear defender Recent or recurrent ear disease: No Ear surgery: No Eardrum perforation: No Aural Fullness: N o Facial numbness: No Memory/attention/concentration problem: No Ototoxic medications: No PRIOR TESTING D [id number]'s [facility] ( and 29 AUG 2023) HEARING AID INFORMATION None OTOSCOPY Clear canal: bilateral Occluding cerumen: NO Non-occluding cerumen: NO Normal/intact eardrum: b ilateral Eardrum perforation: NO Pressure equalization tube present: NO Foul odor present: NO Irritation present: NO Active bleeding: NO Dried blood present: NO Yellow/white discharge present: NO Tympanosclerotic plaques: NO Exostosis: NO Foreign body in ear canal: N O Foreign body: TYMPANOMETRY Right: Type: A Left: Type: A Ear canal volume: normal ACOUSTIC REFLEXES Right: P resent Left: Present PURE TONE AUDIOMETRY Right: Normal hearing thresholds at all test frequencies in the right ear Left: Normal hearing thresholds at all test frequencies in the left ear Test results are r eliable and i mproved compared with previous testing recently obtained @ [facility]. No STS is noted in either ear compared to current [id number] on record (2009). SPEECH AUDIOMETRY Right: Word recognition was excellent at 5 5 dB HL M asking level: _40dB HL Left: Word recognition was e xcellent a t 5 5 dB HL M asking level: 4 0 dB HL SUMMARY Today s results indicate normal hearing in both ears at all test frequencies with good reliability. Normal ME function, bilaterally. 15 min (INDV) college counselor on proper hand formed (Sound Guard) hearing protection insertion and uses in noise. Annual HCP review completed today PLAN 1) Annual [id number] back @ [facility] (2024) for continued annual monitoring 2) Use of proper HP in all noise designated areas 3) Future audio as needed Pee Almanza James Doctor of Audiology Audiology Dept. [employer] [facility] Extracted from:Title: FTF-PHA Author: ABHIJIT CALVO MD Date: 08/31/22 EXAM, FORMAL OCCUPATIONAL HEALTH PROGRAM INCLUDING HEARING CONSERVATION PROGRAM, PERIODIC FOR CONTINUED SURVEILLANCE FOR OCCUPATIONAL WORKPLACE EXPOSURE PHA completed, pt with no disqualifying medical conditions that required IRILO. IMR status fully green, WWQ Hematochezia Will refer to GI given symptoms to eval for IBD vs colon cancer, PPT refilled Ordered: Referral Request 2.0 Orders: omeprazole(omeprazole 20 mg oral delayed release capsule), 1 cap(s), Oral, Daily, 30 to 60 minutes before a meal, # 90 cap(s), 3 total refill(s), Maintenance, 1 cap(s) Oral Daily,Instr:30 to 60 minutes before a meal, Pharmacy: [id number] [External Rx] Lt Col Abhijit Calvo M.D. 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 SM p resent for virtual encounter. SM reports Hx of MH counseling for anxiety; SM reports symptoms improved; denies any current MH concerns. Denies any diagnosis of ADD / depression / bipolar/ PTSD. Denies SI/HI. Denies the need for any MH/BH care; SM declined any MH/BH currently. EHSAN gaston. Profile- DW for BRIDGER expires 13 July 2022. FR for L foot k nee expires 06 Aug 2022. 2. L eft knee pain F/U with PCM for management. Future Appointments Appointment Date: 01/10/2025 08:30:00 AM Scheduled Provider: [facility] [place] [facility] Type: Dental Visit 11/13/2024 [id number] Assessment and Plan Extracted from:Title : MHA/PHA [...] screenings and provided patient education as appropriate. Reviewed and assessed responses to screening tools. AUDIT-C=0 PCL-C=0 PHQ-8=0 Medical Educator (SM) d enies suicidal or homicidal ideations at this time and is not at an elevated risk. At this time no tasking or consults needed. S M made a jaeger of [facility] () s ervices available, O ne Source, Ocular Care Aide Services, Walk in , Emergency Room (ER) or 911, Notify chain of command, etc and how to contact them if needed. Preventative services reviewed and discussed. Reviewed immunization history and assessed immunization status. Reviewed physical activity. Reviewed sexual health screenings, including HIV screening date. Reviewed readiness labs and examinations needed including recommendation for lipid screening every 5 years beginning at age 35. Compared medications reported by private branch exchange service advisor to active medication list in M [facility] Maribel/JLV a nd any variances were documented. Any complaints or issues identified while conducting the PHA have been addressed and or referred back to the patient's [facility] cna caregiver (PCM) f or care. S M a dvised to follow up with PCM, Behavioral Health, ER/911, or One Source as needed for continuation of care, and/or further evaluation during exacerbations of physical and/or psychological illness or injury. See PHA document for additional information. 20 minutes of total time spent reviewing records, completing record review, discussing health concerns and preventative health measures with patient. Extracted from:Title: Eye Care Office Visit Note - REE with DFE Author: ROSI GALAN, OD Date: 09/28/23 1. E ncounter for examination of eyes and vision without abnormal findings 2. M yopia, bilateral 3. R egular astigmatism, bilateral No change in Rx, give Rx and order necessary glasses. No ocular pathology n oted with exam. No Tx. S ee back in 1 - 2 years or PRN if symptomatic. Extracted from:Title: [facility] Comp. Audio Author: LARRY CUEVAS, AuD Date: 09/12/23 1. H earing normal GENERAL INFORMATION History Branch: [employer]: [employer] MOS: 2 A5 VISIT REASON Hearing loss or concerns: Abnormal [id number] @ [facility] over the past couple of weeks for annual monitoring Hearing loss onset: 2 years Tinnitus: Y es (both) Tinnitus Onset: u nknown Tinnitus described as: I ntermittent PERTINENT EAR OR RELATED HISTORY noise exposure: Y es Non- Occupational noise exposure: No Recreational noise exposure: No Hearing protection used: Yes e ar plugs and ear defender Recent or recurrent ear disease: No Ear surgery: No Eardrum perforation: No Aural Fullness: N o Facial numbness: No Memory/attention/concentration problem: No Ototoxic medications: No PRIOR TESTING D [id number]'s [facility] ( and 29 AUG 2023) HEARING AID INFORMATION None OTOSCOPY Clear canal: bilateral Occluding cerumen: NO Non-occluding cerumen: NO Normal/intact eardrum: b ilateral Eardrum perforation: NO Pressure equalization tube present: NO Foul odor present: NO Irritation present: NO Active bleeding: NO Dried blood present: NO Yellow/white discharge present: NO Tympanosclerotic plaques: NO Exostosis: NO Foreign body in ear canal: N O Foreign body: TYMPANOMETRY Right: Type: A Left: Type: A Ear canal volume: normal ACOUSTIC REFLEXES Right: P resent Left: Present PURE TONE AUDIOMETRY Right: Normal hearing thresholds at all test frequencies in the right ear Left: Normal hearing thresholds at all test frequencies in the left ear Test results are r eliable and i mproved compared with previous testing recently obtained @ [facility]. No STS is noted in either ear compared to current [id number] on record (2009). SPEECH AUDIOMETRY Right: Word recognition was excellent at 5 5 dB HL M asking level: _40dB HL Left: Word recognition was e xcellent a t 5 5 dB HL M asking level: 4 0 dB HL SUMMARY Today s results indicate normal hearing in both ears at all test frequencies with good reliability. Normal ME function, bilaterally. 15 min (INDV) college counselor on proper hand formed (Sound Guard) hearing protection insertion and uses in noise. Annual HCP review completed today PLAN 1) Annual [id number] back @ [facility] (2024) for continued annual monitoring 2) Use of proper HP in all noise designated areas 3) Future audio as needed Pee Almanza James Doctor of Audiology Audiology Dept. [employer] [facility] Extracted from:Title: FTF-PHA Author: ABHIJIT CALVO MD Date: 08/31/22 EXAM, FORMAL OCCUPATIONAL HEALTH PROGRAM INCLUDING HEARING CONSERVATION PROGRAM, PERIODIC FOR CONTINUED SURVEILLANCE FOR OCCUPATIONAL WORKPLACE EXPOSURE PHA completed, pt with no disqualifying medical conditions that required IRILO. IMR status fully green, WWQ Hematochezia Will refer to GI given symptoms to eval for IBD vs colon cancer, PPT refilled Ordered: Referral Request 2.0 Orders: omeprazole(omeprazole 20 mg oral delayed release capsule), 1 cap(s), Oral, Daily, 30 to 60 minutes before a meal, # 90 cap(s), 3 total refill(s), Maintenance, 1 cap(s) Oral Daily,Instr:30 to 60 minutes before a meal, Pharmacy: [id number] [External Rx] [employer] Col Abhijit Calvo M.D. 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 SM p resent for virtual encounter. SM reports Hx of MH counseling for anxiety; SM reports symptoms improved; denies any current MH concerns. Denies any diagnosis of ADD / depression / bipolar/ PTSD. Denies SI/HI. Denies the need for any MH/BH care; SM declined any MH/BH currently. EHSAN gaston. Profile- DW for BRIDGER expires 13 July 2022. FR for L foot k nee expires 06 Aug 2022. 2. L eft knee pain F/U with PCM for management. Future Appointments Appointment Date: 01/10/2025 08:30:00 AM Scheduled Provider: [facility] [place] [facility] [place] Type: Dental Visit 11/13/2024 [id number] [place] [address] Assessment and Plan Extracted from:Title : MHA/PHA [...] screenings and provided patient education as appropriate. Reviewed and assessed responses to screening tools. AUDIT-C=0 PCL-C=0 PHQ-8=0 Medical Educator (SM) d enies suicidal or homicidal ideations at this time and is not at an elevated risk. At this time no tasking or consults needed. S M made a jaeger of [facility] () s ervices available, O ne Source, Ocular Care Aide Services, Walk in , Emergency Room (ER) or 911, Notify chain of command, etc and how to contact them if needed. Preventative services reviewed and discussed. Reviewed immunization history and assessed immunization status. Reviewed physical activity. Reviewed sexual health screenings, including HIV screening date. Reviewed readiness labs and examinations needed including recommendation for lipid screening every 5 years beginning at age 35. Compared medications reported by private branch exchange service advisor to active medication list in M HS Maribel/JLV a nd any variances were documented. Any complaints or issues identified while conducting the PHA have been addressed and or referred back to the patient's p [facility] cna caregiver (PCM) f or care. S M jasmyn dvised to follow up with PCM, [facility], ER/1, or One Source as needed for continuation of care, and/or further evaluation during exacerbations of physical and/or psychological illness or injury. See PHA document for additional information. 20 minutes of total time spent reviewing records, completing record review, discussing health concerns and preventative health measures with patient. Extracted from:Title: Eye Care Office Visit Note - REE with DFE Author: ROSI GALAN, OD Date: 09/28/23 1. E ncounter for examination of eyes and vision without abnormal findings 2. M yopia, bilateral 3. R egular astigmatism, bilateral No change in Rx, give Rx and order necessary glasses. No ocular pathology n oted with exam. No Tx. S ee back in 1 - 2 years or PRN if symptomatic. Extracted from:Title: [facility] Comp. Audio Author: LARRY CUEVAS, AuD Date: 09/12/23 1. H earing normal GENERAL INFORMATION History Branch: A [employer]: [facility] MOS: 2 A5 VISIT REASON Hearing loss or concerns: Abnormal [id number] @ [facility] over the past couple of weeks for annual monitoring Hearing loss onset: 2 years Tinnitus: Y es (both) Tinnitus Onset: u nknown Tinnitus described as: I ntermittent PERTINENT EAR OR RELATED HISTORY noise exposure: Y es Non- Occupational noise exposure: No Recreational noise exposure: No Hearing protection used: Yes e ar plugs and ear defender Recent or recurrent ear disease: No Ear surgery: No Eardrum perforation: No Aural Fullness: N o Facial numbness: No Memory/attention/concentration problem: No Ototoxic medications: No PRIOR TESTING D [id number]'s [facility] ( and 29 AUG 2023) HEARING AID INFORMATION None OTOSCOPY Clear canal: bilateral Occluding cerumen: NO Non-occluding cerumen: NO Normal/intact eardrum: b ilateral Eardrum perforation: NO Pressure equalization tube present: NO Foul odor present: NO Irritation present: NO Active bleeding: NO Dried blood present: NO Yellow/white discharge present: NO Tympanosclerotic plaques: NO Exostosis: NO Foreign body in ear canal: N O Foreign body: TYMPANOMETRY Right: Type: A Left: Type: A Ear canal volume: normal ACOUSTIC REFLEXES Right: P resent Left: Present PURE TONE AUDIOMETRY Right: Normal hearing thresholds at all test frequencies in the right ear Left: Normal hearing thresholds at all test frequencies in the left ear Test results are r eliable and i mproved compared with previous testing recently obtained @ [facility]. No STS is noted in either ear compared to current [id number] on record (2009). SPEECH AUDIOMETRY Right: Word recognition was excellent at 5 5 dB HL M asking level: _40dB HL Left: Word recognition was e xcellent a t 5 5 dB HL M asking level: 4 0 dB HL SUMMARY Today s results indicate normal hearing in both ears at all test frequencies with good reliability. Normal ME function, bilaterally. 15 min (INDV) college counselor on proper hand formed (Sound Guard) hearing protection insertion and uses in noise. Annual HCP review completed today PLAN 1) Annual [id number] back @ [facility] (2024) for continued annual monitoring 2) Use of proper HP in all noise designated areas 3) Future audio as needed Pee Almanza James Doctor of Audiology Audiology Dept. [employer] [facility] [phone] Extracted from:Title: FTF-PHA Author: ABHIJIT CALVO MD Date: 08/31/22 EXAM, FORMAL OCCUPATIONAL HEALTH PROGRAM INCLUDING HEARING CONSERVATION PROGRAM, PERIODIC FOR CONTINUED SURVEILLANCE FOR OCCUPATIONAL WORKPLACE EXPOSURE PHA completed, pt with no disqualifying medical conditions that required IRILO. IMR status fully green, WWQ Hematochezia Will refer to GI given symptoms to eval for IBD vs colon cancer, PPT refilled Ordered: Referral Request 2.0 Orders: omeprazole(omeprazole 20 mg oral delayed release capsule), 1 cap(s), Oral, Daily, 30 to 60 minutes before a meal, # 90 cap(s), 3 total refill(s), Maintenance, 1 cap(s) Oral Daily,Instr:30 to 60 minutes before a meal, Pharmacy: [facility]/pharmacy #[id number] [External Rx] Lt Col Abhijit Calvo M.D. 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 SM p resent for virtual encounter. SM reports Hx of MH counseling for anxiety; SM reports symptoms improved; denies any current MH concerns. Denies any diagnosis of ADD / depression / bipolar/ PTSD. Denies SI/HI. Denies the need for any MH/BH care; SM declined any MH/BH currently. EHSAN gaston. Profile- DW for BRIDGER expires 13 July 2022. FR for L foot k nee expires 06 Aug 2022. 2. L eft knee pain F/U with PCM for management. Future Appointments Appointment Date: 01/10/2025 08:30:00 AM Scheduled Provider: JOHN GRIER [facility] [place] [facility] Type: Dental Visit 11/13/2024 [facility] Functional Status Combined list of recent functional and cognitive assessments recorded at Department of Defense and Veterans Affairs (VA).VA Functional Rhea Measurement (FIM) Scale: 1 = Total Assistance (Subject = 0% +), 2 = Maximal Assistance (Subject = 25% +), 3 = Moderate Assistance (Subject = 50% +), 4 = Minimal Assistance (Subject = 75% +), 5 = Supervision, 6 = Modified Rhea (Device), 7 = Complete Rhea (Timely, Safely). Assessment Date/Time Source Assessment Type Assessment Skill Assessment Score Assessment Details No data available for this section
--- OUTSIDE RECORDS SUMMARY | 2024-11-13 08:35 | XMS_ITS | Patient Health Record ---
Author Organization [facility] Address [address] [place] [address] Care Team Providers Care Watch Repair Technician Name Role Phone JOSHUA MORATAYA Unavailable [phone] [employer], [employer] Unavailable Unavailable Allergies No Known [...] Problem Gastro-esophagea l reflux disease without esophagitis (501329329) Gastro-esophage al reflux disease without esophagitis (K21.9) Active confirmed Problem Allergic rhinitis caused by pollen (94605934) Seasonal allergic rhinitis due to pollen (J30.1) Active confirmed Problem Dysphagia (24961323) Dysphagia, unspecified type (R13.10) Active confirmed Problem Allergic rhinitis caused by pollen (disorder) (83434079) Allergic rhinitis due to pollen (J30.1) 8 Active confirmed Problem Chronic maxillary sinusitis (61642204) Chronic maxillary sinusitis (J32.0) 8 Active confirmed Problem Deviated nasal septum (418487806) Deviated nasal septum (J34.2) 8 Active confirmed Problem Hypertrophy of nasal turbinates (16923904) Hypertrophy of nasal turbinates (J34.3) 8 Active confirmed Plan Of Treatment No Information Insurance Providers Payer Name Payer Address Payer Phone Subscriber Number Group Number Insured Name Patient Relationship to Insured Coverage Start Date Coverage End Date [facility] [address] [place] [phone] [id number] Rickey Santamaria Self - patient is the insured Medical (General) History Medical History History ICD Code sinusitis Nasal Allergies Surgical History Surgery Date(Month/Year) latera implantation, revision submucousa resection of turbinates 2018 Tonsillectomy 10/11/2019
--- OUTSIDE RECORDS SUMMARY | 2024-11-13 08:35 | XMS_ITS | Clinical Summary ---
Author Organization [facility] ity Address [address] [place] [phone] Care Team Providers Care Manager Community Relations Name Role Phone Unavailable Primary Care Provider [...]
== END 2024-11-13 09:01 | disposition home or self-care (01) ==
LOC: HO.HUSH 08:14
PROVIDERS: PCP Physician Assistant Medical; Visit Provider Urology
DX: N52.9 Male erectile dysfunction, unspecified (principal); R79.89 Other specified abnormal findings of blood chemistry
CPT/HCPCS: 99214; G2211

== ENCOUNTER 2024-12-03 09:50 | Outpatient (AMB) | payer OTHER, SELFPAY ==
[2024-12-03 10:08] VITALS: BP 112/68; PULSE 72; O2SAT 98; BMI 32.8
--- NOTE | 2024-12-03 10:08 | A.OFFVIS_ITS ---
Vital Signs 12/03/24 10:08 Height 5 ft 11 in Weight 235 lb BMI 32.8 BP 112/68 Blood Pressure Location Rt brachial Position Sitting Pulse 72 Pulse Source Pulse Oximeter Pulse Oximetry (%) 98 Oxygen Delivery Method Room Air Intake Visit Reasons: Constipation + Rectal pain, FUV from PCP Intake Note: Est pt for mgmt of constipation + rectal pain. CC: C.O. constipation + BRB per rectum consistently lately with most BMs. Pt states that although he is no longer taking miralax regularly, he is having the same results as he had been when taking miralax daily. Would like to discuss alternatives. Nematology Teacher Required: No Accompanied by: Self / Same As Patient Allergies No Known Allergies Allergy (Verified 12/03/24 10:20) HPI HPI Constipation + Rectal pain, FUV from PCP: Details: LAST VISIT: GERD (gastroesophageal reflux disease) Esophagitis Dysphagia Plan Patient continues to have occasional dysphagia. Wakes up with acid reflux and epigastric discomfort, better after taking pantoprazole in the morning. Will stop famotidine and start him on sucralfate. Discussed with patient avoiding dietary triggers late night snacking. Staying upright for minimum 3 hours after meals discussed with patient. Patient will return in 3 months, sooner on as needed basis. Patient is agreeable to this plan and verbalizes understanding of instructions. He was given the opportunity to ask questions and all questions answered. ? Thank you for allowing me to participate in his care Referrals Dermatology Referral L30.9 New sucralfate 1 g PO BEDTIME 30 tabs 4RF R19.7 Discontinued famotidine Discontinued Reason: Doctor's Order 40 mg PO BEDTIME 30 tabs 4RF K21.9 TODAY'S VISIT Patient is here today for requested visit. Patient reports rectal very since January of last year. Patient reports constipation. Tried MiraLax without results. Currently impression is not taking anything to help her move his bowels. Denies any family history of CRC. Patient reports that even when he is not constipated he will have blood every time he has a bowel movement. Patient denies any issues with anesthesia in the past. No history of sleep apnea. Not on any anti coagulation medication. Patient denies any abdominal pain or discomfort. Patient denies melena, unintentional weight loss. Her patient denies any cardiac or respiratory symptoms PFSH Medical History Recurrent right inguinal hernia Hypertriglyceridemia Low HDL (under 40) Pure hypercholesterolemia, unspecified Hyperlipidemia Elevated liver enzymes Abdominal pain Altered bowel function Erectile dysfunction Rt inguinal pain Annual physical exam Right testicular pain GERD (gastroesophageal reflux disease) Rosacea Somnolence, daytime Retrognathia Obesity (BMI 30.0-34.9) Anxiety and depression Obstructive sleep apnea History of esophageal dilatation Esophagitis Surgical History History of vasectomy Bilateral inguinal hernia (BIH) (03/28/24) History of esophagogastroduodenoscopy (EGD) H/O nasal septoplasty History of tonsillectomy History of knee surgery Family History Father Hypertension Heart attack, Onset Age: 35 Mother No problems noted. 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 Current occupational exposures/hazards: No Cognitive needs: No Hearing needs: No Vision needs: Yes Review of Systems Const Denies weight gain and Denies weight loss ENT Reports no additional complaints, Denies dysphagia and Denies odynophagia Card Reports no additional complaints Resp Reports no additional complaints GI Denies abdominal pain, Denies belching, Denies melena, Denies bloating, Denies change in bowel habits, Denies dysphagia, Denies excessive flatus, Denies dyspepsia, Denies heartburn, Denies diarrhea, Denies loose stools, Denies nausea, Denies odynophagia and Denies vomiting Reports no additional complaints Musc Reports no additional complaints Neuro Reports no additional complaints Psych Reports no additional complaints Endo Reports no additional complaints Physical Exam Vital Signs: Last Vital Signs Pulse 72 12/03/24 10:08 BP 112/68 12/03/24 10:08 Pulse Ox 98 12/03/24 10:08 Oxygen Delivery Method Room Air 12/03/24 10:08 BMI result Body Mass Index 32.8 Const General: healthy appearing, no acute distress and well developed Nutritional Appearance: well nourished Orientation/consciousness: patient oriented x3 Resp Effort & Inspection: normal respiratory effort, able to speak in complete sentences, no tracheal deviation and symmetric chest movement Auscultation: clear to auscultation bilaterally Cardio Rate: regular rate GI Inspection: Yes normal to inspection and No distended Palpation (GI): Soft to palpation, not firm, nontender and No hepatosplenomegaly present Auscultation: normal bowel sounds General: Yes no CVA tenderness Back/Spine/Pelvis Back: no CVA tenderness Skin General skin exam: elasticity normal, turgor normal and dry skin Neuro General: patient oriented x3 Psych Appearance: grossly normal Mental Status: mental status grossly normal Assessment & Plan Assessment & Plan (1) GERD (gastroesophageal reflux disease): Code(s): K21.9 - Gastro-esophageal reflux disease without esophagitis Category: Medical Qualifiers: Esophagitis presence: esophagitis presence not specified Qualified Code(s): K21.9 - Gastro-esophageal reflux disease without esophagitis (2) Altered bowel function: Code(s): R19.8 - Other specified symptoms and signs involving the digestive system and abdomen Category: Medical (3) Constipation: Code(s): K59.00 - Constipation, unspecified Qualifiers: Constipation type: slow transit constipation Qualified Code(s): K59.01 - Slow transit constipation (4) Rectal bleed: Code(s): K62.5 - Hemorrhage of anus and rectum Plan Patient will be sent for colonoscopy. What to expect before during and after procedure discussed with patient. Patient denies any family history of CRC. Most likely this his hemorrhoid. Patient will start taking Dulcolax daily to help him move his bowels. Stressed importance of good bowel prep and clear liquid diet day before procedure. Patient will be seen after the procedure, sooner on as needed basis. He is agreeable to this plan and verbalizes understanding of instructions. He was given the opportunity to ask questions and all questions answered Medications: New polyethylene glycol 3350 (Miralax) As directed by gastroenterology department at [facility] 238 grams PO ONCE 238 grams 0RF Z12.11 - Encounter for screening for malignant neoplasm of colon bisacodyl (Dulcolax (bisacodyl)) 10 mg (2 x 5 mg) PO BEDTIME 180 tabs 4RF Coding Level of Care Code Est Pt Level 3 (80265) Diagnoses Gastroesophageal reflux disease, unspecified whether esophagitis present K21.9 Esophagitis presence: esophagitis presence not specified Altered bowel function R19.8 Slow transit constipation K59.01 Constipation type: slow transit constipation Rectal bleed K62.5 Time Spent (min) 30 Comment 20 minutes spent with patient and additional 10 minutes spent reviewing his r ecords
--- OUTSIDE RECORDS SUMMARY | 2024-12-03 12:41 | XMS_ITS | Patient Health Record ---
Author Organization [facility] Address [address] [place] [address] Care Team Providers Care Sales Department Supervisor Name Role Phone JOSHUA MORATAYA Unavailable [phone] [employer], [employer] Unavailable Unavailable Allergies No Known [...] Problem Gastro-esophagea l reflux disease without esophagitis (720695223) Gastro-esophage al reflux disease without esophagitis (K21.9) Active confirmed Problem Allergic rhinitis caused by pollen (74389658) Seasonal allergic rhinitis due to pollen (J30.1) Active confirmed Problem Dysphagia (41311873) Dysphagia, unspecified type (R13.10) Active confirmed Problem Allergic rhinitis caused by pollen (disorder) (60147337) Allergic rhinitis due to pollen (J30.1) 8 Active confirmed Problem Chronic maxillary sinusitis (72579611) Chronic maxillary sinusitis (J32.0) 8 Active confirmed Problem Deviated nasal septum (319059131) Deviated nasal septum (J34.2) 8 Active confirmed Problem Hypertrophy of nasal turbinates (75242260) Hypertrophy of nasal turbinates (J34.3) 8 Active confirmed Plan Of Treatment No Information Insurance Providers Payer Name Payer Address Payer Phone Subscriber Number Group Number Insured Name Patient Relationship to Insured Coverage Start Date Coverage End Date [facility] [address] [place] [phone] [id number] Rickey Santamaria Self - patient is the insured Medical (General) History Medical History History ICD Code sinusitis Nasal Allergies Surgical History Surgery Date(Month/Year) latera implantation, revision submucousa resection of turbinates 2018 Tonsillectomy 10/11/2019
--- OUTSIDE RECORDS SUMMARY | 2024-12-03 12:41 | XMS_ITS | Clinical Summary ---
Author Organization [facility] ity Address [address] [place] [phone] Care Team Providers Care Liquid Yeast Supervisor Name Role Phone Unavailable Primary Care [...] 10/11/2023 Social Influencers of Health Screening 10/11/2023 Depression Screening 03/20/2024 COVID-19 Vaccine (2023-2 5 season) 2024 Influenza Vaccine (#1) 2024 HIB Vaccines Aged [...]
== END 2024-12-03 10:49 | disposition home or self-care (01) ==
LOC: HO.HGI 09:51
PROVIDERS: PCP Internal Medicine; Visit Provider Nurse Practitioner Family
DX: K21.9 Gastro-esophageal reflux disease without esophagitis (principal); R19.8 Other specified symptoms and signs involving the digestive system and abdomen; K59.01 Slow transit constipation; K62.5 Hemorrhage of anus and rectum
CPT/HCPCS: 99213

== ENCOUNTER → 2024-12-03 09:50 | Outpatient (BNVA) | payer OTHER, SELFPAY | PROVIDERS: PCP Internal Medicine; Visit Provider Nurse Practitioner Family | DX: Z01.818 Encounter for other preprocedural examination (principal); K21.9 Gastro-esophageal reflux disease without esophagitis; K59.01 Slow transit constipation; K62.5 Hemorrhage of anus and rectum | CPT/HCPCS: 99212 ==

== ENCOUNTER 2024-12-12 09:39 | Day surgery (SDC) | payer OTHER, SELFPAY ==
--- OUTSIDE RECORDS SUMMARY | 2024-12-04 15:20 | XMS_ITS | Patient Health Record ---
Author Organization [facility] Address [address] [place] [address] Care Team Providers Care Dental Insurance Coordinator Name Role Phone JOSHUA MORATAYA Unavailable [phone] [employer], [employer] Unavailable Unavailable Allergies No Known [...] Problem Gastro-esophagea l reflux disease without esophagitis (719523388) Gastro-esophage al reflux disease without esophagitis (K21.9) Active confirmed Problem Allergic rhinitis caused by pollen (52181913) Seasonal allergic rhinitis due to pollen (J30.1) Active confirmed Problem Dysphagia (94161393) Dysphagia, unspecified type (R13.10) Active confirmed Problem Allergic rhinitis caused by pollen (disorder) (63987014) Allergic rhinitis due to pollen (J30.1) 8 Active confirmed Problem Chronic maxillary sinusitis (65894391) Chronic maxillary sinusitis (J32.0) 8 Active confirmed Problem Deviated nasal septum (766016025) Deviated nasal septum (J34.2) 8 Active confirmed Problem Hypertrophy of nasal turbinates (04977974) Hypertrophy of nasal turbinates (J34.3) 8 Active confirmed Plan Of Treatment No Information Insurance Providers Payer Name Payer Address Payer Phone Subscriber Number Group Number Insured Name Patient Relationship to Insured Coverage Start Date Coverage End Date [facility] [address] [place] [phone] [id number] Rickey Santamaria Self - patient is the insured Medical (General) History Medical History History ICD Code sinusitis Nasal Allergies Surgical History Surgery Date(Month/Year) latera implantation, revision submucousa resection of turbinates 2018 Tonsillectomy 10/11/2019
--- OUTSIDE RECORDS SUMMARY | 2024-12-04 15:20 | XMS_ITS | Clinical Summary ---
Author Organization [facility] ity Address [address] [place] [phone] Care Team Providers Care Materials Planner Name Role Phone Unavailable Primary Care Provider [...]
--- NOTE | 2024-12-10 11:37 | HO.ANESPROP2 ---
Documented by User: Blanca Mojica NP 12/10/24 11:38 HPI - Anesthesia Eval Consult details Narrative: 39 yr old male for colonoscopy s/p b/l hernia repair with GA 03/2024 [facility] Active Problems Active Problems: All Active Problems Hernia (Acute) Recurrent right inguinal hernia (Acute) Deep inguinal pain (Acute) Low testosterone in male (Acute) Hypertriglyceridemia (Acute) Low HDL (under 40) (Acute) Pure hypercholesterolemia, unspecified (Acute) Hyperlipidemia (Acute) Elevated liver enzymes (Acute) Abdominal pain (Acute) Altered bowel function (Acute) Groin pain (Acute) Erectile dysfunction (Acute) Rt inguinal pain (Acute) History of vasectomy (Acute) Annual physical exam (Acute) Right testicular pain (Acute) Status post bilateral inguinal hernia repair (Acute) Left knee pain (Acute) Bilateral inguinal hernia (BIH) (Acute 03/28/24) Scrotal pain (Acute) Inguinal hernia (Acute) Impingement syndrome of right shoulder (Acute) Internal derangement of left knee (Acute) Patellofemoral arthralgia of left knee (Acute) Goiter (Acute) Fatigue (Acute) GERD (gastroesophageal reflux disease) (Acute) Rosacea (Acute) Somnolence, daytime (Acute) Retrognathia (Acute) Obesity (BMI 30.0-34.9) (Acute) Obstructive sleep apnea (Acute) Esophagitis (Acute) Past Medical History Medical History Hernia Recurrent right inguinal hernia Hypertriglyceridemia Low HDL (under 40) Pure hypercholesterolemia, unspecified Hyperlipidemia Elevated liver enzymes Abdominal pain Altered bowel function Erectile dysfunction Rt inguinal pain Annual physical exam Right testicular pain GERD (gastroesophageal reflux disease) Rosacea Somnolence, daytime Retrognathia Obesity (BMI 30.0-34.9) Anxiety and depression Obstructive sleep apnea History of esophageal dilatation Esophagitis Family History Family History Father Hypertension Heart attack, Onset Age: 35 Mother No problems noted. Paternal Grandfather Heart attack Family history of problems with anesthesia: No Surgical History Surgical History History of vasectomy Bilateral inguinal hernia (BIH) (03/28/24) History of esophagogastroduodenoscopy (EGD) H/O nasal septoplasty History of tonsillectomy History of knee surgery History of Problems with Anesthesia: No Social History Social History Housing: House Alcohol intake: current Alcohol intake frequency: holidays/special occasions only Alcohol type: hard liquor Patient Tobacco Use Status: Never used Tobacco e-Cigarette/Vaping Use: Never Used Second Hand Smoke Exposure: No Use of substances other than those prescribed or required for medical reasons: No Advance Directives: No Advance Directives Information Provided: Yes service: Yes Current occupational status: employed 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 Current occupational exposures/hazards: No Cognitive needs: No Hearing needs: No Vision needs: Yes Meds Allergies Allergy/AdvReac Type Severity Reaction Status Date / Time No Known Allergies Allergy Verified 12/03/24 10:20 Assessment and Plan Final Anesthetic Review Family History of Problems with Anesthesia: No History of Problems with Anesthesia: No Documented by User: Jennifer Barboza MD 12/12/24 10:19 [facility] Past Medical History Medical History Hernia Recurrent right inguinal hernia Hypertriglyceridemia Low HDL (under 40) Pure hypercholesterolemia, unspecified Hyperlipidemia Elevated liver enzymes Abdominal pain Altered bowel function Erectile dysfunction Rt inguinal pain Annual physical exam Right testicular pain GERD (gastroesophageal reflux disease) Rosacea Somnolence, daytime Retrognathia Obesity (BMI 30.0-34.9) Anxiety and depression Obstructive sleep apnea History of esophageal dilatation Esophagitis Family History Family History Father Hypertension Heart attack, Onset Age: 35 Mother No problems noted. Paternal Grandfather Heart attack Surgical History Surgical History History of vasectomy Bilateral inguinal hernia (BIH) (03/28/24) History of esophagogastroduodenoscopy (EGD) H/O nasal septoplasty History of tonsillectomy History of knee surgery Social History Social History Housing: House Alcohol intake: current Alcohol intake frequency: holidays/special occasions only Alcohol type: hard liquor Patient Tobacco Use Status: Never used Tobacco e-Cigarette/Vaping Use: Never Used Second Hand Smoke Exposure: No Use of substances other than those prescribed or required for medical reasons: No Advance Directives: No Advance Directives Information Provided: Yes service: Yes Current occupational status: employed 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 Current occupational exposures/hazards: No Cognitive needs: No Hearing needs: No Vision needs: Yes Meds Allergies Allergy/AdvReac Type Severity Reaction Status Date / Time No Known Allergies Allergy Verified 12/03/24 10:20 Exam Airway Mallampati Class: II TM Dist: >3cm Neck ROM: Full Heart: rrr Lungs: cta Assessment and Plan Assessment Anesthesia Assessment: Anesthesia Plan Discussed and Chart Reviewed Final Anesthetic Review NPO: Yes ASA Class: II Final Preanesthetic Review: No Changes in Pt Med Stat, Meds/Allgs Chart Reviewed, Consent Obtained/Reviewed and Anes Risks/Benef Reviewed Patient Risk: Low Procedure Risk: Low Anesthetic Plan Anesthetic Plan: MAC: and Agree w/ Assess. and Plan Disposition: Standard PACU
[2024-12-12 09:49] VITALS: BMI 32.0
[2024-12-12 10:12] VITALS: BP 113/82; PULSE 97; RESP 16; TEMP 36.9; O2SAT 94
[2024-12-12] MEDS: Lactated Ringers 1,000 ML 100 ML IVCONT (10:13)
--- NOTE | 2024-12-12 10:16 | MHC.SHP ---
Pre-Procedural Eval Section A - 24 Hr Update-Section A only Date of Service: 12/12/24 The patient is an INPATIENT: No The patient has been examined within 24 hours of the surgical procedure. The History & Physical has been completed within 30 days and I have reviewed it.: Yes Section B - Complete if H&P > 30 days Chief Complaint: Hemorrhage of anus and rectum Allergies: Allergies Allergy/AdvReac Type Severity Reaction Status Date / Time No Known Allergies Allergy Verified 12/03/24 10:20 Plan Diagnosis/Plan: Unchanged I have reviewed the history and physical and performed a pertinent physical examination on my patient. No changes have occurred unless specified. Time Spent With Patient Time: Total time managing care of this patient today ____ minutes.
[2024-12-12 10:52] VITALS: BP 103/65; PULSE 93; RESP 16; TEMP 36.3; O2SAT 95
--- NOTE | 2024-12-12 10:57 | P.OPN-COLO_ITS ---
Colonoscopy Operative Note Operative Note Date of Service: 12/12/24 Narrative: Procedure: Colonoscopy Indication: Rectal bleeding Endoscopist: Hafsa Reddy MD Anesthesia Provider: Yazmin Patel CRNA Anesthesia type: MAC Instrument: Olympus [id number]-[id number] Consent: Indication, risks vs benefits, and alternatives were discussed with the patient who gave written informed consent to proceed. EKG, pulse, pulse oximetry and blood pressure were monitored throughout the procedure. Please see anesthesia flowsheet. Procedure: The patient was brought to the procedure room and placed in the left lateral decubitus position. IV medications were administered by the anesthesia provider in attendance. A digital rectal exam was performed which was normal. A distal attachment cap was affixed to the tip of the colonoscope which was then inserted through the anus and advanced through the colon to the cecum at 75 cm,and terminal ileum. Appendiceal orifice and ileocecal valve were identified. Mucosa was carefully examined under high definition white light as the instrument was slowly withdrawn in a retrograde panoramic fashion. Retroflexion was performed in rectum. The procedure was not difficult. There were no immediate obvious complications. The quality of the prep was BBPS: 2+2+3 = adequate Withdrawal time 12 minutes. Limitations: No limitations. Findings: Mucosa: Normal to cecum. Deep terminal ileum intubation of 30 cm. A few erosions and ulcerations up to 10 cm but the mucosa beyond was normal to the extent examined. Cold forceps biopsies were taken from terminal ileum and all portions of the colon using jumbo forceps. Protruding lesions: * Medium internal hemorrhoids without stigmata of recent bleeding. Impression: 1. Ileitis (biopsy) 2. Normal colon mucosa (biopsy) 3. Internal hemorrhoids Recommendations: - Follow path results ? NSAID related enteritis vs chronic ileitis. - Pt also advised to discontinue NSAIDs. - Asymptomatic colorectal cancer screening to commence at 45 years of age.
[2024-12-12 11:05] VITALS: BP 108/73; PULSE 78; RESP 11; O2SAT 97
[2024-12-12 11:15] VITALS: BP 105/78; PULSE 76; RESP 19; TEMP 36.9; O2SAT 98
== END 2024-12-12 11:41 | disposition home or self-care (01) ==
PROVIDERS: PCP Physician Assistant Medical; Visit Provider Internal Medicine
PROC: 0DJD8ZZ Inspection of Lower Intestinal Tract, Via Natural or Artificial Opening Endoscopic (ICD-10-PCS; CPT 45378; principal; 2024-12-12 11:10)
DX: K62.5 Hemorrhage of anus and rectum (principal); K62.89 Other specified diseases of anus and rectum; K59.01 Slow transit constipation; K52.9 Noninfective gastroenteritis and colitis, unspecified; K64.8 Other hemorrhoids; K21.9 Gastro-esophageal reflux disease without esophagitis; K20.80 Other esophagitis without bleeding; E78.00 Pure hypercholesterolemia, unspecified; R74.8 Abnormal levels of other serum enzymes; L71.9 Rosacea, unspecified; E66.9 Obesity, unspecified; Z68.32 Body mass index [BMI] 32.0-32.9, adult; G47.33 Obstructive sleep apnea (adult) (pediatric); M26.19 Other specified anomalies of jaw-cranial base relationship; Z98.890 Other specified postprocedural states; Z98.52 Vasectomy status
CPT/HCPCS: 45380; 88305; J2003; J2704

== ENCOUNTER → 2024-12-12 09:39 | Outpatient (BNV) | payer OTHER, SELFPAY | PROVIDERS: PCP Physician Assistant Medical; Visit Provider Internal Medicine | DX: K62.5 Hemorrhage of anus and rectum (principal); K52.9 Noninfective gastroenteritis and colitis, unspecified; K64.8 Other hemorrhoids | CPT/HCPCS: 45380 ==

== ENCOUNTER 2024-12-17 05:44 | Day surgery (SDC) | payer OTHER, SELFPAY ==
--- OUTSIDE RECORDS SUMMARY | 2024-11-11 15:57 | XMS_ITS | Clinical Summary ---
Author Organization [facility] ity Address [address] [place] [address] Care Team Providers Care Dirt Supervisor Name Role Phone Unavailable Primary Care Provider [...]
--- OUTSIDE RECORDS SUMMARY | 2024-11-11 15:57 | XMS_ITS | Patient Health Record ---
Author Organization [facility] door machine [facility] Address [address] [place] [address] Care Team Providers Care Information And Referral Director Name Role Phone JOSHUA MORATAYA Unavailable [phone] [facility], MedGrp Unavailable Unavailable Allergies No Known [...] Problem Gastro-esophagea l reflux disease without esophagitis (259998291) Gastro-esophage al reflux disease without esophagitis (K21.9) Active confirmed Problem Seasonal allergic rhinitis due to pollen (J30.1) Active confirmed Problem Dysphagia, unspecified type (R13.10) Active confirmed Problem Allergic rhinitis caused by pollen (disorder) (29803020) Allergic rhinitis due to pollen (J30.1) 8 Active confirmed Problem Chronic maxillary sinusitis (42484514) Chronic maxillary sinusitis (J32.0) 8 Active confirmed Problem Deviated nasal septum (470097325) Deviated nasal septum (J34.2) 8 Active confirmed Problem Hypertrophy of nasal turbinates (49841262) Hypertrophy of nasal turbinates (J34.3) 8 Active confirmed Plan Of Treatment No Information Insurance Providers Payer Name Payer Address Payer Phone Subscriber Number Group Number Insured Name Patient Relationship to Insured Coverage Start Date Coverage End Date [facility] [address] [place] [phone] [id number] Rickey Santamaria Self - patient is the insured Medical (General) History Medical History History ICD Code sinusitis Nasal Allergies Surgical History Surgery Date(Month/Year) latera implantation, revision submucousa resection of turbinates 2018 Tonsillectomy 10/11/2019
[2024-12-13 09:45] VITALS: BMI 33.1
--- NOTE | 2024-12-13 10:24 | P.CONAN_ITS ---
Documented by User: Verena Mas NP 12/13/24 10:24 HPI - Anesthesia Eval Consult details Narrative: 39yo M for Right ?Repair Hernia Inguinal Reducible with mesh PMFSH Active Problems Active Problems: All Active Problems Hernia (Acute) Recurrent right inguinal hernia (Acute) Deep inguinal pain (Acute) Low testosterone in male (Acute) Hypertriglyceridemia (Acute) Low HDL (under 40) (Acute) Pure hypercholesterolemia, unspecified (Acute) Hyperlipidemia (Acute) Elevated liver enzymes (Acute) Abdominal pain (Acute) Altered bowel function (Acute) Groin pain (Acute) Erectile dysfunction (Acute) Rt inguinal pain (Acute) History of vasectomy (Acute) Annual physical exam (Acute) Right testicular pain (Acute) Status post bilateral inguinal hernia repair (Acute) Left knee pain (Acute) Bilateral inguinal hernia (BIH) (Acute 03/28/24) Scrotal pain (Acute) Inguinal hernia (Acute) Impingement syndrome of right shoulder (Acute) Internal derangement of left knee (Acute) Patellofemoral arthralgia of left knee (Acute) Goiter (Acute) Fatigue (Acute) GERD (gastroesophageal reflux disease) (Acute) Rosacea (Acute) Somnolence, daytime (Acute) Retrognathia (Acute) Obesity (BMI 30.0-34.9) (Acute) Obstructive sleep apnea (Acute) Esophagitis (Acute) Past Medical History Medical History Hernia Recurrent right inguinal hernia Hypertriglyceridemia Low HDL (under 40) Pure hypercholesterolemia, unspecified Hyperlipidemia Elevated liver enzymes Abdominal pain Altered bowel function Erectile dysfunction Rt inguinal pain Annual physical exam Right testicular pain GERD (gastroesophageal reflux disease) Rosacea Somnolence, daytime Retrognathia Obesity (BMI 30.0-34.9) Anxiety and depression Obstructive sleep apnea History of esophageal dilatation Esophagitis Family History Family History Father Hypertension Heart attack, Onset Age: 35 Mother No problems noted. Paternal Grandfather Heart attack Family history of problems with anesthesia: No Surgical History Surgical History History of vasectomy Bilateral inguinal hernia (BIH) (03/28/24) History of esophagogastroduodenoscopy (EGD) H/O nasal septoplasty History of tonsillectomy History of knee surgery History of Problems with Anesthesia: No Social History Social History Housing: House Alcohol intake: current Alcohol intake frequency: holidays/special occasions only Alcohol type: hard liquor Comment: counts correct Patient Tobacco Use Status: Never used Tobacco e-Cigarette/Vaping Use: Never Used Second Hand Smoke Exposure: No Use of substances other than those prescribed or required for medical reasons: No Advance Directives: No Advance Directives Information Provided: Yes service: Yes Current occupational status: employed 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 Current occupational exposures/hazards: No Cognitive needs: No Hearing needs: No Vision needs: Yes Meds Allergies Allergy/AdvReac Type Severity Reaction Status Date / Time No Known Allergies Allergy Verified 12/03/24 10:20 Exam Height,Weight and Vital Signs: Height 5 ft 11 in Weight 107.501 kg Pertinent Lab Results Pertinent Lab Results: Laboratory Tests 10/03/24 08:01 WBC 6.7 Hgb 15.5 Hct 42.8 Plt Count 212 Sodium 138 Potassium 4.2 Chloride 106 Carbon Dioxide 25 BUN 26 H Creatinine 1.01 Assessment and Plan Assessment Anesthesia Assessment: Chart Reviewed Final Anesthetic Review Family History of Problems with Anesthesia: No History of Problems with Anesthesia: No Documented by User: Blake Spaulding MD 12/17/24 08:59 [facility] Past Medical History Medical History Hernia Recurrent right inguinal hernia Hypertriglyceridemia Low HDL (under 40) Pure hypercholesterolemia, unspecified Hyperlipidemia Elevated liver enzymes Abdominal pain Altered bowel function Erectile dysfunction Rt inguinal pain Annual physical exam Right testicular pain GERD (gastroesophageal reflux disease) Rosacea Somnolence, daytime Retrognathia Obesity (BMI 30.0-34.9) Anxiety and depression Obstructive sleep apnea History of esophageal dilatation Esophagitis Family History Family History Father Hypertension Heart attack, Onset Age: 35 Mother No problems noted. Paternal Grandfather Heart attack Surgical History Surgical History History of vasectomy Bilateral inguinal hernia (BIH) (03/28/24) History of esophagogastroduodenoscopy (EGD) H/O nasal septoplasty History of tonsillectomy History of knee surgery Social History Social History Housing: House Alcohol intake: current Alcohol intake frequency: holidays/special occasions only Alcohol type: hard liquor Comment: counts correct Patient Tobacco Use Status: Never used Tobacco e-Cigarette/Vaping Use: Never Used Second Hand Smoke Exposure: No Use of substances other than those prescribed or required for medical reasons: No Advance Directives: No Advance Directives Information Provided: Yes service: Yes Current occupational status: employed 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 Current occupational exposures/hazards: No Cognitive needs: No Hearing needs: No Vision needs: Yes Meds Allergies Allergy/AdvReac Type Severity Reaction Status Date / Time No Known Allergies Allergy Verified 12/03/24 10:20 Exam Airway Mallampati Class: II TM Dist: >3cm Neck ROM: Full Assessment and Plan Assessment Anesthesia Assessment: Anesthesia Plan Discussed Final Anesthetic Review NPO: Yes ASA Class: II Final Preanesthetic Review: No Changes in Pt Med Stat, Meds/Allgs Chart Reviewed, Consent Obtained/Reviewed and Anes Risks/Benef Reviewed Patient Risk: Low Procedure Risk: Low Anesthetic Plan Anesthetic Plan: GA Disposition: Standard PACU
[2024-12-17] VITALS (8 sets, daily range): BP systolic 111–145; BP diastolic 72–93; PULSE 74–82; RESP 14–18; TEMP 36.2–36.9; O2SAT 94–96; BMI 32.9
[2024-12-17] MEDS: Lactated Ringers 1,000 ML 100 ML IVCONT (06:19)
--- NOTE | 2024-12-17 07:19 | MHC.SHP ---
Pre-Procedural Eval Section A - 24 Hr Update-Section A only Date of Service: 12/17/24 Section B - Complete if H&P > 30 days Chief Complaint: Unilateral inguinal hernia, without obstruction Details of Present Illness: Reducible mass on the right groin, previous repair in March [address] Vivar for a right inguinal hernia Relevant Family History (Specify if Yes): No Relevant Social History: None Present Medications: see Short Stay Collaborative assessment Medical History: Significant History (Low testosterone hyperlipidemia rectal dysfunction goiter, GERD) Allergies: Allergies Allergy/AdvReac Type Severity Reaction Status Date / Time No Known Allergies Allergy Verified 12/03/24 10:20 Review of Systems Sugical H&P ROS: Negative: Constitution, Cardiovascular and Respiratory Exam Surgical H&P Exam: Normal: Heart and Normal: Lungs and Significant Findings: Abdomen (Right inguinal hernia reducible) Plan Diagnosis/Plan: Unchanged I have reviewed the history and physical and performed a pertinent physical examination on my patient. No changes have occurred unless specified. Time Spent With Patient Time: Total time managing care of this patient today ____ minutes.
--- NOTE | 2024-12-17 08:13 | W.PM.OPN ---
Operative Note Operative Note Date of Service: 12/17/24 Narrative: Preop diagnosis: Recurrent right inguinal hernia Postop diagnosis: Recurrent right inguinal hernia, with small fat containing hernia through the internal ring Procedure: Repair of recurrent right inguinal hernia with a Prolene plug Surgeon: Vaughn Cotto MD reproductive healthcare assistant: DENISE John The patient is a 39-year-old male who had undergone bilateral inguinal hernia repair with Dr. Vivar last March,. He is here because of a recurrent right inguinal hernia which is fat containing on a CAT scan. He understood the technique of repair and was aware of the risks, benefits, and alternatives He was brought to the operating room. He was placed supine under general anesthesia via laryngeal mask airway. The right groin was prepped and draped in the usual sterile fashion. A surgical time-out was done. The patient received cefazolin 2 g IV preoperatively I infiltrated the planned line of incision with lidocaine 1%. I made the incision of the old scar with a blade 15. This carried down with electrocautery through the full-thickness of the skin and subcutaneous fat until I visualize the external oblique aponeurosis. It was noted that there was a lot of fibrotic scar in the areas so the planes were a little difficult. I was able to open up the external oblique aponeurosis with gentle dissection using electrocautery. This allowed me to separate this from the rest of the inguinal canal. By doing so, as able to visualize the reducible hernia with the internal ring. This was fat containing. The defect was very small. The rest of the spermatic cord and its contents were actually very adherent to the floor of the canal. There were no definable planes of dissection. Since the hernia was small, well-defined and through the internal ring with very reducible hernia contents, I decided against he had a dissecting the spermatic cord and its contents because of the very high risk of injury to the vas deferens and the accompanying vessels. I therefore decided to just reinforced the small defect with a Prolene plug. I chose a small-sized Prolene plug and positioned this through the defect in the internal ring. We made sure that the entire hernia contents were reduced. I secured the inner leaves of the plug with Prolene 2 sutures to the shelving edge of the inguinal meant laterally and the internal oblique medially. Again there were no good planes underneath the external oblique aponeurosis. I then proceeded to close the external oblique aponeurosis over the plug repair with a running Prolene 2-0 stitch. We irrigated. We ensured hemostasis. Once hemostasis was confirmed, we reapposed the subcutaneous tissue with Polysorb 3-0 simple interrupted sutures. Skin closure was achieved with Polysorb 4-0 subcuticular running stitch The area was infiltrated with Marcaine 0.5% for postop analgesia. Dressings were applied and the procedure was completed The patient tolerated procedure well. There were no immediate complications. Initial and final counts of sponges and instruments were correct. Estimated blood loss was about 25 cc. The patient is extubated without difficulty and transferred to the recovery room with stable vital signs
[2024-12-17] MEDS: oxyCODONE HCl Immed Release 5 MG TABLET PO (09:09)
== END 2024-12-17 10:01 | disposition home or self-care (01) ==
PROVIDERS: PCP Internal Medicine; Visit Provider Surgery
PROC: (CPT 49520; principal; 2024-12-17 07:30)
DX: K40.91 Unilateral inguinal hernia, without obstruction or gangrene, recurrent (principal); R10.31 Right lower quadrant pain; R74.8 Abnormal levels of other serum enzymes; R40.0 Somnolence; N52.9 Male erectile dysfunction, unspecified; Z98.52 Vasectomy status; K21.9 Gastro-esophageal reflux disease without esophagitis; K20.80 Other esophagitis without bleeding; G47.33 Obstructive sleep apnea (adult) (pediatric); F41.8 Other specified anxiety disorders; E78.00 Pure hypercholesterolemia, unspecified; E66.9 Obesity, unspecified; Z68.32 Body mass index [BMI] 32.0-32.9, adult; Z79.899 Other long term (current) drug therapy; Z98.890 Other specified postprocedural states
CPT/HCPCS: 49520; C1781; J0131; J0690; J1100; J1171; J1885; J2003; J2405; J2704; J2795; J3010

== ENCOUNTER → 2024-12-17 05:44 | Outpatient (BNV) | payer OTHER, SELFPAY | PROVIDERS: PCP Internal Medicine; Visit Provider Surgery | DX: K40.91 Unilateral inguinal hernia, without obstruction or gangrene, recurrent (principal) | CPT/HCPCS: 49520 ==

== ENCOUNTER 2025-01-01 09:50 | Outpatient (AMB) | payer OTHER, SELFPAY ==
--- NOTE | 2025-01-01 09:57 | MHC.OFFVIS ---
Vital Signs 01/01/25 10:04 Weight 234 lb BP 136/77 Blood Pressure Location Rt brachial Position Sitting Pulse 76 Intake Visit Reasons: post recurrent RIH Intake Note: Patient here s/p Repair of recurrent right inguinal hernia with a Prolene plug. Patient c/o: pain, still taking Oxycodone as needed. Reports normal BM. Reports incisions healing well. Denies bleeding, oozing. 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 Continues to have pain at the incision site especially with moving around, standing up, states that when standing up per within 5-10 minutes at a time the area becomes increasingly painful and he needs to sit down. Additionally when moving around in bed feels a sharp pulling sensation. Continues to use oxycodone as needed. He has about 8 pills left. Reports bowel function and appetite are at baseline. Denies any blood or discharge from the area. There was still a bit of swelling around the incision site. Denies fevers or chills, nausea or vomiting at home. COUNTS INCLUDE 234 BEDS AT THE [facility] Medical History (Updated 01/01/25 @ 10:20 by Conor Brown PA-C) Hernia Recurrent right inguinal hernia Hypertriglyceridemia Low HDL (under 40) Pure hypercholesterolemia, unspecified Hyperlipidemia Elevated liver enzymes Abdominal pain Altered bowel function Erectile dysfunction Rt inguinal pain Annual physical exam Right testicular pain GERD (gastroesophageal reflux disease) Rosacea Somnolence, daytime Retrognathia Obesity (BMI 30.0-34.9) Anxiety and depression Obstructive sleep apnea History of esophageal dilatation Esophagitis Surgical History (Updated 01/01/25 @ 08:15 by NATI Espana) Hx of right inguinal hernia repair (12/17/24) History of vasectomy Bilateral inguinal hernia (BIH) (03/28/24) History of esophagogastroduodenoscopy (EGD) H/O nasal septoplasty History of tonsillectomy History of knee surgery Family History Father Hypertension Heart attack, Onset Age: 35 Mother No problems noted. 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 Some mild edema surrounding the incision site. No discharge, fluid collection, surrounding erythema Neuro General: patient oriented x3 Assessment & Plan Assessment & Plan (1) Recurrent right inguinal hernia: Comment: S/p repair with mesh on 12/17/2024 Code(s): K40.91 - Unilateral inguinal hernia, without obstruction or gangrene, recurrent Category: Medical Plan 39-year-old male s/p repair of recurrent right inguinal hernia on 12/17/[address] Cotto returning to the office for routine follow up. Overall patient reports he is doing well, is still struggling with some pain control. Continues to use oxycodone as needed. Having difficulty with ambulation, needs to take frequent breaks when up and around for more than 5 or 10 minutes that time. Reassured him that this is appropriate at this stage postoperatively he should continue to rest and avoid heavy lifting. Would expect his pain to improve over the next few weeks. On exam the incision site appears to be healing well, there was some pain to palpation and mild edema but otherwise there was no discharge, fluid collection or surrounding erythema that it would be concerning for surgical site infection. His job does require heavy lifting, works for the at the [employer], we will need to avoid heavy lifting greater than 15-20 lb until January 28. Given that he had had recurrence before that it is imperative that he maintain no heavy lifting for 6 weeks postoperatively. He is agreeable to this plan, has not been doing heavy lifting at home has been having others assist him. He will call if he needs a refill for oxycodone if struggling with pain control at night. I did recommend that he supplement oxycodone with ibuprofen or Tylenol as needed during the day and try to reserve the oxycodone for at night. He is agreeable to this plan. he will return in 2 weeks for re-evaluation, he can return sooner with any questions or concerns prior Coding Level of Care Code Global (74750) Diagnoses Recurrent right inguinal hernia K40.91
[2025-01-01 10:04] VITALS: BP 136/77; PULSE 76
--- OUTSIDE RECORDS SUMMARY | 2025-01-01 11:19 | XMS_ITS | Patient Health Record ---
Author Organization [facility] illness coordinator [facility] Address [address] [place] [address] Care Team Providers Care Pit Tanner Name Role Phone JOSHUA MORATAYA Unavailable [phone] [facility], [employer] Unavailable Unavailable Allergies No Known [...] Problem Gastro-esophagea l reflux disease without esophagitis (572949269) Gastro-esophage al reflux disease without esophagitis (K21.9) Active confirmed Problem Allergic rhinitis caused by pollen (16448469) Seasonal allergic rhinitis due to pollen (J30.1) Active confirmed Problem Dysphagia (89987557) Dysphagia, unspecified type (R13.10) Active confirmed Problem Allergic rhinitis caused by pollen (disorder) (85137020) Allergic rhinitis due to pollen (J30.1) 8 Active confirmed Problem Chronic maxillary sinusitis (71189813) Chronic maxillary sinusitis (J32.0) 8 Active confirmed Problem Deviated nasal septum (880421155) Deviated nasal septum (J34.2) 8 Active confirmed Problem Hypertrophy of nasal turbinates (22501749) Hypertrophy of nasal turbinates (J34.3) 8 Active confirmed Plan Of Treatment No Information Insurance Providers Payer Name Payer Address Payer Phone Subscriber Number Group Number Insured Name Patient Relationship to Insured Coverage Start Date Coverage End Date [facility] [address] [place] [phone] [id number] Rickey Santamaria Self - patient is the insured Medical (General) History Medical History History ICD Code sinusitis Nasal Allergies Surgical History Surgery Date(Month/Year) latera implantation, revision submucousa resection of turbinates 2018 Tonsillectomy 10/11/2019
--- OUTSIDE RECORDS SUMMARY | 2025-01-01 11:19 | XMS_ITS | Clinical Summary ---
Author Organization [facility] ity Address [address] [place] [id number] Care Team Providers Care Credit Collections Clerk Name Role Phone Unavailable Primary Care Provider [...] of 3 - 19+ 3-dose series) 10/19/2006 HPV Vaccines (1 - 3-dose SCD M series) 10/19/2014 Cholesterol Screening (Lipid Panel) 10/11/2023 HIV Screening 10/11/2023 Hepatitis C Screening 10/11/2023 Social Influencers of Health Screening 10/11/2023 Depression Screening 03/20/2024 COVID-19 Vaccine (1 - 2023-2 5 season) 2024 Influenza Vaccine (#1) 2024 RSV Immunization Adult Patie nts (1 - 1-dose 75+ series) 10/19/2062 HIB Vaccines Aged Out No longer eligi [...]
== END 2025-01-01 10:17 | disposition home or self-care (01) ==
LOC: HO.HGS 09:51
PROVIDERS: PCP Physician Assistant Medical
DX: K40.91 Unilateral inguinal hernia, without obstruction or gangrene, recurrent (principal)
CPT/HCPCS: 99024

== ENCOUNTER → 2025-01-01 09:50 | Outpatient (BNVA) | payer OTHER, SELFPAY | PROVIDERS: PCP Physician Assistant Medical | DX: Z98.890 Other specified postprocedural states (principal); K40.91 Unilateral inguinal hernia, without obstruction or gangrene, recurrent | CPT/HCPCS: 99212 ==

== ENCOUNTER 2025-01-15 09:35 | Outpatient (AMB) | payer OTHER, SELFPAY ==
--- NOTE | 2025-01-15 09:41 | MHC.OFFVIS ---
Vital Signs 01/15/25 09:48 Height 5 ft 11 in Weight 233 lb 11.04 oz BMI 32.6 Intake Visit Reasons: 2wk post recurrent RIH Intake Note: Patient here for 2wk follow up from last visit 01-01-2025. S/p Repair of recurrent right inguinal hernia. Patient c/o: denies any concerns Managed Care Provider Required: No Accompanied by: Self / Same As Patient Allergies No Known Allergies Allergy (Verified 01/15/25 09:49) HPI HPI 2wk post recurrent RIH: Details: Improved from last visit. No longer needing pain medications. Still gets some pain with ambulation. Denies nausea or vomiting. No concerns with the incision sites. Was recently seen by GI, had colonoscopy, they are recommending CAT scan but he can not get in contact with them. [facility] Medical History Hernia Recurrent right inguinal hernia Hypertriglyceridemia Low HDL (under 40) Pure hypercholesterolemia, unspecified Hyperlipidemia Elevated liver enzymes Abdominal pain Altered bowel function Erectile dysfunction Rt inguinal pain Annual physical exam Right testicular pain GERD (gastroesophageal reflux disease) Rosacea Somnolence, daytime Retrognathia Obesity (BMI 30.0-34.9) Anxiety and depression Obstructive sleep apnea History of esophageal dilatation Esophagitis Surgical History Hx of right inguinal hernia repair (12/17/24) History of vasectomy Bilateral inguinal hernia (BIH) (03/28/24) History of esophagogastroduodenoscopy (EGD) H/O nasal septoplasty History of tonsillectomy History of knee surgery Family History Father Hypertension Heart attack, Onset Age: 35 Mother No problems noted. 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 Nontender to palpation. Very mild induration deep to the incision site. No recurrence on Valsalva. Palpation (GI): Soft to palpation and nontender Neuro General: patient oriented x3 Assessment & Plan Assessment & Plan (1) Recurrent right inguinal hernia: Comment: S/p repair with mesh on 12/17/2024 Code(s): K40.91 - Unilateral inguinal hernia, without obstruction or gangrene, recurrent Category: Medical Plan 39-year-old male s/p repair of recurrent right inguinal hernia on 12/17/[address] Cotto returning to the office for routine follow up. Overall patient reports he is doing well, pain is minimal now, no longer requiring medication. Feeling better with walking around, diet and bowel function at baseline. On exam the incision site appears to be healing well, remains intact, no concern for infection at this time. No recurrence on Valsalva. His job does require heavy lifting, works for the at the [employer], we will need to avoid heavy lifting greater than 15-20 lb until January 28. After this state, recommend slowly increasing activity as tolerated over the course of a few weeks. He is agreeable with this plan. He recently had a colonoscopy with Dr. Reddy, who recommended follow up CAT scan however he is unable to get in contact with them regarding some of his questions, had the patient's stopped by after his appointment to connect with them and come up with a plan for his care going forward. No longer requiring follow up. he can return in the future with any questions or concerns. Coding Level of Care Code Global (39032) Diagnoses Recurrent right inguinal hernia K40.91
[2025-01-15 09:48] VITALS: BMI 32.6
--- OUTSIDE RECORDS SUMMARY | 2025-01-15 11:27 | XMS_ITS | Patient Health Record ---
Author Organization [facility] Address [address] [place] [address] Care Team Providers Care Template Checker Name Role Phone JOSHUA MORATAYA Unavailable [phone] [facility], [employer] Unavailable Unavailable Allergies No Known [...] Problem Gastro-esophagea l reflux disease without esophagitis (206087760) Gastro-esophage al reflux disease without esophagitis (K21.9) Active confirmed Problem Allergic rhinitis caused by pollen (19064810) Seasonal allergic rhinitis due to pollen (J30.1) Active confirmed Problem Dysphagia (86226564) Dysphagia, unspecified type (R13.10) Active confirmed Problem Allergic rhinitis caused by pollen (disorder) (07547087) Allergic rhinitis due to pollen (J30.1) 8 Active confirmed Problem Chronic maxillary sinusitis (00001610) Chronic maxillary sinusitis (J32.0) 8 Active confirmed Problem Deviated nasal septum (043113189) Deviated nasal septum (J34.2) 8 Active confirmed Problem Hypertrophy of nasal turbinates (21975960) Hypertrophy of nasal turbinates (J34.3) 8 Active confirmed Plan Of Treatment No Information Insurance Providers Payer Name Payer Address Payer Phone Subscriber Number Group Number Insured Name Patient Relationship to Insured Coverage Start Date Coverage End Date [facility] [address] [place] [address] [id number] Rickey Santamaria Self - patient is the insured Medical (General) History Medical History History ICD Code sinusitis Nasal Allergies Surgical History Surgery Date(Month/Year) latera implantation, revision submucousa resection of turbinates 2018 Tonsillectomy 10/11/2019
--- OUTSIDE RECORDS SUMMARY | 2025-01-15 11:27 | XMS_ITS | Clinical Summary ---
Author Organization [facility] ity Address [address] [place] [id number] Care Team Providers Care Site Specialist Name Role Phone Unavailable Primary Care [...]
== END 2025-01-15 10:07 | disposition home or self-care (01) ==
LOC: HO.HGS 09:36
PROVIDERS: PCP Physician Assistant Medical
DX: K40.91 Unilateral inguinal hernia, without obstruction or gangrene, recurrent (principal)
CPT/HCPCS: 99024

== ENCOUNTER → 2025-01-15 09:35 | Outpatient (BNVA) | payer OTHER, SELFPAY | PROVIDERS: PCP Physician Assistant Medical | DX: Z48.815 Encounter for surgical aftercare following surgery on the digestive system (principal); Z98.890 Other specified postprocedural states | CPT/HCPCS: 99212 ==

== ENCOUNTER 2025-01-21 09:09 | Outpatient (AMB) | payer OTHER, SELFPAY ==
--- NOTE | 2025-01-21 09:17 | A.OFFVIS_ITS ---
Vital Signs 01/21/25 09:33 Height 5 ft 10 in Weight 230 lb BMI 33.0 Intake Visit Reasons: OV fu LT knee pain- paperwork Intake Note: Rickey is a 39 year old male who presents today for follow up of his Left Knee Patellofemoral Arthralgia. Patient was last evaluated 07/17/24. At that time he was given a left knee cortisone injection and referred to Physical Therapy. Patient reports today that due to his hernia surgery back in 09/2024 he was told to stop attending physical therapy and he noted that he has not called to re continue treatment for his knee. He is here for a form. Please assess restrictions. Allergies No Known Allergies Allergy (Verified 01/15/25 09:49) HPI HPI OV fu LT knee pain- paperwork: Details: Rickey is a 39 year old male who presents today for follow up of his Left Knee Patellofemoral Arthralgia. Patient was last evaluated 07/17/24. At that time he was given a left knee cortisone injection and referred to Physical Therapy. Patient reports today that due to his hernia surgery back in 09/2024 he was told to stop attending physical therapy and he noted that he has not called to re continue treatment for his knee. He is here for a form. Please assess restrictions. PFSH Medical History Hernia Recurrent right inguinal hernia Hypertriglyceridemia Low HDL (under 40) Pure hypercholesterolemia, unspecified Hyperlipidemia Elevated liver enzymes Abdominal pain Altered bowel function Erectile dysfunction Rt inguinal pain Annual physical exam Right testicular pain GERD (gastroesophageal reflux disease) Rosacea Somnolence, daytime Retrognathia Obesity (BMI 30.0-34.9) Anxiety and depression Obstructive sleep apnea History of esophageal dilatation Esophagitis Surgical History Hx of right inguinal hernia repair (12/17/24) History of vasectomy Bilateral inguinal hernia (BIH) (03/28/24) History of esophagogastroduodenoscopy (EGD) H/O nasal septoplasty History of tonsillectomy History of knee surgery Family History Father Hypertension Heart attack, Onset Age: 35 Mother No problems noted. 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 Current occupational exposures/hazards: No Cognitive needs: No Hearing needs: No Vision needs: Yes Review of Systems Const All systems reviewed & are unremarkable except as noted in HPI and below Physical Exam Vital Signs: BMI result Body Mass Index 33.0 Extrem Other: On inspection, there is noted to be increased prominence of the left tibial tubercle when compared to the right, as well as a well-healed surgical scar in the anterior aspect of the left knee No edema, erythema, ecchymosis noted No lacerations, abrasions, open areas No evidence of infection Tenderness to palpation over the left tibial tubercle, medial and lateral joint lines, peripatellar and suprapatellar regions of the left knee No tenderness to palpation of the posterior left knee Patient is able to extend the left knee to 0 degrees and flex to approximately 120 degrees without difficulty No ligamentous laxity noted Distal sensation intact Capillary refill brisk Assessment & Plan Assessment & Plan (1) Patellofemoral arthralgia of left knee: Code(s): M25.562 - Pain in left knee Category: Medical (2) Left knee pain: Code(s): M25.562 - Pain in left knee Category: Medical Plan 1. Patellofemoral arthritis of left knee Patient is educated about this condition Patient is educated about the typical treatment course At this time, patient is held examined from the Intense run and other running parts of his testing for the , however he is cleared for a 2 km walk and all other forms of testing Patient states that he did get good relief from previous injection, and would be interested in trying another 1 at some point soon Therefore, patient is booked an appointment to see me in 3-4 weeks for repeat steroid injection of the left knee If this injection proves ineffective, I feel it would be best for us to move towards other forms of treatment, such as viscosupplementation injections Patient understands this in his amenable to this plan Continue with physical therapy Follow-up in 3-4 weeks, sooner with any acute concerns Coding Level of Care Code Est Pt Level 3 (43228) Diagnoses Patellofemoral arthralgia of left knee M25.562 Left knee pain M25.562
[2025-01-21 09:33] VITALS: BMI 33.0
--- OUTSIDE RECORDS SUMMARY | 2025-01-21 09:52 | XMS_ITS | Clinical Summary ---
Author Organization [facility] ity Address [address] [place] [phone] Care Team Providers Care Logistics Vice President Name Role Phone Unavailable Primary Care Provider [...]
--- OUTSIDE RECORDS SUMMARY | 2025-01-21 09:52 | XMS_ITS | Patient Health Record ---
Author Organization [facility] lunch[facility] Address [address] [place] [address] Care Team Providers Care Assistant Drafter Name Role Phone JOSHUA MORATAYA Unavailable [phone] [facility], [facility] Unavailable Unavailable Allergies No Known [...] Problem Gastro-esophagea l reflux disease without esophagitis (952314925) Gastro-esophage al reflux disease without esophagitis (K21.9) Active confirmed Problem Allergic rhinitis caused by pollen (74772271) Seasonal allergic rhinitis due to pollen (J30.1) Active confirmed Problem Dysphagia (62034679) Dysphagia, unspecified type (R13.10) Active confirmed Problem Allergic rhinitis caused by pollen (disorder) (52488212) Allergic rhinitis due to pollen (J30.1) 8 Active confirmed Problem Chronic maxillary sinusitis (53461147) Chronic maxillary sinusitis (J32.0) 8 Active confirmed Problem Deviated nasal septum (522441517) Deviated nasal septum (J34.2) 8 Active confirmed Problem Hypertrophy of nasal turbinates (19874859) Hypertrophy of nasal turbinates (J34.3) 8 Active confirmed Plan Of Treatment No Information Insurance Providers Payer Name Payer Address Payer Phone Subscriber Number Group Number Insured Name Patient Relationship to Insured Coverage Start Date Coverage End Date [facility] [address] [place] [address] [id number] Rickey Santamaria Self - patient is the insured Medical (General) History Medical History History ICD Code sinusitis Nasal Allergies Surgical History Surgery Date(Month/Year) latera implantation, revision submucousa resection of turbinates 2018 Tonsillectomy 10/11/2019
== END 2025-01-21 10:12 | disposition home or self-care (01) ==
LOC: HO.HOS 09:09
PROVIDERS: PCP Physician Assistant Medical
DX: M25.562 Pain in left knee (principal)
CPT/HCPCS: 99213

== ENCOUNTER → 2025-01-21 09:09 | Outpatient (BNVA) | payer OTHER, SELFPAY | PROVIDERS: PCP Physician Assistant Medical | DX: M22.2X2 Patellofemoral disorders, left knee (principal); M25.562 Pain in left knee | CPT/HCPCS: 99212 ==

== ENCOUNTER 2025-02-18 08:34 | Outpatient (AMB) | payer OTHER, SELFPAY ==
--- NOTE | 2025-02-18 08:39 | MHC.OFFVIS ---
Intake Visit Reasons: Inj-left knee injection Allergies No Known Allergies Allergy (Verified 02/18/25 10:08) HPI HPI Inj-left knee injection: Details: Patient is a 39-year-old male who presents for left knee injection. Denies any new medical diagnoses or medications since previous evaluation. Patient would like to proceed with injection at this time. [facility] Medical History Hernia Recurrent right inguinal hernia Hypertriglyceridemia Low HDL (under 40) Pure hypercholesterolemia, unspecified Hyperlipidemia Elevated liver enzymes Abdominal pain Altered bowel function Erectile dysfunction Rt inguinal pain Annual physical exam Right testicular pain GERD (gastroesophageal reflux disease) Rosacea Somnolence, daytime Retrognathia Obesity (BMI 30.0-34.9) Anxiety and depression Obstructive sleep apnea History of esophageal dilatation Esophagitis Surgical History Hx of right inguinal hernia repair (12/17/24) History of vasectomy Bilateral inguinal hernia (BIH) (03/28/24) History of esophagogastroduodenoscopy (EGD) H/O nasal septoplasty History of tonsillectomy History of knee surgery Family History Father Hypertension Heart attack, Onset Age: 35 Mother No problems noted. 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 Current occupational exposures/hazards: No Cognitive needs: No Hearing needs: No Vision needs: Yes Office Procedures Joint Inj/Aspir; Non-Pain Clin Joint Injection/Drain Prep: site was prepped using aseptic technique and injection warnings given Approach Used: anterolateral Procedure: The patient tolerated the procedure well, but had some pain with the injection and there was some relief with the local anesthesia Shoulders, Hips, Knees, Knee Large Joint Injection 20824: Left Knee Coding Procedure code (CPT) selection complete Assessment & Plan Assessment & Plan (1) Patellofemoral arthralgia of left knee: Code(s): M25.562 - Pain in left knee Category: Medical (2) Left knee pain: Code(s): M25.562 - Pain in left knee Category: Medical Plan 1. Patellofemoral arthralgia and lateralization of patella of left knee Patient is educated about this condition and the treatment options available Patient would like to proceed with steroid injection at this time The risks and benefits of a steroid injection including but not limited to risk of damage to blood vessels, nerves, tendons, infection, skin bleaching, failure to improve symptoms, increased pain, and possible need for further injections or other intervention were discussed with the patient and the patient wishes to proceed with the steroid injection. Once consent was obtained, I aseptically prepped the area over the anterolateral joint line of the left knee. I then injected the area over the lateral epicondyle with a combination of 80 mg of dexamethasone and 8 mL of 1% lidocaine. The patient tolerated the procedure well with no complications. If the patient continues to experience symptoms over the following few weeks or months, they can make an appointment to return and discuss alternative treatment measures, such as physical therapy. Patient was also referred to physical therapy Follow-up prn Coding Level of Care Code Procedure Only Diagnoses Patellofemoral arthralgia of left knee M25.562 Left knee pain M25.562 CPT Codes Shoulders, Hips, Knees, - Knee Large Joint Injection 13657: Left Knee ([id number])
--- OUTSIDE RECORDS SUMMARY | 2025-02-18 08:39 | XMS_ITS | Clinical Summary ---
Author Organization [facility] Address [address] [place] [id number] Care Team Providers Care Electronics Hardware Design Engineer Name Role Phone Unavailable Primary Care Provider [...] Depression Screening 03/20/2024 COVID-19 Vaccine (1 - 2024-2 6 season) 2024 Influenza Vaccine (#1) 2024 RSV [...]
== END 2025-02-18 09:11 | disposition home or self-care (01) ==
LOC: HO.HOS 08:34
PROVIDERS: PCP Physician Assistant Medical
DX: M25.562 Pain in left knee (principal)
CPT/HCPCS: 20610

== ENCOUNTER → 2025-02-18 08:34 | Outpatient (BNVA) | payer OTHER, SELFPAY | PROVIDERS: PCP Physician Assistant Medical | DX: G47.33 Obstructive sleep apnea (adult) (pediatric) (principal); E66.9 Obesity, unspecified; M26.19 Other specified anomalies of jaw-cranial base relationship; M25.562 Pain in left knee; Z68.34 Body mass index [BMI] 34.0-34.9, adult | CPT/HCPCS: 20610; 99212; J0665; J1100; J2003 ==

== ENCOUNTER 2025-02-18 09:57 | Outpatient (AMB) | payer OTHER, SELFPAY ==
[2025-02-18 10:02] VITALS: BP 100/62; PULSE 72; O2SAT 96; BMI 34.3
--- NOTE | 2025-02-18 10:02 | A.OFFVIS_ITS ---
Vital Signs 02/18/25 10:02 Height 5 ft 11 in Weight 245 lb 13.047 oz BMI 34.3 BP 100/62 Blood Pressure Location Lt brachial Position Sitting Pulse 72 Pulse Source Pulse Oximeter Pulse Oximetry (%) 96 Oxygen Delivery Method Room Air Intake Visit Reasons: Obstructive sleep apnea Intake Note: pt is here for follow up and states he is doing well. Received a new cpap about 2 years ago, [facility]. 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 He comes for follow-up after 2 years as was requested by DME provider. He claims that he uses CPAP every night and sleeps well. He has a fullface mask which is comfortable and he has no issues. Has put on about 12 lb of weight in the last 2 years and this he claims that after he got he lost track of his diet. Now he is back on watching his diet and started doing exercise., [facility] Medical History Hernia Recurrent right inguinal hernia Hypertriglyceridemia Low HDL (under 40) Pure hypercholesterolemia, unspecified Hyperlipidemia Elevated liver enzymes Abdominal pain Altered bowel function Erectile dysfunction Rt inguinal pain Annual physical exam Right testicular pain GERD (gastroesophageal reflux disease) Rosacea Somnolence, daytime Retrognathia Obesity (BMI 30.0-34.9) Anxiety and depression Obstructive sleep apnea History of esophageal dilatation Esophagitis Surgical History Hx of right inguinal hernia repair (12/17/24) History of vasectomy Bilateral inguinal hernia (BIH) (03/28/24) History of esophagogastroduodenoscopy (EGD) H/O nasal septoplasty History of tonsillectomy History of knee surgery Family History Father Hypertension Heart attack, Onset Age: 35 Mother No problems noted. 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 Current occupational exposures/hazards: No Cognitive needs: No Hearing needs: No Vision needs: Yes Review of Systems Const All systems reviewed & are unremarkable except as noted in HPI and below Eyes Reports no additional complaints ENT Reports no additional complaints and Reports dysphagia Card Denies chest pain, Denies irregular heart rhythm, Denies leg edema and Denies dyspnea on exertion Resp Denies cough, Denies dyspnea on exertion and Denies wheezing GI Reports dysphagia and Reports heartburn (Being treated for GERD, has had esophageal dilatation.) Reports no additional complaints Musc Reports no additional complaints Skin/Breast Reports system reviewed and no additional complaints, except as documented Neuro Reports no additional complaints Psych Reports depression (Past history but not now) Endo Reports no additional complaints Keo/Lymph Reports no additional complaints Aller/Immun Reports no additional complaints and Denies wheezing Physical Exam Vital Signs: Last Vital Signs Pulse 72 02/18/25 10:02 BP 100/62 02/18/25 10:02 Pulse Ox 96 02/18/25 10:02 Oxygen Delivery Method Room Air 02/18/25 10:02 BMI result Body Mass Index 34.3 He is moderately obese, with a round face, and slight regression of the chin . Const General: healthy appearing, comfortable, no acute distress, alert and awake Orientation/consciousness: patient oriented x3 HEENT Head: Yes normal to inspection General nose exam: No nasal polyps present and No nasal discharge present Face and sinus: Yes sinuses nontender Mouth: oropharynx abnormals (Somewhat crowded, Mallampati class 3) Throat: Yes posterior oropharynx normal and Yes other (He does have mild Retro ganthia of the lower jaw ) Eyes General: appearance normal, both eyes and all related structures Neck Neck: Yes normal visual inspection, Yes no lymphadenopathy, Yes trachea midline, Yes no JVD and Yes other (Neck circumference 18 in) Thyroid: Thyroid normal Chest Chest palpation & inspection: normal inspection of the chest, normal palpation of entire chest wall and no tenderness Resp Effort & Inspection: normal respiratory effort Auscultation: clear to auscultation bilaterally, no crackles and no wheezes Cardio Palpation: normal PMI Rate: regular rate Rhythm: regular rhythm Heart sounds: no gallops and no murmurs Peripheral pulses: Peripheral pulses 2+ throughout GI Palpation (GI): Soft to palpation, nontender, No hepatosplenomegaly present and no masses Auscultation: normal bowel sounds Back/Spine/Pelvis Thoracic/Lumbar Spine: thoracic and lumbar spine normal to inspection Skin General skin exam: no rashes or lesions noted Neuro General: patient oriented x3 and no focal motor deficits Cranial nerves: Yes CN's II-XII intact bilaterally Extrem General: Yes normal to inspection, Yes no clubbing, cyanosis or edema and Yes no calf tenderness Psych Speech and movement: Normal speech and movement present Results Reviewed Results Reviewed: Compliance report for the last 30 nights shows that he uses the CPAP 100% of the nights. Average usage for night 6 hours 49 minutes. Pressure 13 cm, fullface mask. No significant air leak. Residual AHI only 1.0 Assessment & Plan Assessment & Plan (1) Obesity (BMI 30.0-34.9): Comment: He is moderately obese with a round face. 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 He does do regular exercise. Has not been able to lose much weight. Has actually gained about 12 lb of weight in the last 2 years. He admits that he was not watching his diet and not exercising regularly. 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 Code(s): M26.19 - Other specified anomalies of jaw-cranial base relationship Category: Medical Plan: Patient is aware of this issue (3) Obstructive sleep apnea: Comment: Known to have obstructive sleep apnea since 2018. Has a new CPAP device since 2022, with auto Pap mode and fullface mask Has been using CPAP regularly and sleeping very good. Code(s): G47.33 - Obstructive sleep apnea (adult) (pediatric) Category: Medical Plan: Commended for good compliance and advised to keep on using the CPAP regularly every night. Revisit at least once a year. Coding Level of Care Code Est Pt Level 3 (87784) Diagnoses Obesity (BMI 30.0-34.9) E66.9 Retrognathia M26.19 Obstructive sleep apnea G47.33
== END 2025-02-18 10:17 | disposition home or self-care (01) ==
LOC: HO.HPS 09:58
PROVIDERS: PCP Physician Assistant Medical; Visit Provider Internal Medicine
DX: E66.9 Obesity, unspecified (principal); M26.19 Other specified anomalies of jaw-cranial base relationship; G47.33 Obstructive sleep apnea (adult) (pediatric)
CPT/HCPCS: 99213

== ENCOUNTER 2025-02-24 07:50 | Outpatient (REF) | payer OTHER, SELFPAY ==
--- NOTE | ~2025-02-24 | CT_ITS ---
EXAMINATION: CT ABDOMEN PELVIS ENTEROGRAPHY WITHOUT IV CONTRAST HISTORY: ileitis COMPARISON: Comparison is made with the prior CT of the abdomen dated 11/12/2024. TECHNIQUE: CT enterography of the abdomen and pelvis was performed following administration of 85 mL Omnipaque 350 using standard departmental protocol. Coronal and sagittal reformatted images were generated and reviewed. The patient received low-density oral contrast material for CT enterography. This CT exam was performed with one or more of the following dose reduction techniques: automated exposure control, adjustment of the mA and/or kV according to patient size, use of iterative reconstruction technique. DLP: 745 mGy-cm FINDINGS: LOWER CHEST: The visualized lung bases are clear. There is no pleural effusion. The descending thoracic aorta is seen in the right hemithorax. CARDIOVASCULATURE: The heart is normal in size. There is no pericardial effusion. LIVER: The liver is normal in size and contour. No liver mass is identified. The hepatic and portal veins are patent. GALLBLADDER / BILE DUCTS: The gallbladder is unremarkable. There is no intra or extrahepatic biliary ductal dilatation. SPLEEN: The spleen is normal in size. No focal splenic lesion is identified. PANCREAS: The pancreas is unremarkable in appearance. ADRENAL GLANDS: Within normal limits. KIDNEYS/RETROPERITONEUM: No renal calculi are identified. There is no hydronephrosis. No renal masses are identified. LYMPH NODES: No abdominal or pelvic lymphadenopathy. VASCULATURE: The abdominal aorta is normal in caliber. MESENTERY/PERITONEUM: No free fluid. No masses. There is no free intraperitoneal gas. STOMACH: The stomach is unremarkable. SMALL BOWEL: The small bowel is normal in caliber. There is no abnormal small bowel thickening or callosal hyperenhancement. COLON: The colon is unremarkable. APPENDIX: Normal. URINARY BLADDER/PELVIC ORGANS: The urinary bladder is unremarkable. The prostate is normal in size. BONES / SOFT TISSUES: No suspicious bony or soft tissue abnormalities. CT/CT enterography IMPRESSION: 1. Unremarkable CT enterography examination. 2. The descending thoracic aorta is noted in the right hemithorax. 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 This could be confirmed with chest x-ray. Electronically signed by: Tobias Diaz MD 02/24/2025 09:42 AM [facility]
--- OUTSIDE RECORDS SUMMARY | 2025-02-24 07:57 | XMS_ITS | Patient Health Record ---
Author Organization [facility] Address [address] [place] [address] Care Team Providers Care Hotel Services Supervisor Name Role Phone JOSHUA MORATAYA Unavailable [phone] [facility], [facility] Unavailable Unavailable Allergies No Known [...] Problem Gastro-esophagea l reflux disease without esophagitis (092784853) Gastro-esophage al reflux disease without esophagitis (K21.9) Active confirmed Problem Allergic rhinitis caused by pollen (73431156) Seasonal allergic rhinitis due to pollen (J30.1) Active confirmed Problem Dysphagia (81978477) Dysphagia, unspecified type (R13.10) Active confirmed Problem Allergic rhinitis caused by pollen (disorder) (04309028) Allergic rhinitis due to pollen (J30.1) 8 Active confirmed Problem Chronic maxillary sinusitis (00636212) Chronic maxillary sinusitis (J32.0) 8 Active confirmed Problem Deviated nasal septum (579081002) Deviated nasal septum (J34.2) 8 Active confirmed Problem Hypertrophy of nasal turbinates (07170536) Hypertrophy of nasal turbinates (J34.3) 8 Active confirmed Plan Of Treatment No Information Insurance Providers Payer Name Payer Address Payer Phone Subscriber Number Group Number Insured Name Patient Relationship to Insured Coverage Start Date Coverage End Date [facility] [address] [place] [phone] [id number] Rickey Santamaria Self - patient is the insured Medical (General) History Medical History History ICD Code sinusitis Nasal Allergies Surgical History Surgery Date(Month/Year) latera implantation, revision submucousa resection of turbinates 2018 Tonsillectomy 10/11/2019
--- OUTSIDE RECORDS SUMMARY | 2025-02-24 07:58 | XMS_ITS | Clinical Summary ---
Author Organization [facility] Address [address] [place] [id number] Care Team Providers Care Director Life Name Role Phone Unavailable Primary Care Provider [...]
[2025-02-24] MEDS: iohexoL 350 MG/ML 100 ML INFUS..BTL IV (09:30)
[2025-02-24] MEDS: Sorbitol/Mannit/Xanth Imaging 500 ML LIQUID 1500 ML PO (09:31)
== END 2025-02-24 07:51 | disposition home or self-care (01) ==
LOC: HO.CT 07:50
PROVIDERS: PCP Physician Assistant Medical; Visit Provider Internal Medicine
DX: R19.8 Other specified symptoms and signs involving the digestive system and abdomen (principal); K52.9 Noninfective gastroenteritis and colitis, unspecified
CPT/HCPCS: 74177; Q9967

== ENCOUNTER → 2025-02-24 07:52 | Outpatient (BNV) | payer OTHER, SELFPAY | PROVIDERS: PCP Physician Assistant Medical; Visit Provider Radiology Diagnostic Radiology | DX: K52.9 Noninfective gastroenteritis and colitis, unspecified (principal) | CPT/HCPCS: 74177 ==